=== PATIENT | male | born 1950 | race Two or more races ===

== ENCOUNTER → 2020-06-12 14:38 | Outpatient (BNVA) | payer MEDICARE, MEDICAID, SELFPAY | PROVIDERS: PCP Internal Medicine; Referring Provider Internal Medicine; Visit Provider Internal Medicine Cardiovascular Disease | DX: R42 Dizziness and giddiness (principal); I73.9 Peripheral vascular disease, unspecified; I25.10 Atherosclerotic heart disease of native coronary artery without angina pectoris; Z86.73 Personal history of transient ischemic attack (TIA), and cerebral infarction without residual deficits; I25.2 Old myocardial infarction; Z79.82 Long term (current) use of aspirin; Z79.899 Other long term (current) drug therapy | CPT/HCPCS: 99204 ==

== ENCOUNTER 2020-06-26 10:01 | Outpatient (REF) | payer MEDICARE, SELFPAY ==
--- NOTE | 2020-06-26 | US_ITS ---
EXAMINATION: COLOR-FLOW DUPLEX IMAGING OF THE BILATERAL LOWER EXTREMITY ARTERIAL SYSTEM. VELOCITY MEASUREMENTS THROUGHOUT THE FEMORAL ARTERIES WITH ANKLE-BRACHIAL PERIPHERAL ARTERIAL TESTING. Interventional Radiologist: Jesus Brooks M.D., F.S.I.R., F.A.C.R. CLINICAL INFORMATION: This is a 70-year-old male with peripheral arterial disease. The patient status post extension of a left femoral-popliteal bypass graft. RIGHT FEMORAL RUNOFF VELOCITIES: The right common femoral artery measures 162 cm/s and biphasic. The right profunda femoral artery is 208 cm/s and is biphasic. Right proximal superficial femoral artery measures 184 cm/s and biphasic. Mid superficial femoral artery is 101 cm/s and biphasic. Distal right superficial femoral artery measures 98 cm/s and is biphasic. Right popliteal velocity measures 89 cm/s and is biphasic. The posterior tibial artery velocity measures 23 cm/s and was biphasic. The right ankle-brachial index measures 1.18. LEFT FEMORAL RUNOFF VELOCITIES: The left common femoral artery measures 247 cm/s and triphasic. The left profunda femoral artery is 233 cm/s and is biphasic. Left proximal superficial femoral artery measures 424 cm/s and triphasic. Mid superficial femoral artery is occluded Distal left superficial femoral artery is occluded Left popliteal artery is occluded. The posterior tibial artery velocity measures 27 cm/s and was monophasic. The left peroneal artery appears to be occluded. The left ankle-brachial index measures 1.18. The patient is status post excision of a left femoral-popliteal bypass graft. There is a linear fluid collection which tracks beneath the scar where the graft was located. This collection was not measured. It is small in overall diameter. Atherosclerotic plaque is seen throughout the arteries bilaterally. US/US arterial duplex LE BI IMPRESSION: 1. The ankle-brachial indices appear normal bilaterally. 2. There are elevated velocities in the left common femoral artery and proximal superficial femoral artery and profunda femoral artery. This is consistent with hemodynamically significant high-grade stenoses in the proximal inflow. 3. There is likely hemodynamically significant stenosis in the right profunda femoral artery. There may be a developing hemodynamically significant stenosis in the proximal right superficial femoral artery. 4. The patient is status post excision of a left femoral-popliteal bypass graft. There is a linear fluid collection which tracks beneath the scar where the graft was located. This collection was not measured. It is small in overall diameter.
== END 2020-06-26 10:02 | disposition home or self-care (01) ==
LOC: HO.US 10:01
PROVIDERS: Visit Provider Surgery Vascular Surgery
DX: I73.9 Peripheral vascular disease, unspecified (principal)
CPT/HCPCS: 93923; 93925

== ENCOUNTER 2020-06-27 21:36 | Emergency (ER) | payer MEDICARE, SELFPAY ==
[2020-06-27 21:45] VITALS: BP 133/54; PULSE 54; RESP 15; TEMP 37.6; O2SAT 97; BMI 26.6
--- NOTE | 2020-06-27 22:45 | ED.BACK ---
HPI - Back Pain/Injury General Chief Complaint: Back Pain/Injury Stated Complaint: LOWER BACK PAIN S/P FALL Time Seen by Provider: 06/27/20 22:12 Source: patient and paraprofessional interpreter Mode of arrival: EMS Limitations: physical limitation History of Present Illness HPI Narrative: this is a 70-year-old male presents with persistent lower back pain that he states was exacerbated when he slipped off of the edge of the bed this morning landing on his bottom. He denies any hit to the head or loss of consciousness but states that thereafter he was unable to ambulate with his walker like he normally does and laid in bed all day. He states he lives with his daughter and denies any symptoms of urinary pain/ burning /frequency or incontinence, fevers, chills, dizziness, and denies any numbness / tingling into his lower extremities but states that he has significant weakness which requires him to use a walker. Related Data Home Medications Medication Instructions Recorded Confirmed aspirin 81 mg tablet,delayed 81 mg PO DAILY 06/12/20 06/27/20 release atorvastatin 20 mg tablet 20 mg PO DAILY 06/12/20 06/27/20 clopidogrel 75 mg tablet 75 mg PO DAILY 06/12/20 06/27/20 gabapentin 300 mg capsule 300 mg PO TID 06/12/20 06/27/20 insulin glargine 100 unit/mL (3 See Rx Instructions SUBCUT DAILY 06/12/20 06/27/20 mL) subcutaneous pen ml ipratropium 20 mcg-albuterol 100 1 puff INHALATION Q4H 06/12/20 06/27/20 mcg/actuation mist for inhalation meclizine 25 mg tablet 25 mg PO DAILY 06/12/20 06/27/20 metformin 500 mg tablet 500 mg PO BID 06/12/20 06/27/20 omeprazole 10 mg capsule,delayed 10 mg PO DAILY 06/12/20 06/27/20 release ondansetron HCl 8 mg tablet 8 mg PO Q8H 06/12/20 06/27/20 Allergies Allergy/AdvReac Type Severity Reaction Status Date / Time No Known Allergies Allergy Verified 06/27/20 21:59 [No Known Allergies*] Review of Systems Review of Systems: Pertinent positives and negatives as stated in HPI 10 point review of systems otherwise negative. PMFSH Past Medical History Source: nursing notes reviewed Medical History CVA (cerebral vascular accident) Diabetes Dizziness Infection of vascular bypass graft Myocardial infarct, old PVD (peripheral vascular disease) Surgical History History of cardiac catheterization History of femoropopliteal bypass Family History Family History Father Diabetes Mother Diabetes Depression Alzheimer disease Social History Social History Alcohol intake: never Smoking Status: Never smoker Tobacco Type: Cigarette Use of substances other than those prescribed or required for medical reasons: No Advance Directives: No Advance Directives Information Provided: Yes Physical Exam Vital Signs: Vital Signs: Vital Signs Temp Pulse Resp BP Pulse Ox 06/28/20 06:00 52 15 119/57 L 94 06/28/20 04:00 60 15 131/56 L 98 06/28/20 02:00 84 15 134/82 96 06/28/20 00:00 57 15 153/55 H 98 06/27/20 22:54 99.6 F 54 15 133/54 L 97 06/27/20 21:45 99.6 F 54 15 133/54 L 97 Body Mass Index 26.6 VITAL SIGNS: Reviewed. GENERAL: Well developed, well nourished, in no acute distress. HEAD: Normocephalic/atraumatic, EYES: PERRLA, EOMI intact without pain, no nystagmus/pallor/icterus noted EARS: Ext canals without abnormality, TMs non-bulging and non-erythematous NOSE: Nares patent bilateral OROPHARYNX: no oral lesions noted, posterior pharynx clear and non-erythematous without noted tonsillar enlargement/erythema/exudates NECK: Supple, no adenopathy LUNGS: Normal breath sounds. No adventitious sounds or accessory muscle use. SpO2<97%> CARDIOVASCULAR: Regular rate and rhythm without noted murmurs, no JVD or lower extremity edema. ABDOMEN: Soft, non-tender, non-distended with bowel sounds. No rigidity. No guarding. No palpable masses or hernias noted MUSCULOSKELETAL: No tenderness, deformities, or effusions noted on gross inspection. BACK: No appreciated muscle spasm, no midline vertebral tenderness EXTREMITIES: No cyanosis, clubbing or edema. SKIN: Inspection of the skin reveals no rashes, ulcerations, jaundice, pallor, or petechiae. NEUROLOGIC: Alert and oriented x 4. Strength 4/5 on left lower extremity and 5/5 on right lower extremity with sensation to light touch were grossly intact x 4. Course Course Course Narrative: This is a 70-year-old male with history and clinical presentation suggestive of possible acute on chronic back pain and on review of documentation is noted to be status post vertebroplasty with significant lumbar chronic changes when evaluated with CT scan here in this emergency department. On review of lab work there are no acute changes when compared to prior and there is no evidence of UTI. With an attempt to ambulate the patient at bedside there was concern regarding his ability to remain stable despite not having his walker. An attempt was made to reach out to his family, specifically his daughter who is listed as his SOLUTIONS ARCHITECT CONSULTANT, however we were unable to contact them. The decision was made to have this patient evaluated by Physical therapy as well as Case Management in the morning for possible increase in in-home services versus possible placement, but this will require a discussion with the family as well. MDM - Back Pain/Injury Lab Data Result diagrams: 06/27/20 23:53 06/27/20 23:53 Labs: Lab Results 06/27/20 06/27/20 06/27/20 Range/Units 23:53 23:53 23:53 WBC 4.1 L (4.8-10.8) X10*3/uL RBC 4.01 L (4.60-5.80) X10*6/uL Hgb 11.2 L (14.0-18.0) g/dl Hct 34.5 L (42-52) % MCV 86.0 (80-98) fL MCH 27.9 (27.0-33.0) pg MCHC 32.5 (31.0-36.0) g/dl RDW 14.0 (11.0-16.0) % Plt Count 170 (160-400) X10*3/uL MPV 11.7 (9.4-12.4) fL Immature Gran % (Auto) 0.2 (0.0-0.4) % Neut % (Auto) 58.2 (45-73) % Lymph % (Auto) 27.7 (20-40) % [place] % (Auto) 13.0 H (2-11) % Eos % (Auto) 0.2 (0-4) % Baso % (Auto) 0.7 (0-2) % Lymph # (Auto) 1.1 L (1.2-4.9) X10*3/uL [place] # (Auto) 0.5 (0.1-1.2) X10*3/uL Eos # (Auto) 0.0 (0.0-0.4) X10*3/uL Baso # (Auto) 0.0 (0.0-0.2) X10*3/uL Abs Immat Gran (auto) 0.01 (0.00-0.03) X10*3/uL Absolute Neuts (auto) 2.4 (2.0-8.3) X10*3/uL Absolute Nucleated RBC 0.000 (0.0-0.012) X10*3/uL Nucleated RBC % (auto) 0.0 (0.0-0.2) /100WBC Sodium 140 (135-145) mmol/L Potassium 4.1 (3.3-5.1) mmol/l Chloride 105 (96-108) mmol/L Carbon Dioxide 28 (22-29) mmol/L Anion Gap 11 L (12-20) BUN 21 H (9-16) mg/dL Creatinine 1.10 (0.5-1.4) mg/dL Estim Creat Clear Calc 55.1 Estimated GFR > 60 Random Glucose 100 (60-115) mg/dL Calcium 8.9 (8.4-10.2) mg/dL Total Bilirubin 0.4 (0.0-1.0) mg/dL AST 28 (5-37) U/L ALT 22 (0-40) U/L Alkaline Phosphatase 115 (39-117) U/L Total Protein 7.4 (6.5-8.0) g/dL Albumin 4.1 (3.5-5.0) g/dL Urine Color YELLOW Urine Appearance CLEAR Urine pH 6.0 (5.0-8.0) Ur Specific [place] 1.020 (1.005-1.025) Urine Protein NEG (NEG-TRACE) MG/DL Urine Glucose (UA) NEG (NEG) MG/DL Urine Ketones NEG (NEG) MG/DL Urine Blood NEG (NEG) Urine Nitrite NEG (NEG) Ur Leukocyte Esterase NEG (NEG) Discharge Plan Discharge Patient Disposition: Home, Self-Care Prescriptions: No Action clopidogrel [Plavix] 75 mg tablet 75 mg PO DAILY RF: 0 atorvastatin [Lipitor] 20 mg tablet 20 mg PO DAILY RF: 0 aspirin [Adult Low Dose Aspirin] 81 mg tablet,delayed release (DR/EC) 81 mg PO DAILY RF: 0 gabapentin 300 mg capsule 300 mg PO TID RF: 0 Lantus Solostar U-100 Insulin 100 unit/mL (3 mL) insulin pen See Rx Instructions subcut DAILY RF: 0 Combivent Respimat 20-100 mcg/actuation mist 1 puff inhalation Q4H RF: 0 metformin 500 mg tablet 500 mg PO BID RF: 0 omeprazole 10 mg capsule,delayed release(DR/EC) 10 mg PO DAILY RF: 0 ondansetron HCl 8 mg tablet 8 mg PO Q8H RF: 0 meclizine 25 mg tablet 25 mg PO DAILY RF: 0
[2020-06-27] MEDS: Lidocaine 4 % Patch ADH..PATCH 1 PATCH TRANSDERMA (22:53)
[2020-06-27] MEDS: Acetaminophen 325 MG TABLET 975 MG PO (22:53)
[2020-06-27 22:54] VITALS: BP 133/54; PULSE 54; RESP 15; TEMP 37.6; O2SAT 97
[2020-06-28] VITALS (8 sets, daily range): BP systolic 109–153; BP diastolic 55–82; PULSE 50–84; RESP 15–18; TEMP 36.4–36.6; O2SAT 94–100
[2020-06-28 00:10] LABS: MANUAL DIFF FLAG NO
[2020-06-28 00:11] LABS: Basophils Percent Auto 0.7 % (0-2); Eosinophils Percent Auto 0.2 % (0-4); Hematocrit 34.5 % (42-52); Hemoglobin 11.2 g/dl (14.0-18.0); Imm Gran Abs Auto 0.01 X10*3/uL (0.00-0.03); Imm Gran Pct Auto 0.2 % (0.0-0.4); Lymphocytes Absolute Auto 1.1 X10*3/uL (1.2-4.9); Lymphocytes Percent Auto 27.7 % (20-40); Mean Corpuscular HGB Conc 32.5 g/dl (31.0-36.0); Mean Corpuscular Hemoglobin 27.9 pg (27.0-33.0); Mean Platelet Volume 11.7 fL (9.4-12.4); Monocytes Absolute Auto 0.5 X10*3/uL (0.1-1.2); Neutrophils Absolute Auto 2.4 X10*3/uL (2.0-8.3); Neutrophils Percent Auto 58.2 % (45-73); Platelet Count 170 X10*3/uL (160-400); Red Blood Count 4.01 X10*6/uL (4.60-5.80); White Blood Count 4.1 X10*3/uL (4.8-10.8)
[2020-06-28 00:14] LABS: Glucose Urine UA NEG (NEG); Leukocyte Esterase Urine NEG (NEG); Nitrite Urine NEG (NEG); Urine Blood NEG (NEG); Urine Ketones NEG (NEG); Urine Protein NEG (NEG-TRACE)
[2020-06-28 00:19] LABS: Appearance Urine CLEAR; Color Urine YELLOW
[2020-06-28 00:40] LABS: Alanine Aminotransferase 22 U/L (0-40); Albumin Level 4.1 g/dL (3.5-5.0); Alkaline Phosphatase 115 U/L (39-117); Anion Gap 11 (12-20); Aspartate Amino Transferase 28 U/L (5-37); Bilirubin Total 0.4 mg/dL (0.0-1.0); Blood Urea Nitrogen 21 mg/dL (9-16); Calcium 8.9 mg/dL (8.4-10.2); Carbon Dioxide 28 mmol/L (22-29); Chloride 105 mmol/L (96-108); Creatinine Clr Calc Pharmacy 55.1; Estimated Glomerular Filt Rate > 60; Glucose Random 100 mg/dL (60-115); Potassium 4.1 mmol/l (3.3-5.1); Sodium 140 mmol/L (135-145); Total Protein 7.4 g/dL (6.5-8.0)
--- NOTE | 2020-06-28 01:37 | PC.NURSE ---
Dr Jacobson wanted patient's family contacted to see if family wanted patient placed in a snf for rehab as patient was weak. Prize Jacker called the emergency contact 2 x and left a message.
--- NOTE | 2020-06-28 01:56 | CT_ITS ---
EXAMINATION: CT LUMBAR SPINE WITHOUT CONTRAST CLINICAL INFORMATION: Gait instability and lower back pain, history of vertebroplasty COMPARISON: 02/24/2020 TECHNIQUE: No intravenous contrast was utilized. Multidetector helical imaging was performed through the lumbar spine. Coronal and sagittal reformatted images were created. This CT examination was performed using dose optimization techniques as appropriate, variously including the following: *Automated exposure control *Adjustment of mA and/or kV according to patient size (this includes techniques or standardized protocols for targeted exams where dose is matched to indication/reason for exam; i.e. extremities or head) *Use of iterative reconstruction technique DLP; 489 mGy-cm FINDINGS: Vertebroplasty cement is present in the L1 vertebral body, and there is mild loss of vertebral body height which appears similar to slightly worsened from 02/24/2020. Remaining lumbar vertebral body heights are maintained. Intervertebral disc spaces are relatively well-preserved. Endplate osteophytes are present, most prominently at L4 and L5. No acute fracture is seen. No significant central stenosis is identified, though assessment for this is suboptimal on CT compared to MRI. Sacroiliac joints are intact. There is atherosclerotic calcification along the aorta and iliac arteries. CT/CT lumbar spine wo con IMPRESSION: Status post L1 vertebroplasty with slight loss of height, similar to slightly progressed since 02/24/2020. Otherwise no acute findings identified.
--- NOTE | 2020-06-28 07:46 | PC.NURSE ---
pt ate 100% of breakfast tray.
--- NOTE | 2020-06-28 10:08 | PC.NURSE ---
Physical Therapist and staff medical billing and coding specialist at bedside.
--- NOTE | 2020-06-28 11:28 | MHC.CM.ED ---
Received referral for assessment of d/c needs: Pt resides with his dtr who is his DOCK PUMPER. He uses a walker at baseline and is [place] Speaking only. No clinical findings to support admission but PT eval supports STR stay. Pt is agreeable to referrals. Broad insurance based referrals placed: waiting for acceptance, insurance auth and a negative rapid COVID. CM to follow
--- NOTE | 2020-06-28 14:08 | MHC.CM.ED ---
Addendum entered by Zahida Barakat 06/28/20 16:01: [facility] has not obtained authorization for STR as of this entry: Rapid COVID is still pending: Call placed to pts daughter to update her potential need for pt to board in the ED until the above has been completed. Informed pt using interpreting services. Updated ED RN on above as well. Pt was tentativley booked for 5:30 to [facility] if insurance auth and COVID are completed. Original Note: Pt has been accepted to [facility] for STR pending a negative COVID and insurance authorization. Pt is in agreement with d/c plan: call placed to family per pt request
--- NOTE | 2020-06-28 16:32 | PC.NURSE ---
unable to obtain insurance authorization for [facility] placement. pt and daughter updated.
[2020-06-28 17:23] LABS: SARS COV2 PCR INHOUSE POSITIVE (Negative)
--- NOTE | 2020-06-28 17:35 | PC.NURSE ---
+ covmilagro, pt moved to approrpiate room, report given to victoriano lopez
--- NOTE | 2020-06-28 18:40 | PC.NURSE ---
[facility] IS UNABLE TO ACCOMADATE THIS PATIENT SINCE HE HAS A POSITIVE COVID
[2020-06-28] MEDS: Meclizine HCl 25 MG TABLET PO (18:53)
[2020-06-28] MEDS: metFORMIN HCl 500 MG TABLET PO (22:44)
[2020-06-28] MEDS: Gabapentin 300 MG CAPSULE PO (22:44)
--- NOTE | 2020-06-28 22:52 | PC.NURSE ---
Pt medicated with metformin and gabapentin per nov. Pt resting quietly at this time, offers no new complaints, resp reg and even. Awaiting SNF placement at this time.
[2020-06-29] VITALS (8 sets, daily range): BP systolic 108–125; BP diastolic 52–62; PULSE 52–77; RESP 14–19; TEMP 36.7–37.2; O2SAT 97–99
[2020-06-29] MEDS: Aspirin Enteric Coated 81 MG TABLET.DR PO (09:32)
[2020-06-29] MEDS: Atorvastatin Calcium 20 MG TABLET PO (09:32)
[2020-06-29] MEDS: Gabapentin 300 MG CAPSULE PO ×3 (09:32→21:50)
[2020-06-29] MEDS: Meclizine HCl 25 MG TABLET PO (09:32)
[2020-06-29] MEDS: metFORMIN HCl 500 MG TABLET PO ×2 (09:33→21:50)
[2020-06-29] MEDS: Clopidogrel Bisulfate 75 MG TABLET PO (09:33)
--- NOTE | 2020-06-29 09:38 | PC.NURSE ---
Pharmacy called to address combivent inhaler and will use formulary med instead. awaiting zofran and prilosec (not available in [facility]) Pt ate all of breakfast, accepted other am meds without incident, skin pwd. Pt alert/oriented. Salvad[place] speaking. Able to make needs known. Using bedside urinal.
--- NOTE | 2020-06-29 12:35 | PC.NURSE ---
patient alert to baseline, calm/compliant, vitals stable, emptied 400ml urine-clear/yellow in color, patient currently watching tv, will continue to monitor.
--- NOTE | 2020-06-29 13:00 | MHC.CM.PN ---
Patient is COVID positive, many STR denials. Referred to STR wh take COVID positive patients. CM will continue to follow patient for discharge needs.
--- NOTE | 2020-06-29 15:13 | PC.NURSE ---
patient alert to baseline, patient c/o pain in back, patient was adjusted in bed to his comfort, pt medicated with scheduled gabapentin, pt now watching tv, will continue to monitor.
--- NOTE | 2020-06-29 16:20 | PC.NURSE ---
pt sleeping, woke to verbal stimulus, vss, tv on, patient comfortable at this time, emptied 300ml of clear yellow urine from urinal, will continue to monitor.
--- NOTE | 2020-06-29 18:56 | PC.NURSE ---
patient alert to baseline, presently eating dinner and watching tv, vss, will continue to monitor.
--- NOTE | 2020-06-29 21:54 | PC.NURSE ---
patient alert to baseline, vss, pt watching baseball, pt medicated per order and given a snack per patient request, will work on obtaining a hospital bed for patient and continue to monitor.
--- NOTE | 2020-06-29 22:51 | PC.NURSE ---
patient changed over to hospital bed for increased comfort
--- NOTE | 2020-06-29 22:53 | PC.NURSE ---
report taken from meri lopez. pt changed over to hospital bed. pt did ambulate to bathroom with walker with steady gait, pt in nad, skin wpd. neuro intact.
[2020-06-30] VITALS (9 sets, daily range): BP systolic 111–142; BP diastolic 57–77; PULSE 55–59; RESP 14–18; TEMP 36.6–37.1; O2SAT 98–100
--- NOTE | 2020-06-30 03:01 | PC.NURSE ---
pt resting, equal and non labored rr. call light within reach. nad noted
--- NOTE | 2020-06-30 05:32 | PC.NURSE ---
PT REMAINS SLEEPING AT THIS TIME, NAD NOTED
[2020-06-30 06:39] LABS: Glucose, Whole Blood 130 mg/dL (60-115)
[2020-06-30] MEDS: Meclizine HCl 25 MG TABLET PO (08:16)
[2020-06-30] MEDS: Aspirin Enteric Coated 81 MG TABLET.DR PO (08:16)
[2020-06-30] MEDS: Clopidogrel Bisulfate 75 MG TABLET PO (08:16)
[2020-06-30] MEDS: Atorvastatin Calcium 20 MG TABLET PO (08:16)
[2020-06-30] MEDS: metFORMIN HCl 500 MG TABLET PO ×2 (08:16→21:20)
[2020-06-30] MEDS: Gabapentin 300 MG CAPSULE PO ×3 (08:16→21:20)
--- NOTE | 2020-06-30 08:18 | PC.NURSE ---
pt resting in the stretcher with eyes shut easily arousable, respirations even and unlabored. pt reports some chronic back pain ay 8 at this time. vs stable, pt medicated with morning meds. pt continuos on awating for sniff placment
[2020-06-30] MEDS: Omeprazole 20 MG CAPSULE.DR PO (09:22)
--- NOTE | 2020-06-30 09:23 | PC.NURSE ---
pt provided with his breakfast try
--- NOTE | 2020-06-30 11:28 | PC.NURSE ---
pt is currently sleeping, respirations even and unlabored, in no apparent distress at this time
--- NOTE | 2020-06-30 12:31 | PC.NURSE ---
pt resting watching tv, vs stable, in no apparent distress at this time
--- NOTE | 2020-06-30 15:37 | PC.NURSE ---
pt medicated with his afternoon medication, pt ate 100% of his lunch today, vs stable, in no apparent distress at this time
--- NOTE | 2020-06-30 18:46 | PC.NURSE ---
pt provided with dinner sandra, vs stable in no apparent distress at this time emptied the urianl for the second time today, full with 900ml of yellow urin both times
--- NOTE | 2020-06-30 20:06 | PC.NURSE ---
PT AWAKE AND ALERT, ATE 100% OF HIS DINNER.
--- NOTE | 2020-06-30 21:21 | PC.NURSE ---
patient alert to baseline, medicated with scheduled meds, will continue to monitor.
--- NOTE | 2020-07-01 00:09 | PC.NURSE ---
pt sleeping, wakes when he was checked on. asked patient if he was OK, and he replied yes.
--- NOTE | 2020-07-01 00:48 | PC.NURSE ---
PT SLEEPING WITH GOOD RESPIRATORY EFFORT AND RATE. PT DID NOT WAKE, WHEN RN WALKED INTO ROOM.
[2020-07-01 05:40] VITALS: BP 136/63; PULSE 63; RESP 16; O2SAT 96
--- NOTE | 2020-07-01 05:46 | PC.NURSE ---
pt wakes easily when entering room for vitals. pt pleasant, cooperative. pt's urinal enptied, 300 cc's urine. pt has right lower back pain radiating down right leg.
[2020-07-01] MEDS: Acetaminophen 325 MG TABLET 650 MG PO (06:05)
[2020-07-01 07:17] VITALS: BP 150/63; PULSE 63; RESP 16; TEMP 37.2; O2SAT 977
[2020-07-01 08:25] LABS: Glucose, Whole Blood 141 mg/dL (60-115)
--- NOTE | 2020-07-01 08:39 | MHC.CM.ED ---
PT ASSESSMENT PT MAY GO HOME WITH PT IN HOME. CALL FROM ESTUARDO, INTERPRETIVE NATURALIST, AT [facility] [phone], WITH CONCERNS ABOUT PT SAFELY GOING HOME SECONDARY TO HX OF MULTIPLE FALLS. PT POSITIVE COVID. FAMILY WILL BE TESTED TODAY. WILL REVIEW. [facility] WILLING TO ACCEPT PT. WILL FOLLOW FOR D/C NEEDS.
[2020-07-01 10:00] VITALS: BP 122/56; RESP 65; TEMP 36.9
[2020-07-01] MEDS: Gabapentin 300 MG CAPSULE PO (10:44)
[2020-07-01] MEDS: Omeprazole 20 MG CAPSULE.DR PO (10:44)
[2020-07-01] MEDS: Aspirin Enteric Coated 81 MG TABLET.DR PO (10:44)
[2020-07-01] MEDS: metFORMIN HCl 500 MG TABLET PO (10:45)
[2020-07-01] MEDS: Atorvastatin Calcium 20 MG TABLET PO (10:45)
[2020-07-01] MEDS: Meclizine HCl 25 MG TABLET PO (10:45)
[2020-07-01] MEDS: Clopidogrel Bisulfate 75 MG TABLET PO (10:45)
--- NOTE | 2020-07-01 11:11 | MHC.CM.ED ---
[facility] is not able to accept positive Covid at this time. Referrral resent to [facility] and [facility] facilities. Continue to monitor for d/c needs.
[2020-07-01] MEDS: Albuterol/Iprat 2.5/0.5MG 3 ML AMPUL.NEB INHALE (11:37)
--- NOTE | 2020-07-01 11:54 | MHC.CM.ED ---
[facility]'t have a [facility] to offer. [facility] can offer a bed but needs out of network auth. They are attempting to obtain this now. T/w spoke with [facility] nurse case manager, Crystal via telephone at [phone] to provide above information. Continue to monitor for d/c needs.
[2020-07-01 12:00] VITALS: BP 135/59; PULSE 57; RESP 16
[2020-07-01 14:00] VITALS: BP 132/57; PULSE 59; RESP 17; TEMP 37.1
--- NOTE | 2020-07-01 15:30 | MHC.CM.ED ---
[facility] RECEIVED AUTHORIZATION FROM INSURANCE AND WILL ACCEPT PT. WILL BE TRANSPORTED VIA AMBULANCE SECONDARY TO POSITIVE COVID AT 1630. SANDRA SPOKE WITH DAUGHTER AND UPDATED HER WITH DISCHARGE PLAN. DR. LEY AND RN AWARE.
--- NOTE | 2020-07-01 17:05 | PC.NURSE ---
BEDSIDE REPORT TO EMS FOR TRANSPORT.
== END 2020-07-01 18:14 | disposition skilled nursing facility (03) ==
PROVIDERS: Physician Assistant; Emergency Provider Student in an Organized Health Care Education/Training Program; PCP Internal Medicine
DX: S39.92XA Unspecified injury of lower back, initial encounter (principal); M54.6 Pain in thoracic spine; R26.2 Difficulty in walking, not elsewhere classified; W06.XXXA Fall from bed, initial encounter; Y93.9 Activity, unspecified; Y92.003 Bedroom of unspecified non-institutional (private) residence as the place of occurrence of the external cause; Z20.828 Contact with and (suspected) exposure to other viral communicable diseases; Z79.899 Other long term (current) drug therapy
CPT/HCPCS: 36415; 72131; 80053; 81003; 82947; 85025; 87635; 97116; 97162; 99285

== ENCOUNTER → 2020-08-14 15:01 | Outpatient (BNVA) | payer MEDICARE, MEDICAID, SELFPAY | PROVIDERS: PCP Internal Medicine; Visit Provider Anesthesiology | DX: Z76.89 Persons encountering health services in other specified circumstances (principal) | CPT/HCPCS: 99202 ==

== ENCOUNTER → 2020-08-20 15:22 | Outpatient (BNVA) | payer MEDICARE, MEDICAID, SELFPAY | PROVIDERS: PCP Internal Medicine; Visit Provider Surgery Vascular Surgery | DX: I73.9 Peripheral vascular disease, unspecified (principal) | CPT/HCPCS: 99212 ==

== ENCOUNTER 2020-10-16 12:50 | Outpatient (REF) | payer MEDICARE, MEDICAID, SELFPAY ==
--- NOTE | ~2020-10-16 | US_ITS ---
EXAMINATION: COLOR-FLOW DUPLEX IMAGING OF THE BILATERAL LOWER EXTREMITY ARTERIAL SYSTEM. VELOCITY MEASUREMENTS THROUGHOUT THE FEMORAL ARTERIES WITH ANKLE-BRACHIAL PERIPHERAL ARTERIAL TESTING. Interventional Radiologist: Jesus Brooks M.D., F.S.I.R., F.A.C.R. CLINICAL INFORMATION: This is a 70-year-old male with peripheral arterial disease. The patient status post excision of a left femoral-popliteal bypass graft. Comparison is made to a previous study dated 06/26/2020. RIGHT FEMORAL RUNOFF VELOCITIES: The right common femoral artery measures 146 cm/s and biphasic. Previously, 162 cm/s and biphasic. The right profunda femoral artery is 87 cm/s and biphasic. Previously, 208 cm/s and is biphasic. Right proximal superficial femoral artery measures 97 cm/s and biphasic. Previously, 184 cm/s and biphasic. Mid superficial femoral artery is 116 cm/s and biphasic. Previously, 101 cm/s and biphasic. Distal right superficial femoral artery measures 92 cm/s and biphasic. Previously, 98 cm/s and is biphasic. Right popliteal velocity measures 94 cm/s and biphasic. Previously, 89 cm/s and is biphasic. The posterior tibial artery velocity measures 22 cm/s and biphasic. Previously, 23 cm/s and was biphasic. The right ankle-brachial index measures 0.99. Previously, 1.18. LEFT FEMORAL RUNOFF VELOCITIES: The left common femoral artery measures 177 cm/s and triphasic. Previously, 247 cm/s and triphasic. The left profunda femoral artery is 277 cm/s and triphasic. Previously, 233 cm/s and is biphasic. Left proximal superficial femoral artery measures 69 cm/s and monophasic. Previously, 424 cm/s and triphasic. Mid superficial femoral artery is occluded. Previously, occluded Distal left superficial femoral artery is occluded. Previously, Occluded Left popliteal artery is occluded. Previously, occluded. The posterior tibial artery velocity measures 43 cm/s and monophasic. Previously, 27 cm/s and was monophasic. The left ankle-brachial index measures 1.49. Previously, 1.18. The patient is status post excision of a left femoral-popliteal bypass graft. The previously demonstrated fluid collection is less evident on the current study. This appears to be resolving. There is still skin thickening evident. Atherosclerotic plaque is seen throughout the arteries bilaterally. US/US arterial duplex LE BI IMPRESSION: 1. The ankle-brachial indices appear normal bilaterally. 2. There are elevated velocities in the left profunda femoral artery. 3. The right leg study does not appear significant a change. 4. The patient is status post excision of a left femoral-popliteal bypass graft. The left leg fluid collection is less pronounced on the current study.
== END 2020-10-16 12:51 | disposition home or self-care (01) ==
LOC: HO.US 12:50
PROVIDERS: Visit Provider Surgery Vascular Surgery
DX: I73.9 Peripheral vascular disease, unspecified (principal)
CPT/HCPCS: 93923; 93925

== ENCOUNTER → 2021-03-06 15:40 | Outpatient (BNVA) | payer MEDICARE, MEDICAID, SELFPAY | PROVIDERS: PCP Internal Medicine; Visit Provider Anesthesiology | DX: M46.1 Sacroiliitis, not elsewhere classified (principal); M54.16 Radiculopathy, lumbar region; I25.10 Atherosclerotic heart disease of native coronary artery without angina pectoris; I10 Essential (primary) hypertension; I69.954 Hemiplegia and hemiparesis following unspecified cerebrovascular disease affecting left non-dominant side; I25.2 Old myocardial infarction; C18.9 Malignant neoplasm of colon, unspecified; E11.9 Type 2 diabetes mellitus without complications; J44.9 Chronic obstructive pulmonary disease, unspecified; M10.9 Gout, unspecified; Z98.890 Other specified postprocedural states | CPT/HCPCS: 99212 ==

== ENCOUNTER 2021-03-11 10:01 | Outpatient (REF) | payer MEDICARE, MEDICAID, SELFPAY ==
--- NOTE | ~2021-03-11 | US_ITS ---
EXAMINATION: NONINVASIVE ASSESSMENT OF THE ARTERIES OF BOTH LOWER EXTREMITIES WITH ANKLE PRESSURE MEASUREMENTS, ANKLE BRACHIAL INDICES, PVR MEASUREMENTS AND BILATERAL LOWER EXTREMITY DUPLEX. CLINICAL INFORMATION: Peripheral arterial disease. TECHNIQUE: Ankle pressure measurements, ankle brachial indices and PVR tracings were obtained of the lower extremity arterial system bilaterally. In addition, duplex Doppler techniques with wave form analysis and measurement of velocities in the common femoral, profunda femoral, superficial femoral, popliteal and tibial arteries was performed. The study was performed only at rest. COMPARISON: 06/26/2020, 01/24/2020 FINDINGS: NONINVASIVE ASSESSMENT OF THE ARTERIES OF BOTH LOWER EXTREMITIES WITH ABIs: Right Leg: Right ankle-brachial index: 0.88 (previously 1.18 on 06/26/2020) PVR (ankle): Moderately dampened. Left Leg: Ankle-brachial index: Unable to be obtained. PVR (ankle): Severely dampened. BILATERAL LOWER EXTREMITY DUPLEX ULTRASOUND: Right Leg: Common femoral artery: 172 cm/s, Diastolic flow reversal: Yes Profunda femoris artery: 194 cm/s, Diastolic flow reversal: Yes Superficial femoral artery (proximal): 183 cm/s, Diastolic flow reversal: Yes Superficial femoral artery (mid): 174 cm/s, Diastolic flow reversal: Yes Superficial femoral artery (distal): 121 cm/s, Diastolic flow reversal: Yes Popliteal artery: 70.4 cm/s, Diastolic flow reversal: Yes Posterior tibial artery: 90.3 cm/s, Diastolic flow reversal: Yes Left Leg: Common femoral artery: 160 cm/s, Diastolic flow reversal: Yes Profunda femoris artery: 359 cm/s, Diastolic flow reversal: Yes Superficial femoral artery (proximal): 147 cm/s, Diastolic flow reversal: No Superficial femoral artery (mid): Occluded Superficial femoral artery (distal): Occluded Popliteal artery: Occluded Posterior tibial artery: 29.5 cm/s, Diastolic flow reversal: No Peroneal: 12.2 cm/s, Diastolic flow reversal: No ADDITIONAL: Subcutaneous architectural distortion and trace subcutaneous fluid seen in the area of previous bypass graft excision. US/US arterial duplex LE BI IMPRESSION: Right Leg: PAOLA is 0.88 consistent with mild peripheral arterial insufficiency. Duplex exam demonstrates elevated velocities within the common femoral, profunda femoris and superficial femoral artery consistent with multifocal, mild hemodynamically significant stenoses. Left Leg: PAOLA unable to be obtained. 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 There is markedly elevated velocity within the proximal profunda femoris artery consistent with a severe hemodynamically significant stenosis. Flow within the posterior tibial artery and peroneal is monophasic. PAOLA Reference: - >0.97-1.25 = normal - no significant arterial disease - 0.75-0.96 = mild peripheral arterial disease - 0.5-0.74 = moderate peripheral arterial disease - <0.50 = severe peripheral arterial disease
== END 2021-03-11 10:02 | disposition home or self-care (01) ==
LOC: HO.US 10:01
PROVIDERS: Visit Provider Surgery Vascular Surgery
DX: I70.213 Atherosclerosis of native arteries of extremities with intermittent claudication, bilateral legs (principal)
CPT/HCPCS: 93923; 93925

== ENCOUNTER → 2021-03-13 15:26 | Outpatient (BNVA) | payer MEDICARE, MEDICAID, SELFPAY | PROVIDERS: PCP Internal Medicine; Visit Provider Surgery Vascular Surgery | DX: I73.9 Peripheral vascular disease, unspecified (principal); I25.2 Old myocardial infarction; E11.9 Type 2 diabetes mellitus without complications; Z98.890 Other specified postprocedural states | CPT/HCPCS: 99212 ==

== ENCOUNTER 2021-04-29 07:54 | Outpatient (REF) | payer MEDICARE, MEDICAID, SELFPAY ==
--- NOTE | ~2021-04-29 | FL_ITS ---
EXAMINATION: XR FLUOROSCOPY WITH IMAGES CLINICAL INFORMATION: M46.1 - Sacroiliitis, not elsewhere classified COMPARISON: CT lumbar spine 06/28/2020 TECHNIQUE: Fluoroscopy performed by Dr. Richard Bill. Fluoroscopy time: 0.1 minutes DAP: 1.52 Gycm2 Images: 1 FINDINGS: There is a spinal needle overlying lower left SI joint. There is contrast seen in the soft tissues and likely early intra-articular contrast. No vascular communication. FL/FL guidance in treatment room IMPRESSION: Fluoroscopy for pain management procedure.
== END 2021-04-29 07:55 | disposition home or self-care (01) ==
LOC: HO.RADIR 07:54
PROVIDERS: Visit Provider Anesthesiology
DX: M46.1 Sacroiliitis, not elsewhere classified (principal); M54.16 Radiculopathy, lumbar region
CPT/HCPCS: 27096; J3300; Q9967

== ENCOUNTER → 2021-06-02 15:22 | Outpatient (BNVA) | payer MEDICARE, MEDICAID, SELFPAY | PROVIDERS: PCP Internal Medicine; Referring Provider Internal Medicine; Visit Provider Internal Medicine Cardiovascular Disease | DX: I73.9 Peripheral vascular disease, unspecified (principal); R42 Dizziness and giddiness | CPT/HCPCS: 99212 ==

== ENCOUNTER → 2021-06-04 15:35 | Outpatient (BNVA) | payer MEDICARE, MEDICAID, SELFPAY | PROVIDERS: PCP Internal Medicine; Visit Provider Anesthesiology | DX: M46.1 Sacroiliitis, not elsewhere classified (principal); M54.16 Radiculopathy, lumbar region; I73.9 Peripheral vascular disease, unspecified; E11.9 Type 2 diabetes mellitus without complications | CPT/HCPCS: 99212 ==

== ENCOUNTER 2021-09-09 14:03 | Outpatient (REF) | payer MEDICARE, MEDICAID, SELFPAY ==
--- NOTE | ~2021-09-09 | US_ITS ---
EXAMINATION: ANKLE-BRACHIAL INDICES SINGLE LEVEL PULSE VOLUME RECORDING ARTERIAL DUPLEX BILATERAL LEGS CLINICAL INFORMATION: Peripheral vascular disease. Status post left bypass graft excisions. COMPARISON: None TECHNIQUE: Ankle-brachial indices and PVR at the ankle were obtained. Duplex Doppler of the bilateral lower extremity arterial systems was performed. FINDINGS: RIGHT: Ankle-brachial index: 0.96 PVR: Mildly abnormal Common femoral: PSV 245 cm/s. Biphasic waveform. Deep femoral: PSV 202 cm/s. Biphasic waveform. Proximal superficial femoral: PSV 163 cm/s. Biphasic waveform. Mid superficial femoral: PSV 135 cm/s. Biphasic waveform. Distal superficial femoral: PSV 86 cm/s. Biphasic waveform. Popliteal: PSV 158 cm/s. Biphasic waveform. Posterior tibial artery: PSV 45 cm/s. Biphasic waveform. LEFT: Ankle-brachial index: Not obtainable PVR: Moderately abnormal Common femoral: PSV 205 cm/s. Biphasic waveform. Deep femoral: PSV 382 cm/s. Biphasic waveform. Proximal superficial femoral: PSV 96 cm/s. Monophasic waveform. Mid superficial femoral: Occluded. Distal superficial femoral: Occluded. Popliteal: Occluded. Posterior tibial artery: PSV 17 cm/s. Monophasic waveform. US/US arterial duplex LE BI IMPRESSION: Right lower extremity: The PAOLA 0.96. Mildly abnormal PVR. Mild diffuse peripheral vascular disease throughout the extremity. Left lower extremity: The PAOLA is not calculable (the posterior tibial pressure is greater than 200 which indicates a noncompressible vessel). Moderately abnormal PVR. 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 Monophasic posterior tibial waveform. Overall, no significant change from the previous study.
--- NOTE | ~2021-09-09 | US_ITS ---
EXAMINATION: ANKLE-BRACHIAL INDICES SINGLE LEVEL PULSE VOLUME RECORDING ARTERIAL DUPLEX BILATERAL LEGS CLINICAL INFORMATION: Peripheral vascular disease. Status post left bypass graft excisions. COMPARISON: None TECHNIQUE: Ankle-brachial indices and PVR at the ankle were obtained. Duplex Doppler of the bilateral lower extremity arterial systems was performed. FINDINGS: RIGHT: Ankle-brachial index: 0.96 PVR: Mildly abnormal Common femoral: PSV 245 cm/s. Biphasic waveform. Deep femoral: PSV 202 cm/s. Biphasic waveform. Proximal superficial femoral: PSV 163 cm/s. Biphasic waveform. Mid superficial femoral: PSV 135 cm/s. Biphasic waveform. Distal superficial femoral: PSV 86 cm/s. Biphasic waveform. Popliteal: PSV 158 cm/s. Biphasic waveform. Posterior tibial artery: PSV 45 cm/s. Biphasic waveform. LEFT: Ankle-brachial index: Not obtainable PVR: Moderately abnormal Common femoral: PSV 205 cm/s. Biphasic waveform. Deep femoral: PSV 382 cm/s. Biphasic waveform. Proximal superficial femoral: PSV 96 cm/s. Monophasic waveform. Mid superficial femoral: Occluded. Distal superficial femoral: Occluded. Popliteal: Occluded. Posterior tibial artery: PSV 17 cm/s. Monophasic waveform. US/US PAOLA complete IMPRESSION: Right lower extremity: The PAOLA 0.96. Mildly abnormal PVR. Mild diffuse peripheral vascular disease throughout the extremity. Left lower extremity: The PAOLA is not calculable (the posterior tibial pressure is greater than 200 which indicates a noncompressible vessel). Moderately abnormal PVR. 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 Monophasic posterior tibial waveform. Overall, no significant change from the previous study.
== END 2021-09-09 14:04 | disposition home or self-care (01) ==
LOC: HO.US 14:03
PROVIDERS: PCP Internal Medicine; Visit Provider Surgery Vascular Surgery
DX: I73.9 Peripheral vascular disease, unspecified (principal)
CPT/HCPCS: 93923; 93925

== ENCOUNTER → 2021-09-11 15:39 | Outpatient (BNVA) | payer MEDICARE, MEDICAID, SELFPAY | PROVIDERS: PCP Internal Medicine; Visit Provider Surgery Vascular Surgery | DX: I73.9 Peripheral vascular disease, unspecified (principal) | CPT/HCPCS: 99212 ==

== ENCOUNTER → 2021-09-15 11:11 | Outpatient (REF) | payer MEDICARE, MEDICAID, SELFPAY ==
--- NOTE | 2021-09-15 11:16 | HM_ITS ---
Conclusion: 1. Patient was monitored for 2 days and 21 hours. 2. Baseline rhythm was normal sinus rhythm with average heart rate of 56 beats per minute with peak heart rate of 78 beats per minute 3. No significant pauses noted 4. Very rare ectopy noted 5. No patient reported events MTDD
== END ==
LOC: HO.CARD 11:11
PROVIDERS: PCP Internal Medicine; Visit Provider Nurse Practitioner Family
DX: R55 Syncope and collapse (principal); R42 Dizziness and giddiness
CPT/HCPCS: 93242

== ENCOUNTER → 2021-10-14 13:42 | Outpatient (BNVA) | payer MEDICARE, MEDICAID, SELFPAY | PROVIDERS: PCP Internal Medicine; Referring Provider Internal Medicine; Visit Provider Nurse Practitioner Family | DX: R55 Syncope and collapse (principal); R42 Dizziness and giddiness; I25.10 Atherosclerotic heart disease of native coronary artery without angina pectoris; Z79.82 Long term (current) use of aspirin; Z79.899 Other long term (current) drug therapy | CPT/HCPCS: 93005; 99212 ==

== ENCOUNTER → 2021-11-05 10:56 | Outpatient (REF) | payer MEDICARE, MEDICAID, SELFPAY ==
--- NOTE | 2021-11-05 11:00 | HM_ITS ---
Conclusion: 1. Patient was monitored for total period of 3 days and 6 hours 2. Baseline rhythm is normal sinus rhythm with average heart rate of 54 beats per minute with frequent sinus bradycardia 3. 1 4 beat run of nonsustained VT 4. Total of 296 PACs accounting for 0.12% accounting for occasional PACs 5. No patient reported events MTDD
== END ==
LOC: HO.CARD 10:56
PROVIDERS: PCP Internal Medicine; Visit Provider Nurse Practitioner Family
DX: R55 Syncope and collapse (principal)
CPT/HCPCS: 93242

== ENCOUNTER 2021-11-21 09:37 | Emergency (ER) | payer MEDICARE, MEDICAID, SELFPAY ==
--- NOTE | ~2021-11-21 | CT_ITS ---
EXAMINATION: CT angio head neck CLINICAL INFORMATION: History of stroke. Neck pain and left lower extremity weakness. COMPARISON: CT scan of the head 04/27/2020. Brain MRI 01/20/2020. TECHNIQUE: Optical Mechanic Apprentice images were obtained. A CT angiogram of the head and neck was performed in the arterial phase after the intravenous administration of 50 mL Omnipaque 350. Pre and delayed postcontrast images of the head were also obtained. MIP reconstructions were generated in multiple orientations at the acquisition workstation. Multiple three-dimensional surface rendered images and maximum intensity projection images were generated on a dedicated 3-D lab workstation. Arterial stenoses are measured in accordance with NASCET criteria or similar method if applicable. This CT examination was performed using dose optimization techniques as appropriate, including one or more of the following: Automated exposure control, iterative reconstruction, and adjustment of technique factors (mA and/or kVp) according to patient size (this includes techniques or standardized protocols for targeted exams where dose is matched to indication/reason for exam). Total exam dose-length product 2524 mGy-cm FINDINGS: Head: There is gliosis and encephalomalacia involving the right parietal lobe consistent with chronic changes of an old infarct. Numerous foci of hypoattenuation are also visualized within the periventricular white matter. Roberson-white matter differentiation is otherwise preserved and there is no evidence of acute territorial infarct. Postcontrast images reveal no abnormal intracranial mass or enhancement. No intracranial mass effect or midline shift. Lateral and third ventricles are normal. No hydrocephalus. The calvarium and skull base are intact. Mastoid air cells and middle ear cavities are well aerated. No active paranasal sinus disease. Globes and orbits are symmetric. CT angiogram neck: Scattered atheromatous calcification involves the aortic arch apex. Origins of major aortic branches are widely patent. There is a small amount of eccentric lipid-laden atheromatous plaque along the anterior wall of the right common carotid artery resulting in no stenosis of the vessel. Partially calcified atheromatous plaque involves both carotid bifurcations. No stenosis of the extracranial internal carotid arteries. The cervical segments of the vertebral arteries as well as their origins are patent. CT angiogram head: Atheromatous calcification causes mild irregular narrowing of the cavernous segments of both internal carotid arteries. Intracranial internal carotid arteries are otherwise patent. Intradural vertebral artery segments and basilar artery are patent. Anterior, middle, and posterior cerebral artery complexes are normal. No intracranial large vessel occlusion. Other: Soft tissues of the neck including the thyroid gland are normal. There is no acute osseous finding. Specifically no worrisome lytic or blastic osseous lesion. 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 CT/CT angio head neck IMPRESSION: There is eccentric atheromatous plaque involving the anterior wall of the right common carotid artery and both carotid bifurcations. No stenosis of the cervical carotid or vertebral arteries. Atheromatous calcification causes mild irregular narrowing of the cavernous segments of both internal carotid arteries. Otherwise no intracranial large vessel occlusion. There are chronic changes of an old right parietal lobe infarct and scattered chronic small vessel ischemic changes within the periventricular white matter. Grossly no evidence of acute territorial infarct or hemorrhage. No abnormal intracranial mass or enhancement.
--- NOTE | ~2021-11-21 | US_ITS ---
EXAMINATION: US DUPLEX LOWER EXTREMITY ARTERY/GRAFT LIMITED, bilateral CLINICAL INFORMATION: Worsening lower extremity pain. History of clots COMPARISON: 09/09/2019 TECHNIQUE: Real-time ultrasound and Doppler techniques (integrating B-mode 2-D vascular images, Doppler spectral analysis and color flow Doppler imaging) were utilized to interrogate the lower extremities. FINDINGS: Right lower extremity: Common femoral artery: 172 cm/sec; multiphasic waveform Profunda artery: 192 cm/sec; multiphasic waveform Superficial femoral artery proximal: 176 cm/sec; multiphasic waveform Superficial femoral artery mid portion: 125 cm/sec; multiphasic waveform Superficial femoral artery distal: 210 cm/sec; multiphasic waveform Popliteal artery: 515 cm/sec; multiphasic waveform Posterior tibial artery: 62.7 cm/sec; multiphasic waveform Peroneal artery: 42.3 cm/sec; multiphasic waveform Left lower extremity: Common femoral artery: 284 cm/sec; multiphasic waveform Profunda artery: 220 cm/sec; multiphasic waveform Superficial femoral artery proximal: 120 cm/sec; monophasic waveform, eventually becoming occluded Superficial femoral artery mid portion: Occluded Superficial femoral artery distal: Occluded Popliteal artery: Occluded Posterior tibial artery: 30.8 cm/sec; monophasic waveform Peroneal artery: 9.47 cm/sec; monophasic waveform ADDITIONAL FINDINGS: Prominent but morphologically normal left inguinal lymph node. US/US arterial duplex LE IMPRESSION: Bilateral peripheral arterial disease. Moderate stenosis of the distal right superficial femoral artery, severe stenosis of the right popliteal artery. 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 Monophasic runoff vessels on the left due to proximal occlusion. Greater sensitivity and specificity can be obtained with pre-and post exercise PVRs with PAOLA calculations. Also consider dedicated CTA for further anatomical detail.
--- NOTE | ~2021-11-21 | US_ITS ---
EXAMINATION: US VENOUS ULTRASOUND WITH DOPPLER LOWER EXTREMITY, BILATERAL CLINICAL INFORMATION: Bilateral lower extremity pain. COMPARISON: None TECHNIQUE: Ultrasound of the deep veins is performed from the hip to the calf with compression sonography and color and pulse Doppler assessment. Spectral analysis with color-flow imaging is performed. FINDINGS: RIGHT: There is normal venous compression and respiratory variation and augmented flow. The visualized common femoral vein, superficial femoral vein, profunda femoral vein, popliteal vein, and the trifurcation region shows no evidence of deep venous thrombosis. There is no significant popliteal fossa cyst. LEFT: There is normal venous compression and respiratory variation and augmented flow. The visualized common femoral vein, superficial femoral vein, profunda femoral vein, popliteal vein, and the trifurcation region shows no evidence of deep venous thrombosis. There is no significant popliteal fossa cyst. There are small lymph nodes. The most prominent lymph node left inguinal region measures 3.1 x 0.8 x 2.7 seen. If the patient's symptoms persist, followup ultrasound in 5 days 7 days might be of value to exclude proximal propagation from a non-visualized calf vein. US/US venous duplex LE BI IMPRESSION: No DVT demonstrated in the bilateral lower extremity. Prominent left inguinal lymph node with a thickness of 0.8 cm.
--- NOTE | ~2021-11-21 | CT_ITS ---
EXAMINATION: CT LUMBAR SPINE WITHOUT CONTRAST CLINICAL INFORMATION: Worsening low back pain. COMPARISON: CT scan of the lumbar spine at 06/28/2020. TECHNIQUE: Commercial Credit Officer images were obtained. CT imaging of the lumbar spine was performed without contrast. Data was reformatted into multiplanar images at the acquisition workstation. This CT examination was performed using dose optimization techniques as appropriate, variously including the following: *Automated exposure control *Adjustment of mA and/or kV according to patient size (this includes techniques or standardized protocols for targeted exams where dose is matched to indication/reason for exam; i.e. extremities or head) *Use of iterative reconstruction technique DLP; 338 mGy-cm FINDINGS: There is a stable compression deformity of the L1 vertebral body with impaction of the upper endplate resulting in 35% vertebral body height loss centrally. There is no retropulsion of posterior cortex at this level. Chronic changes of and T11 and L1 vertebral augmentation. Vertebral heights are otherwise maintained at all levels. Intervertebral disc heights are preserved. There is abutment with associated sclerotic changes of the adjoining spinous processes at L4-L5 and to a lesser extent at L3-L4 indicating the possibility of underlying Baastrup disease. Canal patency is not well assessed on this examination due to inherent limitations of CT without intrathecal contrast. Grossly no evidence of canal compromise. There is partial effacement of perineural fat at L5-S1 with at least mild mass effect on both L5 foraminal nerve roots. Limited visualization of the retroperitoneal anatomy reveals scattered atheromatous caliber indications involving abdominal aorta. Psoas and paraspinal muscle groups are symmetric. CT/CT lumbar spine wo con IMPRESSION: No substantial change from prior imaging from 06/28/2020. There is a stable compression deformity of the L1 vertebral body. Chronic changes of a vertebral augmentation are visualized at T11 and L1. No evidence of acute fracture. Grossly no evidence of canal compromise. Bulging discs in conjunction with facet degenerative change at L5-S1 causes at least mild mass effect on both L5 foraminal nerve roots.
--- NOTE | ~2021-11-21 | XR_ITS ---
EXAMINATION: XR CHEST CLINICAL INFORMATION: Neck and shoulder pain. Weakness. COMPARISON: Chest 04/27/2020 TECHNIQUE: Frontal view of the chest was obtained. FINDINGS: The lungs are hypoexpanded and clear. There is increased pulmonary vascularity with borderline heart. No gross bony abnormality. XR/XR chest 1V IMPRESSION: Hypoexpanded lungs. Mild pulmonary vascular congestion. No acute pneumonic process seen.
[2021-11-21 09:45] VITALS: BP 124/74; BP 141/58; PULSE 53; PULSE 67; RESP 16; TEMP 37.1; O2SAT 100; BMI 28.4
--- NOTE | 2021-11-21 09:49 | ECG_ITS ---
Test Reason : weakness Blood Pressure : / mmHG Vent. Rate : 054 BPM Atrial Rate : 054 BPM P-R Int : 202 ms QRS Dur : 106 ms QT Int : 432 ms P-R-T Axes : 029 037 040 degrees QTc Int : 409 ms Sinus bradycardia Otherwise normal ECG When compared with ECG of 27-APR-2020 09:00, No significant changes seen Referred By: Deanna Devlin Electronically Signed By:MARAL ROLDAN
[2021-11-21 10:45] LABS: MANUAL DIFF FLAG NO
[2021-11-21 10:52] LABS: Basophils Percent Auto 0.5 % (0-2); Eosinophils Absolute Auto 0.2 X10*3/uL (0.0-0.4); Eosinophils Percent Auto 2.3 % (0-4); Hematocrit 34.7 % (42.0-52.0); Hemoglobin 11.7 g/dl (14.0-18.0); Imm Gran Abs Auto 0.02 X10*3/uL (0.00-0.03); Imm Gran Pct Auto 0.3 % (0.0-0.4); Lymphocytes Absolute Auto 1.7 X10*3/uL (1.2-4.9); Lymphocytes Percent Auto 25.6 % (20-40); Mean Corpuscular HGB Conc 33.7 g/dl (31.0-36.0); Mean Corpuscular Hemoglobin 28.8 pg (27.0-33.0); Mean Corpuscular Volume 85.5 fL (80.0-98.0); Mean Platelet Volume 11.7 fL (9.4-12.4); Monocytes Absolute Auto 0.8 X10*3/uL (0.1-1.2); Monocytes Percent Auto 12.3 % (2-11); Neutrophils Absolute Auto 3.9 x10*3/uL (2.0-8.3); Platelet Count 205 X10*3/uL (160-400); Prothrombin Time 11.9 SEC (9.9-13.0); Red Blood Count 4.06 X10*6/uL (4.60-5.80); Red Cell Distribution Width 13.2 % (11.0-16.0); White Blood Count 6.6 X10*3/uL (4.8-10.8)
[2021-11-21 11:02] LABS: Alanine Aminotransferase 15 U/L (0-40); Albumin Level 3.9 g/dL (3.5-5.0); Alkaline Phosphatase 103 U/L (39-117); Anion Gap 13 (12-20); Aspartate Amino Transferase 16 U/L (5-37); Bilirubin Total 0.6 mg/dL (0.0-1.0); Blood Urea Nitrogen 24 mg/dL (9-16); Calcium 9.2 mg/dL (8.4-10.2); Carbon Dioxide 24 mmol/L (22-29); Chloride 105 mmol/L (96-108); Creatinine Clr Calc Pharmacy 78.9; Estimated Glomerular Filt Rate > 60; Glucose Random 127 mg/dL (60-115); Potassium 4.6 mmol/L (3.3-5.1); Sodium 137 mmol/L (135-145); Total Protein 7.2 g/dL (6.5-8.0)
[2021-11-21 11:06] LABS: B Type Natriuretic Peptide 38 pg/mL (<100); Troponin-I High Sensitivity 4.5 ng/L (<3.5-35.0)
[2021-11-21] MEDS: iohexoL 350 MG/ML 100 ML INFUS..BTL IV (11:34)
[2021-11-21 12:07] VITALS: BP 160/71; PULSE 56; RESP 18; TEMP 36.8; O2SAT 100
--- NOTE | 2021-11-21 12:09 | PC.NURSE ---
pt states that BLE pain is better now after having taken gabapentin at home. U/S back in room for venous study. this rn unable to palpate diana pedal pulses but color, cap refill and sensation are all good.
[2021-11-21 12:22] LABS: COVID-19 Test Negative (Negative)
[2021-11-21 12:25] LABS: Influenza A Negative (Negative); Influenza B2 Negative (Negative)
--- NOTE | 2021-11-21 12:30 | ED.GENADULT ---
HPI - General Adult General Chief complaint: General Medical Stated complaint: general weakness Time Seen by Provider: 11/21/21 09:48 Source: patient and EMS Mode of arrival: EMS Limitations: language barrier ([place]-speaking and poor historian) History of Present Illness HPI narrative: 71-year-old male with a past medical history of CVA, diabetes, myocardial infarction s/p cardiac catheterization, PVD with a past surgical history of fem pop bypass in 2007 with prosthetic that was above the knee and it subsequently was infected and had been removed on 05/02/2020 who denies being on any blood thinners presenting to the ED with complaints of right-sided neck pain, bilateral shoulder pain and worsening bilateral knee pain/left lower extremity pain since yesterday morning when he woke up. He reports that he has baseline paresthesias to the left lower extremity that it is similar when compared to his baseline. Although he noticed that he has had a little bit more difficulty walking using the left lower extremity since yesterday morning. He normally walks with a walker. His walker is at home at this time not with him. He also reports back pain and he has a patch in place for his back pain. He denies any dizziness, headaches, neck stiffness, jaw pain, new or worsening paresthesias, chest pain or shortness of breath, dyspnea on exertion, orthopnea, palpitations, lower extremity edema or calf tenderness, rashes, recent falls or trauma, nausea/vomiting/diarrhea constipation, abdominal pain, urinary incontinence or retention, bowel incontinence or retention, IV drug use, fevers, dysuria, hematuria, abnormal penile discharge or any other symptoms complaints or concerns at this time. MD complaint: Multiple complaints. Onset (ago): day(s) (Since yesterday morning when he woke up around 08:00) Location: neck, back, left, right, upper extremity (Bilateral shoulders) and lower extremity (Bilateral knees) Radiation: non-radiation Severity: moderate Pain Consistency: constant Relieving factors: none Exacerbating factors: movement (Movement of the neck to the left, movement of bilateral shoulders, movement of his back and movement of bilateral knees) Associated symptoms: weakness Treatments prior to arrival: none Related Data Home Medications Medication Instructions Recorded Confirmed aspirin 81 mg tablet,delayed 81 mg PO DAILY 06/12/20 10/14/21 release (Adult Low Dose Aspirin) atorvastatin 20 mg tablet (Lipitor) 20 mg PO DAILY 06/12/20 10/14/21 clopidogrel 75 mg tablet (Plavix) 75 mg PO DAILY 06/12/20 10/14/21 gabapentin 300 mg capsule 300 mg PO TID 06/12/20 10/14/21 insulin glargine 100 unit/mL (3 See Rx Instructions SUBCUT DAILY 06/12/20 10/14/21 mL) subcutaneous pen (Lantus ml Solostar U-100 Insulin) ipratropium 20 mcg-albuterol 100 1 puff INHALATION Q4H 06/12/20 10/14/21 mcg/actuation mist for inhalation (Combivent Respimat) meclizine 25 mg tablet 25 mg PO DAILY 06/12/20 10/14/21 metformin 500 mg tablet 500 mg PO BID 06/12/20 10/14/21 omeprazole 10 mg capsule,delayed 10 mg PO DAILY 06/12/20 10/14/21 release ondansetron HCl 8 mg tablet 8 mg PO Q8H 06/12/20 10/14/21 Previous Rx's Medication Instructions Recorded acetaminophen 500 mg tablet 1,000 mg PO QID PRN #14 tab 11/21/21 (Tylenol Extra Strength) cyclobenzaprine 10 mg tablet 10 mg PO Q8H PRN #14 tab 11/21/21 Allergies Allergy/AdvReac Type Severity Reaction Status Date / Time No Known Allergies Allergy Verified 10/14/21 13:49 [No Known Allergies*] Review of Systems Review of Systems: Constitutional : No Weight loss, No Fever, No Chills, No Night Sweats, No Fatigue, No Malaise ENT/Mouth : No Hearing loss, No Ear Pain, No Nasal Congestion, No Sinus Pain, No Hoarseness, No sore throat, No Rhinorrhea, No Swallowing Difficulty Eyes: No Eye Pain, No Swelling, No Redness, No Foreign Body, No Discharge, No Vision Changes Cardiovascular : No Chest Pain, No SOB, No Dyspnea on Exertion, No Orthopnea, No Edema, No Palpitations Respiratory : No Cough, No Sputum, No Wheezing, No Smoke Exposure, No Dyspnea Gastrointestinal : No Nausea, No Vomiting, No Diarrhea, No Constipation, No abdominal Pain, No Hematochezia, No Melena Genitourinary : no irregular bleeding, No Dysuria, No Urinary Frequency, No Hematuria, No Urinary Incontinence, No Urgency, No Flank Pain, No Urinary Flow Changes, No Hesitancy Musculoskeletal : + Back pain, + b/l shoulder/knee/LLE joint pain, No Myalgias, No Joint Swelling Skin : No Skin Lesions, No rash Neuro : + general and LLE Weakness, + chronic LLE numbness/paresthesia per patient at baseline, No Loss of Consciousness, No Dizziness, No Headache Psych : No Anxiety/Panic, No Depression, No SI/HI/AH/VH, No Social Issues, Heme/Lymph: No Bruising, No Bleeding,No Lymphadenopathy Endocrine : No Polyuria, No Polydipsia, No Temperature Intolerance Yes all other systems are reviewed and are negative [facility] Past Medical History Attestation statement: The following information was validated with the patient. Medical History CVA (cerebral vascular accident) Diabetes Dizziness Infection of vascular bypass graft Myocardial infarct, old PVD (peripheral vascular disease) Surgical History History of cardiac catheterization History of femoropopliteal bypass Family History Family History Father Diabetes Mother Diabetes Depression Alzheimer disease Social History Social History Alcohol intake: never Patient Tobacco Use Status: Former Tobacco user Quit Date: 2011 Years Smoked: 40 +/- Use of substances other than those prescribed or required for medical reasons: No Advance Directives: No Advance Directives Information Provided: No Physical Exam ED Vital Signs: Vital Signs - 24 hr 11/21/21 09:45 11/21/21 12:07 11/21/21 13:51 Temperature 98.7 F 98.3 F 97.7 F Pulse Rate 53 56 53 Respiratory Rate 16 18 17 Blood Pressure 141/58 H 160/71 H 139/61 Pulse Oximetry 100 100 98 BMI result Body Mass Index 28.4 Vital signs reviewed patient hypertensive at 141/58. Pulse 53. Respirations 16. Temperature 98.7 degrees. Oxygen saturation 100% on room air. Appearance: Alert. Oriented X3. No acute distress. Head: Normal external exam. Normocephalic. Atraumatic. Able to rotate head bilaterally. Eyes: PERRLA. EOMI. No nystagmus noted. Conjunctiva and sclera normal. Eyelids normal. Corneal reflex normal. ENT: EAC normal. TM's Normal. Hearing normal. Pharynx normal. Uvula midline. tongue midline. Moist mucous membranes. No trismus noted. No drooling noted. No muffled voice noted. No nystagmus noted. Neck: Normal inspection. Neck supple. FROM. No adenopathy. Trachea midline. Thyroid Normal. No meningeal signs. No neck mass noted. CVS: Normal heart rate and rhythm. Heart sound normal. No murmurs noted. Pulses normal throughout. Respiratory: No respiratory distress. Painless inspiration. Breath sounds normal. No wheezes/rales/rhonchi noted. Chest nontender. No accessory muscle usage noted or decreased air movement noted. Abdomen: Soft and nontender. Bowel sounds normal in all 4 quadrants. No distention noted. No organomegaly noted. No visible injury noted. Back: No CVA tenderness. Full range of motion noted. Skin: Skin warm and dry. Normal skin color. Normal skin turgor. No rashes/lesions/lacerations noted. Extremities: No lower extremity edema. Extremities exhibit normal range of motion. Extremities nontender. Able to shrug shoulders bilaterally and keep up against resistance. Neuro: Oriented X 3. No motor deficit. No sensory deficit. Reflexes normal. Moving all extremities. No focal motor deficits. Cranial nerves II-XI intact bilaterally. Facial strength normal. Normal cognition. Speech normal Strength 5/5 throughout. No pronator drift. No tremor noted. No fasciculations noted. No rigidity noted. Muscle tone normal throughout. No asterixis noted. Efobsi-tp-lotn test normal. Heel to subramanian test normal. Rapid alternating movement upper extremity normal. Rapid alternating movement lower extremity normal. Hand drop from overhead Misses face. NIHSS score 0. Course Course Course Narrative: 9:50am 71-year-old male with a past medical history of CVA, diabetes, myocardial infarction s/p cardiac catheterization, PVD with a past surgical history of fem pop bypass in 2007 with prosthetic that was above the knee and it subsequently was infected and had been removed on 05/02/2020 who denies being on any blood thinners presenting to the ED with complaints of right-sided neck pain, bilateral shoulder pain and worsening bilateral knee pain/left lower extremity pain since yesterday morning when he woke up. He reports that he has baseline paresthesias to the left lower extremity that it is similar when compared to his baseline. Although he noticed that he has had a little bit more difficulty walking using the left lower extremity since yesterday morning. He normally walks with a walker. His walker is at home at this time not with him. He also reports back pain and he has a patch in place for his back pain. On Exam patient is alert and oriented x3. Not in any acute distress. No focal neuro deficits are noted. NIH SS score 0. Patient has non disabling symptoms therefore not a tPA candidate at this time. Lungs CTA. CV RRR. Abdomen is soft nontender. Normal neuro exam. Plan: Labs, EKG, chest x-ray, CTA of head and neck with IV contrast, CT scan of brain without contrast, CT scan of lumbar spine, ultrasound of venous and arterial duplex of lower extremity bilaterally provide a L of IV fluids and re-evaluate. Reevaluation(s) Reevaluation #1: - labs reviewed patient with a mild baseline anemia similar compared to prior. BUN 24. Random glucose 127. Troponin 4.5 repeat 5.0 therefore negative delta. Otherwise all other labs are within normal limits. Patient negative for COVID/flu. - CTA of head and neck with IV contrast revealed chronic changes no acute processes were noted. - venous duplex ultrasound of bilateral lower extremity negative for any DVTs revealed chronic changes. - arterial ultrasound of bilateral lower extremity revealed chronic changes no new processes noted. - chest x-ray revealed mild pulmonary vascular congestion and hypoexpanded lungs otherwise no other acute processes were noted. - EKG is sinus bradycardia with ventricular rate of 54 with a normal IA interval normal QRS duration normal QT/QTC interval. No acute ischemic change are noted. - therefore I discussed this case with Dr. Cynthia Soto and reviewed all the patient's labs and imaging it appears that everything is chronic. I tried to consult Dr. Fowler although he is currently on vacation. Therefore we will instruct patient to continue taking his previously prescribed medication and honestly at this time we believe this is musculoskeletal in nature as patient has multiple pains throughout his body which includes his right side of his neck, bilateral shoulders, lower back and bilateral knees and left lower extremity therefore most likely musculoskeletal in nature. Will DC home with muscle relaxants and instructions to follow-up with Dr. Fowler and his PCP and to continue taking all his previously prescribed medications as previously prescribed and to return if any new or worsening symptoms. He reports that he does not need any home care due to his daughter takes care of him at home. Patient understands agrees with this plan. Time: 14:30 Medical Decision Making Medical Records Medical records reviewed: Yes I reviewed the patient's medical records. Lab Data Lab results reviewed: Yes I reviewed the patient's lab results. Result diagrams: 11/21/21 10:27 11/21/21 10:27 Labs: Lab Results 11/21/21 11/21/21 11/21/21 Range/Units 10:27 10: 10:27 WBC 6.6 (4.8-10.8) X10*3/uL RBC 4.06 L (4.60-5.80) X10*6/uL Hgb 11.7 L (14.0-18.0) g/dl Hct 34.7 L (42.0-52.0) % MCV 85.5 (80.0-98.0) fL MCH 28.8 (27.0-33.0) pg MCHC 33.7 (31.0-36.0) g/dl RDW 13.2 (11.0-16.0) % Plt Count 205 (160-400) X10*3/uL MPV 11.7 (9.4-12.4) fL Immature Gran % (Auto) 0.3 (0.0-0.4) % Neut % (Auto) 59.0 (45-73) % Lymph % (Auto) 25.6 (20-40) % [place] % (Auto) 12.3 H (2-11) % Eos % (Auto) 2.3 (0-4) % Baso % (Auto) 0.5 (0-2) % Lymph # (Auto) 1.7 (1.2-4.9) X10*3/uL [place] # (Auto) 0.8 (0.1-1.2) X10*3/uL Eos # (Auto) 0.2 (0.0-0.4) X10*3/uL Baso # (Auto) 0.0 (0.0-0.2) X10*3/uL Abs Immat Gran (auto) 0.02 (0.00-0.03) X10*3/uL Absolute Neuts (auto) 3.9 (2.0-8.3) x10*3/uL Absolute Nucleated RBC 0.000 (0.0-0.012) X10*3/uL Nucleated RBC % (auto) 0.0 (0.0-0.2) /100WBC PT 11.9 (9.9-13.0) SEC INR 1.0 (0.9-1.1) Sodium 137 (135-145) mmol/L Potassium 4.6 (3.3-5.1) mmol/L Chloride 105 (96-108) mmol/L Carbon Dioxide 24 (22-29) mmol/L Anion Gap 13 (12-20) BUN 24 H (9-16) mg/dL Creatinine 0.78 (0.5-1.4) mg/dL Estim Creat Clear Calc 78.9 Estimated GFR > 60 Random Glucose 127 H (60-115) mg/dL Calcium 9.2 (8.4-10.2) mg/dL Magnesium 2.0 (1.6-2.6) mg/dL Total Bilirubin 0.6 (0.0-1.0) mg/dL AST 16 D (5-37) U/L ALT 15 (0-40) U/L Alkaline Phosphatase 103 (39-117) U/L Troponin I High Sens (<3.5-35.0) ng/L B-Natriuretic Peptide (<100) pg/mL Total Protein 7.2 (6.5-8.0) g/dL Albumin 3.9 (3.5-5.0) g/dL Urine Color Urine Appearance Urine pH (5.0-8.0) Ur Specific [place] (1.005-1.025) Urine Protein (NEG-TRACE) MG/DL Urine Glucose (UA) (NEG) MG/DL Urine Ketones (NEG) MG/DL Urine Blood (NEG) Urine Nitrite (NEG) Ur Leukocyte Esterase (NEG) COVID-19 (KENDRICK) (Negative) COVID-19 Clin Com Influenza Type A (LUKASZ) (Negative) Influenza Type B (LUKASZ) (Negative) Influenza A & B Note 11/21/21 11/21/21 11/21/21 Range/Units 10:27 12:00 12:00 WBC (4.8-10.8) X10*3/uL RBC (4.60-5.80) X10*6/uL Hgb (14.0-18.0) g/dl Hct (42.0-52.0) % MCV (80.0-98.0) fL MCH (27.0-33.0) pg MCHC (31.0-36.0) g/dl RDW (11.0-16.0) % Plt Count (160-400) X10*3/uL MPV (9.4-12.4) fL Immature Gran % (Auto) (0.0-0.4) % Neut % (Auto) (45-73) % Lymph % (Auto) (20-40) % [place] % (Auto) (2-11) % Eos % (Auto) (0-4) % Baso % (Auto) (0-2) % Lymph # (Auto) (1.2-4.9) X10*3/uL [place] # (Auto) (0.1-1.2) X10*3/uL Eos # (Auto) (0.0-0.4) X10*3/uL Baso # (Auto) (0.0-0.2) X10*3/uL Abs Immat Gran (auto) (0.00-0.03) X10*3/uL Absolute Neuts (auto) (2.0-8.3) x10*3/uL Absolute Nucleated RBC (0.0-0.012) X10*3/uL Nucleated RBC % (auto) (0.0-0.2) /100WBC PT (9.9-13.0) SEC INR (0.9-1.1) Sodium (135-145) mmol/L Potassium (3.3-5.1) mmol/L Chloride (96-108) mmol/L Carbon Dioxide (22-29) mmol/L Anion Gap (12-20) BUN (9-16) mg/dL Creatinine (0.5-1.4) mg/dL Estim Creat Clear Calc Estimated GFR Random Glucose (60-115) mg/dL Calcium (8.4-10.2) mg/dL Magnesium (1.6-2.6) mg/dL Total Bilirubin (0.0-1.0) mg/dL AST (5-37) U/L ALT (0-40) U/L Alkaline Phosphatase (39-117) U/L Troponin I High Sens 4.5 (<3.5-35.0) ng/L B-Natriuretic Peptide 38 (<100) pg/mL Total Protein (6.5-8.0) g/dL Albumin (3.5-5.0) g/dL Urine Color Urine Appearance Urine pH (5.0-8.0) Ur Specific [place] (1.005-1.025) Urine Protein (NEG-TRACE) MG/DL Urine Glucose (UA) (NEG) MG/DL Urine Ketones (NEG) MG/DL Urine Blood (NEG) Urine Nitrite (NEG) Ur Leukocyte Esterase (NEG) COVID-19 (KENDRICK) Negative (Negative) COVID-19 Clin Com See Note Influenza Type A (LUKASZ) Negative (Negative) Influenza Type B (LUKASZ) Negative (Negative) Influenza A & B Note See Note 11/21/21 11/21/21 Range/Units 13:57 13:57 WBC (4.8-10.8) X10*3/uL RBC (4.60-5.80) X10*6/uL Hgb (14.0-18.0) g/dl Hct (42.0-52.0) % MCV (80.0-98.0) fL MCH (27.0-33.0) pg MCHC (31.0-36.0) g/dl RDW (11.0-16.0) % Plt Count (160-400) X10*3/uL MPV (9.4-12.4) fL Immature Gran % (Auto) (0.0-0.4) % Neut % (Auto) (45-73) % Lymph % (Auto) (20-40) % [place] % (Auto) (2-11) % Eos % (Auto) (0-4) % Baso % (Auto) (0-2) % Lymph # (Auto) (1.2-4.9) X10*3/uL [place] # (Auto) (0.1-1.2) X10*3/uL Eos # (Auto) (0.0-0.4) X10*3/uL Baso # (Auto) (0.0-0.2) X10*3/uL Abs Immat Gran (auto) (0.00-0.03) X10*3/uL Absolute Neuts (auto) (2.0-8.3) x10*3/uL Absolute Nucleated RBC (0.0-0.012) X10*3/uL Nucleated RBC % (auto) (0.0-0.2) /100WBC PT (9.9-13.0) SEC INR (0.9-1.1) Sodium (135-145) mmol/L Potassium (3.3-5.1) mmol/L Chloride (96-108) mmol/L Carbon Dioxide (22-29) mmol/L Anion Gap (12-20) BUN (9-16) mg/dL Creatinine (0.5-1.4) mg/dL Estim Creat Clear Calc Estimated GFR Random Glucose (60-115) mg/dL Calcium (8.4-10.2) mg/dL Magnesium (1.6-2.6) mg/dL Total Bilirubin (0.0-1.0) mg/dL AST (5-37) U/L ALT (0-40) U/L Alkaline Phosphatase (39-117) U/L Troponin I High Sens 5.0 (<3.5-35.0) ng/L B-Natriuretic Peptide (<100) pg/mL Total Protein (6.5-8.0) g/dL Albumin (3.5-5.0) g/dL Urine Color STRAW Urine Appearance HAZY Urine pH 7.5 (5.0-8.0) Ur Specific [place] 1.010 (1.005-1.025) Urine Protein NEG (NEG-TRACE) MG/DL Urine Glucose (UA) NEG (NEG) MG/DL Urine Ketones NEG (NEG) MG/DL Urine Blood NEG (NEG) Urine Nitrite NEG (NEG) Ur Leukocyte Esterase NEG (NEG) COVID-19 (KENDRICK) (Negative) COVID-19 Clin Com Influenza Type A (LUKASZ) (Negative) Influenza Type B (LUKASZ) (Negative) Influenza A & B Note Imaging Data Chest x-ray: Attestation: I personally reviewed and interpreted this imaging study as follows: Radiologist's impression: FINDINGS: The lungs are hypoexpanded and clear. There is increased pulmonary vascularity with borderline heart. No gross bony abnormality. XR/XR chest 1V IMPRESSION: Hypoexpanded lungs. ? Mild pulmonary vascular congestion. ? No acute pneumonic process seen. Lumbar CT scan without contrast: Attestation: I personally reviewed and interpreted this imaging study as follows: Radiologist's impression: FINDINGS: There is a stable compression deformity of the L1 vertebral body with impaction of the upper endplate resulting in 35% vertebral body height loss centrally. There is no retropulsion of posterior cortex at this level. Chronic changes of and T11 and L1 vertebral augmentation. Vertebral heights are otherwise maintained at all levels. Intervertebral disc heights are preserved. There is abutment with associated sclerotic changes of the adjoining spinous processes at L4-L5 and to a lesser extent at L3-L4 indicating the possibility of underlying Baastrup disease. Canal patency is not well assessed on this examination due to inherent limitations of CT without intrathecal contrast. Grossly no evidence of canal compromise. There is partial effacement of perineural fat at L5-S1 with at least mild mass effect on both L5 foraminal nerve roots. Limited visualization of the retroperitoneal anatomy reveals scattered atheromatous caliber indications involving abdominal aorta. Psoas and paraspinal muscle groups are symmetric. CT/CT lumbar spine wo con IMPRESSION: No substantial change from prior imaging from 06/28/2020. There is a stable compression deformity of the L1 vertebral body. Chronic changes of a vertebral augmentation are visualized at T11 and L1. No evidence of acute fracture. Grossly no evidence of canal compromise. Bulging discs in conjunction with facet degenerative change at L5-S1 causes at least mild mass effect on both L5 foraminal nerve roots.? CTA of head and neck with contrast: Attestation: I personally reviewed and interpreted this imaging study as follows: Radiologist's impression: FINDINGS: Head: There is gliosis and encephalomalacia involving the right parietal lobe consistent with chronic changes of an old infarct. Numerous foci of hypoattenuation are also visualized within the periventricular white matter. Roberson-white matter differentiation is otherwise preserved and there is no evidence of acute territorial infarct. Postcontrast images reveal no abnormal intracranial mass or enhancement. No intracranial mass effect or midline shift. Lateral and third ventricles are normal. No hydrocephalus. The calvarium and skull base are intact. Mastoid air cells and middle ear cavities are well aerated. No active paranasal sinus disease. Globes and orbits are symmetric. CT angiogram neck: Scattered atheromatous calcification involves the aortic arch apex. Origins of major aortic branches are widely patent. There is a small amount of eccentric lipid-laden atheromatous plaque along the anterior wall of the right common carotid artery resulting in no stenosis of the vessel. Partially calcified atheromatous plaque involves both carotid bifurcations. No stenosis of the extracranial internal carotid arteries. The cervical segments of the vertebral arteries as well as their origins are patent. CT angiogram head: Atheromatous calcification causes mild irregular narrowing of the cavernous segments of both internal carotid arteries. Intracranial internal carotid arteries are otherwise patent. Intradural vertebral artery segments and basilar artery are patent. Anterior, middle, and posterior cerebral artery complexes are normal. No intracranial large vessel occlusion. Other: Soft tissues of the neck including the thyroid gland are normal. There is no acute osseous finding. Specifically no worrisome lytic or blastic osseous lesion. 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 CT/CT angio head neck IMPRESSION: There is eccentric atheromatous plaque involving the anterior wall of the right common carotid artery and both carotid bifurcations. No stenosis of the cervical carotid or vertebral arteries. Atheromatous calcification causes mild irregular narrowing of the cavernous segments of both internal carotid arteries. Otherwise no intracranial large vessel occlusion. There are chronic changes of an old right parietal lobe infarct and scattered chronic small vessel ischemic changes within the periventricular white matter. Grossly no evidence of acute territorial infarct or hemorrhage. No abnormal intracranial mass or enhancement.? Venous duplex ultrasound of bilateral lower extremity: Attestation: I personally reviewed and interpreted this imaging study as follows: Radiologist's impression: RIGHT: There is normal venous compression and respiratory variation and augmented flow. The visualized common femoral vein, superficial femoral vein, profunda femoral vein, popliteal vein, and the trifurcation region shows no evidence of deep venous thrombosis. ? There is no significant popliteal fossa cyst. LEFT: There is normal venous compression and respiratory variation and augmented flow. The visualized common femoral vein, superficial femoral vein, profunda femoral vein, popliteal vein, and the trifurcation region shows no evidence of deep venous thrombosis. ? There is no significant popliteal fossa cyst. There are small lymph nodes. The most prominent lymph node left inguinal region measures 3.1 x 0.8 x 2.7 seen. If the patient's symptoms persist, followup ultrasound in 5 days 7 days might be of value to exclude proximal propagation from a non-visualized calf vein. US/US venous duplex LE BI IMPRESSION: No DVT demonstrated in the bilateral lower extremity. ? Prominent left inguinal lymph node with a thickness of 0.8 cm. Arterial ultrasound of bilateral lower extremity: Attestation: I personally reviewed and interpreted this imaging study as follows: Radiologist's impression: FINDINGS: Right lower extremity: Common femoral artery: 172 cm/sec; multiphasic waveform Profunda artery: 192 cm/sec; multiphasic waveform Superficial femoral artery proximal: 176 cm/sec; multiphasic waveform Superficial femoral artery mid portion: 125 cm/sec; multiphasic waveform Superficial femoral artery distal: 210 cm/sec; multiphasic waveform Popliteal artery: 515 cm/sec; multiphasic waveform Posterior tibial artery: 62.7 cm/sec; multiphasic waveform Peroneal artery: 42.3 cm/sec; multiphasic waveform Left lower extremity: Common femoral artery: 284 cm/sec; multiphasic waveform Profunda artery: 220 cm/sec; multiphasic waveform Superficial femoral artery proximal: 120 cm/sec; monophasic waveform, eventually becoming occluded Superficial femoral artery mid portion: Occluded Superficial femoral artery distal: Occluded Popliteal artery: Occluded Posterior tibial artery: 30.8 cm/sec; monophasic waveform Peroneal artery: 9.47 cm/sec; monophasic waveform ADDITIONAL FINDINGS: Prominent but morphologically normal left inguinal lymph node. US/US arterial duplex LE BI IMPRESSION: ? Bilateral peripheral arterial disease. Moderate stenosis of the distal right superficial femoral artery, severe stenosis of the right popliteal artery. 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 Monophasic runoff vessels on the left due to proximal occlusion.? Greater sensitivity and specificity can be obtained with pre-and post exercise PVRs with PAOLA calculations. Also consider dedicated CTA for further anatomical detail. ECG Data Attestation: I personally reviewed and interpreted this ECG as follows: Interpretation: Sinus bradycardia with ventricular rate of 54 with a normal IA interval normal QRS duration normal QT/QTC interval. No acute ischemic change are noted. Similar compared to prior EKG 04/27/2020 Critical Care Time Critical Care Time Critical Care Time: Yes Total Critical Care Time: 60 Attestation: I personally attest to this time spent taking care of the patient Discharge Plan Discharge Clinical Impression: Pain on movement of skeletal muscle Patient Disposition: Home, Self-Care Instructions: Musculoskeletal Pain (ED) Additional Instructions: Continue taking your previously prescribed medications as previously prescribed. Follow-up with your vascular surgeon Dr. Fowler within the next week. Return if any new or worsening symptoms. Follow up with your primary care provider as well. Prescriptions: New cyclobenzaprine 10 mg tablet 10 mg PO Q8H PRN (Reason: Muscle spasm) Qty: 14 0RF acetaminophen [Tylenol Extra Strength] 500 mg tablet 1,000 mg PO QID PRN (Reason: fever or pain) Qty: 14 0RF No Action clopidogrel [Plavix] 75 mg tablet 75 mg PO DAILY 0RF atorvastatin [Lipitor] 20 mg tablet 20 mg PO DAILY 0RF aspirin [Adult Low Dose Aspirin] 81 mg tablet,delayed release (DR/EC) 81 mg PO DAILY 0RF gabapentin 300 mg capsule 300 mg PO TID 0RF Lantus Solostar U-100 Insulin 100 unit/mL (3 mL) insulin pen See Rx Instructions subcut DAILY 0RF Rx Instructions: 5 units subcut daily; Combivent Respimat 20-100 mcg/actuation mist 1 puff inhalation Q4H 0RF metformin 500 mg tablet 500 mg PO BID 0RF omeprazole 10 mg capsule,delayed release(DR/EC) 10 mg PO DAILY 0RF ondansetron HCl 8 mg tablet 8 mg PO Q8H 0RF meclizine 25 mg tablet 25 mg PO DAILY 0RF Referrals: Adelfo Fletcher III, MD [Primary Care Provider] - 2 days Stefano Fowler MD [Physician] - 2 days Print Language: [place]
[2021-11-21 13:51] VITALS: BP 139/61; PULSE 53; RESP 17; TEMP 36.5; O2SAT 98
[2021-11-21 14:15] LABS: Appearance Urine HAZY; Color Urine STRAW; Glucose Urine UA NEG (NEG); Leukocyte Esterase Urine NEG (NEG); Nitrite Urine NEG (NEG); PH 7.5 (5.0-8.0); Urine Blood NEG (NEG); Urine Ketones NEG (NEG); Urine Protein NEG (NEG-TRACE)
== END 2021-11-21 15:25 | disposition home or self-care (01) ==
PROVIDERS: Physician Assistant Medical; Emergency Provider Emergency Medicine; PCP Internal Medicine
DX: R29.91 Unspecified symptoms and signs involving the musculoskeletal system (principal); M54.2 Cervicalgia; M25.512 Pain in left shoulder; M25.511 Pain in right shoulder; M25.562 Pain in left knee; M25.561 Pain in right knee; M79.662 Pain in left lower leg; M79.661 Pain in right lower leg; R53.1 Weakness; R20.2 Paresthesia of skin; E11.9 Type 2 diabetes mellitus without complications; I73.9 Peripheral vascular disease, unspecified; I25.2 Old myocardial infarction; Z79.82 Long term (current) use of aspirin; Z79.02 Long term (current) use of antithrombotics/antiplatelets; Z79.4 Long term (current) use of insulin; Z86.73 Personal history of transient ischemic attack (TIA), and cerebral infarction without residual deficits; Z20.822 Contact with and (suspected) exposure to COVID-19
CPT/HCPCS: 36415; 70496; 70498; 71045; 72131; 80053; 81003; 83735; 83880; 84484; 85025; 85610; 87502; 87635; 93005; 93925; 93970; 99284; 99291; Q9967

== ENCOUNTER → 2021-12-01 09:05 | Outpatient (REF) | payer MEDICARE, MEDICAID, SELFPAY ==
--- NOTE | 2021-12-01 09:30 | CA_ITS ---
Transthoracic Echocardiogram Patient (Last, First, Middle): Stanley Drew, Gender: Male Date of : 1950 Age: 71 Procedure Date: 12/01/2021 Procedure Type: Transthoracic Echocardiogram Location: OP Height: 160.02 cm Weight: 72.58 kg BSA: 1.76 m2 Heart Rate: bpm BP: 120 / 80 mmHg Bridge Carpenter: VH/TO Referring MD: Kerri Cope RAFTER CUTTING MACHINE OPERATORTammie Symptoms: R 55 SYNCOPE AND COLLAPSE Study Quality: Fair ECG Rhythm: Sinus Conclusions: - The left ventricular systolic function is normal. The calculated ejection fraction is 55% by biplane method. - There is mild calcification of the aortic valve. Findings Left Ventricle Normal left ventricular cavity size. The left ventricular systolic function is normal. The calculated ejection fraction is 55% by biplane method. There is no evidence of regional wall motion abnormalities. Diastolic function is normal for age. There is mild septal and mild basal asymmetric hypertrophy. Right Ventricle Normal right ventricular cavity size and systolic function. Atria Both atria are normal in size. Aortic Valve There is mild calcification of the aortic valve. There is no aortic valve stenosis. There is trace (trivial) aortic valve regurgitation. Mitral Valve The mitral valve appears normal. There is trace mitral valve regurgitation. There is no mitral valve stenosis. Pulmonic Valve The pulmonic valve was not well visualized. Tricuspid Valve Normal tricuspid valve structure. There is trace tricuspid valve regurgitation. The pulmonary artery systolic pressure is normal. Great Vessels The asc aorta is normal in size. Venous The inferior vena cava is normal in size and collapses greater than 50% with inspiration. Pericardium/Pleural There is no evidence of pericardial effusion. Prior Study Comparison No significant change compared to prior study dated: 04/29/2020. Measurements 2D Linear Measurements IVSd: 1.21 0.6-0.9/0.6-1.0 cm LVIDd: 4.58 3.9-5.3/4.2-5.9 cm LVIDd Index: 2.60 2.4-3.2/2.2-3.1 cm/m2 LVIDs: 2.83 2.0-3.6 cm LVPWd: 1.22 0.7-1.1 cm LA Diam: 3.70 2.7-3.8/3.0-4.0 cm LAIDs Index: 2.10 1.5-2.3 cm/m2 LV Mass: 258.34 67-162/88-224 g LV Mass Index: 146.78 43-95/49-115 g/m2 LVOT Diam: 2.10 3.0+(-)1.3 cm 2D Systolic Function EF 4C: 56.20 >55% EF 2C: 52.10 >55% EF BiP: 55.30 >55% Mitral Valve MV Pk E: 0.71 MV PK A: 0.51 MV Decel Time: 274.00 E/A: 1.40 E'Lateral: 8.38 E'Medial: 5.11 E/E' Med: 13.80 E/E' Lat: 8.40 PHT: 80.00 MVA PHT: 2.75 Decel Humphreys: 2.58 Aortic Valve AoV Pk Rigoberto: 1.22 AoV Mn Rigoberto: 0.89 AoV VTI: 0.30 AoV Pk Grad: 6.00 Aov Mn Grad: 4.00 RENEE Cont.VTI: 2.80 LVOT LVOT Pk Rigoberto: 1.01 LVOT Mn Rigoberto: 0.69 LVOT VTI: 0.24 LVOT Pk Grad: 4.00 LVOT Mn Grad: 2.00 LVOT Diam: 2.10 LVOT Area: 3.46 Diastolic Function MV Pk E: 0.71 MV Pk A: 0.51 E/A: 1.40 E'Medial: 5.11 E/E' Med: 13.80 E' Laterial: 8.38 E/E' Lat: 8.40 Right Ventricle TAPSE (mm): 23.00 TVS' Rigoberto: 11.10 Tricuspid Valve TR Pk Rigoberto: 2.16 TR Pk Grad: 19.00 Great Vessels Aorta Sinus of Valsalva: 3.12 2.0-3.[address] Ridge: 2.57 1.7-3.4 cm Ao Asc: 3.30 2.1-3.4 cm Ao Arch: 2.80 Pulmonary Valve PV Pk Rigoberto: 0.95 Peak PV Grad: 4.00 Updated in Other Vendor System with Status of Final Barron Bass MD electronically signed on 12/02/2021 11:37:58 AM with status of Final
== END ==
LOC: HO.CARD 09:05
PROVIDERS: Visit Provider Nurse Practitioner Family
DX: R55 Syncope and collapse (principal)
CPT/HCPCS: 93306

== ENCOUNTER → 2021-12-17 14:37 | Outpatient (BNVA) | payer MEDICARE, MEDICAID, SELFPAY | PROVIDERS: PCP Internal Medicine; Referring Provider Internal Medicine; Visit Provider Internal Medicine Cardiovascular Disease | DX: I25.10 Atherosclerotic heart disease of native coronary artery without angina pectoris (principal); I73.9 Peripheral vascular disease, unspecified; I95.9 Hypotension, unspecified; E11.9 Type 2 diabetes mellitus without complications; Z86.73 Personal history of transient ischemic attack (TIA), and cerebral infarction without residual deficits; Z95.5 Presence of coronary angioplasty implant and graft; Z95.820 Peripheral vascular angioplasty status with implants and grafts; Z98.890 Other specified postprocedural states | CPT/HCPCS: 99212 ==

== ENCOUNTER → 2021-12-18 15:55 | Outpatient (BNVA) | payer MEDICARE, MEDICAID, SELFPAY | PROVIDERS: PCP Internal Medicine; Visit Provider Surgery Vascular Surgery | DX: I73.9 Peripheral vascular disease, unspecified (principal) | CPT/HCPCS: 99212 ==

== ENCOUNTER 2021-12-25 15:22 | Outpatient (REF) | payer MEDICARE, MEDICAID, SELFPAY ==
--- NOTE | ~2021-12-25 | CT_ITS ---
EXAMINATION: CTA ABDOMEN, PELVIS AND LOWER EXTREMITY RUNOFF WITH CONTRAST CLINICAL INFORMATION: Peripheral vascular disease. History of left lower extremity bypass graft infection in 2019. COMPARISON: CTA runoff on 06/13/2019. TECHNIQUE: Routine abdominal aorta and lower extremity runoff CTA protocol with contrast was performed. 100 mL of Omnipaque 350 was administered. Images were reviewed and processed on an independent dedicated 3-D workstation and 3-D images were reconstructed with concurrent radiologist supervision and subsequently interpreted. The images were reviewed and postprocessed on a dedicated 3-D workstation. FINDINGS: VASCULAR: Heart: The visualized heart is normal in size. No pericardial effusion. Abdominal Aorta: Heavy calcified and noncalcified plaque. There is a focal non-flow limiting dissection versus penetrating ulcer along the right posterolateral wall of the distal abdominal aorta for example on series 8, image 392. Mesenteric Arteries:The celiac artery is widely patent. There is mild SMA ostial stenosis though the SMA is patent distally and branches normally. There is either high-grade stenosis of the proximal TOMAS versus occlusion. The distal TOMAS branches are patent. Renal Arteries: The right renal artery is widely patent without evidence of hemodynamically significant stenosis. The left renal artery is widely patent without evidence of hemodynamically significant stenosis. Inferior Vena Cava: Normal caliber. Right Lower Extremity: Common iliac artery: Heavy atherosclerosis. Normal caliber without flow-limiting stenosis. External iliac artery: Heavy atherosclerosis proximally though no high-grade or flow-limiting stenosis. Internal iliac artery: High-grade stenosis proximally though patent. Common femoral artery: Moderate stenosis just proximal to the femoral bifurcation. Superficial femoral artery: Moderate to advanced multifocal stenosis related to plaque. Profunda femoris artery: Normal caliber, widely patent. Popliteal artery: Moderate multifocal stenosis related to plaque. Anterior tibial artery: Multifocal stenosis though appears patent to the foot. Posterior tibial artery: Occluded proximally. Peroneal artery: Patent to the ankle. Evaluation beyond the ankle is limited due to beam hardening from orthopedic hardware along the lateral malleolus. Left Lower Extremity: Common iliac artery: Moderate atherosclerosis. No flow-limiting stenosis. External iliac artery: Normal caliber, widely patent. Internal iliac artery: Moderate ostial stenosis related to plaque. Otherwise patent. Common femoral artery: Mild stenosis, patent. Superficial femoral artery: Occluded. Profunda femoris artery: Normal caliber, widely patent. Popliteal artery: Mostly occluded though the very distal popliteal artery is reconstituted via deep muscular collaterals. Anterior tibial artery: Diminutive caliber, flow to the level of the distal calf. Posterior tibial artery: Primary runoff to the left lower extremity. Multifocal stenosis. Peroneal artery: Thready flow, occluded at the level of the mid calf. Additional: There has been interval explantation of two left femoral popliteal bypass grafts since the comparison examination. NONVASCULAR: Lung Bases: Bibasilar atelectasis. Liver: Normal size. A rim calcified hypodensity in the right lobe is stable from 2019. No ductal dilatation. Gallbladder: Surgically absent. Pancreas: Atrophic. Spleen: Unremarkable. Adrenal Glands: Unremarkable. Kidneys and Ureters: Unremarkable Bladder: Unremarkable. Gastrointestinal Tract: Normal caliber loops of small bowel. There is evidence of prior colonic resection. No evidence of bowel wall thickening or pathologic bowel dilatation. No free fluid. Abdominal Wall: No significant hernia is appreciated. Lymph Nodes: Normal. Pelvis: Unremarkable. Osseous Structures: There is evidence of prior vertebral augmentation at T11 and L1. There are [id number] multilevel degenerative changes throughout the visualized spine. CT/CT angio abd aorta runoff IMPRESSION: Right Lower Extremity: There is two-vessel runoff to the distal right lower extremity via the anterior tibial artery and peroneal artery. The posterior tibial artery appears proximally occluded. Left Lower Extremity: Runoff to the distal left lower extremity is via the posterior tibial artery. The peroneal artery demonstrates thready flow to the mid calf. The anterior tibial artery is diminutive and is seen to the level of the mid calf. The left SFA and popliteal artery are occluded and flow to the left lower extremity is primarily via deep muscular collaterals from the profunda.
[2021-12-25 15:52] LABS: Blood Urea Nitrogen 23 mg/dL (9-16); Estimated Glomerular Filt Rate > 60
[2021-12-25] MEDS: iohexoL 350 MG/ML 100 ML INFUS..BTL IV (17:01)
== END 2021-12-25 15:23 | disposition home or self-care (01) ==
LOC: HO.CT 15:22
PROVIDERS: Visit Provider Surgery Vascular Surgery
DX: I73.9 Peripheral vascular disease, unspecified (principal)
CPT/HCPCS: 36415; 75635; 82565; 84520; Q9967

== ENCOUNTER → 2021-12-30 15:54 | Outpatient (BNVA) | payer MEDICARE, MEDICAID, SELFPAY | PROVIDERS: PCP Internal Medicine; Visit Provider Surgery Vascular Surgery | DX: I73.9 Peripheral vascular disease, unspecified (principal) | CPT/HCPCS: 99212 ==

== ENCOUNTER 2022-01-29 16:11 | Emergency (ER) | payer MEDICARE, MEDICAID, SELFPAY ==
--- NOTE | ~2022-01-29 | CT_ITS ---
EXAMINATION: CT BRAIN, CT CERVICAL SPINE AND CHEST X-RAY. CLINICAL INFORMATION: Loss of balance with fall. COMPARISON: CTA brain 11/21/2021. TECHNIQUE: 5 mm thin axial and 2 mm thin sagittal and coronal images of brain were obtained without contrast. Subsequently axial 3 mm thin and reformatted 2 mm thin sagittal and coronal images of cervical spine were obtained. DLP 1348. Chest 2 views. FINDINGS: Brain: There is no acute intra-axial, extra-axial bleed, masses or midline shift. There is a right frontal parietal hypodensity consistent with encephalomalacia from previous infarct or insult. No acute infarct in evolution, edema or shift visualized. The cortical sulci are symmetrical. There is diffuse periventrical hypodensities in both cerebral hemispheres suggestive of chronic small vessel ischemic changes. There are small lacunar infarction left ny and left external capsule. The lateral ventricles are symmetrical but enlarged. There does reveal no calvarial abnormality. Bilateral paranasal sinuses and mastoid air cells are well-aerated. Cervical spine: On sagittal reconstructed images there is maintained cervical lordosis. The vertebral heights and alignment is normal. There is loss of C6-C7 disc height with mild ventral spondylosis C4-C5, C5-C6 and C6-C7 disc levels. The craniovertebral junction and the C1-C2 alignment is normal. There is mild superior spurring C1-C2 disc level. No acute fracture, dislocation or subluxation seen. The prevertebral and paravertebral soft tissues are normal. There is widely patent. Visualized thyroid, submandibular and parotid glands are unremarkable. The lung apices are clear. There is a 3 mm nodule left lung apex. CHEST: The lungs are well-expanded and clear. The heart size and pulmonary vascularity is normal. No gross bony abnormality seen. There is cement augmentation lower dorsal spine from previous intervention for fracture. CT/CT cervical spine wo con IMPRESSION: No acute intracranial process seen. Right frontoparietal encephalomalacia from old infarct. Few lacunar infarcts as described above. No acute fracture, dislocation or subluxation seen in cervical spine. There is mild degenerative disc changes C6-C7 disc levels with mild ventral spondylosis lower dorsal spine. Unremarkable chest x-ray
[2022-01-29 16:29] VITALS: BP 166/67; PULSE 57; RESP 18; TEMP 36.1; O2SAT 98; BMI 29.4
--- NOTE | 2022-01-29 16:38 | ED.FALL ---
HPI - Fall General Chief Complaint: Fall Stated Complaint: fall weakness Time Seen by Provider: 01/29/22 16:33 Source: EMS and communication studies professor Mode of arrival: EMS Limitations: language barrier History of Present Illness HPI Narrative: ?71-year-old male with a past medical history of CVA, diabetes, myocardial infarction s/p cardiac catheterization, PVD?on 81mg ASA only here with complaints of fall. Patient tells me he stood up from his recliner and started walking with his walker when both of his legs felt weak and he lost his balance falling backwards hitting his head. No loss of consciousness. Patient reports mild headache. No neck pain, back pain, chest pain, abdominal pain. No vision changes or vomiting. Patient is on aspirin only. Patient tells me he has left-sided weakness in the arm and leg from a previous stroke which is unchanged from baseline. He also has neuropathy in his left lower leg which he tells me is typical for him and unchanged from baseline. Related Data Home Medications Medication Instructions Recorded Confirmed aspirin 81 mg tablet,delayed 81 mg PO DAILY 06/12/20 12/17/21 release (Adult Low Dose Aspirin) atorvastatin 20 mg tablet (Lipitor) 20 mg PO DAILY 06/12/20 12/17/21 clopidogrel 75 mg tablet (Plavix) 75 mg PO DAILY 06/12/20 12/17/21 gabapentin 300 mg capsule 300 mg PO BID 06/12/20 12/17/21 insulin glargine 100 unit/mL (3 See Rx Instructions SUBCUT DAILY 06/12/20 12/17/21 mL) subcutaneous pen (Lantus ml Solostar U-100 Insulin) ipratropium 20 mcg-albuterol 100 1 puff INHALATION QID 06/12/20 12/17/21 mcg/actuation mist for inhalation (Combivent Respimat) metformin 500 mg tablet 500 mg PO BID 06/12/20 12/17/21 omeprazole 10 mg capsule,delayed 10 mg PO DAILY 06/12/20 12/17/21 release blood sugar diagnostic (OneTouch #10 ea 12/30/21 Ultra Test) diclofenac sodium 1 % topical gel 4 g TOPICAL TID 12/30/21 pen needle, diabetic 31 gauge x #1200 ea 12/30/2101/19 (BD Ultra-Fine Short Pen Needle) Previous Rx's Medication Instructions Recorded acetaminophen 500 mg tablet 1,000 mg PO QID PRN #14 tab 11/21/21 (Tylenol Extra Strength) Allergies Allergy/AdvReac Type Severity Reaction Status Date / Time No Known Allergies Allergy Verified 01/29/22 16:29 [No Known Allergies*] Review of Systems Review of Systems: Yes all other systems are reviewed and are negative Constitutional: Constitutional: Reports no additional constitutional complaints, Denies body ache(s), Denies chills, Denies fever(s), Reports headache(s) and Denies weakness Eyes: Eyes: Reports no additional eye complaints and Denies change in vision ENT: Reports system reviewed and no additional complaints, except as documented, Denies dizziness, Reports headache(s), Denies nasal congestion, Denies nasal discharge and Denies neck pain Cardiovascular: Cardiovascular: Reports no additional cardiovascular complaints, Denies chest pain, Denies leg edema and Denies dyspnea Respiratory: Respiratory: Reports no additional respiratory complaints, Denies cough and Denies dyspnea Gastrointestinal: Gastrointestinal: Reports no additional gastrointestinal complaints, Denies abdominal pain, Denies diarrhea, Denies nausea and Denies vomiting Genitourinary: Genitourinary: Denies urinary incontinence Musculoskeletal: Musculoskeletal: Reports no additional musculoskeletal complaints, Denies back pain, Denies arthralgias, Denies joint swelling, Denies neck pain, Denies numbness and Denies tingling Integumentary/Breasts: Skin/Breast: Reports system reviewed and no additional complaints, except as docu and Denies rash Neurologic: Reports system reviewed and no additional complaints, except as documented, Denies Abnormal speech present, Denies dizziness, Reports headache(s), Denies numbness, Denies tingling and Denies weakness [facility] Past Medical History Attestation statement: The following information was validated with the patient. Source: old records reviewed and nursing notes reviewed Medical History CVA (cerebral vascular accident) Diabetes Dizziness Infection of vascular bypass graft Myocardial infarct, old PVD (peripheral vascular disease) Surgical History History of cardiac catheterization History of femoropopliteal bypass Family History Family History Father Diabetes Mother Diabetes Depression Alzheimer disease Social History Social History Alcohol intake: never Patient Tobacco Use Status: Former Tobacco user Quit Date: 2011 Years Smoked: 40 +/- Advance Directives: Yes Advance Directives on File: Yes Advance Directives Date on File: 07/02/20 Physical Exam Vital Signs: Vital Signs: Last Vital Signs Temp 97.8 F 01/29/22 18:00 Pulse 56 01/29/22 18:31 Resp 16 01/29/22 18:00 BP 147/59 H 01/29/22 18:31 Pulse Ox 98 01/29/22 18:00 BMI result Body Mass Index 29.4 Const: Other: Cervical collar in place General: cooperative, healthy appearing, comfortable and no acute distress Orientation/consciousness: patient oriented x3 Limitations: no limitations HEENT: Head: Yes normal to inspection, No Calix's sign and No raccoon eyes Ears: hearing grossly normal bilaterally and TM's normal bilaterally General nose exam: Normal external nose present Face and sinus: Yes normal facial exam Mouth: Normal oral and palatal mucosa present Throat: Yes posterior oropharynx normal Eyes: General: appearance normal, both eyes and all related structures Pupils: Equal, round and reactive pupils present Neck: Other: No cervical tenderness-unable to assess range of motion due to collar in place Neck: Yes normal visual inspection Chest: Chest palpation & inspection: normal inspection of the chest Resp: Effort & Inspection: normal respiratory effort Auscultation: clear to auscultation bilaterally Cardio: Rate: regular rate Rhythm: regular rhythm Peripheral pulses: Peripheral pulses 2+ throughout GI: Inspection: Yes normal to inspection Palpation (GI): Soft to palpation and nontender Auscultation: normal bowel sounds Back/Spine/Pelvis: Thoracic/Lumbar Spine: thoracic and lumbar spine normal to inspection Skin: General skin exam: no rashes or lesions noted Neuro: Other: Left-sided weakness at baseline 4/5 Right-side is 5/5 Left leg has diminished sensation in the lower leg. Right leg is normal sensation General: patient oriented x3, moves all extremities, normal sensation to monofilament and Unable to assess gait Cranial nerves: Yes CN's II-XII intact bilaterally, Yes Equal, round and reactive pupils present, Yes Bilaterally intact EOM present, Yes Nystagmus not present, Yes Normal facial strength present and Yes Midline tongue present Cognition (Neuro): normal cognition Speech: No Abnormal speech present Gait exam (Neuro): Unable to assess gait Extrem: General: Yes normal to inspection NIH Stroke Scale Internal: Initial- Upon Arrival Level of Consciousness: Alert Level of Consciousness Questions: Answers both questions correctly Level of Consciousness Commands: Performs both tasks correctly Best Gaze: Normal Visual: No visual loss Facial Palsy: Normal Motor Arm (Right): No drift Motor Arm (Left): No drift Motor Leg (Right): No drift Motor Leg (Left): Drift Limb Ataxia: Absent Sensory: Normal Best Language: No aphasia Dysarthia: Normal Extinction and Inattention: No abnormality Score: 1 Course Course Course Narrative: 72-year-old male here status post fall after patient lost his balance and reported bilateral lower extremity weakness with head strike. Left sided weakness/sensation deficit at baseline per patient. Vital signs stable Will obtain labs, EKG, chest x-ray, UA, COVID screen Reevaluation(s) Reevaluation #1: CT of the head shows no ACUTE infarct or intracranial hemorrhage. Labs, EKG, chest x-ray, COVID screen all unremarkable. UA pending. Will perform PO trial, ambulate Time: 18:30 Reevaluation #2: Patient ambulated with walker. He does favor his left leg but walks steadily. Eating and drinking. UA shows no signs of infection. Patient feels like he is too weak to go home. I spoke to his daughter who lives with him at home and she also agrees. Will hold in emergency department tonight and obtain a physical therapy and case management consult in the morning. Placed in physician observation pending disposition. Time: 21:00 Reevaluation #3: Sign out to night team pending above MDM - Fall Medical Records Attestation: I reviewed the patient's medical records. Lab Data Attestation: I reviewed the patient's lab results. Result diagrams: 01/29/22 17:10 01/29/22 17:10 Labs: Lab Results 01/29/22 01/29/22 01/29/22 Range/Units 17:10 17:10 17:10 WBC 5.3 (4.8-10.8) X10*3/uL RBC 4.11 L (4.60-5.80) X10*6/uL Hgb 11.7 L (14.0-18.0) g/dl Hct 35.6 L (42.0-52.0) % MCV 86.6 (80.0-98.0) fL MCH 28.5 (27.0-33.0) pg MCHC 32.9 (31.0-36.0) g/dl RDW 14.3 (11.0-16.0) % Plt Count 193 (160-400) X10*3/uL MPV 11.1 (9.4-12.4) fL Immature Gran % (Auto) 0.0 (0.0-0.4) % Neut % (Auto) 45.4 (45-73) % Lymph % (Auto) 39.4 (20-40) % Ness % (Auto) 13.1 H (2-11) % Eos % (Auto) 1.5 (0-4) % Baso % (Auto) 0.6 (0-2) % Lymph # (Auto) 2.1 (1.2-4.9) X10*3/uL Ness # (Auto) 0.7 (0.1-1.2) X10*3/uL Eos # (Auto) 0.1 (0.0-0.4) X10*3/uL Baso # (Auto) 0.0 (0.0-0.2) X10*3/uL Abs Immat Gran (auto) 0.00 (0.00-0.03) X10*3/uL Absolute Neuts (auto) 2.4 (2.0-8.3) x10*3/uL Absolute Nucleated RBC 0.000 (0.0-0.012) X10*3/uL Nucleated RBC % (auto) 0.0 (0.0-0.2) /100WBC PT 10.8 (9.9-13.0) SEC INR 1.0 (0.9-1.1) Sodium 140 (135-145) mmol/L Potassium 4.6 (3.3-5.1) mmol/L Chloride 106 (96-108) mmol/L Carbon Dioxide 26 (22-29) mmol/L Anion Gap 13 (12-20) BUN 23 H (9-16) mg/dL Creatinine 0.89 (0.5-1.4) mg/dL Estim Creat Clear Calc 69.1 Estimated GFR > 60 Random Glucose 112 (60-115) mg/dL Calcium 9.5 (8.4-10.2) mg/dL Magnesium 2.0 (1.6-2.6) mg/dL Total Bilirubin 0.5 (0.0-1.0) mg/dL Direct Bilirubin 0.3 (0.0-0.5) mg/dL AST 18 (5-37) U/L ALT 18 (0-40) U/L Alkaline Phosphatase 98 (39-117) U/L Troponin I High Sens (<3.5-35.0) ng/L Total Protein 7.2 (6.5-8.0) g/dL Albumin 4.0 (3.5-5.0) g/dL Urine Color Urine Appearance Urine pH (5.0-8.0) Ur Specific [place] (1.005-1.025) Urine Protein (NEG-TRACE) MG/DL Urine Glucose (UA) (NEG) MG/DL Urine Ketones (NEG) MG/DL Urine Blood (NEG) Urine Nitrite (NEG) Ur Leukocyte Esterase (NEG) COVID-19 (KENDRICK) (Negative) COVID-19 Clin Com 01/29/22 01/29/22 01/29/22 Range/Units 17:10 17:10 19:51 WBC (4.8-10.8) X10*3/uL RBC (4.60-5.80) X10*6/uL Hgb (14.0-18.0) g/dl Hct (42.0-52.0) % MCV (80.0-98.0) fL MCH (27.0-33.0) pg MCHC (31.0-36.0) g/dl RDW (11.0-16.0) % Plt Count (160-400) X10*3/uL MPV (9.4-12.4) fL Immature Gran % (Auto) (0.0-0.4) % Neut % (Auto) (45-73) % Lymph % (Auto) (20-40) % Ness % (Auto) (2-11) % Eos % (Auto) (0-4) % Baso % (Auto) (0-2) % Lymph # (Auto) (1.2-4.9) X10*3/uL Ness # (Auto) (0.1-1.2) X10*3/uL Eos # (Auto) (0.0-0.4) X10*3/uL Baso # (Auto) (0.0-0.2) X10*3/uL Abs Immat Gran (auto) (0.00-0.03) X10*3/uL Absolute Neuts (auto) (2.0-8.3) x10*3/uL Absolute Nucleated RBC (0.0-0.012) X10*3/uL Nucleated RBC % (auto) (0.0-0.2) /100WBC PT (9.9-13.0) SEC INR (0.9-1.1) Sodium (135-145) mmol/L Potassium (3.3-5.1) mmol/L Chloride (96-108) mmol/L Carbon Dioxide (22-29) mmol/L Anion Gap (12-20) BUN (9-16) mg/dL Creatinine (0.5-1.4) mg/dL Estim Creat Clear Calc Estimated GFR Random Glucose (60-115) mg/dL Calcium (8.4-10.2) mg/dL Magnesium (1.6-2.6) mg/dL Total Bilirubin (0.0-1.0) mg/dL Direct Bilirubin (0.0-0.5) mg/dL AST (5-37) U/L ALT (0-40) U/L Alkaline Phosphatase (39-117) U/L Troponin I High Sens 5.1 (<3.5-35.0) ng/L Total Protein (6.5-8.0) g/dL Albumin (3.5-5.0) g/dL Urine Color YELLOW Urine Appearance CLEAR Urine pH 7.5 (5.0-8.0) Ur Specific [place] 1.010 (1.005-1.025) Urine Protein NEG (NEG-TRACE) MG/DL Urine Glucose (UA) NEG (NEG) MG/DL Urine Ketones NEG (NEG) MG/DL Urine Blood NEG (NEG) Urine Nitrite NEG (NEG) Ur Leukocyte Esterase NEG (NEG) COVID-19 (KENDRICK) Negative (Negative) COVID-19 Clin Com See Note Imaging Data CT scan head/neck: Attestation: I personally reviewed and interpreted this imaging study as follows: Radiologist's impression: FINDINGS: Brain: There is no acute intra-axial, extra-axial bleed, masses or midline shift. There is a right frontal parietal hypodensity consistent with encephalomalacia from previous infarct or insult. No acute infarct in evolution, edema or shift visualized. The cortical sulci are symmetrical. There is diffuse periventrical hypodensities in both cerebral hemispheres suggestive of chronic small vessel ischemic changes. There are small lacunar infarction left ny and left external capsule. The lateral ventricles are symmetrical but enlarged. There does reveal no calvarial abnormality. Bilateral paranasal sinuses and mastoid air cells are well-aerated. Cervical spine: On sagittal reconstructed images there is maintained cervical lordosis. The vertebral heights and alignment is normal. There is loss of C6-C7 disc height with mild ventral spondylosis C4-C5, C5-C6 and C6-C7 disc levels. The craniovertebral junction and the C1-C2 alignment is normal. There is mild superior spurring C1-C2 disc level. No acute fracture, dislocation or subluxation seen. The prevertebral and paravertebral soft tissues are normal. There is widely patent. Visualized thyroid, submandibular and parotid glands are unremarkable. The lung apices are clear. There is a 3 mm nodule left lung apex. CHEST: The lungs are well-expanded and clear. The heart size and pulmonary vascularity is normal. No gross bony abnormality seen. There is cement augmentation lower dorsal spine from previous intervention for fracture. CT/CT cervical spine wo con IMPRESSION: No acute intracranial process seen. ? Right frontoparietal encephalomalacia from old infarct. Few lacunar infarcts as described above. ? No acute fracture, dislocation or subluxation seen in cervical spine. There is mild degenerative disc changes C6-C7 disc levels with mild ventral spondylosis lower dorsal spine. ? Unremarkable chest x-ray Chest x-ray: Attestation: I personally reviewed and interpreted this imaging study as follows: Radiologist's impression: CHEST: The lungs are well-expanded and clear. The heart size and pulmonary vascularity is normal. No gross bony abnormality seen. There is cement augmentation lower dorsal spine from previous intervention for fracture. ECG Data Attestation: I personally reviewed and interpreted this ECG as follows: ECG interpretation date: 01/29/22 ECG interpretation time: 17:07 Interpretation: Sinus bradycardia with rate of 50, normal ND, normal QRS, normal QT Discharge Plan Discharge Clinical Impression: Weakness, Fall Patient Disposition: Still a Patient Instructions: Weakness (ED), Fall Prevention (ED) Additional Instructions: Change positions slowly Follow-up with your PCP Prescriptions: No Action cyclobenzaprine 10 mg tablet 10 mg PO Q8H PRN (Reason: Muscle spasm) Qty: 14 0RF acetaminophen [Tylenol Extra Strength] 500 mg tablet 1,000 mg PO QID PRN (Reason: fever or pain) Qty: 14 0RF clopidogrel [Plavix] 75 mg tablet 75 mg PO DAILY 0RF atorvastatin [Lipitor] 20 mg tablet 20 mg PO DAILY 0RF aspirin [Adult Low Dose Aspirin] 81 mg tablet,delayed release (DR/EC) 81 mg PO DAILY 0RF gabapentin 300 mg capsule 300 mg PO TID 0RF Lantus Solostar U-100 Insulin 100 unit/mL (3 mL) insulin pen See Rx Instructions subcut DAILY 0RF Rx Instructions: 5 units subcut daily; Combivent Respimat 20-100 mcg/actuation mist 1 puff inhalation Q4H 0RF metformin 500 mg tablet 500 mg PO BID 0RF omeprazole 10 mg capsule,delayed release(DR/EC) 10 mg PO DAILY 0RF ondansetron HCl 8 mg tablet 8 mg PO Q8H 0RF meclizine 25 mg tablet 25 mg PO DAILY 0RF (DME) OneTouch Ultra Test Strip See Rx Instructions ea Not Applicable TID Qty: 10 0RF Rx Instructions: As directed diclofenac sodium 1 % gel 4 g topical TID 0RF (DME) pen needle, diabetic [BD Ultra-Fine Short Pen Needle] 31 gauge x 5/16 needle See Rx Instructions ea subcut DAILY Qty: 1200 0RF Rx Instructions: As directed Referrals: Adelfo Fletcher III, MD [Primary Care Provider] - 1 week
--- NOTE | 2022-01-29 16:49 | ECG_ITS ---
Test Reason : dizziness Blood Pressure : / mmHG Vent. Rate : 050 BPM Atrial Rate : 050 BPM P-R Int : 198 ms QRS Dur : 118 ms QT Int : 438 ms P-R-T Axes : -04 022 037 degrees QTc Int : 399 ms Sinus bradycardia Non-specific intra-ventricular conduction delay Borderline ECG When compared with ECG of 21-NOV-2021 12:41, No significant change was found Referred By: Delphine Ramey Electronically Signed By:Donald Faulkner
[2022-01-29 17:16] LABS: MANUAL DIFF FLAG NO
[2022-01-29 17:17] LABS: Basophils Percent Auto 0.6 % (0-2); Eosinophils Absolute Auto 0.1 X10*3/uL (0.0-0.4); Eosinophils Percent Auto 1.5 % (0-4); Hematocrit 35.6 % (42.0-52.0); Hemoglobin 11.7 g/dl (14.0-18.0); Lymphocytes Absolute Auto 2.1 X10*3/uL (1.2-4.9); Lymphocytes Percent Auto 39.4 % (20-40); Mean Corpuscular HGB Conc 32.9 g/dl (31.0-36.0); Mean Corpuscular Hemoglobin 28.5 pg (27.0-33.0); Mean Corpuscular Volume 86.6 fL (80.0-98.0); Mean Platelet Volume 11.1 fL (9.4-12.4); Monocytes Absolute Auto 0.7 X10*3/uL (0.1-1.2); Monocytes Percent Auto 13.1 % (2-11); Neutrophils Absolute Auto 2.4 x10*3/uL (2.0-8.3); Neutrophils Percent Auto 45.4 % (45-73); Platelet Count 193 X10*3/uL (160-400); Red Blood Count 4.11 X10*6/uL (4.60-5.80); Red Cell Distribution Width 14.3 % (11.0-16.0); White Blood Count 5.3 X10*3/uL (4.8-10.8)
[2022-01-29 17:24] LABS: Prothrombin Time 10.8 SEC (9.9-13.0)
[2022-01-29 17:33] LABS: COVID-19 Test Negative (Negative)
[2022-01-29 17:36] LABS: Anion Gap 13 (12-20); Blood Urea Nitrogen 23 mg/dL (9-16); Carbon Dioxide 26 mmol/L (22-29); Chloride 106 mmol/L (96-108); Potassium 4.6 mmol/L (3.3-5.1); Sodium 140 mmol/L (135-145)
[2022-01-29 17:37] LABS: Alanine Aminotransferase 18 U/L (0-40); Alkaline Phosphatase 98 U/L (39-117); Aspartate Amino Transferase 18 U/L (5-37); Bilirubin Direct 0.3 mg/dL (0.0-0.5); Bilirubin Total 0.5 mg/dL (0.0-1.0); Calcium 9.5 mg/dL (8.4-10.2); Creatinine Clr Calc Pharmacy 69.1; Estimated Glomerular Filt Rate > 60; Glucose Random 112 mg/dL (60-115); Total Protein 7.2 g/dL (6.5-8.0)
[2022-01-29 17:43] LABS: Troponin-I High Sensitivity 5.1 ng/L (<3.5-35.0)
[2022-01-29 18:00] VITALS: BP 167/70; PULSE 82; RESP 16; TEMP 36.6; O2SAT 98
[2022-01-29 18:30] VITALS: BP 154/70; BP 164/77; PULSE 54; PULSE 57
[2022-01-29 18:31] VITALS: BP 147/59; PULSE 56
--- NOTE | 2022-01-29 18:35 | PC.NURSE ---
Pt ambulated with rolling walker with stand-by assist and noted to ambulate well. Pt able to lift both legs and walk heel to toe, pt not swaying with ambulating. RN witnessed patient ambulate. Pt educated on results and stated an understanding.
[2022-01-29 20:00] LABS: Appearance Urine CLEAR; Color Urine YELLOW; Glucose Urine UA NEG (NEG); Leukocyte Esterase Urine NEG (NEG); Nitrite Urine NEG (NEG); PH 7.5 (5.0-8.0); Urine Blood NEG (NEG); Urine Ketones NEG (NEG); Urine Protein NEG (NEG-TRACE)
--- NOTE | 2022-01-29 20:50 | PHA.MEDREC ---
Pharmacy Consult ? Medication Reconciliation Pharmacy has completed the medication reconciliation.
[2022-01-29 21:04] VITALS: BP 152/64; PULSE 70; RESP 16; TEMP 36.1; O2SAT 97
--- NOTE | 2022-01-29 22:04 | PC.NURSE ---
PATIENT HAD CHICKEN DINNER ,ATE 100 % OF MEALS ,PATIENT WALK TO BATHROOM HAD LARGE BOWEL MOVEMENT AND VOID LARGE AMOUNT OF URINE .
--- NOTE | 2022-01-29 22:12 | MHC.CM.ED ---
CM met with patient with medical insurance claims processor, as pt is Sami speaking. A&Ox4. Very pleasant man. Requesting STR. Is agreeable to PT evaluation in the morning. Vax x2/Moderna & Boostedx1. HCP on file. HCP/daughter Selina Hansen ([phone]). Lives with daughter. Uses walker, CPAP & DM testing supplies. Has no services. D/C plan: STR pending PT evaluation. Requesting local referrals. Local referrals placed that contract with pt's insurance-[facility] Medicare. Pt also has Medicaid. CM will follow for d/c needs.
--- NOTE | 2022-01-30 05:28 | PC.NURSE ---
I assumed care of Stanley at 2300. Since that time he has been sleeping, wakes to verbal stimuli. When awake he is alert and calm and cooperative. Respirations are non-labored. Speech clead and appropriate. He takes PO fluids without difficutly. We will continue to monitor Stanley.
[2022-01-30 07:29] VITALS: BP 152/64; PULSE 70; O2SAT 97
[2022-01-30 08:06] LABS: Glucose, Whole Blood 107 mg/dL (60-115)
[2022-01-30] MEDS: Gabapentin 300 MG CAPSULE PO (09:38)
[2022-01-30] MEDS: metFORMIN HCl 500 MG TABLET PO (09:38)
[2022-01-30] MEDS: Aspirin Enteric Coated 81 MG TABLET.DR PO (09:38)
--- NOTE | 2022-01-30 10:02 | PHA.MEDREC ---
Pharmacy Consult ? Medication Reconciliation RN reports that patient stated gabapentin was given incorrect. Per Medication list from [facility] and Claim history, patient is actually on Gabapentin 300 mg take 3 tablet BID instead of 1 tablet BID. In addition PRN medications were also added to medication list that were missed in original reconcilation. Provider updated. Ann Jay, PharmD
--- NOTE | 2022-01-30 12:35 | PC.NURSE ---
pt assisted to the bathroom with two assists, pt unsteady on his feet
[2022-01-30 13:15] VITALS: BP 165/60; PULSE 55; RESP 18; O2SAT 99
--- NOTE | 2022-01-30 13:59 | MHC.CM.ED ---
Addendum entered by Zahida Barakat 01/30/22 16:10: [facility] has obtained Auth and pt will transport via [facility] today at 4:30pm. Pt has cell as bedside and will contact his dtr Selina to inform her of d/c time. ED , RN aware of plan Original Note: Pt has been accepted to [facility] pending insurance authorization. Pt aware of acceptance and limitations with STR availability and payor restrictions. Message left with pt's dtr, Selina requesting a call back to inform her of STR site. Will await callback.
[2022-01-30 15:30] VITALS: BP 164/68; PULSE 74; RESP 16; TEMP 36.6; O2SAT 98
== END 2022-01-30 17:00 | disposition other institution (70) ==
PROVIDERS: Nurse Practitioner Family; Emergency Provider Emergency Medicine; PCP Internal Medicine
DX: R53.1 Weakness (principal); Z91.81 History of falling; Z20.822 Contact with and (suspected) exposure to COVID-19; E11.9 Type 2 diabetes mellitus without complications; Z86.73 Personal history of transient ischemic attack (TIA), and cerebral infarction without residual deficits; Z79.82 Long term (current) use of aspirin; Z79.02 Long term (current) use of antithrombotics/antiplatelets; Z79.4 Long term (current) use of insulin; Z79.899 Other long term (current) drug therapy
CPT/HCPCS: 36415; 70450; 71046; 72125; 80048; 80076; 81003; 82947; 83735; 84484; 85025; 85610; 87635; 93005; 97162; 99284; 99285

== ENCOUNTER 2022-06-30 10:08 | Outpatient (REF) | payer OTHER, SELFPAY ==
--- NOTE | ~2022-06-30 | US_ITS ---
EXAMINATION: COLOR-FLOW DUPLEX IMAGING OF THE BILATERAL LOWER EXTREMITY ARTERIAL SYSTEM. VELOCITY MEASUREMENTS THROUGHOUT THE FEMORAL ARTERIES WITH ANKLE-BRACHIAL PERIPHERAL ARTERIAL TESTING. CLINICAL INFORMATION: This is a 72-year-old male with peripheral vascular disease. Multiple vascular surgeries. Technique: Bilateral ankle-brachial indices were performed. Bilateral velocity measurements with color Doppler flow with spectral waveform analysis was performed. RIGHT FEMORAL RUNOFF VELOCITIES: The right common femoral artery measures 154 cm/s and biphasic. The right profunda femoral artery is 133 cm/s and is biphasic. Right proximal superficial femoral artery measures 145 cm/s and biphasic. Mid superficial femoral artery is 118 cm/s and biphasic. Distal right superficial femoral artery measures 195 cm/s and is biphasic. Right popliteal velocity measures 200 cm/s and is biphasic. The posterior tibial artery velocity measures 125 cm/s and was biphasic. The right ankle-brachial index is 0.78. LEFT FEMORAL RUNOFF VELOCITIES: The left common femoral artery measures to 44 cm/s and triphasic. The left profunda femoral artery is 294 cm/s and is monophasic. Left proximal superficial femoral artery measures 100 cm/s and monophasic. Mid superficial femoral artery is occluded. Distal left superficial femoral artery is occluded. Left popliteal artery is occluded. The posterior tibial artery velocity measures 29 cm/s and was monophasic. The left ankle-brachial index is 1.22. US/US arterial duplex LE BI IMPRESSION: 1. Abnormal peripheral arterial testing bilateral. 2. There is occlusion of the mid left superficial femoral artery. There are elevated inflow velocities on the left suggesting possible inflow stenosis. 3. There are elevated right popliteal artery velocities suggesting an early hemodynamically significant stenosis.
--- NOTE | ~2022-06-30 | US_ITS ---
EXAMINATION: COLOR-FLOW DUPLEX IMAGING OF THE BILATERAL LOWER EXTREMITY ARTERIAL SYSTEM. VELOCITY MEASUREMENTS THROUGHOUT THE FEMORAL ARTERIES WITH ANKLE-BRACHIAL PERIPHERAL ARTERIAL TESTING. CLINICAL INFORMATION: This is a 72-year-old male with peripheral vascular disease. Multiple vascular surgeries. Technique: Bilateral ankle-brachial indices were performed. Bilateral velocity measurements with color Doppler flow with spectral waveform analysis was performed. RIGHT FEMORAL RUNOFF VELOCITIES: The right common femoral artery measures 154 cm/s and biphasic. The right profunda femoral artery is 133 cm/s and is biphasic. Right proximal superficial femoral artery measures 145 cm/s and biphasic. Mid superficial femoral artery is 118 cm/s and biphasic. Distal right superficial femoral artery measures 195 cm/s and is biphasic. Right popliteal velocity measures 200 cm/s and is biphasic. The posterior tibial artery velocity measures 125 cm/s and was biphasic. The right ankle-brachial index is 0.78. LEFT FEMORAL RUNOFF VELOCITIES: The left common femoral artery measures to 44 cm/s and triphasic. The left profunda femoral artery is 294 cm/s and is monophasic. Left proximal superficial femoral artery measures 100 cm/s and monophasic. Mid superficial femoral artery is occluded. Distal left superficial femoral artery is occluded. Left popliteal artery is occluded. The posterior tibial artery velocity measures 29 cm/s and was monophasic. The left ankle-brachial index is 1.22. US/US PAOLA complete IMPRESSION: 1. Abnormal peripheral arterial testing bilateral. 2. There is occlusion of the mid left superficial femoral artery. There are elevated inflow velocities on the left suggesting possible inflow stenosis. 3. There are elevated right popliteal artery velocities suggesting an early hemodynamically significant stenosis.
== END 2022-06-30 10:09 | disposition home or self-care (01) ==
LOC: HO.US 10:08
PROVIDERS: PCP Internal Medicine; Visit Provider Surgery Vascular Surgery
DX: I73.9 Peripheral vascular disease, unspecified (principal)
CPT/HCPCS: 93923; 93925

== ENCOUNTER → 2022-07-06 14:16 | Outpatient (BNVA) | payer OTHER, SELFPAY | PROVIDERS: PCP Internal Medicine; Referring Provider Internal Medicine; Visit Provider Internal Medicine Cardiovascular Disease | DX: I25.10 Atherosclerotic heart disease of native coronary artery without angina pectoris (principal); I10 Essential (primary) hypertension; I73.9 Peripheral vascular disease, unspecified | CPT/HCPCS: 99212 ==

== ENCOUNTER → 2022-07-14 15:36 | Outpatient (BNVA) | payer OTHER, SELFPAY | PROVIDERS: PCP Internal Medicine; Visit Provider Surgery Vascular Surgery | DX: I73.9 Peripheral vascular disease, unspecified (principal) | CPT/HCPCS: 99212 ==

== ENCOUNTER 2022-08-28 09:49 | Emergency (ER) | payer OTHER, SELFPAY ==
[2022-08-28 10:02] VITALS: BP 100/40; BP 148/64; PULSE 50; RESP 16; TEMP 36.7; O2SAT 97; O2SAT 98; BMI 28.0
[2022-08-28 11:11] LABS: IDNOW Serial# 9DB6401D; Influenza A Negative (Negative); Influenza B2 Negative (Negative)
[2022-08-28 11:12] LABS: COVID-19 Test Negative (Negative); IDNOW Serial# BCCEAD1C
[2022-08-28 12:18] LABS: Appearance Urine Clear; Color Urine Yellow; Glucose Urine UA Negative (Negative); Leukocyte Esterase Urine Negative (Negative); Nitrite Urine Negative (Negative); PH 6.5 (5.0-9.0); Specific Gravity - Urine 1.025 (1.005-1.025); Urine Blood Negative (Negative); Urine Ketones Negative (Negative); Urine Protein Trace mg/dL (Neg-Trace)
--- NOTE | 2022-08-28 12:41 | ED.GENADULT ---
HPI - General Adult General Chief complaint: Upper Respiratory Symptoms Stated complaint: BODY ACHES,WEAKNESS Time Seen by Provider: 08/28/22 10:14 History of Present Illness HPI narrative: Patient complains of body aches cough question of a fever last night all of which started yesterday, no shortness of breath no chest pain no sputum Other complaint is he woke up this morning and was not able to urinate although he did urinate last night, he denies any pain with urination or frequency of urination or burning with urination, he has no back pain no flank pain no abdominal pain no vomiting Related Data Home Medications Medication Instructions Recorded Confirmed aspirin 81 mg tablet,delayed 81 mg PO DAILY 06/12/20 07/06/22 release (Adult Low Dose Aspirin) atorvastatin 20 mg tablet (Lipitor) 20 mg PO BEDTIME 06/12/20 07/06/22 gabapentin 300 mg capsule 900 mg PO BID 06/12/20 07/06/22 insulin glargine 100 unit/mL (3 5 unit subcut BEDTIME 06/12/20 07/06/22 mL) subcutaneous pen (Lantus Solostar U-100 Insulin) ipratropium 20 mcg-albuterol 100 1 puff inhalation BID PRN Wheezing 06/12/20 07/06/22 mcg/actuation mist for inhalation (Combivent Respimat) metformin 500 mg tablet 500 mg PO BID 06/12/20 07/06/22 blood sugar diagnostic (OneTouch #10 ea 12/30/21 07/06/22 Ultra Test strips) diclofenac sodium 1 % topical gel 4 g topical TID PRN Pain 12/30/21 07/06/22 pen needle, diabetic 31 gauge x #1,200 ea 12/30/21 07/06/22 5/16 (BD Ultra-Fine Short Pen Needle) acetaminophen 500 mg tablet 1,000 mg PO Q6H PRN Pain 01/30/22 07/06/22 ammonium lactate 12 % topical cream 1 appl topical DAILY 01/30/22 07/06/22 polyethylene glycol 3350 17 gram 17 g PO Q48H 01/30/22 07/06/22 oral powder packet (Miralax) polyvinyl alcohol 1.4 % eye drops 1 drp ophthalmic (eye) BID PRN Dry 01/30/22 07/06/22 (Artificial Tears (polyvinyl Eye(S) alcohol)) amlodipine 2.5 mg tablet 2.5 mg PO DAILY 07/06/22 07/06/22 Allergies Allergy/AdvReac Type Severity Reaction Status Date / Time No Known Allergies Allergy Verified 07/14/22 15:41 [No Known Allergies*] Review of Systems Review of Systems: Positive for fever body aches cough as well as inability to urinate this morning Negatives are no headache no stiff neck no sore throat no difficulty breathing or swallowing no chest pain no shortness of breath no abdominal pain no nausea vomiting or diarrhea no dysuria no skin rash Yes all other systems are reviewed and are negative [facility] Past Medical History Source: nursing notes reviewed Medical History CVA (cerebral vascular accident) Diabetes Dizziness Infection of vascular bypass graft Myocardial infarct, old PVD (peripheral vascular disease) Surgical History History of cardiac catheterization History of femoropopliteal bypass Family History Family History Father Diabetes Mother Diabetes Depression Alzheimer disease Social History Social History Alcohol intake: never Patient Tobacco Use Status: Former Tobacco user Quit Date: 2011 Years Smoked: 40 +/- Advance Directives: Yes Advance Directives on File: Yes Advance Directives Date on File: 07/02/20 Physical Exam ED Vital Signs: Vital Signs - 24 hr 08/28/22 10:02 Temperature 98.1 F Pulse Rate 50 Respiratory Rate 16 Blood Pressure 148/64 H Pulse Oximetry 97 Oxygen Delivery Method Room Air BMI result Body Mass Index 28.0 General appearance is no acute distress comfortable cooperative The eyes are anicteric no pallor The pharynx is moist mucous membranes no redness swelling or exudate the voice was normal The neck was supple The chest was clear to auscultation bilateral Heart no murmur auscultated The abdomen is soft and nontender Extremities is full range of motion x4 , examined in bed Neuro motor is 5/5 x4, cranial nerves 2-12 intact as tested Course Course Course Narrative: Case was discussed with Dr. Zhang to discuss whether patient with 280 mL of urine on postvoid residual who did not urinate this morning should go home with a Pepper or just be straight cathed to obtain a urine to test for urinary tract infection The patient has had an issue of not being able to urinate when he is asked to do urine sample in past and he is comfortable appearing and Dr. Zhang agreed straight cath now to obtain sample, then go home with no Pepper and if unable to urinate then return and we would place a Pepper but for now we would not place a Pepper with its risk of infection and he would go home and see if he is able to void Testing for COVID and flu were negative, chest x-ray was normal, and patient was discharged no antibiotic treatment at this time, diagnosis of a viral syndrome He remained alert and cooperative throughout visit and was able to get up from the bed and go to the wheelchair for discharge, he does use a walker at home History and physical were done with the help of the lumber marker Medical Decision Making Lab Data MDM Lab Attestation statement: I reviewed the patient's lab results. Labs: Lab Results 08/28/22 08/28/22 08/28/22 Range/Units 10:22 10:22 12:08 Urine Color Yellow Urine Appearance Clear Urine pH 6.5 (5.0-9.0) Ur Specific [place] 1.025 (1.005-1.025) Urine Protein Trace (Neg-Trace) mg/dL Urine Glucose (UA) Negative (Negative) mg/dL Urine Ketones Negative (Negative) mg/dL Urine Blood Negative (Negative) Urine Nitrite Negative (Negative) Ur Leukocyte Esterase Negative (Negative) COVID-19 (KENDRICK) Negative (Negative) COVID-19 Clin Com See Note Influenza Type A (LUKASZ) Negative (Negative) Influenza Type B (LUKASZ) Negative (Negative) Influenza A & B Note See Note Discharge Plan Discharge Clinical Impression: Acute viral syndrome Patient Disposition: Home, Self-Care Additional Instructions: Chest x-ray flu test and COVID test were normal The lungs were clear, vital signs were okay You had difficulty urinating this morning, so we put a catheter to check for infection and there was no sign of any infection in the urine We are sending you home without any catheter hoping that you will be able to urinate later, Pepper catheter can cause infections and other problems so we do not want a put a catheter to go home with now If later today or this evening you are still unable to urinate and you are uncomfortable return to the ER and we would probably place a catheter at that point after re-evaluating Follow with urologist for further evaluation Return any time any worse condition or any concerns Prescriptions: No Action polyethylene glycol 3350 [Miralax] 17 gram Powder In Packet 17 g PO Q48H polyvinyl alcohol [Artificial Tears (polyvin alc)] 1.4 % Drops 1 drp OPHTHALMIC (EYE) BID PRN (Reason: Dry Eye(S)) acetaminophen 500 mg Tablet 1,000 mg PO Q6H PRN (Reason: Pain) ammonium lactate 12 % Cream 1 appl TOPICAL DAILY atorvastatin [Lipitor] 20 mg tablet 20 mg PO BEDTIME aspirin [Adult Low Dose Aspirin] 81 mg tablet,delayed release (DR/EC) 81 mg PO DAILY gabapentin 300 mg capsule 900 mg PO BID Lantus Solostar U-100 Insulin 100 unit/mL (3 mL) insulin pen 5 unit subcut BEDTIME Combivent Respimat 20-100 mcg/actuation mist 1 puff inhalation BID PRN (Reason: Wheezing) metformin 500 mg tablet 500 mg PO BID amlodipine 2.5 mg tablet 2.5 mg PO DAILY (DME) OneTouch Ultra Test Strip See Rx Instructions Not Applicable TID Qty: 10 Rx Instructions: As directed diclofenac sodium 1 % gel 4 g topical TID PRN (Reason: Pain) Rx Instructions: to knees (DME) pen needle, diabetic [BD Ultra-Fine Short Pen Needle] 31 gauge x 5/16 needle See Rx Instructions subcut DAILY Qty: 1200 Rx Instructions: As directed Referrals: Tad Zambrano MD [Physician] - (Difficulty urinating) Interventions: ED Discharge Assessment Last Done: 08/28/22 13:35 Discharge Date/Time: 08/28/22 13:36
== END 2022-08-28 13:36 | disposition home or self-care (01) ==
PROVIDERS: Physician Assistant Medical; Emergency Provider Student in an Organized Health Care Education/Training Program; PCP Internal Medicine
DX: B34.9 Viral infection, unspecified (principal); M79.10 Myalgia, unspecified site; R05.9 Cough, unspecified; Z20.822 Contact with and (suspected) exposure to COVID-19; Z79.899 Other long term (current) drug therapy
CPT/HCPCS: 51702; 51798; 71046; 81003; 87502; 87635; 99284

== ENCOUNTER 2023-01-04 | Outpatient (REF) | payer OTHER, MEDICAID, SELFPAY ==
--- NOTE | ~2023-01-04 | US_ITS ---
EXAMINATION: Noninvasive assessment of the bilateral lower extremities with ARTERIAL DUPLEX and ANKLE BRACHIAL INDICES (ABIs). CLINICAL INFORMATION: Peripheral vascular disease TECHNIQUE: Duplex Doppler techniques with waveform analysis and measurement of velocities in the bilateral common femoral, profunda femoris, superficial femoral, popliteal and tibial arteries were performed. Additionally, ankle pulse volume recordings, ankle pressure measurements and ankle brachial indices were obtained of the lower extremity arterial system bilaterally. The study was performed only at rest. COMPARISON: 06/30/2022 FINDINGS: DIRECT DUPLEX DOPPLER FINDINGS: RIGHT LEG: Common femoral artery: 138 cm/s, phasicity: Triphasic Profunda femoris artery: 83.3 cm/s, phasicity: Biphasic Superficial femoral artery (proximal): 77.4 cm/s, phasicity: Biphasic Superficial femoral artery (mid): 93.2 cm/s, phasicity: Biphasic Superficial femoral artery (distal): 62.9 cm/s, phasicity: Biphasic Popliteal artery: 82.1 cm/s, phasicity: Biphasic Posterior tibial artery: 89.1 cm/s, phasicity: Biphasic Peroneal artery: 49.5 cm/s, phasicity: Biphasic LEFT LEG: Common femoral artery: 84.4 cm/s, phasicity: Monophasic Profunda femoris artery: 79.2 cm/s, phasicity: Monophasic Superficial femoral artery (proximal): 31.2 cm/s, phasicity: Monophasic Superficial femoral artery (mid): 42.2 cm/s, phasicity: Monophasic Superficial femoral artery (distal): Occluded Popliteal artery: Occluded in the proximal segment with reconstituted flow in the distal segment, velocities measuring 24.7 cm/s, phasicity: Monophasic Posterior tibial artery: 22.8 cm/s, phasicity: Monophasic Peroneal artery: Not visualized ANKLE-BRACHIAL INDEX: Right: 1.14?, previously 0.78 Left: 1.5, previously 1.22 ANKLE PRESSURES: Right: PT 158, DP 110 Left: PT?201, DP?208 ANKLE PVR WAVEFORMS: Right: Abnormal Left: Abnormal US/US arterial duplex LE BI IMPRESSION: Right leg: Normal ankle brachial index with patent arterial flow throughout the right lower extremity. No significant visualized arterial stenosis or occlusion Left leg: Supranormal ankle-brachial indices which are nondiagnostic due to the noncompressibility. Stable chronic occlusion of the distal superficial femoral artery and proximal popliteal artery with reconstituted flow seen distally as described above
== END 2023-01-04 00:01 ==
LOC: HO.US
PROVIDERS: PCP Internal Medicine; Visit Provider Surgery Vascular Surgery
DX: I70.213 Atherosclerosis of native arteries of extremities with intermittent claudication, bilateral legs (principal)
CPT/HCPCS: 93923; 93925

== ENCOUNTER → 2023-02-09 14:21 | Outpatient (BNVA) | payer OTHER, SELFPAY | PROVIDERS: PCP Internal Medicine; Visit Provider Surgery Vascular Surgery | DX: I73.9 Peripheral vascular disease, unspecified (principal) | CPT/HCPCS: 99212 ==

== ENCOUNTER 2023-05-18 13:19 | Outpatient (AMB) | payer OTHER, SELFPAY ==
[2023-05-18 13:25] VITALS: BP 100/62; PULSE 52; O2SAT 100; BMI 28.0
--- NOTE | 2023-05-18 13:25 | MHC.OFFVIS ---
Intake Vital Signs 05/18/23 13:25 Height 5 ft 3 in Weight 158 lb BMI 28.0 BP 100/62 Blood Pressure Location Lt brachial Position Sitting Pulse 52 Pulse Source Pulse Oximeter Pulse Oximetry (%) 100 Oxygen Delivery Method Room Air Intake Visit Reasons: Leg Pain Intake Note: Pt presents to the office today for left leg pain. Pt states it started 2 weeks ago. He states he was sitting under a tree for 4 hours and got up and couldnt walk more than 25 feet. Pt states his daughter and son in law had to pick him up because he couldnt walk. He states the pain in mostly in his knee. Pt states he gets numbness and tingling in his left foot and toes at night time. Pt states he has had previous surgery on his ankle 12years ago which caused him to have 5 screws and 1 plate in his ankle. Allergies No Known Allergies [No Known Allergies*] Allergy (Verified 05/18/23 13:29) HPI Leg Pain HPI Details Very pleasant 73-year-old gentleman presents for follow-up regarding peripheral vascular disease. He had an original fem-pop bypass nearly 5 years ago. Was removed about 3 years ago due to infection. He has been fairly stable. He reports that he is progressively declining. He does require mostly a wheelchair to move around. He does have significant amount of left lower extremity discomfort when ambulating but now is experiencing some right lower extremity discomfort as well. He now presents for follow-up with noninvasive testing. [facility] Medical History Infection of vascular bypass graft Dizziness CVA (cerebral vascular accident) PVD (peripheral vascular disease) Myocardial infarct, old Diabetes Surgical History History of femoropopliteal bypass History of cardiac catheterization Family History Father Diabetes Mother Diabetes Depression Alzheimer disease Social History Alcohol intake: never Patient Tobacco Use Status: Former Tobacco user Quit Date: 2011 Years Smoked: 40 +/- Advance Directives Date on File: 07/02/20 Review of Systems Const All systems reviewed & are unremarkable except as noted in HPI and below Reports no additional complaints ENT Reports Normal hearing present Card Denies chest pain, Denies chest pain at rest, Denies chest pain with activity and Denies pedal edema Resp Denies cough GI Denies abdominal pain Musc Denies abnormal gait, Denies muscle cramps and Denies radiating pain into limb Skin/Breast Denies skin ulcer and Denies wounds Neuro Reports Normal hearing present and Denies abnormal gait Psych Reports no additional complaints Physical Exam Vital Signs: Last Vital Signs Pulse 52 05/18/23 13:25 BP 100/62 05/18/23 13:25 Pulse Ox 100 05/18/23 13:25 Oxygen Delivery Method Room Air 05/18/23 13:25 BMI result Body Mass Index 28.0 Const General: cooperative, healthy appearing and comfortable Orientation/consciousness: oriented to person, oriented to place and oriented to time HEENT Head: Yes normal to inspection Neck Neck: Yes normal visual inspection Carotids: no bruits Chest Chest palpation & inspection: normal inspection of the chest Resp Effort & Inspection: normal respiratory effort and able to speak in complete sentences Auscultation: clear to auscultation bilaterally, no crackles, no rales, no rhonchi and no wheezes Cardio Other: Bilateral DP signals Rate: regular rate Rhythm: regular rhythm Heart sounds: S1 normal heart sound present and S2 normal heart sound present Bruits: no carotid bruits Peripheral pulses: Peripheral pulses 2+ throughout GI Inspection: Yes normal to inspection Skin Wounds: no wounds Hair: normal Neuro General: oriented to person, oriented to place and oriented to time Cranial nerves: Yes CN's II-XII intact bilaterally and Yes Normal hearing present Cognition (Neuro): normal cognition Motor exam (neuro): 5/5 motor strength present throughout Extrem Other: venous exam: No significant superficial varicosities or spider telangiectasias, minimal edema General: No clubbing, No cyanosis and No edema Psych Appearance: grossly normal Mental Status: mental status grossly normal Speech and movement: Normal speech and movement present Results Reviewed Results Reviewed: Noninvasive arterial testing dated 09/25/2022 demonstrates PAOLA on the right of 1.1 and on the left of 1.5. This appears to be artifactually elevated. Written report and images were reviewed. Assessment & Plan Assessment & Plan (1) PVD (peripheral vascular disease): Comment: Left fem-pop in 2018 with removal on 05/02/2020 Code(s): I73.9 - Peripheral vascular disease, unspecified Plan: In short patient has progressive peripheral vascular disease. Although his arterial testing is stable it appears to be progressively declining. I have taken the liberty of ordering a CT angiogram with runoff to better elucidate the degree of his disease and location of disease. He will follow up with us after testing. Thank you for allowing us to assist in his care. If there are any questions or concerns please do not hesitate to contact us. Orders: Orders CT angio abd aorta runoff 1 Week I73.9 - Peripheral vascular disease, unspecified Blood Urea Nitrogen Today I73.9 - Peripheral vascular disease, unspecified Creatinine Today I73.9 - Peripheral vascular disease, unspecified Coding Level of Care Code Est Pt Level 4 (32129) Diagnoses PVD (peripheral vascular disease) I73.9
== END 2023-05-18 13:59 | disposition home or self-care (01) ==
PROVIDERS: PCP Internal Medicine; Visit Provider Surgery Vascular Surgery
DX: I73.9 Peripheral vascular disease, unspecified (principal)
CPT/HCPCS: 99214

== ENCOUNTER → 2023-05-18 13:19 | Outpatient (BNVA) | payer OTHER, SELFPAY | PROVIDERS: PCP Internal Medicine; Visit Provider Surgery Vascular Surgery | DX: M79.605 Pain in left leg (principal); I73.9 Peripheral vascular disease, unspecified | CPT/HCPCS: 99212 ==

== ENCOUNTER 2023-05-27 11:49 | Emergency (ER) | payer OTHER, SELFPAY ==
--- NOTE | ~2023-05-27 | XR_ITS ---
EXAMINATION: XR CHEST CLINICAL INFORMATION: Dizziness. Shortness of breath. COMPARISON: Chest x-ray August 28, 2022 TECHNIQUE: 2 views of the chest were obtained. FINDINGS: Lung volume is low. This causes prominence of the bronchovascular markings. This is similar to the chest x-ray August 28, 2022. No overt pulmonary edema. No focal consolidation. No pleural effusion. Surgical clips right upper abdomen. Status post thoracoplasty of the thoracic and lumbar vertebrae. XR/XR chest 2V IMPRESSION: Low lung volume. No acute abnormality of chest.
[2023-05-27 12:36] VITALS: BP 96/44; PULSE 52; O2SAT 99
--- NOTE | 2023-05-27 12:40 | ED.GENADULT ---
HPI - General Adult General Chief complaint: Dizziness Stated complaint: WEAKNESS HYPERGLYCEMIC Time Seen by Provider: 05/27/23 17:02 Source: patient Limitations: no limitations History of Present Illness HPI narrative: 73-year-old male presents with dizziness. Patient was going to the bathroom when he felt sensation of lightheadedness and movement. He has had this sensation lasts approximately 3 years ago. The symptoms are moderate to severe. He got himself to the bed using a walker which is normal for him in late himself down. The symptoms lasted a total of 1 hour he has not had the symptoms since. He denies any fevers or chills. Denies any cough. He has had increased elevation. He denies any focal weakness, headache, nausea vomiting. He has had no significant mucus production. He denies any chest pain or chest pain with exertion. Denies any lower extremity edema. Has a history of a previous stroke for which he is on aspirin and cholesterol-lowering medications. He denies any new focal weakness. His symptoms during a stroke or a new onset left-sided weakness which have for the most part resolved. Patient also has chronic left lower extremity edema pain which is due to peripheral vascular disease or peripheral arterial disease. He had a surgery in 2020. He said that he is not due for another surgery even though he is reportedly having a blockage. Related Data Home Medications Medication Instructions Recorded Confirmed aspirin 81 mg tablet,delayed 81 mg PO DAILY 06/12/20 07/06/22 release (Adult Low Dose Aspirin) atorvastatin 20 mg tablet (Lipitor) 20 mg PO BEDTIME 06/12/20 07/06/22 gabapentin 300 mg capsule 900 mg PO BID 06/12/20 07/06/22 insulin glargine 100 unit/mL (3 5 unit subcut BEDTIME 06/12/20 07/06/22 mL) subcutaneous pen (Lantus Solostar U-100 Insulin) ipratropium 20 mcg-albuterol 100 1 puff inhalation BID PRN Wheezing 06/12/20 07/06/22 mcg/actuation mist for inhalation (Combivent Respimat) metformin 500 mg tablet 500 mg PO BID 06/12/20 07/06/22 blood sugar diagnostic ([employer] #10 ea 12/30/21 07/06/22 Ultra Test strips) diclofenac sodium 1 % topical gel 4 g topical TID PRN Pain 12/30/21 07/06/22 pen needle, diabetic 31 gauge x #1,200 ea 12/30/21 07/06/22 5/16 (BD Ultra-Fine Short Pen Needle) acetaminophen 500 mg tablet 1,000 mg PO Q6H PRN Pain 01/30/22 07/06/22 ammonium lactate 12 % topical cream 1 appl topical DAILY 01/30/22 07/06/22 polyethylene glycol 3350 17 gram 17 g PO Q48H 01/30/22 07/06/22 oral powder packet (Miralax) polyvinyl alcohol 1.4 % eye drops 1 drp ophthalmic (eye) BID PRN Dry 01/30/22 07/06/22 (Artificial Tears (polyvinyl Eye(S) alcohol)) amlodipine 2.5 mg tablet 2.5 mg PO DAILY 07/06/22 07/06/22 Previous Rx's Medication Instructions Recorded fluticasone propionate 50 2 spray intranasal DAILY #16 grams 05/27/23 mcg/actuation nasal spray,suspension (Flonase Allergy Relief) Allergies Allergy/AdvReac Type Severity Reaction Status Date / Time No Known Allergies Allergy Verified 05/27/23 12:41 [No Known Allergies*] Review of Systems Review of Systems: CONSTITUTIONAL: Denies weight loss, fever and chills. HEENT: Denies changes in vision and hearing. RESPIRATORY: Denies SOB and cough. CV: Denies palpitations no CP. GI: Denies abdominal pain, nausea, vomiting and diarrhea. : Denies dysuria and urinary frequency. MSK: Denies myalgia and joint pain. SKIN: Denies rash and pruritus. NEUROLOGICAL: Denies headache and syncope. PSYCHIATRIC: Denies recent changes in mood. Denies anxiety and depression. All other ROS are negative unless in HPI PMFSH Past Medical History Medical History Infection of vascular bypass graft Dizziness CVA (cerebral vascular accident) PVD (peripheral vascular disease) Myocardial infarct, old Diabetes Surgical History History of femoropopliteal bypass History of cardiac catheterization Family History Family History Father Diabetes Mother Diabetes Depression Alzheimer disease Social History Social History Alcohol intake: never Patient Tobacco Use Status: Former Tobacco user Quit Date: 2011 Years Smoked: 40 +/- Advance Directives Date on File: 07/02/20 Physical Exam ED Vital Signs: Vital Signs - 24 hr 05/27/23 12:41 05/27/23 16:29 Temperature 98 F 97.5 F Pulse Rate 51 51 Respiratory Rate 16 16 Blood Pressure 129/46 L 144/61 H Pulse Oximetry 99 100 Oxygen Delivery Method Room Air BMI result Body Mass Index 27.5 GEN: Well developed, no acute distress, alert, oriented HEENT: Normocephalic, atraumatic, normal external ears, nose appears normal, no oropharyngeal edema or exudates Eyes: Normal to appearance Neck: Supple, no lymphadenopathy Respiratory: Talks in complete sentences, no respiratory distress, clear to auscultation bilaterally Cardiovascular: Regular rate and rhythm, no murmurs rubs or gallops Abdomen: Soft, nontender, nondistended, no guarding, no rebound Back: No CVA tenderness Extremities: No clubbing cyanosis or edema Neurologic: No focal neurologic deficits, cranial nerves 2-12 intact, strength is 5/5 bilaterally, [id number] intact, normal rapid alternating movements, no pronator drift Skin: No rash Course Course Course Narrative: This is a rapid medical exam: Additional HPI, ROS, PE not included below will be deferred to primary provider. Patient is a 73-year-old Georgian-speaking male with history of DM, HTN, CAD presenting to the ED via EMS complaining of dizziness and diaphoresis after having bowel movement this morning. Went back to bed, called 911. States he has shortness of breath with ambulation. Feels somewhat improved but symptoms have not completely resolved. Plan: labs, EKG, CXR Reevaluation(s) Reevaluation #1: The workup is complete. He is asymptomatic. No focal neurologic deficits. There is no definite indication for imaging studies at this time. Laboratory analysis was unremarkable for acute significant anemia, electrolyte abnormality, hypoglycemia. EKG demonstrated sinus bradycardia which she reports as being normal. There were no acute ischemic changes. Re-evaluation identified no cardiac dysrhythmia. At this point, patient can be discharged safely. He will return for any worsening or concerning or recurring symptoms. Otherwise he will follow up with his primary care provider early next week. Time: 18:16 Medical Decision Making Medical Decision Making [facility] Narrative: Patient presents with dizziness and lightheadedness. Differential diagnosis could be electrolyte abnormality, anemia, cardiac dysrhythmia, blood pressure lability, vertigo. Will order an EKG to rule out dysrhythmia. Will order routine laboratory analysis to rule out cardiac etiology with troponin as well as hyponatremia, hypokalemia and glucose related metabolism issues. Will treat patient symptomatically as needed. Patient has no new focal neurologic deficits. Doubt CVA. He has normal rapid alternating movements and no pronator drift to suggest cerebellar type symptoms as well. Differential Diagnosis Differential Diagnoses: The differential diagnosis associated with the presentation includes (See above) Admission/Observation Consideration of admission/observation: Escalation of care including admission/observation considered Lab Data [facility] Lab Attestation statement: I reviewed the patient's lab results. Mild anemia, negative cardiac enzymes x2, negative influenza or COVID-19 05/27/23 13:06 05/27/23 13:06 Labs: Lab Results 05/27/23 05/27/23 05/27/23 Range/Units 13:03 13:06 16:37 WBC 10.0 (4.8-10.8) X10*3/uL RBC 4.11 L (4.60-5.80) X10*6/uL Hgb 11.3 L (14.0-18.0) g/dl Hct 34.9 L (42.0-52.0) % MCV 84.9 (80.0-98.0) fL MCH 27.5 (27.0-33.0) pg MCHC 32.4 (31.0-36.0) g/dl RDW 15.9 (11.0-16.0) % Plt Count 202 (160-400) X10*3/uL MPV 11.1 (9.4-12.4) fL Immature Gran % (Auto) 0.4 (0.0-0.4) % Neut % (Auto) 76.2 H (45-73) % Lymph % (Auto) 14.8 L (20-40) % [place] % (Auto) 8.0 (2-11) % Eos % (Auto) 0.3 (0-4) % Baso % (Auto) 0.3 (0-2) % Lymph # (Auto) 1.5 (1.2-4.9) X10*3/uL [place] # (Auto) 0.8 (0.1-1.2) X10*3/uL Eos # (Auto) 0.0 (0.0-0.4) X10*3/uL Baso # (Auto) 0.0 (0.0-0.2) X10*3/uL Abs Immat Gran (auto) 0.04 H (0.00-0.03) X10*3/uL Absolute Neuts (auto) 7.7 (2.0-8.3) x10*3/uL Absolute Nucleated RBC 0.000 (0.0-0.012) X10*3/uL Nucleated RBC % (auto) 0.0 (0.0-0.2) /100WBC Sodium 142 (135-145) mmol/L Potassium 4.5 (3.3-5.1) mmol/L Chloride 108 (96-108) mmol/L Carbon Dioxide 26 (22-29) mmol/L Anion Gap 13 (12-20) BUN 25 H (9-16) mg/dL Creatinine 0.91 (0.5-1.4) mg/dL Estim Creat Clear Calc 64.6 Estimated GFR > 60 Random Glucose 93 (60-115) mg/dL Calcium 9.7 (8.4-10.2) mg/dL Total Bilirubin 0.4 (0.0-1.0) mg/dL AST 19 (5-37) U/L ALT 17 (0-40) U/L Alkaline Phosphatase 74 (39-117) U/L Troponin I High Sens 5.7 7.0 (<3.5-35.0) ng/L Total Protein 7.8 (6.5-8.0) g/dL Albumin 4.3 (3.5-5.0) g/dL COVID-19 (KENDRICK) Negative (Negative) COVID-19 Clin Com See Note Influenza Type A (LUKASZ) Negative (Negative) Influenza Type B (LUKASZ) Negative (Negative) Influenza A & B Note See Note Independent Interpretation I performed an independent interpretation of an: EKG (Sinus bradycardia heart rate 51, normal intervals, no acute ST elevations depressions, prominent Q-wave noted in lead 3) and Plain X-Ray (Chest: No acute cardiopulmonary disease) Radiology Impression Discussion of test interpretation with radiology: I have reviewed the radiologist's reading. Radiologist Impression: XR/XR chest 2V IMPRESSION: Low lung volume. No acute abnormality of chest. Dictated By: Josiah Patel MD Signed By: <Electronically signed by Josiah Patel MD in OV> 05/27/23 1501 External Record Review External record reviewed: Office record (Cardiology 10/14/2021) Prescription Management I considered prescription management with: Antiviral and Antibiotic Chronic Conditions Patient?s care impacted by: Diabetes Discharge Plan Discharge Clinical Impression: Dizziness Patient Disposition: Home, Self-Care Instructions: Dizziness (ED) Prescriptions: New fluticasone propionate [Flonase Allergy Relief] 50 mcg/actuation spray,suspension 2 spray intranasal DAILY Qty: 16 0RF Rx Instructions: administer into each nostril No Action polyethylene glycol 3350 [Miralax] 17 gram Powder In Packet 17 g PO Q48H polyvinyl alcohol [Artificial Tears (polyvin alc)] 1.4 % Drops 1 drp OPHTHALMIC (EYE) BID PRN (Reason: Dry Eye(S)) acetaminophen 500 mg Tablet 1,000 mg PO Q6H PRN (Reason: Pain) ammonium lactate 12 % Cream 1 appl TOPICAL DAILY atorvastatin [Lipitor] 20 mg tablet 20 mg PO BEDTIME aspirin [Adult Low Dose Aspirin] 81 mg tablet,delayed release (DR/EC) 81 mg PO DAILY gabapentin 300 mg capsule 900 mg PO BID Lantus Solostar U-100 Insulin 100 unit/mL (3 mL) insulin pen 5 unit subcut BEDTIME Combivent Respimat 20-100 mcg/actuation mist 1 puff inhalation BID PRN (Reason: Wheezing) metformin 500 mg tablet 500 mg PO BID amlodipine 2.5 mg tablet 2.5 mg PO DAILY (DME) OneTouch Ultra Test Strip See Rx Instructions Not Applicable TID Qty: 10 Rx Instructions: As directed diclofenac sodium 1 % gel 4 g topical TID PRN (Reason: Pain) Rx Instructions: to knees (DME) pen needle, diabetic [BD Ultra-Fine Short Pen Needle] 31 gauge x 5/16 needle See Rx Instructions subcut DAILY Qty: 1200 Rx Instructions: As directed Referrals: Adelfo Fletcher III, MD [Primary Care Provider] - 5 days Print Language: Georgian
[2023-05-27 12:41] VITALS: BP 129/46; PULSE 51; RESP 16; TEMP 36.6; O2SAT 99; BMI 27.5
--- NOTE | 2023-05-27 12:44 | ECG_ITS ---
Test Reason : weakness Blood Pressure : / mmHG Vent. Rate : 051 BPM Atrial Rate : 051 BPM P-R Int : 182 ms QRS Dur : 120 ms QT Int : 426 ms P-R-T Axes : 004 027 036 degrees QTc Int : 392 ms Sinus bradycardia Non-specific intra-ventricular conduction delay Borderline ECG When compared with ECG of 29-JAN-2022 17:07, No significant change was found Referred By: Meghan Cam Electronically Signed By:LOREN EDWARD
[2023-05-27 13:15] LABS: MANUAL DIFF FLAG NO
[2023-05-27 13:17] LABS: Basophils Percent Auto 0.3 % (0-2); Eosinophils Percent Auto 0.3 % (0-4); Hematocrit 34.9 % (42.0-52.0); Hemoglobin 11.3 g/dl (14.0-18.0); Imm Gran Abs Auto 0.04 X10*3/uL (0.00-0.03); Imm Gran Pct Auto 0.4 % (0.0-0.4); Lymphocytes Absolute Auto 1.5 X10*3/uL (1.2-4.9); Lymphocytes Percent Auto 14.8 % (20-40); Mean Corpuscular HGB Conc 32.4 g/dl (31.0-36.0); Mean Corpuscular Hemoglobin 27.5 pg (27.0-33.0); Mean Corpuscular Volume 84.9 fL (80.0-98.0); Mean Platelet Volume 11.1 fL (9.4-12.4); Monocytes Absolute Auto 0.8 X10*3/uL (0.1-1.2); Neutrophils Absolute Auto 7.7 x10*3/uL (2.0-8.3); Neutrophils Percent Auto 76.2 % (45-73); Platelet Count 202 X10*3/uL (160-400); Red Blood Count 4.11 X10*6/uL (4.60-5.80); Red Cell Distribution Width 15.9 % (11.0-16.0)
[2023-05-27 13:29] LABS: Alanine Aminotransferase 17 U/L (0-40); Albumin Level 4.3 g/dL (3.5-5.0); Alkaline Phosphatase 74 U/L (39-117); Anion Gap 13 (12-20); Aspartate Amino Transferase 19 U/L (5-37); Bilirubin Total 0.4 mg/dL (0.0-1.0); Blood Urea Nitrogen 25 mg/dL (9-16); Calcium 9.7 mg/dL (8.4-10.2); Carbon Dioxide 26 mmol/L (22-29); Chloride 108 mmol/L (96-108); Creatinine Clr Calc Pharmacy 64.6; Estimated Glomerular Filt Rate > 60; Glucose Random 93 mg/dL (60-115); Potassium 4.5 mmol/L (3.3-5.1); Sodium 142 mmol/L (135-145); Total Protein 7.8 g/dL (6.5-8.0)
[2023-05-27 13:36] LABS: COVID-19 Test Negative (Negative); IDNOW Serial# 9DB6401D; IDNOW Serial# BCCEAD1C; Influenza A Negative (Negative); Influenza B2 Negative (Negative)
[2023-05-27 13:37] LABS: Troponin-I High Sensitivity 5.7 ng/L (<3.5-35.0)
[2023-05-27 16:29] VITALS: BP 144/61; PULSE 51; RESP 16; TEMP 36.4; O2SAT 100
== END 2023-05-27 19:19 | disposition home or self-care (01) ==
PROVIDERS: Registered Nurse Emergency; Emergency Provider Emergency Medicine; PCP Internal Medicine
DX: R42 Dizziness and giddiness (principal); E11.9 Type 2 diabetes mellitus without complications; I10 Essential (primary) hypertension; I25.2 Old myocardial infarction; Z86.73 Personal history of transient ischemic attack (TIA), and cerebral infarction without residual deficits; Z87.891 Personal history of nicotine dependence; Z79.82 Long term (current) use of aspirin; Z79.4 Long term (current) use of insulin; Z79.899 Other long term (current) drug therapy; Z20.822 Contact with and (suspected) exposure to COVID-19
CPT/HCPCS: 36415; 71046; 80053; 84484; 85025; 87502; 87635; 93005; 99283

== ENCOUNTER 2023-06-09 13:59 | Outpatient (REF) | payer OTHER, SELFPAY ==
[2023-06-09 15:36] LABS: Blood Urea Nitrogen 23 mg/dL (9-16); Estimated Glomerular Filt Rate > 60
== END 2023-06-09 14:00 | disposition home or self-care (01) ==
LOC: HO.LAB 13:59
PROVIDERS: PCP Internal Medicine; Visit Provider Surgery Vascular Surgery
DX: I73.9 Peripheral vascular disease, unspecified (principal)
CPT/HCPCS: 36415; 82565; 84520

== ENCOUNTER 2023-06-24 09:20 | Outpatient (REF) | payer OTHER, SELFPAY ==
--- NOTE | ~2023-06-24 | CT_ITS ---
EXAMINATION: CT ANGIOGRAPHY ABDOMEN, PELVIS AND LOWER EXTREMITY RUNOFF WITH CONTRAST CLINICAL INFORMATION: Peripheral vascular disease COMPARISON: CTA runoff December 25, 2021 TECHNIQUE: Initial noncontrast localizing management instructor images were obtained. Timing boluses at the level of the celiac and popliteal arteries were calculated. Subsequently, arterial phase multidetector volumetric imaging was performed through the abdomen, pelvis and bilateral lower extremities following the administration of 100 mL Omnipaque 350 intravenous contrast. No contrast reaction reported Sagittal and coronal reformatted images were obtained on the technologist workstation. After extensive post-processing on a dedicated 3-D workstation, 3-D reformatted images were uploaded to PACS and reviewed as well. This CT examination was performed using dose optimization techniques as appropriate, variously including the following: *Automated exposure control *Adjustment of mA and/or kV according to patient size (this includes techniques or standardized protocols for targeted exams where dose is matched to indication/reason for exam; i.e. extremities or head) *Use of iterative reconstruction technique DLP: 653 mGy-cm FINDINGS: VASCULAR: Heart: Normal in size. Mild coronary artery calcifications. Abdominal Aorta: Mild mixed atherosclerotic disease. Distal aorta measures 13.7 x 17.3 mm. No dissection or aneurysmal dilation. Normal aortic taper. Mesenteric Arteries: Mild to moderate noncalcified atherosclerotic disease at the origin without high-grade stenosis; distal perfusion preserved. Approximately 50% stenosis of the superior mesenteric artery origin; distal perfusion preserved. Atherosclerotic calcifications and stenosis of the proximal inferior mesenteric artery; distal perfusion preserved. Renal Artery: Single renal arteries bilaterally. Renal arteries are patent and without stenosis or other vascular anomaly. Right Lower Extremity: Right Common Iliac Artery: Patent. Mild mixed atherosclerotic disease resulting in no high grade stenosis. Right External Iliac Artery: Patent. Mild mixed atherosclerotic disease resulting in no high grade stenosis. Right Internal Iliac Artery: Patent. Common Femoral Artery: Patent. Moderate mixed atherosclerotic disease resulting in 50% stenosis. Superficial Femoral Artery: Patent. Moderate to severe mixed atherosclerotic disease resulting in multiple areas of high-grade stenoses (8; 1082, 2227) Profunda Femoris: Patent. Popliteal Artery: Patent. Focal high-grade stenosis of the above-knee popliteal artery secondary to mixed atherosclerotic plaque (8; 1244) below knee popliteal artery diminutive in caliber. Tibioperoneal Trunk: Patent. Anterior Tibial Artery: Patent. Peroneal Artery: Patent. Posterior Tibial Artery: Occluded at the level of the distal tibia fibula (8; 1760). Dorsalis Pedis: Patent. Plantar Arch: Patent via retrograde flow. Left lower extremity: Left Common Iliac Artery: Patent. Mild mixed atherosclerotic disease resulting in no high grade stenosis. Left External Iliac Artery: Patent. Mild mixed atherosclerotic disease resulting in no high grade stenosis. Left Internal Iliac Artery: Patent. Common Femoral Artery: Patent. Moderate mixed atherosclerotic disease resulting in no high grade stenosis. Superficial Femoral Artery: Patent proximally, then occluded for a long segment. Profunda Femoris: Patent. Popliteal Artery: Occluded Tibioperoneal Trunk: Patent. Anterior Tibial Artery: Patent up to the mid-distal tibia fibula (8; 1720). Peroneal Artery: Patent. Posterior Tibial Artery: Patent. Dorsalis Pedis: Patent. Plantar Arch: Patent. NONVASCULAR FINDINGS: ABDOMEN/PELVIS: Lung Bases: Prominence of the interlobular septa and groundglass opacities suggestive of mild pulmonary edema. Liver: Rim calcified hypodensity in the right hepatic lobe measuring 1.6 cm, stable since 2019. Remainder of the liver is homogeneous in attenuation. Gallbladder: Absent Biliary System: No intrahepatic or extrahepatic biliary dilation. Pancreas: Pancreatic head atrophic. Spleen: Normal in size. Genitourinary: Bilateral kidneys demonstrate symmetric enhancement. No perinephric fluid collection. No renal calculi. No hydroureteronephrosis. Adrenal Glands: Unremarkable. Reproductive: Prostate enlarged. Gastrointestinal: The visualized alimentary tract is normal in course. Postsurgical changes of colocolonic anastomosis of the distal sigmoid. No evidence of obstruction. Appendix: The appendix is not visualized, however, no pericecal inflammatory changes are seen in the right lower quadrant. Peritoneum: Multiple surgical clips are seen in the perigastric region and right upper quadrant. No intra-abdominal fluid collection. No pneumoperitoneum. Lymph Nodes: No pathologically enlarged abdominal or pelvic lymph nodes. Soft Tissues/Musculoskeletal: T11 and L1 changes of vertebral augmentation. Degenerative changes of the thoracic spine. Right distal fibular plate and screws. Fluid attenuating subcutaneous well-circumscribed right gluteal mass measuring 3.1 cm, likely a sebaceous cyst. CT/CT angio abd aorta runoff IMPRESSION: VASCULAR: Abdomen/Pelvis: 1. Mild mixed infrarenal abdominal aortic atherosclerotic disease without aneurysm or dissection. 2. Atherosclerotic calcifications of the mesenteric vessels. Right Lower Extremity: 1. At least 2 separate short segment high-grade stenoses of the distal SFA and above-knee popliteal artery. 2. Two-vessel runoff to the foot via the anterior tibial and peroneal arteries. Posterior tibial artery occluded at the level of the distal tibia fibula. 3. Dorsalis pedis patent. Plantar arch patent via retrograde flow. Left Lower Extremity: 1. Long segment occlusion of the superficial femoral artery. 2. Popliteal artery occluded. 3. Two-vessel runoff to the foot via the peroneal and posterior tibial arteries. Anterior tibial artery patent up to the mid-distal tibia fibula. 4. Dorsalis pedis and plantar arch patent. NONVASCULAR: Mild pulmonary edema. Fleischner guidelines were followed.
[2023-06-24] MEDS: iohexoL 350 MG/ML 100 ML INFUS..BTL IV (10:18)
== END 2023-06-24 09:21 | disposition home or self-care (01) ==
LOC: HO.CT 09:20
PROVIDERS: PCP Internal Medicine; Visit Provider Surgery Vascular Surgery
DX: I73.9 Peripheral vascular disease, unspecified (principal)
CPT/HCPCS: 75635; Q9967

== ENCOUNTER 2023-06-29 09:09 | Outpatient (AMB) | payer OTHER, SELFPAY ==
--- NOTE | 2023-06-29 09:11 | A.OFFVIS_ITS ---
Intake Vital Signs 06/29/23 09:12 Height 5 ft 3 in Weight 158 lb BMI 28.0 Intake Visit Reasons: CTA with runoff fu Intake Note: follow up PVD w/ Hx of Left fem-pop bypass in 2018 w/ removal 05/02/2020 s/p CTA Abd/pelvis & LE runoff 06/24/2023. Pt has had Left Leg pain since the end on April 2023, has had 2 additional falls since last visit on 05/18/23. Cant walk more than 5 steps to go to the bathroom. Pt states he is definitely doing worse Accompanied by: Daughter Allergies No Known Allergies [No Known Allergies*] Allergy (Verified 06/29/23 09:19) HPI CTA with runoff fu HPI Details Very pleasant 73-year-old gentleman presents for follow-up regarding peripheral vascular disease. He has undergone CT angiogram. Reports that he is having extreme difficulty in particular the left leg. He can barely walk 25 ft in is just functioning within the house. Of note he has been worked up by the primary care team and was referred to Orthopedics. They are currently in the process of working him up and he is awaiting MRI. [facility] Medical History Infection of vascular bypass graft Dizziness CVA (cerebral vascular accident) PVD (peripheral vascular disease) Myocardial infarct, old Diabetes Surgical History History of femoropopliteal bypass History of cardiac catheterization Family History Father Diabetes Mother Diabetes Depression Alzheimer disease Social History Alcohol intake: never Patient Tobacco Use Status: Former Tobacco user Quit Date: 2011 Years Smoked: 40 +/- Advance Directives Date on File: 07/02/20 Review of Systems Const All systems reviewed & are unremarkable except as noted in HPI and below Reports no additional complaints ENT Reports Normal hearing present Card Denies chest pain, Denies chest pain at rest, Denies chest pain with activity and Denies pedal edema Resp Denies cough GI Denies abdominal pain Musc Denies abnormal gait, Denies muscle cramps and Denies radiating pain into limb Skin/Breast Denies skin ulcer and Denies wounds Neuro Reports Normal hearing present and Denies abnormal gait Psych Reports no additional complaints Physical Exam Vital Signs: BMI result Body Mass Index 28.0 Const General: cooperative, healthy appearing and comfortable Orientation/consciousness: oriented to person, oriented to place and oriented to time HEENT Head: Yes normal to inspection Neck Neck: Yes normal visual inspection Carotids: no bruits Chest Chest palpation & inspection: normal inspection of the chest Resp Effort & Inspection: normal respiratory effort and able to speak in complete sentences Auscultation: clear to auscultation bilaterally, no crackles, no rales, no rhonchi and no wheezes Cardio Rate: regular rate Rhythm: regular rhythm Heart sounds: S1 normal heart sound present and S2 normal heart sound present Bruits: no carotid bruits Peripheral pulses: Peripheral pulses 2+ throughout GI Inspection: Yes normal to inspection Skin Wounds: no wounds Hair: normal Neuro General: oriented to person, oriented to place and oriented to time Cranial nerves: Yes CN's II-XII intact bilaterally and Yes Normal hearing present Cognition (Neuro): normal cognition Motor exam (neuro): 5/5 motor strength present throughout Extrem Other: venous exam: No significant superficial varicosities or spider telangiectasias, minimal edema General: No clubbing, No cyanosis and No edema Psych Appearance: grossly normal Mental Status: mental status grossly normal Speech and movement: Normal speech and movement present Results Reviewed Results Reviewed: CT angiogram dated 06/24/2023 demonstrates known left lower extremity SFA and popliteal occlusion. Patent but highly calcified below-knee vessels. Written report and images were reviewed Assessment & Plan Assessment & Plan (1) PVD (peripheral vascular disease): Comment: Left fem-pop in 2018 with removal on 05/02/2020 Code(s): I73.9 - Peripheral vascular disease, unspecified Plan: In short patient has an element of peripheral vascular disease CT angiogram does demonstrate some below-knee vessels which appear to be reconstituting via collaterals. At the current time the more important concern is his back issues. His symptomatology does not match up with what he has at the current time in terms of arterial disease. Would be curious as to MRI results and whether this would address his current issues. He will follow up with us in 3 months. Should there be no improvements would consider further vascular intervention at that point. Thank you for allowing us to assist in his care. If there are any questions or concerns please do not hesitate to contact us. (2) Lumbar back pain with radiculopathy affecting left lower extremity: Code(s): M54.16 - Radiculopathy, lumbar region Coding Level of Care Code Est Pt Level 4 (54271) Diagnoses PVD (peripheral vascular disease) I73.9 Lumbar back pain with radiculopathy affecting left lower extremity M54.16
[2023-06-29 09:12] VITALS: BMI 28.0
== END 2023-06-29 09:59 | disposition home or self-care (01) ==
PROVIDERS: PCP Internal Medicine; Visit Provider Surgery Vascular Surgery
DX: I73.9 Peripheral vascular disease, unspecified (principal); M54.16 Radiculopathy, lumbar region
CPT/HCPCS: 99213

== ENCOUNTER → 2023-06-29 09:09 | Outpatient (BNVA) | payer OTHER, SELFPAY | PROVIDERS: PCP Internal Medicine; Visit Provider Surgery Vascular Surgery | DX: I73.9 Peripheral vascular disease, unspecified (principal); M54.16 Radiculopathy, lumbar region | CPT/HCPCS: 99212 ==

== ENCOUNTER 2023-07-04 18:24 | Emergency (ER) | payer OTHER, SELFPAY ==
[2023-07-04 18:31] VITALS: BP 128/60; PULSE 59; O2SAT 96
[2023-07-04 18:35] VITALS: BP 140/57; PULSE 54; RESP 16; O2SAT 98; BMI 28.0
--- OUTSIDE RECORDS SUMMARY | 2023-07-04 18:50 | XMS_ITS | Continuity of Care Document ---
Author Name Unknown Organization [facility] Address [address] [place] [address]- Care Team Providers Care Cylinder Dyer Name Role Phone Adelfo Fletcher III, MD Primary Care Physician [id number] Date(s): 05/28/22 - 06/27/22 [facility] [address] [place] [id number]- Attending Physician: Lisset Sapp Admitting Physician: Lisset Sapp Referring Physician: Lisset Sapp Patient Care team information Personnel Name: Adelfo Fletcher III, MD Address: Address: [address] [place] [id number]
--- OUTSIDE RECORDS SUMMARY | 2023-07-04 18:50 | XMS_ITS | Continuity of Care Document ---
Author Name Unknown Organization [facility] Address Unknown Care Team Providers Care Clinical Auditor Name Role Phone Chance CEE MD, Adelfo Ramos Primary Care Physician Encounter [facility] Date(s): 06/11/21 - 10/09/21 [facility] Attending Physician: Feliz Ellington NP Admitting Physician: Feliz Ellington NP Referring Physician: Arminda Ott
--- OUTSIDE RECORDS SUMMARY | 2023-07-04 18:50 | XMS_ITS | Continuity of Care Document ---
Author Name Unknown Organization [facility] Address Unknown Care Team Providers Care Horseshoer Name Role Phone Chance CEE MD, Adelfo Ramos Primary Care Physician [phone] Encounter [facility] Date(s): 09/09/21 - 10/09/21 [facility] Attending Physician: Lisset Sapp Admitting Physician: Lisset Sapp Referring Physician: Lisset Sapp
--- OUTSIDE RECORDS SUMMARY | 2023-07-04 18:51 | XMS_ITS | Patient Health Record ---
Author Name Unknown Organization [facility] Address [address] [facility] [address] [place] [address] Care Team Providers Care Route Aide Name Role Phone Adelfo Fletcher Primary Care Provider JESSICA Abernathy Unavailable [phone] ALLERGIES No Known Allergies REASON FOR REFERRAL No Information MEDICATIONS Medication SIG (Take, Route, Frequency, Duration) Notes Start Date End Date Status Diclofenac Sodium 1 % as directed Manager Cosmetic ally 4 times daily Active Omeprazole 10 MG 1 capsule 30 minutes before morning meal Orally Once a day Not-Taking Lipitor 20 MG 1 tablet Orally Once a day Active Clopidogrel Bisulfate 75 MG 1 tablet Orally Once a day Not-Taking Acetaminophen 325 MG 2 tablet as needed Orally every 6 hrs Active Ciclopirox 8 % 1 application Externally apply 2 drops to each toenail daily Not-Taking Gabapentin 300 MG 3 capsule Orally bid Active Midodrine HCl 2.5 MG 1 tablet Orally Thr ee times a day Not-Taking Naproxen Sodium 220 MG 2 capsule with fo od or milk as needed Orally take 440 mg prn Not-Taking Ammonium Lactate 12 % 1 application Externally apply to bottom of feet daily and cover with socks Not-Taking Simethicone 125 MG 1 tablet after meals and at bedtime as needed Orally 3 times daily Not-Taking Lantus 100 UNIT/ML as directed Subcutaneous 5 units daily Active metFORMIN HCl 500 MG 1 tablet with a se l Orally Once a day Active Combivent Respimat 20-100 MCG/ACT 1 puff as needed Inhalation 4 times daily prn Active Aspirin 81 MG 1 tablet Orally Once a day Active Ondansetron HCl 8 MG 1 tablet as needed Orally every 8 hr prn Active amLODIPine Besylate 2.5 MG 1 tablet Orally Once a day Active Lidocaine 5 % 1 application as nee ded Externally apply to knee bid Active Meclizine HCl 25 MG 1 tablet as needed Orally daily prn Active SOCIAL HISTORY Sex Assigned At : Social History Observation Description Sex Assigned At Unknown PROBLEMS Problem Type ICD Code Onset Dates Problem Status W/U Status Risk SNOMED Code Notes Problem Other hammer toe(s) (acquired), right foot (M20.41) Active confirmed 524105050 Problem Other hammer toe(s) (acquired), left foot (M20.42) Active confirmed 13309163 Problem PAD (peripheral artery disease) (I73.9) Active confirmed 487707147 Problem Type 2 diabetes mellitus with diabetic polyneuropathy, unspecified whether adjunct faculty for medical terminology insulin use (E11.42) Active confirmed 494532767 VITAL SIGNS Heart Rate 63 /min 04/06/2023 unable to weigh patient in wheel chair Temperature 97.6 degrees Fahrenheit 04/06/2023 unab le to weigh patient in wheel chair Respiratory Rate 16 /min 04/06/2023 unable to w eigh patient in wheel chair Height 5ft 3in in 04/06/2023 unable to weigh patient in wheel chair Encounters Encounter Location Date Provider Diagnosis [facility] [address] [address] 07/09/2022 JESSICA BEST [facility] [address] [address] 04/06/2023 JESSICA BEST PAD (peripheral artery disease) I73.9 ; Left foot drop M21.372 ; Pain in left leg M79.605 ; Type 2 diabetes mellitus with diabetic polyneuropathy, unspecified whether care home insulin use E11.42 and Dystrophic nail L60.3 ASSESSMENTS Encounter Date Diagnosis Assessment Notes Treatment Notes Treatment Clinical Notes 04/06/2023 PAD (peripheral artery disease) (ICD-10 - I73.9) He has non-palpable left foot pulses that I am also unable to doppler. He had the ABIs done which did not show any significant changes to the left leg. He follows with vascular surgery every 6 months. 04/06/2023 Left foot drop (ICD-10 - M21.372) The EMG/NCV results show a left sided axonal neuropathy consistent with a previous stroke. He will be following up with his neurologist regarding these findings. The report was faxed to this office. He was not able to go for a new AFO fitting since his last visit. 04/06/2023 Pain in left leg (ICD-10 - M79.605) 04/06/2023 Type 2 diabetes mellitus with diabetic polyneuropathy, unspecified whether adjunct faculty for medical terminology insulin use (ICD-10 - E11.42) Discussed with patient regarding proper glucose control, exercise, and diet. Explained to patient proper shoe gear, and importance of daily foot checks. I reviewed neuropathy and why it occurs in diabetics. I educated the patient on proper blood sugar control and the importance of an HgBA1c of less than 7.0%. I reviewed the signs and symptoms of neuropathy with the patient. 04/06/2023 Dystrophic nail (ICD-10 - L60.3) Aseptic trimming of toenails x 10 with a rope cutter, pt tolerated well. Discussed with the patient that routine nail care services are only covered by insurance every 60 days. Pt understands that if they would like to return prior to this time frame, they may have to pay out of pocket. PLAN OF TREATMENT Next Appt Details Provider Name:JESSICA BEST, 08/20/2023 11:00:00 AM, [address] [facility] [address], [place], [address], Insurance Providers Payer Name Payer Address Payer Phone Subscriber Number Group Number Insured Name Patient Relationship to Insured Coverage Start Date Coverage End Date [employer] care medicare community plan [address] [address] [place] [address] [id number] [facility] Self - patient is the insured MEDICAL (GENERAL) HISTORY Medical History History ICD Code Personal history of other infectious and parasitic diseases Z86.19 Personal history of other malignant neop lasm of large intestine Z85.038 Hemiplegia and hemiparesis f ollowing cerebral infarction affecting left non-dominant side I69.354 Centrilobular emphysema J43.2 Obstructive sleep apnea (adult) (pediatr ic) G47.33 Benign paroxysmal vertigo, unspecified e ar H81.10 Chronic obstructive pulmonary disease, u nspecified J44.9 Personal history of nicotine dependence Z87.891 Other specified personal risk factors, n ot elsewhere classified Z91.89 Encounter for screening for malignant ne oplasm of respiratory organs Z12.2 Nonspecific reaction to cell mediated immunity measurement of gamma interferon antigen response without active tuberculosis R76.12 Latent tuberculosis Z22.7 Snoring R06.83 Dyspnea, unspecified R06.00 Duodenal ulcer, unspecified as acute or chronic, without hemorrhage or perforation K26.9 Malignant neoplasm of colon, unspecified C18.9 Calculus of gallbladder without cholecys titis without obstruction K80.20 PAD (peripheral artery disease) I73.9 Nonspecific reaction to tuberculin skin test without active tuberculosis R76.11 Type 2 diabetes mellitus wit h diabetic peripheral angiopathy without gangrene E11.51 Type 2 diabetes mellitus with other diab etic kidney complication E11.29 Proteinuria, unspecified R80.9 Essential hypertension I10 Hyperlipidemia, unspecified E78.5 Atherosclerotic heart diseas e of [place] coronary artery without angina pectoris I25.10 + COVID 2020 COVID vaccinated X 2 (Moderna) and 1 jackman ster (Moderna) Surgical History Surgery Date(Month/Year) Abdominal surgery gastrectomy for obstru ction Abdominal surgery sigmoid resection for colon cancer Ankle surgery Cardiac cath Cataract removal Malignant-appearing sigmoid colon tumor: adenocarcinoma with 3 pos nodes eye surgery lens intraocular upper gi endoscopy performed elfego; randee r Hospitalization History Reason Date(Month/Year) + COVID 2020
[2023-07-04 20:26] VITALS: BP 141/60; PULSE 54; RESP 14; O2SAT 99
--- NOTE | 2023-07-04 20:31 | PC.NURSE ---
Pt aox4 resting at the bedside. No apparent distress noted. Pt reports increased difficulty ambulating at home with a walker as pt is endorsing left leg, left hip and low back pain. Reports having an MRI at [facility] last Wed for this issue. Pt provided urine sample, sent to the lab.
[2023-07-04 20:51] LABS: Appearance Urine Clear; Color Urine Yellow; Glucose Urine UA Negative (Negative); Leukocyte Esterase Urine Negative (Negative); Nitrite Urine Negative (Negative); PH 5.5 (5.0-9.0); Specific Gravity - Urine 1.015 (1.005-1.025); Urine Blood Negative (Negative); Urine Ketones Negative (Negative); Urine Protein Negative (Neg-Trace)
[2023-07-04 21:56] VITALS: BP 136/60; PULSE 54; RESP 18; TEMP 36.5; O2SAT 99
--- NOTE | 2023-07-04 22:05 | ED.GENADULT ---
HPI - General Adult General Chief complaint: General Medical Stated complaint: FALL FROM STANDING. L LEG PAIN 06/15 Time Seen by Provider: 07/04/23 22:01 Source: patient Mode of arrival: ambulatory Limitations: no limitations History of Present Illness HPI narrative: Patient with peripheral artery disease with occluded popliteal artery on the left side with 3 attempts opening in the past with does have collateral circulation also does have chronic back pain had MRI 3 days ago as outpatient comes for the lower back pain and pain rated in the left leg as in the past patient had claudications at home more than usual with no discoloration of lower extremities and feet Related Data Home Medications Medication Instructions Recorded Confirmed aspirin 81 mg tablet,delayed 81 mg PO DAILY 06/12/20 07/06/22 release (Adult Low Dose Aspirin) atorvastatin 20 mg tablet (Lipitor) 20 mg PO BEDTIME 06/12/20 07/06/22 gabapentin 300 mg capsule 900 mg PO BID 06/12/20 07/06/22 insulin glargine 100 unit/mL (3 5 unit subcut BEDTIME 06/12/20 07/06/22 mL) subcutaneous pen (Lantus Solostar U-100 Insulin) ipratropium 20 mcg-albuterol 100 1 puff inhalation BID PRN Wheezing 06/12/20 07/06/22 mcg/actuation mist for inhalation (Combivent Respimat) metformin 500 mg tablet 500 mg PO BID 06/12/20 07/06/22 blood sugar diagnostic (OneTouch #10 ea 12/30/21 07/06/22 Ultra Test strips) diclofenac sodium 1 % topical gel 4 g topical TID PRN Pain 12/30/21 07/06/22 pen needle, diabetic 31 gauge x #1,200 ea 12/30/21 07/06/22 5/16 (BD Ultra-Fine Short Pen Needle) acetaminophen 500 mg tablet 1,000 mg PO Q6H PRN Pain 01/30/22 07/06/22 ammonium lactate 12 % topical cream 1 appl topical DAILY 01/30/22 07/06/22 polyethylene glycol 3350 17 gram 17 g PO Q48H 01/30/22 07/06/22 oral powder packet (Miralax) polyvinyl alcohol 1.4 % eye drops 1 drp ophthalmic (eye) BID PRN Dry 01/30/22 07/06/22 (Artificial Tears (polyvinyl Eye(S) alcohol)) amlodipine 2.5 mg tablet 2.5 mg PO DAILY 07/06/22 07/06/22 Previous Rx's Medication Instructions Recorded fluticasone propionate 50 2 spray intranasal DAILY #16 grams 05/27/23 mcg/actuation nasal spray,suspension (Flonase Allergy Relief) oxycodone 5 mg tablet 5 mg PO Q8-10H PRN pain #20 tabs 07/04/23 Allergies Allergy/AdvReac Type Severity Reaction Status Date / Time No Known Allergies Allergy Verified 06/29/23 09:19 [No Known Allergies*] Review of Systems Review of Systems: Yes all other systems are reviewed and are negative PMFSH Past Medical History Medical History Infection of vascular bypass graft Dizziness CVA (cerebral vascular accident) PVD (peripheral vascular disease) Myocardial infarct, old Diabetes Surgical History History of femoropopliteal bypass History of cardiac catheterization Family History Family History Father Diabetes Mother Diabetes Depression Alzheimer disease Social History Social History Alcohol intake: never Patient Tobacco Use Status: Former Tobacco user Quit Date: 2011 Years Smoked: 40 +/- Smoked in Last 30 Days: No Use of substances other than those prescribed or required for medical reasons: No Advance Directives: Yes Advance Directives on File: Yes Advance Directives Date on File: 07/02/20 Physical Exam ED Vital Signs: Vital Signs - 24 hr 07/04/23 18:35 07/04/23 20:26 07/04/23 21:56 Temperature 97.7 F Pulse Rate 54 54 54 Respiratory Rate 16 14 18 Blood Pressure 140/57 H 141/60 H 136/60 Pulse Oximetry 98 99 99 Oxygen Delivery Method Room Air Room Air Room Air BMI result Body Mass Index 28.0 Appearance: Alert. Oriented X3. No acute distress. Eyes: PERRLA, No Nystagmus ENT: Pharynx normal. Oral Mucosa moist Neck: Normal inspection. Neck supple. CVS: Normal heart rate and rhythm. Pulses normal. Respiratory: No respiratory distress. Equal air entry bilateral, no wheezing/rales/rhonchi Abdomen: Soft and nontender. Bowel sounds are present, no mass palpable, no CVA tenderness Skin: Skin warm and dry. Normal skin color. Normal skin turgor. Extremities: No lower extremity edema. No calf tenderness back: Diffuse tenderness and lower lumbar area SLR negative bilaterally normal color and temperature of toes dorsal pedis not palpable bilateral Neuro: Oriented X 3. No motor deficit. No sensory deficit.No cerebellar signs , cranial nerves II-XII intact Medications Administered Discontinued Medications Generic Name Dose Route Start Last Admin Trade Name Freq PRN Reason Stop Dose Admin Oxycodone HCl 5 mg 07/04/23 22:48 07/04/23 23:06 Oxycodone Hcl Immed Release 5 Mg Tablet PO 07/04/23 22:49 5 mg ONCE ONE Administration Medical Decision Making Medical Decision Making [facility] Narrative: Patient has chronic low back pain already been followed by vascular surgeon for peripheral artery disease procedure as it was filled in the past patient does have collateral circulation no signs of acute ischemia in the ER already had MRI as outpatient which again cannot access to the report patient has a scheduled follow-up with your vascular surgeon and PCP meanwhile I discharged the patient on oxycodone, patient ambulatory in the ED Differential Diagnosis Differential Diagnoses: The differential diagnosis associated with the presentation includes Low back pain/peripheral hiatal disease/claudications Lab Data [facility] Lab Attestation statement: I reviewed the patient's lab results. Labs: Lab Results 07/04/23 Range/Units 20:31 Urine Color Yellow Urine Appearance Clear Urine pH 5.5 (5.0-9.0) Ur Specific [place] 1.015 (1.005-1.025) Urine Protein Negative (Neg-Trace) mg/dL Urine Glucose (UA) Negative (Negative) mg/dL Urine Ketones Negative (Negative) mg/dL Urine Blood Negative (Negative) Urine Nitrite Negative (Negative) Ur Leukocyte Esterase Negative (Negative) Discharge Plan Discharge Clinical Impression: PVD (peripheral vascular disease), Lumbar back pain with radiculopathy affecting left lower extremity Patient Disposition: Home, Self-Care Instructions: Peripheral Artery Disease (ED), Back Pain (ED) Additional Instructions: Follow-up with PCP/vascular surgeon for further management Pain medication as prescribed for severe pain Prescriptions: New oxycodone 5 mg tablet 5 mg PO Q8-10H PRN (Reason: pain) Qty: 20 0RF Rx Instructions: Partial Fill upon patient request. No Action polyethylene glycol 3350 [Miralax] 17 gram Powder In Packet 17 g PO Q48H polyvinyl alcohol [Artificial Tears (polyvin alc)] 1.4 % Drops 1 drp OPHTHALMIC (EYE) BID PRN (Reason: Dry Eye(S)) acetaminophen 500 mg Tablet 1,000 mg PO Q6H PRN (Reason: Pain) ammonium lactate 12 % Cream 1 appl TOPICAL DAILY fluticasone propionate [Flonase Allergy Relief] 50 mcg/actuation spray,suspension 2 spray intranasal DAILY Qty: 16 0RF Rx Instructions: administer into each nostril atorvastatin [Lipitor] 20 mg tablet 20 mg PO BEDTIME aspirin [Adult Low Dose Aspirin] 81 mg tablet,delayed release (DR/EC) 81 mg PO DAILY gabapentin 300 mg capsule 900 mg PO BID Lantus Solostar U-100 Insulin 100 unit/mL (3 mL) insulin pen 5 unit subcut BEDTIME Combivent Respimat 20-100 mcg/actuation mist 1 puff inhalation BID PRN (Reason: Wheezing) metformin 500 mg tablet 500 mg PO BID amlodipine 2.5 mg tablet 2.5 mg PO DAILY (DME) OneTouch Ultra Test Strip See Rx Instructions Not Applicable TID Qty: 10 Rx Instructions: As directed diclofenac sodium 1 % gel 4 g topical TID PRN (Reason: Pain) Rx Instructions: to knees (DME) pen needle, diabetic [BD Ultra-Fine Short Pen Needle] 31 gauge x 5/16 needle See Rx Instructions subcut DAILY Qty: 1200 Rx Instructions: As directed
[2023-07-04] MEDS: oxyCODONE HCl Immed Release 5 MG TABLET PO (23:06)
--- NOTE | 2023-07-04 23:38 | PC.NURSE ---
Pt is discharged. 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
[2023-07-05 01:06] VITALS: BP 140/60; PULSE 52; RESP 16; O2SAT 98
[2023-07-05 04:15] VITALS: BP 138/62; PULSE 52; RESP 16; TEMP 36.1; O2SAT 98
--- NOTE | 2023-07-05 04:28 | PC.NURSE ---
Pt asleep at the bedside. No apparent distress noted. Breaths are even regular and unlabored with equal chest rises. Pending transportation from family to go home.
--- NOTE | 2023-07-05 05:56 | PC.NURSE ---
Voice mail left to pts daughter, Selina, as pt is ready to be discharged and does not have transportation to return home. Pt is also calling daughter from personal cell phone with no success.
[2023-07-05 06:12] VITALS: BP 121/57; PULSE 57; RESP 16; O2SAT 97
--- NOTE | 2023-07-05 08:20 | MHC.EDTECH ---
POC 94
[2023-07-05 08:23] LABS: Glucose, Whole Blood 94 mg/dL (60-115)
--- NOTE | 2023-07-05 09:24 | PC.NURSE ---
dye maker called/utilized. pt provided w/ d/c paperwork.
== END 2023-07-05 09:24 | disposition home or self-care (01) ==
PROVIDERS: Emergency Provider Internal Medicine; PCP Internal Medicine
DX: I73.9 Peripheral vascular disease, unspecified (principal); M54.16 Radiculopathy, lumbar region; Z79.899 Other long term (current) drug therapy
CPT/HCPCS: 81003; 82947; 99284

== ENCOUNTER 2023-07-14 09:02 | Outpatient (AMB) | payer OTHER, SELFPAY ==
[2023-07-14 09:03] VITALS: BP 116/66; PULSE 57; BMI 28.0
--- NOTE | 2023-07-14 09:03 | MHC.OFFVIS ---
Intake Vital Signs 07/14/23 09:03 Height 5 ft 3 in Weight 158 lb BMI 28.0 BP 116/66 Blood Pressure Location Lt brachial Position Sitting Pulse 57 Intake Visit Reasons: 1 year followup w/ekg dx: cad Intake Note: 1 year follow-up dx CAD patient daughter state he seem sob when moving Identification Clerk Required: Yes Identification Clerk Name: daughter Briquette Machine Operator Helper: Briquette Machine Operator Helper Present Accompanied by: Daughter Allergies No Known Allergies [No Known Allergies*] Allergy (Verified 06/29/23 09:19) Medication List - Last Reconciled 07/14/23 by Donald Faulkner MD acetaminophen 1,000 mg PO Q6H PRN amlodipine 2.5 mg PO DAILY ammonium lactate 12% 1 appl topical DAILY aspirin (Adult Low Dose Aspirin) 81 mg PO DAILY atorvastatin (Lipitor) 20 mg PO BEDTIME blood sugar diagnostic (Cardiolauch Ultra Test strips) As directed diclofenac sodium 1% 4 grams topical TID PRN fluticasone propionate 50 mcg/actuation (Flonase Allergy Relief) 2 sprays intranasal DAILY gabapentin 900 mg PO BID insulin glargine (Lantus Solostar U-100 Insulin) 5 units subcut BEDTIME ipratropium-albuterol 20-100 mcg/actuation (Combivent Respimat) 1 puff inhalation BID PRN metformin 500 mg PO BID oxycodone 5 mg PO Q8-10H PRN pen needle, diabetic (BD Ultra-Fine Short Pen Needle) As directed polyvinyl alcohol 1.4% (Artificial Tears (polyvinyl alcohol)) 1 drp ophthalmic (eye) BID PRN HPI HPI Comments History of Present Illness Details Pleasant 73-year-old gentleman here for history of coronary artery disease and previous stroke. In 2011 while he was in [place] he had a right-sided upper back pain and he was told that he had a mild heart attack. He said he had angiography done there and stents placed in the heart. He also has significant history of peripheral vascular disease with previous left fem-pop bypass. It appears he had infection of the fem-pop bypass and had surgery done by Dr. Fowler. Also in January he was admitted at [facility] with left-sided weakness and was diagnosed with stroke. He has chronic low blood pressure. At 1 stage he was on midodrine for hypotension. He has chronic dizziness which is a vertigo like feeling and not lightheadedness. He has no history of syncope recently. He has no chest discomfort shortness of breath. He has been seeing Dr Fowler for vascular care and it appears he has no interventions possible for the left leg. He has pain in the leg with ambulation which is a combination of claudication and neuropathy. He was a heavy drinker but quit 10 years ago. 07/14/23: He returns for f/u. His main complaint is left leg pain. This is a persistent discomfort the left thigh and is complaining of back pain. The daughter accompanied him and added that they have seen Dr. Fowler recently and he had and to sound and there were told that vascular disease is stable. He also had consult with Neurology and some scan of his back which they have not heard about. Denying any chest pain. He does not do much activities and only takes few steps inside the house. He is mostly in the recliner or in bed. He is currently in a wheelchair. Previous fluctuation of blood pressure has improved. [facility] Medical History Infection of vascular bypass graft Dizziness CVA (cerebral vascular accident) PVD (peripheral vascular disease) Myocardial infarct, old Diabetes Surgical History History of femoropopliteal bypass History of cardiac catheterization Family History Father Diabetes Mother Diabetes Depression Alzheimer disease Social History Alcohol intake: never Patient Tobacco Use Status: Former Tobacco user Quit Date: 2011 Years Smoked: 40 +/- Advance Directives Date on File: 07/02/20 Review of Systems Const Denies chills, Denies fatigue, Denies fever(s), Denies frequent falls, Denies weakness, Denies weight gain and Denies weight loss ENT Denies dizziness Card Denies chest pain, Denies leg edema, Denies lightheadedness, Denies palpitations, Denies dyspnea, Denies dyspnea on exertion, Denies orthopnea and Denies other (loss of consciousness) Resp Denies cough, Denies dyspnea and Denies dyspnea on exertion GI Denies hematochezia and Denies change in stool character Musc Denies abnormal gait, Denies muscle weakness, Denies numbness, Denies radiating pain into limb and Denies tingling Neuro Denies abnormal gait, Denies dizziness, Denies frequent falls, Denies numbness, Denies tingling and Denies weakness Endo Denies fatigue and Denies palpitations Physical Exam Vital Signs: Last Vital Signs Pulse 57 07/14/23 09:03 BP 116/66 07/14/23 09:03 BMI result Body Mass Index 28.0 GENERAL APPEARANCE: in no acute distress, sitting in wheelchair. NECK/THYROID: no carotid bruit, no jugular venous distention. SKIN: no suspicious lesions, warm and dry. HEART: no murmurs, regular rate and rhythm, S1, S2 normal. LUNGS: clear to auscultation bilaterally. ABDOMEN: normal, bowel sounds present, soft, nontender, nondistended. EXTREMITIES: no clubbing, cyanosis, or edema. Assessment & Plan Assessment & Plan (1) Essential hypertension: Comment: Manual BP check 100/50 Code(s): I10 - Essential (primary) hypertension (2) PVD (peripheral vascular disease): Comment: Left fem-pop in 2018 with removal on 05/02/2020 Code(s): I73.9 - Peripheral vascular disease, unspecified Plan Pleasant 73 year gentleman who is here for follow-up. He has peripheral vascular disease with previous fem-pop bypass. He is taking aspirin and atorvastatin. He also has neuropathy and is currently on gabapentin. Not very ambulatory and mostly spends the day in bed or recliner. Blood pressure control is good. Previously had fluctuating blood pressures and at 1 stage was also midodrine which has been stopped. Overall he is stable. He can see us once a year. He is seeing Neurology for leg pain. Thank you for allowing me to participate in the care of your patient. Please feel free to contact me if you have any questions. Coding Level of Care Code Est Pt Level 3 (09799) Diagnoses Essential hypertension I10 PVD (peripheral vascular disease) I73.9
== END 2023-07-14 09:44 | disposition home or self-care (01) ==
PROVIDERS: PCP Internal Medicine; Visit Provider Internal Medicine Cardiovascular Disease
DX: I10 Essential (primary) hypertension (principal); I73.9 Peripheral vascular disease, unspecified
CPT/HCPCS: 99213

== ENCOUNTER → 2023-07-14 09:02 | Outpatient (BNVA) | payer OTHER, SELFPAY | PROVIDERS: PCP Internal Medicine; Visit Provider Internal Medicine Cardiovascular Disease | DX: I73.9 Peripheral vascular disease, unspecified (principal); I10 Essential (primary) hypertension | CPT/HCPCS: 99212 ==

== ENCOUNTER 2023-08-11 08:24 | Outpatient (REF) | payer OTHER, SELFPAY ==
--- NOTE | ~2023-08-11 | US_ITS ---
EXAMINATION: ANKLE-BRACHIAL INDICES SINGLE LEVEL PULSE VOLUME RECORDING ARTERIAL DUPLEX BILATERAL LEGS CLINICAL INFORMATION: Peripheral vascular disease. History of left femoral popliteal bypass in 2018 with removal in 2019. COMPARISON: CT angiogram of 06/24/2023, noninvasive study 01/04/2023. TECHNIQUE: Ankle-brachial indices and PVR at the ankle were obtained. Duplex Doppler of the bilateral lower extremity arterial systems was performed. FINDINGS: RIGHT: Ankle-brachial index: 0.99 PVR: Abnormal Common femoral: PSV 97 cm/s. Biphasic waveform. Deep femoral: PSV 75 cm/s. Biphasic waveform. Proximal superficial femoral: PSV 71 cm/s. Biphasic waveform. Mid superficial femoral: PSV 88 cm/s. Biphasic waveform. Distal superficial femoral: PSV 114 cm/s. Biphasic waveform. Popliteal: PSV 144 cm/s. Biphasic waveform. Posterior tibial: PSV 21 cm/s. Biphasic waveform. Peroneal: PSV 33 cm/s. Biphasic waveform. Anterior tibial artery: PSV 37 cm/s. Monophasic waveform. Dorsalis pedis: PSV 39 cm/s. Monophasic waveform. LEFT: Ankle-brachial index: Noncompressible posterior tibial artery. PVR: Abnormal Common femoral: PSV 120 cm/s. Triphase waveform. Deep femoral: PSV 307 cm/s. Biphasic waveform. Proximal superficial femoral: PSV 44 cm/s. Monophasic waveform. Mid superficial femoral: Chronically occluded. Distal superficial femoral: Chronically occluded. Popliteal: Chronically occluded. Posterior tibial: PSV 15 cm/s. Monophasic waveform. Peroneal: No Doppler flow detected. Anterior tibial artery: No Doppler flow detected Dorsalis pedis: No Doppler flow detected US/US PAOLA complete IMPRESSION: Right: Stable exam with normal ankle-brachial index. No high-grade stenosis or occlusion visualized by Doppler. Left: Stable exam with noncompressible PAOLA. Femoral popliteal occlusion with collateralization. Single vessel runoff via posterior tibial artery.
--- NOTE | ~2023-08-11 | US_ITS ---
EXAMINATION: ANKLE-BRACHIAL INDICES SINGLE LEVEL PULSE VOLUME RECORDING ARTERIAL DUPLEX BILATERAL LEGS CLINICAL INFORMATION: Peripheral vascular disease. History of left femoral popliteal bypass in 2018 with removal in 2019. COMPARISON: CT angiogram of 06/24/2023, noninvasive study 01/04/2023. TECHNIQUE: Ankle-brachial indices and PVR at the ankle were obtained. Duplex Doppler of the bilateral lower extremity arterial systems was performed. FINDINGS: RIGHT: Ankle-brachial index: 0.99 PVR: Abnormal Common femoral: PSV 97 cm/s. Biphasic waveform. Deep femoral: PSV 75 cm/s. Biphasic waveform. Proximal superficial femoral: PSV 71 cm/s. Biphasic waveform. Mid superficial femoral: PSV 88 cm/s. Biphasic waveform. Distal superficial femoral: PSV 114 cm/s. Biphasic waveform. Popliteal: PSV 144 cm/s. Biphasic waveform. Posterior tibial: PSV 21 cm/s. Biphasic waveform. Peroneal: PSV 33 cm/s. Biphasic waveform. Anterior tibial artery: PSV 37 cm/s. Monophasic waveform. Dorsalis pedis: PSV 39 cm/s. Monophasic waveform. LEFT: Ankle-brachial index: Noncompressible posterior tibial artery. PVR: Abnormal Common femoral: PSV 120 cm/s. Triphase waveform. Deep femoral: PSV 307 cm/s. Biphasic waveform. Proximal superficial femoral: PSV 44 cm/s. Monophasic waveform. Mid superficial femoral: Chronically occluded. Distal superficial femoral: Chronically occluded. Popliteal: Chronically occluded. Posterior tibial: PSV 15 cm/s. Monophasic waveform. Peroneal: No Doppler flow detected. Anterior tibial artery: No Doppler flow detected Dorsalis pedis: No Doppler flow detected US/US arterial duplex LE BI IMPRESSION: Right: Stable exam with normal ankle-brachial index. No high-grade stenosis or occlusion visualized by Doppler. Left: Stable exam with noncompressible PAOLA. Femoral popliteal occlusion with collateralization. Single vessel runoff via posterior tibial artery.
== END 2023-08-11 08:25 | disposition home or self-care (01) ==
LOC: HO.US 08:24
PROVIDERS: PCP Internal Medicine; Visit Provider Surgery Vascular Surgery
DX: I73.9 Peripheral vascular disease, unspecified (principal)
CPT/HCPCS: 93923; 93925

== ENCOUNTER 2023-09-28 08:45 | Outpatient (AMB) | payer OTHER, SELFPAY ==
[2023-09-28 08:55] VITALS: BMI 28.0
--- NOTE | 2023-09-28 08:55 | MHC.OFFVIS ---
Intake Vital Signs 09/28/23 08:55 Height 5 ft 3 in Weight 158 lb BMI 28.0 Intake Visit Reasons: 3 month follow up leg check Intake Note: 3 mo follow up ARterial US 08/11/23 w/ hx of Left Fem-pop bypass in 2018 w/ removal 05/02/2020. Pt is now almost completely bedridden, Left leg has extreme pain. Pt daughter states patient is much worse and has pain 24/, all through his body. Pt was seen by neurosurgery and ortho and some other doctors and would like referral to pain gigi. Accompanied by: Daughter Allergies No Known Allergies [No Known Allergies*] Allergy (Verified 09/28/23 09:01) HPI 3 month follow up leg check HPI Details Very pleasant 73-year-old gentleman presents for follow-up regarding peripheral vascular disease. He had originally a fem-pop bypass which had gone on to become infected and was subsequently removed. He had been doing relatively well for awhile but now has gotten to the point where he barely ambulates. He has significant arm and shoulder pain. In addition he reports lower back pain. Most concerning is his knee and ankle. He now presents for follow-up with noninvasive testing. [facility] Medical History Infection of vascular bypass graft Dizziness CVA (cerebral vascular accident) PVD (peripheral vascular disease) Myocardial infarct, old Diabetes Surgical History History of femoropopliteal bypass History of cardiac catheterization Family History Father Diabetes Mother Diabetes Depression Alzheimer disease Social History Alcohol intake: never Patient Tobacco Use Status: Former Tobacco user Quit Date: 2011 Years Smoked: 40 +/- Advance Directives Date on File: 07/02/20 Physical Exam Vital Signs: BMI result Body Mass Index 28.0 Const General: cooperative, healthy appearing and no acute distress Orientation/consciousness: oriented to person, oriented to place and oriented to time HEENT Head: Yes normal to inspection Neck Carotids: no bruits Chest Chest palpation & inspection: normal inspection of the chest Resp Effort & Inspection: normal respiratory effort and able to speak in complete sentences Auscultation: clear to auscultation bilaterally Cardio Other: Bilateral DP signals Rate: regular rate Heart sounds: S1 normal heart sound present and S2 normal heart sound present GI Inspection: Yes normal to inspection Skin General skin exam: no rashes or lesions noted Wounds: no wounds Neuro General: oriented to person, oriented to place, oriented to time and CN's II-XI intact bilaterally Extrem General: Yes normal to inspection, Yes full ROM and Yes no clubbing, cyanosis or edema Psych Appearance: grossly normal and well kempt Speech and movement: Normal speech and movement present Affect: normal affect Results Reviewed Results Reviewed: Noninvasive testing dated 08/11/2023 demonstrates PAOLA on the right of 0.99 and on the left noncompressible with known fem-pop occlusion. Appears to be well collateralized. Assessment & Plan Assessment & Plan (1) PVD (peripheral vascular disease): Comment: Left fem-pop in 2018 with removal on 05/02/2020 Code(s): I73.9 - Peripheral vascular disease, unspecified Plan: In short appears to be stable from a peripheral vascular standpoint. Unfortunately he is not ambulating enough to test his claudication. He does have significant musculoskeletal problems and I do believe that his back has been affecting him a fair amount. He may benefit from evaluation by pain management. I have taken the liberty of referring him to pain management. We will schedule him for annual arterial surveillance follow-up. Thank you for allowing us to assist in his care. If there are any questions or concerns please do not hesitate to contact us Orders: Orders US arterial duplex LE BI 364 Days I73.9 - Peripheral vascular disease, unspecified Coding Level of Care Code Est Pt Level 4 (34205) Diagnoses PVD (peripheral vascular disease) I73.9
== END 2023-09-28 09:32 | disposition home or self-care (01) ==
PROVIDERS: PCP Internal Medicine; Visit Provider Surgery Vascular Surgery
DX: I73.9 Peripheral vascular disease, unspecified (principal)
CPT/HCPCS: 99213

== ENCOUNTER → 2023-09-28 08:45 | Outpatient (BNVA) | payer OTHER, SELFPAY | PROVIDERS: PCP Internal Medicine; Visit Provider Surgery Vascular Surgery | DX: I73.9 Peripheral vascular disease, unspecified (principal) | CPT/HCPCS: 99212 ==

== ENCOUNTER 2023-10-09 17:34 | Emergency (ER) | payer OTHER, SELFPAY ==
--- NOTE | ~2023-10-09 | XR_ITS ---
EXAMINATION: XR KNEE, LEFT CLINICAL INFORMATION: Pain COMPARISON: None available. TECHNIQUE: Four views of the left knee. FINDINGS: No significant joint effusion. Bones are normal anatomic alignment with no acute fracture or dislocation seen. Mild degenerative changes noted. Vascular calcification present. XR/XR knee LT 3V IMPRESSION: Mild degenerative changes but no acute fracture or dislocation.
[2023-10-09 17:38] VITALS: BP 104/66; BP 108/60; PULSE 53; PULSE 58; RESP 16; TEMP 36.8; O2SAT 98; BMI 28.0
--- NOTE | 2023-10-09 17:49 | ED_ITS ---
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 States was ambulating to bathroom, at baseline ambulates with walker, felt sudden onset left knee pain, lowered himself to the ground and was unable to get up secondary to pain. Denies head strike or LOC. takes baby ASA. Was on the ground for 30 minutes. Denies direct injury/trauma or fall, neck/back pain, CP/SOB, numbness/tingling Related Data Home Medications Medication Instructions Recorded Confirmed aspirin 81 mg tablet,delayed 81 mg PO DAILY 06/12/20 07/14/23 release (Adult Low Dose Aspirin) atorvastatin 20 mg tablet (Lipitor) 20 mg PO BEDTIME 06/12/20 07/14/23 gabapentin 300 mg capsule 900 mg PO BID 06/12/20 07/14/23 insulin glargine 100 unit/mL (3 5 unit subcut BEDTIME 06/12/20 07/14/23 mL) subcutaneous pen (Lantus Solostar U-100 Insulin) ipratropium 20 mcg-albuterol 100 1 puff inhalation BID PRN Wheezing 06/12/20 07/14/23 mcg/actuation mist for inhalation (Combivent Respimat) metformin 500 mg tablet 500 mg PO BID 06/12/20 07/14/23 blood sugar diagnostic (OneTouch #10 ea 12/30/21 07/06/22 Ultra Test strips) diclofenac sodium 1 % topical gel 4 g topical TID PRN Pain 12/30/21 07/14/23 pen needle, diabetic 31 gauge x #1,200 ea 12/30/21 07/06/22 5/16 (BD Ultra-Fine Short Pen Needle) acetaminophen 500 mg tablet 1,000 mg PO Q6H PRN Pain 01/30/22 07/14/23 ammonium lactate 12 % topical cream 1 appl topical DAILY 01/30/22 07/14/23 polyvinyl alcohol 1.4 % eye drops 1 drp ophthalmic (eye) BID PRN Dry 01/30/22 07/14/23 (Artificial Tears (polyvinyl Eye(S) alcohol)) amlodipine 2.5 mg tablet 2.5 mg PO DAILY 07/06/22 07/14/23 Previous Rx's Medication Instructions Recorded fluticasone propionate 50 2 spray intranasal DAILY #16 grams 05/27/23 mcg/actuation nasal spray,suspension (Flonase Allergy Relief) oxycodone 5 mg tablet 5 mg PO Q8-10H PRN pain #20 tabs 07/04/23 Allergies Allergy/AdvReac Type Severity Reaction Status Date / Time No Known Allergies Allergy Verified 09/28/23 09:01 [No Known Allergies*] Review of Systems Review of Systems: Constitutional: No Fever, No Chills ENT/Mouth: No Ear Pain, No Nasal Congestion Cardiovascular: No Chest Pain, No SOB Respiratory: No Cough, No Sputum, No Wheezing Gastrointestinal: No Nausea, No Vomiting, No Diarrhea, No Constipation, No Abdominal pain Genitourinary: No Dysuria, No Urinary Frequency, No Hematuria, No Urinary Incontinence/retention, No Flank Pain Musculoskeletal: + joint pain, No Myalgias, No Joint Swelling Skin: No Skin Lesions, No rash Neuro: No Weakness, No Numbness, No Paresthesias Yes all other systems are reviewed and are negative Constitutional: Constitutional: Reports as per [facility] Past Medical History Attestation statement: The following information was validated with the patient. Source: old records reviewed Medical History Infection of vascular bypass graft Dizziness CVA (cerebral vascular accident) PVD (peripheral vascular disease) Myocardial infarct, old Diabetes Surgical History History of femoropopliteal bypass History of cardiac catheterization Family History Family History Father Diabetes Mother Diabetes Depression Alzheimer disease Social History Social History Alcohol intake: never Patient Tobacco Use Status: Former Tobacco user Quit Date: 2011 Years Smoked: 40 +/- Advance Directives: Yes Advance Directives on File: Yes Advance Directives Date on File: 07/02/20 Physical Exam ED Vital Signs: Vital Signs - 24 hr 10/09/23 17:38 Temperature 98.2 F Pulse Rate 53 Respiratory Rate 16 Blood Pressure 104/66 Pulse Oximetry 98 Oxygen Delivery Method Room Air BMI result Body Mass Index 28.0 Const General: cooperative, healthy appearing and no acute distress Orientation/consciousness: patient oriented x3 Limitations: no limitations HENMT Head: Yes normal to inspection and Yes atraumatic Ears: hearing grossly normal bilaterally General nose exam: Normal external nose present Face and sinus: Yes normal facial exam Eyes General: appearance normal, both eyes and all related structures EOM: EOMs intact bilaterally Neck Neck: Yes normal visual inspection and Yes no meningeal signs Resp Effort & Inspection: normal respiratory effort and no respiratory distress Cardio Rate: regular rate Heart sounds: S1 normal heart sound present and S2 normal heart sound present Peripheral pulses: Peripheral pulses 2+ throughout GI Inspection: Yes normal to inspection Palpation (GI): Soft to palpation, nontender, no guarding and not rigid Skin Rashes: no rashes Wounds: no wounds Neuro General: patient oriented x3, tone normal and no meningeal signs Cranial nerves: Yes CN's II-XII intact bilaterally Gait exam (Neuro): Normal gait present Extrem Other: Left knee without noted deformity. No erythema/warmth. Mildly tender to palpation, flexion intact with pain. Neurovascular intact distally. No pitting edema. No mottling. General: Yes normal to inspection Course Course Course Narrative: 1817--XR knee LT 3V IMPRESSION: Mild degenerative changes but no acute fracture or dislocation. > will perform ambulation trial >> with walker patient requires assistance with ambulation. Is agreeable to obtain PT/case management evaluation. Physician observation initiated at 18:26 -1900--ED care transferred to SATINDER Lange pending PT/case management for possible STR --1953 -- Patient remains PT/CM. Phys obs continues. 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 States was ambulating to bathroom, at baseline ambulates with walker, felt sudden onset left knee pain, lowered himself to the ground and was unable to get up secondary to pain. On exam vital signs stable, NAD, nontoxic appearing, physical exam as noted above. Concern for osteoarthritis. Low suspicion for fracture, dislocation. No evidence of septic joint/arthritis. Lower suspicion for rhabdo Plan: X-rays, pain control, ambulation trial, +/-PT/CM consult Please refer to course for remaining clinical decision making, interpretation of labs/imaging results, and discussions with consultants and/or family members. Differential Diagnosis Differential Diagnoses: The differential diagnosis associated with the presenta tion includes As above Lab Data MDM Lab Attestation statement: I reviewed the patient's lab results. Independent Interpretation I performed an independent interpretation of an: Plain X-Ray Radiology Impression Discussion of test interpretation with radiology: I have reviewed the radiologist's reading. Independent Historian Clinical information obtained from an independent historian. History obtained from or confirmed by: EMS External Record Review External record reviewed: Inpatient record, Office record, Outpatient record, P rior outpatient labs, Prior outpatient radiology, Primary care record and Outside ED record Tests considered The following testing was considered but not selected: As above Prescription Management I considered prescription management with: Pain Medication Chronic Conditions Patient?s care impacted by: Hypertension Discharge Plan Discharge Clinical Impression: Knee osteoarthritis Patient Disposition: Still a Patient Prescriptions: No Action polyvinyl alcohol [Artificial Tears (polyvin alc)] 1.4 % Drops 1 drp OPHTHALMIC (EYE) BID PRN (Reason: Dry Eye(S)) acetaminophen 500 mg Tablet 1,000 mg PO Q6H PRN (Reason: Pain) ammonium lactate 12 % Cream 1 appl TOPICAL DAILY fluticasone propionate [Flonase Allergy Relief] 50 mcg/actuation spray,suspension 2 spray intranasal DAILY Qty: 16 0RF Rx Instructions: administer into each nostril oxycodone 5 mg tablet 5 mg PO Q8-10H PRN (Reason: pain) Qty: 20 0RF Rx Instructions: Partial Fill upon patient request. atorvastatin [Lipitor] 20 mg tablet 20 mg PO BEDTIME aspirin [Adult Low Dose Aspirin] 81 mg tablet,delayed release (DR/EC) 81 mg PO DAILY gabapentin 300 mg capsule 900 mg PO BID Lantus Solostar U-100 Insulin 100 unit/mL (3 mL) insulin pen 5 unit subcut BEDTIME Combivent Respimat 20-100 mcg/actuation mist 1 puff inhalation BID PRN (Reason: Wheezing) metformin 500 mg tablet 500 mg PO BID amlodipine 2.5 mg tablet 2.5 mg PO DAILY (DME) OneTouch Ultra Test Strip See Rx Instructions Not Applicable TID Qty: 10 Rx Instructions: As directed diclofenac sodium 1 % gel 4 g topical TID PRN (Reason: Pain) Rx Instructions: to knees (DME) pen needle, diabetic [BD Ultra-Fine Short Pen Needle] 31 gauge x 5/16 needle See Rx Instructions subcut DAILY Qty: 1200 Rx Instructions: As directed
[2023-10-09] MEDS: Acetaminophen 325 MG TABLET 650 MG PO (18:00)
[2023-10-10] VITALS (7 sets, daily range): BP systolic 118–152; BP diastolic 47–65; PULSE 52–56; RESP 12–16; TEMP 36.5–36.9; O2SAT 96–99
--- NOTE | 2023-10-10 00:52 | PC.NURSE ---
Aox4 resting at the bedside. No apparent distress noted. VSS. Pt reports left sided weakness following a stroke in 2020. 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 Pt was unable to get himself back up and called EMS. Pt reports living with a daughter at home and in need of physical therapy in order to safely return home. Pt is currently calm and cooperative, resting at the bedside. Able to make needs known. Call bassett and personal items placed within reach. Monitoring is ongoing.
[2023-10-10] MEDS: Acetaminophen 325 MG TABLET 650 MG PO ×2 (01:37→23:55)
[2023-10-10] MEDS: Omeprazole 20 MG CAPSULE.DR PO (07:54)
--- NOTE | 2023-10-10 07:54 | MHC.EDTECH ---
T/w assisted Pt to commode at bedside. Pt did not have a bowel movement, assisted back into bed, repositioned with RN. Call bassett within reach.
--- NOTE | 2023-10-10 08:51 | PHA.MEDREC ---
Pharmacy Consult ? Medication Reconciliation Pharmacy has completed the medication reconciliation. PT IS ONLY TAKING 5 UNITS OF LANTUS AT BEDTIME, NOT 20 UNITS LIKE RX STATES. PT ENDORSES PRN COMBIVENT USE WELL ELY
[2023-10-10] MEDS: metFORMIN HCl 500 MG TABLET PO ×2 (09:00→23:50)
[2023-10-10] MEDS: Fluticasone Propionate Nasal 16 GM SPRAY 2 SPRAY NOSTRIL-B (09:00)
[2023-10-10] MEDS: Gabapentin 300 MG CAPSULE 900 MG PO ×2 (09:00→23:49)
[2023-10-10] MEDS: Aspirin Enteric Coated 81 MG TABLET.DR PO (09:00)
[2023-10-10] MEDS: amLODIPine Besylate 2.5 MG TABLET PO (09:01)
--- NOTE | 2023-10-10 10:16 | PC.NURSE ---
patient is a 1 assist up to the commode, pivot transfer, patient had bowel movement, placed back in bed
--- NOTE | 2023-10-10 12:11 | PC.NURSE ---
patient sitting up in bed, talking on the phone. patient uses call bassett appropriately, answers questions appropriately. respirations equal and unlabored, skin dry and intact.
--- NOTE | 2023-10-10 13:21 | MHC.CM.PN ---
CM MET WITH PT AT BEDSIDE IN ED WITH TRAFFIC REPORTER. PT LIVES WITH DAUGHTER WHO IS ALSO HIS ASTRONOMY TEACHER. 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 PT USES [facility]. +HCP ON FILE. PCP DR. LOUISE KAMARA AT [facility]. PENDING P.T. EVAL IN AM. PT IS WILLING TO GO TO REHAB SHOULD THAT BE RECOMMENDED. HIS FIRST CHOICE IS [facility]. EARLY REFERRAL SENT. IF GOES HOME, DAUGHTER WILL TRANSPORT. CM WILL CONTINUE TO FOLLOW FOR ANY CHANGES IN DC NEEDS/PLAN.
[2023-10-10] MEDS: Insulin Glargine,Hum.rec.anlog 100 UNIT/ML 10 ML VIAL SUBCUT (23:50)
[2023-10-10] MEDS: Atorvastatin Calcium 20 MG TABLET PO (23:50)
[2023-10-11 00:05] LABS: Glucose, Whole Blood 120 mg/dL (60-115)
[2023-10-11] MEDS: Omeprazole 20 MG CAPSULE.DR PO (06:41)
[2023-10-11 08:05] LABS: COVID-19 Test Negative (Negative); IDNOW Serial# 152EDE1D
[2023-10-11 10:00] VITALS: BP 108/54; PULSE 54; RESP 16; TEMP 36.6; O2SAT 98
[2023-10-11] MEDS: Gabapentin 300 MG CAPSULE 900 MG PO (10:19)
[2023-10-11] MEDS: amLODIPine Besylate 2.5 MG TABLET PO (10:19)
[2023-10-11] MEDS: Aspirin Enteric Coated 81 MG TABLET.DR PO (10:19)
[2023-10-11] MEDS: metFORMIN HCl 500 MG TABLET PO (10:19)
[2023-10-11] MEDS: Fluticasone Propionate Nasal 16 GM SPRAY 2 SPRAY NOSTRIL-B (10:20)
[2023-10-11 10:41] LABS: Creatinine Clr Calc Pharmacy 71.4; Estimated Glomerular Filt Rate > 60
--- NOTE | 2023-10-11 11:07 | MHC.CM.ED ---
Addendum entered by Sharona Monsivais 10/11/23 13:24: Patient can leave at 4pm for [facility]. Seema THACKER booked. Med nec with chart. Patient, daughter SelinaMartha RN and Meghan SAM aware. Original Note: Patient remains in ER overflow. PT rec STR. Clinical updates sent to [facility]. [facility] is in the process of obtaining insurance auth. Continue to monitor for d/c needs.
[2023-10-11] MEDS: Acetaminophen 325 MG TABLET 650 MG PO (12:11)
[2023-10-11 12:21] LABS: Glucose, Whole Blood 97 mg/dL (60-115)
--- NOTE | 2023-10-11 13:30 | PC.NURSE ---
ate lunch well. poc wnl. no distress. calm, coop. breathing well. assisted to commode x1 for bm and void.
--- NOTE | 2023-10-11 15:30 | PC.NURSE ---
voided in urinal well. declined snack
--- NOTE | 2023-10-11 15:48 | PC.NURSE ---
report given to [place] unit 2 RN.
--- NOTE | 2023-10-11 15:50 | PC.NURSE ---
spoke w [facility] medical billing supervisor as no answer from unit 2. n oanswer from medical billing supervisor when transferred to their phone- no option for voicemail was available to choose.
[2023-10-11 16:00] VITALS: BP 142/60; PULSE 54; RESP 16; TEMP 36.6; O2SAT 98
--- NOTE | 2023-10-11 17:24 | PC.NURSE ---
continuing to await EMS yariel- clarified w alumnae secretary- calling yariel for update on ETA as was supposed to be 1600. no distress. resting. calm, coop.
--- NOTE | 2023-10-11 17:30 | PC.NURSE ---
pt ate snack well. no distress. resting. calm.breathing well
--- NOTE | 2023-10-11 17:40 | MHC.EDTECH ---
CALLED [facility] TO CHECK ON 4PM ANNEALING TORCH OPERATOR, [facility] AT [facility] STATES THAT SHE HAS NO SCHEDULED RIDE FOR THIS PT. I BOOKED AMBULANCE @4520
== END 2023-10-11 18:00 ==
PROVIDERS: Physician Assistant; Registered Nurse Emergency; Emergency Provider Emergency Medicine Emergency Medical Services; PCP Internal Medicine
DX: M17.12 Unilateral primary osteoarthritis, left knee (principal); M25.562 Pain in left knee; E11.9 Type 2 diabetes mellitus without complications; I10 Essential (primary) hypertension; E78.5 Hyperlipidemia, unspecified; Z79.02 Long term (current) use of antithrombotics/antiplatelets; Z79.899 Other long term (current) drug therapy; Z79.4 Long term (current) use of insulin; Z79.84 Long term (current) use of oral hypoglycemic drugs
CPT/HCPCS: 36415; 73562; 82565; 82947; 87635; 97162; 99285

== ENCOUNTER 2024-03-20 01:02 | Emergency (ER) | payer OTHER, SELFPAY ==
[2024-03-20] VITALS (7 sets, daily range): BP systolic 101–135; BP diastolic 38–70; PULSE 51–73; RESP 16–18; TEMP 36.6; O2SAT 96–98; BMI 25.7
--- NOTE | 2024-03-20 | ECG_ITS ---
Test Reason : hypotension Blood Pressure : / mmHG Vent. Rate : 052 BPM Atrial Rate : 052 BPM P-R Int : 196 ms QRS Dur : 122 ms QT Int : 446 ms P-R-T Axes : 006 029 033 degrees QTc Int : 414 ms Sinus bradycardia Non-specific intra-ventricular conduction delay Borderline ECG When compared with ECG of 27-MAY-2023 12:59, No significant change was found Referred By: Generic ED Physician Electronically Signed By:HAROON BONNER MD
--- NOTE | 2024-03-20 01:53 | ED.GENADULT ---
HPI - General Adult General Chief complaint: Dizziness Stated complaint: diarrhea Time Seen by Provider: 03/20/24 01:47 Source: patient and EMS Mode of arrival: EMS Limitations: no limitations History of Present Illness ED Provider: Dr. Cynthia Soto HPI narrative: Patient comes to the emergency room complaining of multiple episodes of diarrhea today, no vomiting, no abdominal pain. Patient denies blood in the stool. Denies any fever or chills, no hematuria or dysuria. Patient said earlier today to the EMS and triage nurse that he was feeling dizzy. Patient describes dizziness as not feeling well. Denies room spinning, denies near-syncope. Patient is chest pain or shortness of breath. Patient states he did not take any [id number] medications. Related Data Home Medications ?Medication ?Instructions ?Recorded ?Confirmed aspirin 81 mg tablet,delayed 81 mg PO DAILY 06/12/20 10/10/23 release (Adult Low Dose Aspirin) atorvastatin 20 mg tablet (Lipitor) 20 mg PO BEDTIME 06/12/20 10/10/23 gabapentin 300 mg capsule 900 mg PO BID 06/12/20 10/10/23 insulin glargine 100 unit/mL (3 5 unit subcut BEDTIME 06/12/20 10/10/23 mL) subcutaneous pen (Lantus Solostar U-100 Insulin) ipratropium 20 mcg-albuterol 100 1 puff inhalation BID PRN Wheezing 06/12/20 10/10/23 mcg/actuation mist for inhalation (Combivent Respimat) metformin 500 mg tablet 500 mg PO BID 06/12/20 10/10/23 blood sugar diagnostic (OneTouch #10 ea 12/30/21 07/06/22 Ultra Test strips) diclofenac sodium 1 % topical gel 4 g topical TID PRN Pain 12/30/21 10/10/23 pen needle, diabetic 31 gauge x #1,200 ea 12/30/21 07/06/22 5/16 (BD Ultra-Fine Short Pen Needle) amlodipine 2.5 mg tablet 2.5 mg PO DAILY 07/06/22 10/10/23 ibuprofen 800 mg tablet 800 mg PO Q8H PRN pain 10/10/23 10/10/23 pantoprazole 20 mg tablet,delayed 20 mg PO QAM 10/10/23 10/10/23 release Previous Rx's ?Medication ?Instructions ?Recorded fluticasone propionate 50 2 spray intranasal DAILY #16 grams 05/27/23 mcg/actuation nasal spray,suspension (Flonase Allergy Relief) oxycodone 5 mg tablet 5 mg PO Q8-10H PRN pain #20 tabs 07/04/23 oxycodone 5 mg tablet 5 mg PO Q6H PRN severe pain (scale 10/11/23 score 7-10) #8 tabs loperamide 2 mg capsule 2 mg PO Q4H PRN loose stool #20 03/20/24 caps Allergies Allergy/AdvReac Type Severity Reaction Status Date / Time No Known Allergies Allergy Verified 03/20/24 01:16 [No Known Allergies*] Review of Systems Review of Systems: Constitutional : No Weight loss, No Fever, No Chills, No Night Sweats, No Fatigue, No Malaise ENT/Mouth : No Hearing loss, No Ear Pain, No Nasal Congestion, No Sinus Pain, No Hoarseness, No sore throat, No Rhinorrhea, No Swallowing Difficulty Eyes: No Eye Pain, No Swelling, No Redness, No Foreign Body, No Discharge, No Vision Changes Cardiovascular : No Chest Pain, No SOB, No Dyspnea on Exertion, No Orthopnea, No Edema, No Palpitations Respiratory : No Cough, No Sputum, No Wheezing, No Smoke Exposure, No Dyspnea Gastrointestinal : No Nausea, No Vomiting, complaining of multiple episodes of Diarrhea, No Constipation, No abdominal Pain, No Hematochezia, No Melena Genitourinary : no irregular bleeding, No Dysuria, No Urinary Frequency, No Hematuria, No Urinary Incontinence, No Urgency, No Flank Pain, No Urinary Flow Changes, No Hesitancy Musculoskeletal : No joint pain, No Myalgias, No Joint Swelling Skin : No Skin Lesions, No rash Neuro : No Weakness, No Numbness, No Paresthesias, No Loss of Consciousness, No Dizziness, No Headache Psych : No Anxiety/Panic, No Depression, No SI/HI/AH/VH, No Social Issues, Heme/Lymph: No Bruising, No Bleeding,No Lymphadenopathy Endocrine : No Polyuria, No Polydipsia, No Temperature Intolerance PMFSH Past Medical History Medical History Infection of vascular bypass graft Dizziness CVA (cerebral vascular accident) PVD (peripheral vascular disease) Myocardial infarct, old Diabetes Surgical History History of femoropopliteal bypass History of cardiac catheterization Family History Family History Father Diabetes Mother Diabetes Depression Alzheimer disease Social History Social History Alcohol intake: never Patient Tobacco Use Status: Former Tobacco user Years Smoked: 40 +/- Advance Directives: Yes Advance Directives on File: Yes Advance Directives Date on File: 07/02/20 Physical Exam ED Vital Signs: Vital Signs - 24 hr 03/20/24 01:11 03/20/24 01:12 03/20/24 02:48 Temperature 97.8 F 97.8 F Pulse Rate 52 51 52 Respiratory Rate 16 18 Blood Pressure 101/38 L 101/38 L 135/54 L Pulse Oximetry 98 98 Oxygen Delivery Method Room Air Room Air 03/20/24 02:48 Temperature Pulse Rate 53 Respiratory Rate Blood Pressure 126/54 L Pulse Oximetry Oxygen Delivery Method BMI result Body Mass Index 25.7 Const Other: Appearance: Alert. Oriented X3. No acute distress. Eyes: Pupils equal, round and reactive to light. ENT: Pharynx normal. Neck: Normal inspection. Neck supple. No lymph nodes noted. No crepitus CVS: Normal heart rate and rhythm. Pulses normal. Normal S1 and S2 Respiratory: No respiratory distress. Breath sounds normal. No Wheezing. No rales Abdomen: Soft and nontender. No rigidity. No distention. No rebound, no guarding Skin: Skin warm and dry. Normal skin color. Normal skin turgor. Extremities: No lower extremity edema. No Lacerations. No Rash Neuro: Oriented X 3. No motor deficit. No sensory deficit. Moving all extremities. No slurred speech. CN 2 through 12 grossly intact Psych: calm, cooperative, normal affect Course Course Course Narrative: -patient's abdominal exam is very benign. -patient receiving IV fluids, loperamide -all labs pending Medications Administered Discontinued Medications Generic Name Dose Route Start Last Admin Trade Name Freq PRN Reason Stop Dose Admin Lactated Ringer's 500 mls @ 999 mls/hr 03/20/24 02:00 07/15/24 02:16 Lr IV 03/20/24 02:30 999 mls/hr .Q31M BRIONNA Administration Loperamide HCl 4 mg 03/20/24 01:52 03/20/24 02:16 Loperamide Hcl 2 Mg Capsule PO 03/20/24 01:53 4 mg ONCE ONE Administration Medical Decision Making Medical Decision Making [facility] Narrative: -my interpretation of EKG, normal sinus rhythm, heart rate 52, no ST segment depression or elevation, no T-wave inversion, QTC 414 -orthostatic vitals negative -My interpretation of labs, white blood cell count 12.2, history within normal limits, urinalysis negative for UTI -initially, patient was complaining that he could not urinate and requested to have a Pepper catheter inserted which we did. Patient had only 200 cc of urine, patient states he could not urinate. However, after we inserted the Pepper, 300 cc were collected. Patient then said that he wants his Pepper catheter removed, states that he can not pee between midnight and 03:00, states that he usually is able to urinate after 03:00. Patient was able to urinate without Pepper. -patient was able to ambulate unassisted with his walker -blood pressure improved after IV fluids. -at this time, patient states that he feels great and would like to be sent home Differential Diagnosis Differential Diagnoses: The differential diagnosis associated with the presentation includes (Gastritis, enteritis, gastroenteritis, viral illness, UTI) Admission/Observation Consideration of admission/observation: Escalation of care including admission/observation considered (Given patient's initial presentation, observation was considered) Lab Data [facility] Lab Attestation statement: I reviewed the patient's lab results. 03/20/24 01:56 03/20/24 01:56 Labs: Lab Results 03/20/24 03/20/24 Range/Units 01:56 04:38 WBC 12.2 H (4.8-10.8) X10*3/uL RBC 3.81 L (4.60-5.80) X10*6/uL Hgb 11.3 L (14.0-18.0) g/dl Hct 33.1 L (42.0-52.0) % MCV 86.9 (80.0-98.0) fL MCH 29.7 (27.0-33.0) pg MCHC 34.1 (31.0-36.0) g/dl RDW 14.6 (11.0-16.0) % Plt Count 193 (160-400) X10*3/uL MPV 10.4 (9.4-12.4) fL Immature Gran % (Auto) 0.5 H (0.0-0.4) % Neut % (Auto) 72.8 (45-73) % Lymph % (Auto) 15.8 L (20-40) % Giles % (Auto) 9.8 (2-11) % Eos % (Auto) 0.9 (0-4) % Baso % (Auto) 0.2 (0-2) % Lymph # (Auto) 1.9 (1.2-4.9) X10*3/uL Giles # (Auto) 1.2 (0.1-1.2) X10*3/uL Eos # (Auto) 0.1 (0.0-0.4) X10*3/uL Baso # (Auto) 0.0 (0.0-0.2) X10*3/uL Abs Immat Gran (auto) 0.06 H (0.00-0.03) X10*3/uL Absolute Neuts (auto) 8.9 H (2.0-8.3) x10*3/uL Absolute Nucleated RBC 0.000 (0.0-0.012) X10*3/uL Nucleated RBC % (auto) 0.0 (0.0-0.2) /100WBC Sodium 140 (135-145) mmol/L Potassium 4.7 (3.3-5.1) mmol/L Chloride 108 (96-108) mmol/L Carbon Dioxide 24 (22-29) mmol/L Anion Gap 13 (12-20) BUN 27 H (9-16) mg/dL Creatinine 1.03 (0.5-1.4) mg/dL Estim Creat Clear Calc 57.6 Estimated GFR > 60 Random Glucose 92 (60-115) mg/dL Calcium 9.7 (8.4-10.2) mg/dL Total Bilirubin 0.4 (0.0-1.0) mg/dL AST 24 (5-37) U/L ALT 25 (0-40) U/L Alkaline Phosphatase 78 (39-117) U/L Total Protein 7.4 (6.5-8.0) g/dL Albumin 4.2 (3.5-5.0) g/dL Urine Color Yellow Urine Appearance Clear Urine pH 6.0 (5.0-9.0) Ur Specific [place] 1.015 (1.005-1.025) Urine Protein Negative (Neg-Trace) mg/dL Urine Glucose (UA) Negative (Negative) mg/dL Urine Ketones Negative (Negative) mg/dL Urine Blood Negative (Negative) Urine Nitrite Negative (Negative) Ur Leukocyte Esterase Negative (Negative) Critical Care Time Critical Care Time Critical Care Time: Yes Total Critical Care Time: 45 Attestation: I have personally provided critical care time. Time includes review of lab data, radiology results, discussion with consultants, and monitoring for potential decompensation. Intervention performed as documented. Discharge Plan Discharge Clinical Impression: Diarrhea, Acute dehydration Patient Disposition: Home, Self-Care Instructions: Dehydration (ED), Acute Diarrhea (ED) Additional Instructions: Please follow-up with your primary care physician tomorrow. If you have any worsening or new symptoms, please return to the emergency room or call 911 Prescriptions: New loperamide 2 mg capsule 2 mg PO Q4H PRN (Reason: loose stool) Qty: 20 0RF Rx Instructions: administer after each loose stool until symptoms controlled; do not exceed 8 mg per 24 hrs No Action fluticasone propionate [Flonase Allergy Relief] 50 mcg/actuation spray,suspension 2 spray intranasal DAILY Qty: 16 0RF Rx Instructions: administer into each nostril oxycodone 5 mg tablet 5 mg PO Q8-10H PRN (Reason: pain) Qty: 20 0RF Rx Instructions: Partial Fill upon patient request. ibuprofen 800 mg tablet 800 mg PO Q8H PRN (Reason: pain) pantoprazole 20 mg tablet,delayed release (DR/EC) 20 mg PO QAM oxycodone 5 mg tablet 5 mg PO Q6H PRN (Reason: severe pain (scale score 7-10)) Qty: 8 0RF Rx Instructions: Partial Fill upon patient request. atorvastatin [Lipitor] 20 mg tablet 20 mg PO BEDTIME aspirin [Adult Low Dose Aspirin] 81 mg tablet,delayed release (DR/EC) 81 mg PO DAILY gabapentin 300 mg capsule 900 mg PO BID Lantus Solostar U-100 Insulin 100 unit/mL (3 mL) insulin pen 5 unit subcut BEDTIME Combivent Respimat 20-100 mcg/actuation mist 1 puff inhalation BID PRN (Reason: Wheezing) metformin 500 mg tablet 500 mg PO BID amlodipine 2.5 mg tablet 2.5 mg PO DAILY (DME) OneTouch Ultra Test Strip See Rx Instructions Not Applicable TID Qty: 10 Rx Instructions: As directed diclofenac sodium 1 % gel 4 g topical TID PRN (Reason: Pain) Rx Instructions: to knees (DME) pen needle, diabetic [BD Ultra-Fine Short Pen Needle] 31 gauge x 5/16 needle See Rx Instructions subcut DAILY Qty: 1200 Rx Instructions: As directed Print Language: [place]
[2024-03-20 02:00] LABS: MANUAL DIFF FLAG NO
[2024-03-20 02:02] LABS: Basophils Percent Auto 0.2 % (0-2); Eosinophils Absolute Auto 0.1 X10*3/uL (0.0-0.4); Eosinophils Percent Auto 0.9 % (0-4); Hematocrit 33.1 % (42.0-52.0); Hemoglobin 11.3 g/dl (14.0-18.0); Imm Gran Abs Auto 0.06 X10*3/uL (0.00-0.03); Imm Gran Pct Auto 0.5 % (0.0-0.4); Lymphocytes Absolute Auto 1.9 X10*3/uL (1.2-4.9); Lymphocytes Percent Auto 15.8 % (20-40); Mean Corpuscular HGB Conc 34.1 g/dl (31.0-36.0); Mean Corpuscular Hemoglobin 29.7 pg (27.0-33.0); Mean Corpuscular Volume 86.9 fL (80.0-98.0); Mean Platelet Volume 10.4 fL (9.4-12.4); Monocytes Absolute Auto 1.2 X10*3/uL (0.1-1.2); Monocytes Percent Auto 9.8 % (2-11); Neutrophils Absolute Auto 8.9 x10*3/uL (2.0-8.3); Neutrophils Percent Auto 72.8 % (45-73); Platelet Count 193 X10*3/uL (160-400); Red Blood Count 3.81 X10*6/uL (4.60-5.80); Red Cell Distribution Width 14.6 % (11.0-16.0); White Blood Count 12.2 X10*3/uL (4.8-10.8)
[2024-03-20] MEDS: Lactated Ringers 500 ML 999 ML IV (02:16)
[2024-03-20] MEDS: Loperamide HCl 2 MG CAPSULE 4 MG PO (02:16)
[2024-03-20 02:25] LABS: Alanine Aminotransferase 25 U/L (0-40); Albumin Level 4.2 g/dL (3.5-5.0); Alkaline Phosphatase 78 U/L (39-117); Anion Gap 13 (12-20); Aspartate Amino Transferase 24 U/L (5-37); Bilirubin Total 0.4 mg/dL (0.0-1.0); Blood Urea Nitrogen 27 mg/dL (9-16); Calcium 9.7 mg/dL (8.4-10.2); Carbon Dioxide 24 mmol/L (22-29); Chloride 108 mmol/L (96-108); Creatinine Clr Calc Pharmacy 57.6; Estimated Glomerular Filt Rate > 60; Glucose Random 92 mg/dL (60-115); Potassium 4.7 mmol/L (3.3-5.1); Sodium 140 mmol/L (135-145); Total Protein 7.4 g/dL (6.5-8.0)
[2024-03-20 04:51] LABS: Appearance Urine Clear; Color Urine Yellow; Glucose Urine UA Negative (Negative); Leukocyte Esterase Urine Negative (Negative); Nitrite Urine Negative (Negative); Specific Gravity - Urine 1.015 (1.005-1.025); Urine Blood Negative (Negative); Urine Ketones Negative (Negative); Urine Protein Negative (Neg-Trace)
--- NOTE | 2024-03-20 07:40 | PC.NURSE ---
outside maintenance worker utilized - spoke with pt. to see if he was able to get in touch with his daughter for a ride home. Pt. still unable to contact daughter, and pt. is unsafe to wait in the waiting room. No medical necessity for an ambulance home. police matronNORA ruiz.
== END 2024-03-20 11:06 | disposition home or self-care (01) ==
PROVIDERS: Emergency Provider Emergency Medicine
DX: E86.0 Dehydration (principal); R11.2 Nausea with vomiting, unspecified; R42 Dizziness and giddiness; I95.9 Hypotension, unspecified; R19.7 Diarrhea, unspecified; R00.1 Bradycardia, unspecified; Z87.891 Personal history of nicotine dependence; Z79.899 Other long term (current) drug therapy
CPT/HCPCS: 36415; 80053; 81003; 85025; 93005; 96360; 99284; 99285; J7120

== ENCOUNTER → 2024-03-20 01:45 | Outpatient (BNV) | payer OTHER, SELFPAY | PROVIDERS: Emergency Provider Emergency Medicine; Visit Provider Internal Medicine Cardiovascular Disease | DX: I95.9 Hypotension, unspecified (principal); R00.1 Bradycardia, unspecified; R94.31 Abnormal electrocardiogram [ECG] [EKG] | CPT/HCPCS: 93010 ==

== ENCOUNTER 2024-06-08 12:34 | Outpatient (AMB) | payer OTHER, SELFPAY ==
--- NOTE | 2024-06-08 13:14 | AM.OFFWIN_ITS ---
Intake Vital Signs 06/08/24 13:18 Height 5 ft 2 in Weight 140 lb BMI 25.6 BP 130/84 Blood Pressure Location Lt brachial Position Sitting Pulse 55 Pulse Source Pulse Oximeter Pulse Oximetry (%) 98 Oxygen Delivery Method Room Air Intake Visit Reasons: EP injury to RT pinky toe due to fall Intake Note: Patient here for injury of right pinky toe, daughter states she found him on the floor. Patient Tobacco Use Status: Former Tobacco user Allergies No Known Allergies [No Known Allergies*] Allergy (Verified 06/08/24 13:16) HPI HPI Comments History of Present Illness Details Patient is a 74-year-old Maltese-speaking male who is here because he has pain in his right pinky toe. He states prior to his arrival he was sitting at home and when he went to stand up, his pinky toe got caught on his slipper and he tripped and it dislocated in his now facing a direction it does not normally face. He states it is not really painful but because of the obvious deformity, he wanted to come in to have it evaluated. [facility] Medical History Infection of vascular bypass graft Dizziness CVA (cerebral vascular accident) PVD (peripheral vascular disease) Myocardial infarct, old Diabetes Surgical History History of femoropopliteal bypass History of cardiac catheterization Family History Father Diabetes Mother Diabetes Depression Alzheimer disease Social History Alcohol intake: never Patient Tobacco Use Status: Former Tobacco user Years Smoked: 40 +/- Advance Directives Date on File: 07/02/20 Review of Systems Const All systems reviewed & are unremarkable except as noted in HPI and below Physical Exam Vital Signs: Last Vital Signs Pulse 55 06/08/24 13:18 BP 130/84 06/08/24 13:18 Pulse Ox 98 06/08/24 13:18 Oxygen Delivery Method Room Air 06/08/24 13:18 BMI result Body Mass Index 25.6 Const General: cooperative, healthy appearing, comfortable, no acute distress and well developed Nutritional Appearance: average body habitus Orientation/consciousness: patient oriented x3 Limitations: wheelchair HEENT Head: Yes normal to inspection Ears: hearing grossly normal bilaterally General nose exam: Normal external nose present Face and sinus: Yes normal facial exam Eyes General: appearance normal, both eyes and all related structures Neck Neck: Yes normal visual inspection and Yes full ROM Resp Effort & Inspection: normal respiratory effort and able to speak in complete sentences Skin General skin exam: no rashes or lesions noted Neuro General: patient oriented x3 Extrem General: Yes normal to inspection Right lower extremity: foot Details: normal capillary refill and abnormal to inspection Details: a deformity Location: of the 5th digit (at 75 degree angle, NVI, unable to perform ROM); no unusual warmth, no edema, no abrasion, no laceration and no ecchymosis Assessment & Plan Assessment & Plan (1) Toe pain, right: Code(s): M79.674 - Pain in right toe(s) Plan: Obvious dislocation of 5th digit on the right foot, we will get pre-reduction x- ray and sent to the emergency department so they can reduce it safely and get post-reduction xray. Called ahead to the [facility] emergency department with expect. As per Dr. Mosher, we can not do joint reductions in the walk-in clinic. Plan See above Orders: Orders XR foot RT min 3V Today M79.674 - Pain in right toe(s) Coding Level of Care Code New Pt Level 5 (48620) Diagnoses Toe pain, right M79.674
[2024-06-08 13:18] VITALS: BP 130/84; PULSE 55; O2SAT 98; BMI 25.6
== END 2024-06-08 13:44 | disposition home or self-care (01) ==
PROVIDERS: PCP Internal Medicine; Visit Provider Physician Assistant
DX: M79.674 Pain in right toe(s) (principal)

== ENCOUNTER → 2024-06-08 12:34 | Outpatient (BNVA) | payer OTHER, SELFPAY | PROVIDERS: PCP Internal Medicine ==

== ENCOUNTER 2024-06-08 13:39 | Outpatient (REF) | payer OTHER, SELFPAY ==
--- NOTE | ~2024-06-08 | XR_ITS ---
EXAMINATION: XR FOOT, RIGHT CLINICAL INFORMATION: Right toe pain COMPARISON: None available. TECHNIQUE: AP, lateral, and oblique views of the right foot. FINDINGS: There is a fracture at the base of the proximal phalanx of the toe with lateral angulation of the distal fracture fragment. No other fractures are seen. There is plate and screw device overlying the distal fibula. Degenerative changes are present in the ankle. A large enthesophyte is noted at the Achilles tendon insertion. Small amount of plantar calcaneal spurring is present. Degenerative changes are seen at the TMT joints. Degenerative change is seen at the first MTP joint with multiple small surrounding osseous densities. Degenerative changes are present at the interphalangeal joints. There is some flexion deformity in the toes. XR/XR foot RT min 3V IMPRESSION: 1. Fracture base of proximal phalanx of the great toe with lateral angulation of the distal fracture fragment. 2. Degenerative changes as described above. Electronically signed by: Murphy Valerio MD 06/08/2024 03:01 PM EDT
== END 2024-06-08 13:40 | disposition home or self-care (01) ==
LOC: HO.HMGCX 13:39
PROVIDERS: PCP Internal Medicine; Visit Provider Physician Assistant
DX: M79.674 Pain in right toe(s) (principal)
CPT/HCPCS: 73630; 99202

== ENCOUNTER 2024-06-08 15:14 | Emergency (ER) | payer OTHER, SELFPAY ==
--- NOTE | ~2024-06-08 | XR_ITS ---
EXAMINATION: XR TOES, RIGHT CLINICAL INFORMATION: Status post Pinky toe reduction COMPARISON: Right toe 148 PM TECHNIQUE: 3 views of the right toes were obtained. FINDINGS: There is a nondisplaced fracture proximal end proximal phalanx fifth digit with satisfactory alignment. No additional fractures seen. Minimal soft tissue swelling fifth digit. XR/XR toe RT min 2V IMPRESSION: Status post reduction there is normal alignment of proximal phalanx fifth digit fracture. Electronically signed by: Ellis Martinez MD 06/08/2024 05:33 PM EDT RP
[2024-06-08 15:51] VITALS: BP 124/54; PULSE 54; RESP 16; TEMP 36.6; O2SAT 100; BMI 25.6
--- NOTE | 2024-06-08 15:56 | ED.LOWEXIN ---
HPI - Extremity Injury (Lower) General Chief Complaint: Extremity Injury, Lower Stated Complaint: right foot pain Time Seen by Provider: 06/08/24 15:55 Source: patient, family, old records reviewed and staff interpreter Mode of arrival: ambulatory Limitations: no limitations History of Present Illness ED Provider: Bennett Monsivais PA-C HPI Narrative: 4-year-old Italian-speaking male with history of CAD, HTN, lumbar back pain, PVD, DM who presents to the ER from the urgent care for evaluation of a dislocated right 5th pinky toe. This occurred today when the patient was trying to take off his slipper and somehow got his toe stuck inside the slipper. He went to the urgent care where he was noted to have a dislocated 5th pinky toe and they were unable to reduce it due to scope limitations according to the provider there. He was sent here for reduction as well as postreduction x-rays. He denies any numbness or tingling in the toe, only pain. MD complaint: foot injury Onset (ago): hour(s) Injury: Right: toes Type of Injury: blunt Place: home Severity: moderate Exacerbating factors: weight bearing, movement and palpation Associated symptoms: snap/pop sensation and able to partially bear weight Other symptoms: none Related Data Home Medications ?Medication ?Instructions ?Recorded ?Confirmed aspirin 81 mg tablet,delayed 81 mg PO DAILY 06/12/20 10/10/23 release (Adult Low Dose Aspirin) atorvastatin 20 mg tablet (Lipitor) 20 mg PO BEDTIME 06/12/20 10/10/23 gabapentin 300 mg capsule 900 mg PO BID 06/12/20 10/10/23 insulin glargine 100 unit/mL (3 5 unit subcut BEDTIME 06/12/20 10/10/23 mL) subcutaneous pen (Lantus Solostar U-100 Insulin) ipratropium 20 mcg-albuterol 100 1 puff inhalation BID PRN Wheezing 06/12/20 10/10/23 mcg/actuation mist for inhalation (Combivent Respimat) metformin 500 mg tablet 500 mg PO BID 06/12/20 10/10/23 blood sugar diagnostic (OneTouch #10 ea 12/30/21 07/06/22 Ultra Test strips) diclofenac sodium 1 % topical gel 4 g topical TID PRN Pain 12/30/21 10/10/23 pen needle, diabetic 31 gauge x #1,200 ea 12/30/21 07/06/22 5/16 (BD Ultra-Fine Short Pen Needle) amlodipine 2.5 mg tablet 2.5 mg PO DAILY 07/06/22 10/10/23 ibuprofen 800 mg tablet 800 mg PO Q8H PRN pain 10/10/23 10/10/23 pantoprazole 20 mg tablet,delayed 20 mg PO QAM 10/10/23 10/10/23 release cholecalciferol (vitamin D3) 25 25 mcg PO DAILY 06/08/24 mcg (1,000 unit) capsule multivitamin 1 tab PO DAILY 06/08/24 Previous Rx's ?Medication ?Instructions ?Recorded fluticasone propionate 50 2 spray intranasal DAILY #16 grams 05/27/23 mcg/actuation nasal spray,suspension (Flonase Allergy Relief) Allergies Allergy/AdvReac Type Severity Reaction Status Date / Time No Known Allergies Allergy Verified 06/08/24 15:56 [No Known Allergies*] Review of Systems Review of Systems: Yes all other systems are reviewed and are negative [facility] Past Medical History Medical History Infection of vascular bypass graft Dizziness CVA (cerebral vascular accident) PVD (peripheral vascular disease) Myocardial infarct, old Diabetes Surgical History History of femoropopliteal bypass History of cardiac catheterization Family History Family History Father Diabetes Mother Diabetes Depression Alzheimer disease Social History Social History Alcohol intake: never Patient Tobacco Use Status: Former Tobacco user Years Smoked: 40 +/- Advance Directives: Yes Advance Directives on File: Yes Advance Directives Date on File: 07/02/20 Do you have a plan to hurt others: No Plan Physical Exam Vital Signs: Vital Signs: Last Vital Signs Temp 97.9 F 06/08/24 17:34 Pulse 54 06/08/24 17:34 Resp 16 06/08/24 17:34 BP 124/54 L 06/08/24 17:34 Pulse Ox 100 06/08/24 17:34 O2 Del Method Room Air 06/08/24 17:34 BMI result Body Mass Index 25.6 Appearance: Alert elderly male sitting in the wheelchair,. Oriented X3. No acute distress. HEENT: normal inspection CVS: Normal heart rate and rhythm. Pulses normal. Respiratory: No respiratory distress. Skin: Skin warm and dry. Normal skin color. Normal skin turgor. No rashes. Extremities: right pinky toe with deformity, lateral positioning c/w dislocation. no significant swelling. nontender metatarasals. foot is warm and well perfused Neuro: Oriented X 3. grossly normal. nonfocal Medical Decision Making Medical Decision Making MDM Narrative: 74-year-old male presents the ER for evaluation of a broken and dislocated toe. Sent in from the Urgent Care. toe was obviously dislocated on arrival. 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 Radiologist Impression: XR/XR toe RT min 2V IMPRESSION: Status post reduction there is normal alignment of proximal phalanx fifth digit fracture. Independent Historian Clinical information obtained from an independent historian. History obtained from or confirmed by: Friend External Record Review External record reviewed: Outpatient record and Prior outpatient labs Prescription Management I considered prescription management with: Pain Medication Chronic Conditions Patient?s care impacted by: Hypertension and Other (PVD) Procedures Orthopedic Fracture Reduction Fracture #1: Time Out Performed: Yes Side: right Fracture Reduction Location: toe Analgesia: none Technique: direct manipulation Post Reduction X-rays Demonstrate: anatomical reduction Post-reduction neuro exam: intact and no change Post-reduction vascular exam: intact and no change Splint Applied: Yes (sarai tape) Patient Tolerated Procedure: well and no complications Critical Care Time Critical Care Time Critical Care Time: No Discharge Plan Discharge Clinical Impression: Dislocated toe Qualifiers: Encounter type: initial encounter Laterality: right Qualified Code(s): S93.104A - Unspecified dislocation of right toe(s), initial encounter Fracture of toe Qualifiers: Encounter type: initial encounter Toe: lesser toe Fracture type: closed Phalanx: unspecified phalanx Fracture alignment: displaced Laterality: right Qualified Code(s): S92.501A - Displaced unspecified fracture of right lesser toe(s), initial encounter for closed fracture Patient Disposition: Home, Self-Care Instructions: Toe Fracture (ED) Additional Instructions: your xray showed a broken and dislocated toe the toe was relocated for you keep the toes taped together to allow appropriate healing wear the provided post-op shoe when walking ice the area as needed for swelling and pain take motrin and tylenol as needed for pain follow up with your doctor and orthopedics as needed - call for an appointment XR/XR foot RT min 3V IMPRESSION: 1. Fracture base of proximal phalanx of the great toe with lateral angulation of the distal fracture fragment. 2. Degenerative changes as described above. Prescriptions: No Action fluticasone propionate [Flonase Allergy Relief] 50 mcg/actuation spray,suspension 2 spray intranasal DAILY Qty: 16 0RF Rx Instructions: administer into each nostril ibuprofen 800 mg tablet 800 mg PO Q8H PRN (Reason: pain) pantoprazole 20 mg tablet,delayed release (DR/EC) 20 mg PO QAM atorvastatin [Lipitor] 20 mg tablet 20 mg PO BEDTIME aspirin [Adult Low Dose Aspirin] 81 mg tablet,delayed release (DR/EC) 81 mg PO DAILY gabapentin 300 mg capsule 900 mg PO BID Lantus Solostar U-100 Insulin 100 unit/mL (3 mL) insulin pen 5 unit subcut BEDTIME Combivent Respimat 20-100 mcg/actuation mist 1 puff inhalation BID PRN (Reason: Wheezing) metformin 500 mg tablet 500 mg PO BID amlodipine 2.5 mg tablet 2.5 mg PO DAILY (DME) OneTouch Ultra Test Strip See Rx Instructions Not Applicable TID Qty: 10 Rx Instructions: As directed diclofenac sodium 1 % gel 4 g topical TID PRN (Reason: Pain) Rx Instructions: to knees (DME) pen needle, diabetic [BD Ultra-Fine Short Pen Needle] 31 gauge x 5/16 needle See Rx Instructions subcut DAILY Qty: 1200 Rx Instructions: As directed cholecalciferol (vitamin D3) 25 mcg (1,000 unit) capsule 25 mcg PO DAILY multivitamin Tablet 1 tab PO DAILY Referrals: [facility] [facility] [Provider Group] (XR/XR foot RT min 3V IMPRESSION: 1. Fracture base of proximal phalanx of the great toe with lateral angulation of the distal fracture fragment. 2. Degenerative changes as described above.) Adelfo Fletcher III, MD [Primary Care Provider] - Interventions: ED Discharge Assessment Last Done: 06/08/24 17:34 Print Language: Italian
[2024-06-08 17:34] VITALS: BP 124/54; PULSE 54; RESP 16; TEMP 36.6; O2SAT 100
== END 2024-06-08 17:46 | disposition home or self-care (01) ==
LOC: HO.ED 17:37
PROVIDERS: Emergency Provider Emergency Medicine; PCP Internal Medicine
DX: S93.104A Unspecified dislocation of right toe(s), initial encounter (principal); M79.671 Pain in right foot; I25.10 Atherosclerotic heart disease of native coronary artery without angina pectoris; I10 Essential (primary) hypertension; E11.9 Type 2 diabetes mellitus without complications; Y93.01 Activity, walking, marching and hiking; Y29.XXXA Contact with blunt object, undetermined intent, initial encounter; Y92.098 Other place in other non-institutional residence as the place of occurrence of the external cause; Z79.899 Other long term (current) drug therapy; Z79.4 Long term (current) use of insulin; Z87.891 Personal history of nicotine dependence
CPT/HCPCS: 28515; 73660; 99282; 99284

== ENCOUNTER 2024-07-11 09:05 | Outpatient (REF) | payer OTHER, SELFPAY ==
--- NOTE | ~2024-07-11 | US_ITS ---
EXAMINATION: Noninvasive assessment of the bilateral lower extremities with ARTERIAL DUPLEX and ANKLE BRACHIAL INDICES (ABIs). CLINICAL INFORMATION: Peripheral vascular disease. History of prior left femoropopliteal bypass graft and subsequent removal TECHNIQUE: Duplex Doppler techniques with waveform analysis and measurement of velocities in the bilateral common femoral, profunda femoris, superficial femoral, popliteal and tibial arteries were performed. Additionally, ankle pulse volume recordings, ankle pressure measurements and ankle brachial indices were obtained of the lower extremity arterial system bilaterally. The study was performed only at rest. COMPARISON: Ultrasound from 08/11/2023 and CTA from 06/24/2023 FINDINGS: DIRECT DUPLEX DOPPLER FINDINGS: RIGHT LEG: Common femoral artery: 111 cm/s, phasicity: Biphasic Profunda femoris artery: 198, phasicity: Biphasic Superficial femoral artery (proximal): 132 cm/s, phasicity: Biphasic Superficial femoral artery (mid): 71.3 cm/s, phasicity: Biphasic Superficial femoral artery (distal): 65.3 cm/s, phasicity: Monophasic Popliteal artery: 79.6 cm/s, phasicity: Monophasic. Scattered calcified plaque Posterior tibial artery: 53.6 cm/s, phasicity: Monophasic Peroneal artery: 40.6 cm/s, phasicity: Monophasic Anterior tibial artery: 48.1 cm/s, phasicity: Monophasic Dorsalis pedis artery: Not visualized LEFT LEG: Scarring and shadowing in the left groin from the prior bypass graft and multiple surgeries Common femoral artery: 112 cm/s, phasicity: Biphasic Profunda femoris artery: 95.0 cm/s, phasicity: Aphasic Superficial femoral artery (proximal): Occluded Superficial femoral artery (mid): Occluded Superficial femoral artery (distal): Occluded Popliteal artery: Occluded Posterior tibial artery: 26.5 cm/s, phasicity: Monophasic Peroneal artery: Occluded Anterior tibial artery: 18.2 cm/s, phasicity: Monophasic Dorsalis pedis artery: Not visualized ANKLE-BRACHIAL INDEX: Right: 0.9 Left: 1.59 ANKLE PRESSURES: Right: PT not detected, DP 115 Left: PT 202, DP not detected ANKLE PVR WAVEFORMS: Right: Abnormal Left: Abnormal US/US arterial duplex BI w/ PAOLA IMPRESSION: RIGHT LEG: Monophasic waveforms in the distal superficial femoral artery and tibial vessels most consistent with severe below-knee runoff disease. Dorsalis pedis artery is not visualized. LEFT LEG: Occluded left superficial femoral artery and popliteal artery. Reconstitution of flow in the posterior tibial and anterior tibial arteries with monophasic waveforms. Dorsalis pedis artery is not visualized. Electronically signed by: Alphonso Diego MD 08/02/2024 12:50 PM EST
== END 2024-07-11 09:06 | disposition home or self-care (01) ==
LOC: HO.US 09:05
PROVIDERS: PCP Internal Medicine; Visit Provider Surgery Vascular Surgery
DX: I73.9 Peripheral vascular disease, unspecified (principal)
CPT/HCPCS: 93922; 93925

== ENCOUNTER 2024-09-28 14:27 | Outpatient (AMB) | payer OTHER, SELFPAY ==
--- NOTE | 2024-09-28 14:33 | MHC.OFFVIS ---
Intake Visit Reasons: follow up s/p Arterial US with PAOLA 07/11/24 Intake Note: Patient presents for follow up arterial US. Patient states he has a ball on his left calf that hurts. Noticed it after his ultrasound. Accompanied by: Self / Same As Patient Allergies No Known Allergies [No Known Allergies*] Allergy (Verified 09/28/24 14:35) HPI HPI follow up s/p Arterial US with PAOLA 07/11/24: Details: Very pleasant 74-year-old gentleman presents for annual arterial surveillance follow-up. He had initially undergone a fem-pop bypass and became infected and was subsequently removed. Over the years he has become more sedentary. It has gotten to the point where he requires a wheelchair for going long distances but other than that has no significant complaints. He now presents for follow-up with noninvasive arterial testing. [facility] Medical History Infection of vascular bypass graft Dizziness CVA (cerebral vascular accident) PVD (peripheral vascular disease) Myocardial infarct, old Diabetes Surgical History History of femoropopliteal bypass History of cardiac catheterization Family History Father Diabetes Mother Diabetes Depression Alzheimer disease Social History Alcohol intake: never Patient Tobacco Use Status: Former Tobacco user Years Smoked: 40 +/- Advance Directives Date on File: 07/02/20 Review of Systems Const All systems reviewed & are unremarkable except as noted in HPI and below Reports no additional complaints ENT Reports Normal hearing present Card Denies chest pain, Denies chest pain at rest, Denies chest pain with activity and Denies pedal edema Resp Denies cough GI Denies abdominal pain Musc Denies abnormal gait, Denies muscle cramps and Denies radiating pain into limb Skin/Breast Denies skin ulcer and Denies wounds Neuro Reports Normal hearing present and Denies abnormal gait Psych Reports no additional complaints Physical Exam Const General: cooperative, healthy appearing and comfortable Orientation/consciousness: oriented to person, oriented to place and oriented to time HEENT Head: Yes normal to inspection Neck Neck: Yes normal visual inspection Carotids: no bruits Chest Chest palpation & inspection: normal inspection of the chest Resp Effort & Inspection: normal respiratory effort and able to speak in complete sentences Auscultation: clear to auscultation bilaterally, no crackles, no rales, no rhonchi and no wheezes Cardio Other: Bilateral DP signals Rate: regular rate Rhythm: regular rhythm Heart sounds: S1 normal heart sound present and S2 normal heart sound present Bruits: no carotid bruits GI Inspection: Yes normal to inspection Skin Wounds: no wounds Hair: normal Neuro General: oriented to person, oriented to place and oriented to time Cranial nerves: Yes CN's II-XII intact bilaterally and Yes Normal hearing present Cognition (Neuro): normal cognition Motor exam (neuro): 5/5 motor strength present throughout Extrem Other: venous exam: No significant superficial varicosities or spider telangiectasias, minimal edema General: No clubbing, No cyanosis and No edema Psych Appearance: grossly normal Mental Status: mental status grossly normal Speech and movement: Normal speech and movement present Results Reviewed Results Reviewed: Noninvasive arterial testing dated 07/11/2024 demonstrates PAOLA on the right of 0.9 and on the left of 1.59. Written report and images were reviewed. These do appear artifactually elevated. Assessment & Plan Assessment & Plan (1) PVD (peripheral vascular disease): Comment: Left fem-pop in 2018 with removal on 05/02/2020 Code(s): I73.9 - Peripheral vascular disease, unspecified Category: Medical Plan: In short patient has stable claudication. He appears to be doing relatively stable at the current time and would try to avoid any sort of intervention on him. I did review the pathophysiology of peripheral vascular disease with the patient. In addition we did discuss routine conservative measures including a healthy diet and the importance of exercise and ambulation. We did discuss risk factor modification. The patient will continue to to follow-up with surveillance follow-up in approximately 1 year. Thank you for allowing us to participate in this patient's care. If there are any questions or concerns please do not hesitate to contact us. Orders: Orders US arterial duplex LE BI 1 Year I73.9 - Peripheral vascular disease, unspecified Coding Level of Care Code Est Pt Level 4 (28662) Complex EM visit Add On G2211 Diagnoses PVD (peripheral vascular disease) I73.9
== END 2024-09-28 15:02 | disposition home or self-care (01) ==
PROVIDERS: PCP Internal Medicine; Visit Provider Surgery Vascular Surgery
DX: I73.9 Peripheral vascular disease, unspecified (principal)
CPT/HCPCS: 99214; G2211

== ENCOUNTER → 2024-09-28 14:27 | Outpatient (BNVA) | payer OTHER, SELFPAY | PROVIDERS: PCP Internal Medicine; Visit Provider Surgery Vascular Surgery | DX: I73.9 Peripheral vascular disease, unspecified (principal) | CPT/HCPCS: 99212 ==

== ENCOUNTER 2025-05-24 11:09 | Emergency (ER) | payer OTHER, SELFPAY ==
--- NOTE | ~2025-05-24 | CT_ITS ---
EXAMINATION: CT ABDOMINAL AORTA ANGIO BILATERAL RUNOFF WITH IV CONTRAST CLINICAL INFORMATION: Left leg pain, hx of left arterial occlusion COMPARISON: CT angiogram of the abdominal aorta and bilateral leg runoff on June 24, 2023. Ultrasound of the bilateral lower extremity arteries on August 11, 2023. TECHNIQUE: CT angiogram of the abdominal aorta and bilateral lower extremities was obtained following intravenous administration of 80 cc of Omnipaque 350. Images were reconstructed in axial, sagittal and coronal planes. MIP reconstructions were also obtained. This CT examination was performed using dose optimization techniques as appropriate, variously including the following: *Automated exposure control *Adjustment of mA and/or kV according to patient size (this includes techniques or standardized protocols for targeted exams where dose is matched to indication/reason for exam; i.e. extremities or head) *Use of iterative reconstruction technique FINDINGS: VASCULAR: Moderate degree of atherosclerotic disease with calcifications. Abdominal aorta: No abdominal aortic occlusion or aneurysm. Mesenteric arteries: Moderate narrowing at the origin of the celiac artery. Similar approximate 50% stenosis at the origin of the superior mesenteric artery. Inferior mesenteric artery is patent. Renal arteries: Single renal artery bilaterally. No high-grade stenosis. Right: Common, external and internal iliac arteries are patent without high-grade stenosis. Mild narrowing of the distal common femoral artery (6:546). Multiple areas of high-grade stenosis along the femoral artery, similar to previous examination (for example on 6:837). Profunda femoral artery is patent. Focal high-grade stenosis of the popliteal artery [id number] (6:1079). Narrowing of the proximal segment of the anterior tibial artery. Peroneal artery is patent. Multiple areas of high-grade stenosis of the posterior tibial artery; distal segment appears occluded. Left: Focal areas of stenosis in the distal aspect of the common femoral artery (6:551, 6:569). Profunda femoral artery is patent. Severe stenosis at the origin of the femoral artery (6:589). Only short segment of the proximal most femoral artery is patent, then, occluded for a long segment, similar to prior study. Non-opacification of the majority of the popliteal artery; flow in the most distal segment reconstitutes by collateral vessels. High-grade stenosis at the origin of the posterior tibial artery; but patent to the foot. Peroneal artery is patent. Anterior tibial artery patent to mid/distal calf (11:63), similar to prior study. NONVASCULAR FINDINGS: Liver: Multiple surgical clips in the lower surface of the liver. Partially included rim calcification of the right hepatic lobe. Bowel: No bowel distention. Kidneys/ureters: Mild bilateral hydroureteronephrosis. Adrenal glands: No nodules. Peritoneum/retroperitoneum: No free fluid. No free air. No lymphadenopathy. Pelvis: Urinary bladder is moderately distended, without focal wall thickening. Bones: Status post vertebroplasty of T11 and L1 vertebral bodies. Internally fixated right distal fibular fracture. No acute or destructive osseous abnormality. CT/CT angio abd aorta runoff IMPRESSION: - Moderate atherosclerotic disease with calcifications involving the aorta, iliac arteries and branches. Narrowing at the origin of the celiac trunk and superior mesenteric artery. -Right lower extremity: Multiple areas of high-grade stenosis involving the femoral artery, popliteal artery and proximal posterior tibial artery. Two-vessel runoff to the foot via anterior tibial and peroneal arteries. 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 Two-vessel runoff to the foot mainly via posterior tibial artery, but also peroneal artery. Electronically signed by: Gregg Corona MD 05/24/2025 04:23 PM EDT
--- NOTE | ~2025-05-24 | US_ITS ---
EXAMINATION: US LOWER EXTREMITY VEINS LIMITED FOLLOW UP LEFT HISTORY: pain COMPARISON: There are no prior studies available for comparison. TECHNIQUE: Duplex and color Doppler sonographic examination of the deep venous system of the left lower extremity was performed. FINDINGS: The common femoral, superficial femoral, and popliteal veins are patent demonstrating normal compressibility, spontaneous flow, and augmentation. There is a normal color and spectral Doppler waveform appearance of the visualized deep venous system above the knee. The posterior tibial and peroneal veins are patent. US/US venous duplex LE LT IMPRESSION: No evidence of acute DVT in the left lower extremity. Electronically signed by: Pedro Luis Crawford MD 05/24/2025 02:10 PM EDT
[2025-05-24 11:20] VITALS: BP 110/50; BP 115/47; PULSE 53; RESP 16; TEMP 36.6; O2SAT 99; BMI 20.6
[2025-05-24 11:23] VITALS: BP 115/47; PULSE 53; RESP 16; TEMP 36.6; O2SAT 99
--- NOTE | 2025-05-24 11:31 | ED_ITS ---
HPI - General Adult General Chief complaint: Extremity Problem Stated complaint: pain on legs, dizziness Time Seen by Provider: 05/24/25 11:31 Source: patient and RN notes reviewed Mode of arrival: ambulatory Limitations: no limitations History of Present Illness ED Provider: Zohreh Braxton PA-C HPI narrative: This is a 75-year-old male, with a past medical history of CAD, hypertension, peripheral vascular disease, diabetes, who presents emergency department accompanied by his daughter with concerns of increased left leg pain over the last 2 days. Patient denies any recent trauma or injury. He states that he feels as though his circulation in his leg worsens. Pain worsens with weight-bearing. He states that he is able to take several steps however states that the pain worsens when he does so. Denies any numbness or tingling. No saddle anesthesia. No urinary or bowel retention or incontinence. Recently had a colonoscopy which he was told was normal. He denies any fevers or chills. No chest pain. Denies any headache, dizziness, blurred vision, chest pain, shortness of breath, abdominal pain, nausea, vomiting or diarrhea. Denies taking any medications at home to treat his current symptoms. MD complaint: left leg pain Onset (ago): day(s) Radiation: non-radiation Quality: aching Pain Consistency: constant Relieving factors: none Exacerbating factors: none Associated symptoms: denies other symptoms Treatments prior to arrival: none Related Data Home Medications ?Medication ?Instructions ?Recorded ?Confirmed aspirin 81 mg tablet,delayed 81 mg PO DAILY 06/12/20 0 05/25/25 release (Adult Low Dose Aspirin) gabapentin 300 mg capsule 300 mg PO TID 06/12/2005/25 insulin glargine 100 unit/mL (3 5 unit subcut BEDTIME 06/12/20 05/25/25 mL) subcutaneous pen (Lantus Solostar U-100 Insulin) ipratropium 20 mcg-albuterol 100 1 puff inhalation BID PRN Wheezing 06/12/20 05/25/25 mcg/actuation mist for inhalation (Combivent Respimat) metformin 500 mg tablet 500 mg PO BID 06/12/2005/25 blood sugar diagnostic (OneTouch #10 ea 12/30/2107/06 Ultra Test strips) pen needle, diabetic 31 gauge x #1,200 ea 12/30/21/16 (BD Ultra-Fine Short Pen Needle) amlodipine 2.5 mg tablet 2.5 mg PO DAILY 07/06/22 cholecalciferol (vitamin D3) 25 25 mcg PO DAILY 05/25/25 mcg (1,000 unit) capsule multivitamin 1 tab PO DAILY 06/08/2405/07 atorvastatin 20 mg tablet (Lipitor) 80 mg PO BEDTIME 0 09/28/24 05/25/25 Previous Rx's ?Medication ?Instructions ?Recorded fluticasone propionate 50 2 spray intranasal DAILY #16 grams 05/27/23 mcg/actuation nasal spray,suspension (Flonase Allergy Relief) Allergies Allergy/AdvReac Type Severity Reaction Status Date / Time No Known Allergies (No Known Allergy Verified 05/24/25 11:22 Allergies*) Review of Systems 2 Review of Systems: Yes all other systems are reviewed and are negative Constitutional: Constitutional: Reports as per [facility] Past Medical History Medical History Infection of vascular bypass graft Dizziness CVA (cerebral vascular accident) PVD (peripheral vascular disease) Myocardial infarct, old Diabetes Surgical History History of femoropopliteal bypass History of cardiac catheterization Family History Family History Father Diabetes Mother Diabetes Depression Alzheimer disease Social History Social History Alcohol intake: never Patient Tobacco Use Status: Former Tobacco user Years Smoked: 40 +/- Smoked in Last 30 Days: No Use of substances other than those prescribed or required for medical reasons: No Advance Directives: Yes Advance Directives on File: Yes Advance Directives Date on File: 07/02/20 Do you have a plan to hurt others: No Plan Physical Exam ED Vital Signs: Vital Signs - 24 hr 05/28/25 12:56 05/28/25 15:40 05/28/25 20:43 Temperature 97.7 F 97.1 F Pulse Rate 67 59 Respiratory Rate 16 18 18 Blood Pressure 114/75 100/46 L Pulse Oximetry 98 98 Oxygen Delivery Method Room Air Room Air 05/29/25 05:26 05/29/25 07:39 Temperature 98.1 F 97.2 F Pulse Rate 60 60 Respiratory Rate 16 18 Blood Pressure 113/49 L 126/55 L Pulse Oximetry 97 93 Oxygen Delivery Method Room Air Room Air BMI result Body Mass Index 20.6 Const General: cooperative, comfortable and no acute distress Orientation/consciousness: patient oriented x3 Limitations: no limitations HENMT Head: Yes normal to inspection, Yes normocephalic and Yes atraumatic Ears: hearing grossly normal bilaterally General nose exam: Normal external nose present Face and sinus: Yes normal facial exam Mouth: Normal oral and palatal mucosa present, oropharynx normal and moist mucous membranes Throat: Yes posterior oropharynx normal Eyes General: appearance normal, both eyes and all related structures Eyelids: Yes eyelids normal Conjunctivae: conjunctivae normal Sclerae: sclerae normal Pupils: Equal, round and reactive pupils present EOM: EOMs intact bilaterally Neck Neck: Yes normal visual inspection, Yes full ROM and Yes no lymphadenopathy Lymphatic: no lymphadenopathy noted Chest Chest palpation & inspection: normal inspection of the chest Resp Effort & Inspection: normal respiratory effort and able to speak in complete sentences Auscultation: clear to auscultation bilaterally, no crackles, no rales, no rhonchi and no wheezes Cardio Rate: regular rate Rhythm: regular rhythm Heart sounds: S1 normal heart sound present and S2 normal heart sound present GI Inspection: Yes normal to inspection Skin General skin exam: no rashes or lesions noted Trauma: no lacerations or abrasions Wounds: no wounds Neuro General: patient oriented x3 and moves all extremities Cranial nerves: Yes Equal, round and reactive pupils present Extrem Other: Left lower extremity is well perfused, as warm, DP pulses very faint in the left. Diffusely tender throughout. No calf tenderness. No overlying erythema or warmth. Full ROM without difficulty. No pedal edema noted. General: Yes normal to inspection Right upper extremity: normal to inspection Left upper extremity: normal to inspection Right lower extremity: normal to inspection Left lower extremity: normal to inspection Course Course Course Narrative: 05/25/25 0806 CECY Cam: Physician observation continued, no overnight events reported by nursing. Patient c/o constipation, will orders meds, med rec completed as well. Vital signs stable. Awaiting PT eval. Reevaluation(s) Reevaluation #1: Time: 09:25 Date: 05/26/25 Provider: Delphine Dodge NP Patient in physician observation for case management needs. No acute events reported overnight.? No current issues or complaints. VS stable. Patient is pending placement at facility. Will continue to monitor. Reevaluation #2: SATINDER Palomo- Physician observation continued. Uneventful night. Vital signs stable. No complaints from nursing overnight. Med reconciliation reviewed and done. Pending disposition. Will continue to monitor. Time: 10:53 Reevaluation #3: 05/28/2025 0810 Anisa Canales PA-C ---> Observation continues. Case management continues to follow. Time: 08:12 Date: 05/29/25 Provider: SATINDER John Patient in physician observation for case management needs. No acute events reported overnight.? No current issues or complaints. VS stable. Patient is pending placement at facility. Will continue to monitor. Time: 12: Date: 05/29/25 Provider: SATINDER John Physician observation ended at 1224. Patient will be discharged to [facility] at 2:00 p.m. for short-term rehab. Medications Administered Generic Name Dose Route Start Last Admin Trade Name Freq PRN Reason Stop Dose Admin Amlodipine Besylate 2.5 mg 05/25/25 09:00 05/29/25 09:05 Amlodipine Besylate 2.5 Mg Tablet PO 2.5 mg DAILY BRIONNA Administration Protocol Aspirin 81 mg 05/25/25 09:00 05/29/25 09:05 Aspirin Enteric Coated 81 Mg Tablet. PO 81 mg DAILY BRIONNA Administration Atorvastatin Calcium 80 mg 05/25/25 21:00 05/28/25 20:02 Atorvastatin Calcium 80 Mg Tablet PO 80 mg BEDTIME BRIONNA Administration Fluticasone Propionate 2 spray 05/25/25 09:00 05/29/25 09:26 Fluticasone Propionate Nasal 16 Gm Supply NOSTRIL-B 2 spray DAILY BRIONNA Administration Gabapentin 300 mg 05/25/25 09:00 05/29/25 09:05 Gabapentin 300 Mg Capsule PO 300 mg TID BRIONNA Administration Insulin Glargine 5 unit 05/25/25 21:00 05/28/25 20:03 Insulin Glargine,Hum.Rec.Anlog 100 Unit/Ml 10 Ml Vial SUBCUT 5 unit BEDTIME BRIONNA Administration Metformin HCl 500 mg 05/25/25 09:00 05/29/25 09:05 Metformin Hcl 500 Mg Tablet PO 500 mg BID BRIONNA Administration Multivitamins/Vitamin C 1 tab 05/25/25 09:00 05/29/25 09:05 Multivitamin Tablet PO 1 tab DAILY BRIONNA Administration Senna 8.6 mg 05/25/25 08:09 05/25/25 11:18 Sennosides 8.6 Mg Tablet PO 8.6 mg DAILY PRN Administration Constipation Vitamin D 25 mcg 05/25/25 09:00 05/29/25 09:05 Cholecalciferol (Vitamin D3) 25 Mcg Tablet PO 25 mcg DAILY BRIONNA Administration Discontinued Medications Generic Name Dose Route Start Last Admin Trade Name Daniel PRN Reason Stop Dose Admin Acetaminophen 650 mg 05/25/25 17:06 05/25/25 17:24 Acetaminophen 325 Mg Tablet PO 05/25/25 17:07 650 mg ONCE STA Administration Acetaminophen 975 mg 05/26/25 20:58 05/26/25 21:00 Acetaminophen 325 Mg Tablet PO 05/26/25 20:59 975 mg ONCE ONE Administration Albuterol/Ipratropium 3 ml 05/25/25 09:15 05/25/25 14:18 Albuterol/Iprat 2.5/0.5mg 3 Ml Ampul.Neb INHALE Not Given [facility] Acetaminophen 1,000 mg in 100 mls @ 400 mls/hr 05/24/25 18:48 05/24/25 20:59 Ofirmev IV 05/24/25 19:02 Infused ONCE ONE Infusion Iohexol 80 ml 05/24/25 14:54 05/24/25 14:54 Iohexol 350 Mg/Ml 100 Ml Infus..Btl IV 05/24/25 14:55 80 ml ONCE ONE Administration Medical Decision Making Medical Decision Making MDM Narrative: This is a 75-year-old Green[place]ic speaking male, with a past medical history of CAD, hypertension, peripheral vascular disease, diabetes, who presents emergency department accompanied by his daughter with concerns of increased left leg pain over the last 2 days. Patient has had no trauma or injury. History of peripheral vascular disease, with a fem-pop bypass, patient of Dr. Fowler. Differential diagnoses include arterial occlusion, DVT, acute on chronic pain, PVD. Leg appears to be well perfused, pulses palpated however very diminished on the left. Mild tenderness palpation along the left calf. Will obtain labs, CT, ultrasound. 5:27 PM 05/24/2025 (Zohreh Braxton PA-C): CT scan revealing the following: - Moderate atherosclerotic disease with calcifications involving the aorta, iliac arteries and branches. Narrowing at the origin of the celiac trunk and superior mesenteric artery. -Right lower extremity: Multiple areas of high-grade stenosis involving the femoral artery, popliteal artery and proximal posterior tibial artery. Two-vessel runoff to the foot via anterior tibial and peroneal arteries. 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 Two-vessel runoff to the foot mainly via posterior tibial artery, but also peroneal artery. >> Discussed case with Dr. Fowler, he states that there is no urgent intervention needed at this time, will follow-up outpatient. I discussed with patient that his overall workup today was reassuring however patient reports that he does not feel safe going home given worsening pain and difficulty with ambulation because of his pain. He is agreeable for staying the night to be seen by Physical therapy and follow by case management. 6:47 PM 05/24/2025 (Zohreh Braxton PA-C): Spoke to daughter, Selina, who is in overall agreement. She states that he has had ongoing problems with his ambulation, states that this has been a steady decline, however does report that he has had increased pain in his left leg over the last several days. This is consistent with his overall workup today. Patient will be placed in physician observation and will be seen by Physical therapy in evaluated by case management in the morning. Differential Diagnosis Differential Diagnoses: The differential diagnosis associated with the presentation includes See above Lab Data MDM Lab Attestation statement: I reviewed the patient's lab results. Patient with no leukocytosis, mild normocytic anemia with an H&H of 9.7/28.3 - patient reports no bloody or black stool, recent colonoscopy performed several weeks ago and was normal. ESR slightly elevated at 18, chemistry revealing no significant electrolyte derangement. 05/24/25 13:01 05/24/25 13:01 Labs: Lab Results 05/24/25 05/25/25 05/25/25 Range/Units 13:01 11:22 17:31 WBC 5.4 (4.8-10.8) X10*3/uL RBC 3.07 L (4.60-5.80) X10*6/uL Hgb 9.7 L (14.0-18.0) g/dl Hct 28.3 L (42.0-52.0) % MCV 92.2 (80.0-98.0) fL MCH 31.6 (27.0-33.0) pg MCHC 34.3 (31.0-36.0) g/dl RDW 14.3 (11.0-16.0) % Plt Count 188 (160-400) X10*3/uL MPV 11.1 (9.4-12.4) fL Immature Gran % (Auto) 0.2 (0.0-0.4) % Neut % (Auto) 50.5 (45-73) % Lymph % (Auto) 33.8 (20-40) % Bleckley % (Auto) 14.4 H (2-11) % Eos % (Auto) 0.7 (0-4) % Baso % (Auto) 0.4 (0-2) % Lymph # (Auto) 1.8 (1.2-4.9) X10*3/uL Bleckley # (Auto) 0.8 (0.1-1.2) X10*3/uL Eos # (Auto) 0.0 (0.0-0.4) X10*3/uL Baso # (Auto) 0.0 (0.0-0.2) X10*3/uL Abs Immat Gran (auto) 0.01 (0.00-0.03) X10*3/uL Absolute Neuts (auto) 2.7 (2.0-8.3) x10*3/uL Absolute Nucleated RBC 0.000 (0.0-0.012) X10*3/uL Nucleated RBC % (auto) 0.0 (0.0-0.2) /100WBC ESR 18 H (0-15) MM/HR Sodium 140 (135-145) mmol/L Potassium 4.6 (3.3-5.1) mmol/L Chloride 106 (96-108) mmol/L Carbon Dioxide 29 (22-29) mmol/L Anion Gap 10 L (12-20) BUN 24 H (9-16) mg/dL Creatinine 0.77 (0.5-1.4) mg/dL Estim Creat Clear Calc 68.9 Estimated GFR > 60 POC Glucose 255 H (60-115) mg/dL Random Glucose 87 (60-115) mg/dL Calcium 9.5 (8.4-10.2) mg/dL Magnesium 1.7 (1.6-2.6) mg/dL Total Bilirubin 0.3 (0.0-1.0) mg/dL Direct Bilirubin 0.1 (0.0-0.5) mg/dL AST 32 (5-37) U/L ALT 27 (0-40) U/L Alkaline Phosphatase 64 (39-117) U/L C-Reactive Protein 0.72 H (< or = 0.50) mg/dL Total Protein 6.7 (6.5-8.0) g/dL Albumin 4.0 (3.5-5.0) g/dL Influenza Type A (PCR) NEGATIVE (Negative) Influenza Type B (PCR) NEGATIVE (Negative) RSV RNA Qual (PCR) NEGATIVE (Negative) SARS-CoV-2 RNA (RT-PCR) NEGATIVE (Negative) 05/25/25 05/26/25 05/26/25 Range/Units 20:04 07:07 11:56 WBC (4.8-10.8) X10*3/uL RBC (4.60-5.80) X10*6/uL Hgb (14.0-18.0) g/dl Hct (42.0-52.0) % MCV (80.0-98.0) fL MCH (27.0-33.0) pg MCHC (31.0-36.0) g/dl RDW (11.0-16.0) % Plt Count (160-400) X10*3/uL MPV (9.4-12.4) fL Immature Gran % (Auto) (0.0-0.4) % Neut % (Auto) (45-73) % Lymph % (Auto) (20-40) % Bleckley % (Auto) (2-11) % Eos % (Auto) (0-4) % Baso % (Auto) (0-2) % Lymph # (Auto) (1.2-4.9) X10*3/uL Bleckley # (Auto) (0.1-1.2) X10*3/uL Eos # (Auto) (0.0-0.4) X10*3/uL Baso # (Auto) (0.0-0.2) X10*3/uL Abs Immat Gran (auto) (0.00-0.03) X10*3/uL Absolute Neuts (auto) (2.0-8.3) x10*3/uL Absolute Nucleated RBC (0.0-0.012) X10*3/uL Nucleated RBC % (auto) (0.0-0.2) /100WBC ESR (0-15) MM/HR Sodium (135-145) mmol/L Potassium (3.3-5.1) mmol/L Chloride (96-108) mmol/L Carbon Dioxide (22-29) mmol/L Anion Gap (12-20) BUN (9-16) mg/dL Creatinine (0.5-1.4) mg/dL Estim Creat Clear Calc Estimated GFR POC Glucose 109 101 156 H (60-115) mg/dL Random Glucose (60-115) mg/dL Calcium (8.4-10.2) mg/dL Magnesium (1.6-2.6) mg/dL Total Bilirubin (0.0-1.0) mg/dL Direct Bilirubin (0.0-0.5) mg/dL AST (5-37) U/L ALT (0-40) U/L Alkaline Phosphatase (39-117) U/L C-Reactive Protein (< or = 0.50) mg/dL Total Protein (6.5-8.0) g/dL Albumin (3.5-5.0) g/dL Influenza Type A (PCR) (Negative) Influenza Type B (PCR) (Negative) RSV RNA Qual (PCR) (Negative) SARS-CoV-2 RNA (RT-PCR) (Negative) 09/21/25 09/21/25 09/21/25 Range/Units 00:09 06:56 08:25 WBC (4.8-10.8) X10*3/uL RBC (4.60-5.80) X10*6/uL Hgb (14.0-18.0) g/dl Hct (42.0-52.0) % MCV (80.0-98.0) fL MCH (27.0-33.0) pg MCHC (31.0-36.0) g/dl RDW (11.0-16.0) % Plt Count (160-400) X10*3/uL MPV (9.4-12.4) fL Immature Gran % (Auto) (0.0-0.4) % Neut % (Auto) (45-73) % Lymph % (Auto) (20-40) % Bleckley % (Auto) (2-11) % Eos % (Auto) (0-4) % Baso % (Auto) (0-2) % Lymph # (Auto) (1.2-4.9) X10*3/uL Bleckley # (Auto) (0.1-1.2) X10*3/uL Eos # (Auto) (0.0-0.4) X10*3/uL Baso # (Auto) (0.0-0.2) X10*3/uL Abs Immat Gran (auto) (0.00-0.03) X10*3/uL Absolute Neuts (auto) (2.0-8.3) x10*3/uL Absolute Nucleated RBC (0.0-0.012) X10*3/uL Nucleated RBC % (auto) (0.0-0.2) /100WBC ESR (0-15) MM/HR Sodium (135-145) mmol/L Potassium (3.3-5.1) mmol/L Chloride (96-108) mmol/L Carbon Dioxide (22-29) mmol/L Anion Gap (12-20) BUN (9-16) mg/dL Creatinine (0.5-1.4) mg/dL Estim Creat Clear Calc Estimated GFR POC Glucose 132 H 101 151 H (60-115) mg/dL Random Glucose (60-115) mg/dL Calcium (8.4-10.2) mg/dL Magnesium (1.6-2.6) mg/dL Total Bilirubin (0.0-1.0) mg/dL Direct Bilirubin (0.0-0.5) mg/dL AST (5-37) U/L ALT (0-40) U/L Alkaline Phosphatase (39-117) U/L C-Reactive Protein (< or = 0.50) mg/dL Total Protein (6.5-8.0) g/dL Albumin (3.5-5.0) g/dL Influenza Type A (PCR) (Negative) Influenza Type B (PCR) (Negative) RSV RNA Qual (PCR) (Negative) SARS-CoV-2 RNA (RT-PCR) (Negative) 05/27/25 05/27/25 05/27/25 Range/Units 11:33 16:20 20:43 WBC (4.8-10.8) X10*3/uL RBC (4.60-5.80) X10*6/uL Hgb (14.0-18.0) g/dl Hct (42.0-52.0) % MCV (80.0-98.0) fL MCH (27.0-33.0) pg MCHC (31.0-36.0) g/dl RDW (11.0-16.0) % Plt Count (160-400) X10*3/uL MPV (9.4-12.4) fL Immature Gran % (Auto) (0.0-0.4) % Neut % (Auto) (45-73) % Lymph % (Auto) (20-40) % Bleckley % (Auto) (2-11) % Eos % (Auto) (0-4) % Baso % (Auto) (0-2) % Lymph # (Auto) (1.2-4.9) X10*3/uL Bleckley # (Auto) (0.1-1.2) X10*3/uL Eos # (Auto) (0.0-0.4) X10*3/uL Baso # (Auto) (0.0-0.2) X10*3/uL Abs Immat Gran (auto) (0.00-0.03) X10*3/uL Absolute Neuts (auto) (2.0-8.3) x10*3/uL Absolute Nucleated RBC (0.0-0.012) X10*3/uL Nucleated RBC % (auto) (0.0-0.2) /100WBC ESR (0-15) MM/HR Sodium (135-145) mmol/L Potassium (3.3-5.1) mmol/L Chloride (96-108) mmol/L Carbon Dioxide (22-29) mmol/L Anion Gap (12-20) BUN (9-16) mg/dL Creatinine (0.5-1.4) mg/dL Estim Creat Clear Calc Estimated GFR POC Glucose 118 H 121 H 121 H (60-115) mg/dL Random Glucose (60-115) mg/dL Calcium (8.4-10.2) mg/dL Magnesium (1.6-2.6) mg/dL Total Bilirubin (0.0-1.0) mg/dL Direct Bilirubin (0.0-0.5) mg/dL AST (5-37) U/L ALT (0-40) U/L Alkaline Phosphatase (39-117) U/L C-Reactive Protein (< or = 0.50) mg/dL Total Protein (6.5-8.0) g/dL Albumin (3.5-5.0) g/dL Influenza Type A (PCR) (Negative) Influenza Type B (PCR) (Negative) RSV RNA Qual (PCR) (Negative) SARS-CoV-2 RNA (RT-PCR) (Negative) 05/28/25 05/28/25 05/28/25 Range/Units 07:17 11:48 16:45 WBC (4.8-10.8) X10*3/uL RBC (4.60-5.80) X10*6/uL Hgb (14.0-18.0) g/dl Hct (42.0-52.0) % MCV (80.0-98.0) fL MCH (27.0-33.0) pg MCHC (31.0-36.0) g/dl RDW (11.0-16.0) % Plt Count (160-400) X10*3/uL MPV (9.4-12.4) fL Immature Gran % (Auto) (0.0-0.4) % Neut % (Auto) (45-73) % Lymph % (Auto) (20-40) % Bleckley % (Auto) (2-11) % Eos % (Auto) (0-4) % Baso % (Auto) (0-2) % Lymph # (Auto) (1.2-4.9) X10*3/uL Bleck[place] # (Auto) (0.1-1.2) X10*3/uL Eos # (Auto) (0.0-0.4) X10*3/uL Baso # (Auto) (0.0-0.2) X10*3/uL Abs Immat Gran (auto) (0.00-0.03) X10*3/uL Absolute Neuts (auto) (2.0-8.3) x10*3/uL Absolute Nucleated RBC (0.0-0.012) X10*3/uL Nucleated RBC % (auto) (0.0-0.2) /100WBC ESR (0-15) MM/HR Sodium (135-145) mmol/L Potassium (3.3-5.1) mmol/L Chloride (96-108) mmol/L Carbon Dioxide (22-29) mmol/L Anion Gap (12-20) BUN (9-16) mg/dL Creatinine (0.5-1.4) mg/dL Estim Creat Clear Calc Estimated GFR POC Glucose 111 117 H 110 (60-115) mg/dL Random Glucose (60-115) mg/dL Calcium (8.4-10.2) mg/dL Magnesium (1.6-2.6) mg/dL Total Bilirubin (0.0-1.0) mg/dL Direct Bilirubin (0.0-0.5) mg/dL AST (5-37) U/L ALT (0-40) U/L Alkaline Phosphatase (39-117) U/L C-Reactive Protein (< or = 0.50) mg/dL Total Protein (6.5-8.0) g/dL Albumin (3.5-5.0) g/dL Influenza Type A (PCR) (Negative) Influenza Type B (PCR) (Negative) RSV RNA Qual (PCR) (Negative) SARS-CoV-2 RNA (RT-PCR) (Negative) 05/28/25 05/29/25 05/29/25 Range/Units 21:50 05:22 07:17 WBC (4.8-10.8) X10*3/uL RBC (4.60-5.80) X10*6/uL Hgb (14.0-18.0) g/dl Hct (42.0-52.0) % MCV (80.0-98.0) fL MCH (27.0-33.0) pg MCHC (31.0-36.0) g/dl RDW (11.0-16.0) % Plt Count (160-400) X10*3/uL MPV (9.4-12.4) fL Immature Gran % (Auto) (0.0-0.4) % Neut % (Auto) (45-73) % Lymph % (Auto) (20-40) % Bleckley % (Auto) (2-11) % Eos % (Auto) (0-4) % Baso % (Auto) (0-2) % Lymph # (Auto) (1.2-4.9) X10*3/uL [place]ck[place] # (Auto) (0.1-1.2) X10*3/uL Eos # (Auto) (0.0-0.4) X10*3/uL Baso # (Auto) (0.0-0.2) X10*3/uL Abs Immat Gran (auto) (0.00-0.03) X10*3/uL Absolute Neuts (auto) (2.0-8.3) x10*3/uL Absolute Nucleated RBC (0.0-0.012) X10*3/uL Nucleated RBC % (auto) (0.0-0.2) /100WBC ESR (0-15) MM/HR Sodium (135-145) mmol/L Potassium (3.3-5.1) mmol/L Chloride (96-108) mmol/L Carbon Dioxide (22-29) mmol/L Anion Gap (12-20) BUN (9-16) mg/dL Creatinine (0.5-1.4) mg/dL Estim Creat Clear Calc Estimated GFR POC Glucose 141 H 96 97 (60-115) mg/dL Random Glucose (60-115) mg/dL Calcium (8.4-10.2) mg/dL Magnesium (1.6-2.6) mg/dL Total Bilirubin (0.0-1.0) mg/dL Direct Bilirubin (0.0-0.5) mg/dL AST (5-37) U/L ALT (0-40) U/L Alkaline Phosphatase (39-117) U/L C-Reactive Protein (< or = 0.50) mg/dL Total Protein (6.5-8.0) g/dL Albumin (3.5-5.0) g/dL Influenza Type A (PCR) (Negative) Influenza Type B (PCR) (Negative) RSV RNA Qual (PCR) (Negative) SARS-CoV-2 RNA (RT-PCR) (Negative) 05/29/25 Range/Units 11:26 WBC (4.8-10.8) X10*3/uL RBC (4.60-5.80) X10*6/uL Hgb (14.0-18.0) g/dl Hct (42.0-52.0) % MCV (80.0-98.0) fL MCH (27.0-33.0) pg MCHC (31.0-36.0) g/dl RDW (11.0-16.0) % Plt Count (160-400) X10*3/uL MPV (9.4-12.4) fL Immature Gran % (Auto) (0.0-0.4) % Neut % (Auto) (45-73) % Lymph % (Auto) (20-40) % Bleck[place] % (Auto) (2-11) % Eos % (Auto) (0-4) % Baso % (Auto) (0-2) % Lymph # (Auto) (1.2-4.9) X10*3/uL [place]ckley # (Auto) (0.1-1.2) X10*3/uL Eos # (Auto) (0.0-0.4) X10*3/uL Baso # (Auto) (0.0-0.2) X10*3/uL Abs Immat Gran (auto) (0.00-0.03) X10*3/uL Absolute Neuts (auto) (2.0-8.3) x10*3/uL Absolute Nucleated RBC (0.0-0.012) X10*3/uL Nucleated RBC % (auto) (0.0-0.2) /100WBC ESR (0-15) MM/HR Sodium (135-145) mmol/L Potassium (3.3-5.1) mmol/L Chloride (96-108) mmol/L Carbon Dioxide (22-29) mmol/L Anion Gap (12-20) BUN (9-16) mg/dL Creatinine (0.5-1.4) mg/dL Estim Creat Clear Calc Estimated GFR POC Glucose 126 H (60-115) mg/dL Random Glucose (60-115) mg/dL Calcium (8.4-10.2) mg/dL Magnesium (1.6-2.6) mg/dL Total Bilirubin (0.0-1.0) mg/dL Direct Bilirubin (0.0-0.5) mg/dL AST (5-37) U/L ALT (0-40) U/L Alkaline Phosphatase (39-117) U/L C-Reactive Protein (< or = 0.50) mg/dL Total Protein (6.5-8.0) g/dL Albumin (3.5-5.0) g/dL Influenza Type A (PCR) (Negative) Influenza Type B (PCR) (Negative) RSV RNA Qual (PCR) (Negative) SARS-CoV-2 RNA (RT-PCR) (Negative) Radiology Impression Discussion of test interpretation with radiology: I have reviewed the radiologist's reading. Radiologist Impression: TECHNIQUE: CT angiogram of the abdominal aorta and bilateral lower extremities was obtained following intravenous administration of 80 cc of Omnipaque 350. Images were reconstructed in axial, sagittal and coronal planes. MIP reconstructions were also obtained. This CT examination was performed using dose optimization techniques as appropriate, variously including the following: *Automated exposure control *Adjustment of mA and/or kV according to patient size (this includes techniques or standardized protocols for targeted exams where dose is matched to indication/reason for exam; i.e. extremities or head) *Use of iterative reconstruction technique FINDINGS: VASCULAR: Moderate degree of atherosclerotic disease with calcifications. Abdominal aorta: No abdominal aortic occlusion or aneurysm. Mesenteric arteries: Moderate narrowing at the origin of the celiac artery. Similar approximate 50% stenosis at the origin of the superior mesenteric artery. Inferior mesenteric artery is patent. Renal arteries: Single renal artery bilaterally. No high-grade stenosis. Right: Common, external and internal iliac arteries are patent without high-grade stenosis. Mild narrowing of the distal common femoral artery (6:546). Multiple areas of high-grade stenosis along the femoral artery, similar to previous examination (for example on 6:837). Profunda femoral artery is patent. Focal high-grade stenosis of the popliteal artery [id number] (6:1079). Narrowing of the proximal segment of the anterior tibial artery. Peroneal artery is patent. Multiple areas of high-grade stenosis of the posterior tibial artery; distal segment appears occluded. Left: Focal areas of stenosis in the distal aspect of the common femoral artery (6:551, 6:569). Profunda femoral artery is patent. Severe stenosis at the origin of the femoral artery (6:589). Only short segment of the proximal most femoral artery is patent, then, occluded for a long segment, similar to prior study. Non-opacification of the majority of the popliteal artery; flow in the most distal segment reconstitutes by collateral vessels. High-grade stenosis at the origin of the posterior tibial artery; but patent to the foot. Peroneal artery is patent. Anterior tibial artery patent to mid/distal calf (11:63), similar to prior study. NONVASCULAR FINDINGS: Liver: Multiple surgical clips in the lower surface of the liver. Partially included rim calcification of the right hepatic lobe. Bowel: No bowel distention. Kidneys/ureters: Mild bilateral hydroureteronephrosis. Adrenal glands: No nodules. Peritoneum/retroperitoneum: No free fluid. No free air. No lymphadenopathy. Pelvis: Urinary bladder is moderately distended, without focal wall thickening. Bones: Status post vertebroplasty of T11 and L1 vertebral bodies. Internally fixated right distal fibular fracture. No acute or destructive osseous abnormality. CT/CT angio abd aorta runoff IMPRESSION: - Moderate atherosclerotic disease with calcifications involving the aorta, iliac arteries and branches. Narrowing at the origin of the celiac trunk and superior mesenteric artery. -Right lower extremity: Multiple areas of high-grade stenosis involving the femoral artery, popliteal artery and proximal posterior tibial artery. Two-vessel runoff to the foot via anterior tibial and peroneal arteries. 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 Two-vessel runoff to the foot mainly via posterior tibial artery, but also peroneal artery. Electronically signed by: Gregg Corona MD 05/24/2025 04:23 PM EDT RP Dictated By: Gregg Corona MD [address] [address] Ultrasound Report Signed Patient: Stanley Drew MR#: [id number] : 1950 Acct:[id number] Age/Sex: 75 / M ADM Date: 05/24/25 Loc: HO.ED Attending Dr: Ordering Physician: Zoherh Braxton Date of Service: 05/24/25 Procedure(s): US venous duplex LE LT Accession Number(s): [id number] cc: Adelfo Fletcher III, MD; Zohreh Braxton~ Reason for Exam: pain EXAMINATION: US LOWER EXTREMITY VEINS LIMITED FOLLOW UP LEFT HISTORY: pain COMPARISON: There are no prior studies available for comparison. TECHNIQUE: Duplex and color Doppler sonographic examination of the deep venous system of the left lower extremity was performed. FINDINGS: The common femoral, superficial femoral, and popliteal veins are patent demonstrating normal compressibility, spontaneous flow, and augmentation. There is a normal color and spectral Doppler waveform appearance of the visualized deep venous system above the knee. The posterior tibial and peroneal veins are patent. US/US venous duplex LE LT IMPRESSION: No evidence of acute DVT in the left lower extremity. Electronically signed by: Pedro Luis Crawford MD 05/24/2025 02:10 PM EDT RP Dictated By: Pedro Luis Crawford MD Discharge Plan Discharge Clinical Impression: Leg pain, left Patient Disposition: Xfer Inpatient Rehab Fac Transfer Details: TO: [facility] Instructions: Leg Pain (ED), Leg Cramps (ED) Additional Instructions: You were seen in the emergency department due to leg pain. There was no medical necessity for hospital admission during this visit. You need to follow-up with Dr. Fowler, vascular surgeon in regards to ear peripheral vascular disease. Call to make an appointment. If any new or worsening symptoms occur including but not limited to severe chest pain, shortness of breath, worsening leg pain, please seek emergent care. Prescriptions: No Action fluticasone propionate [Flonase Allergy Relief] 50 mcg/actuation spray,suspension 2 spray intranasal DAILY Qty: 16 0RF Rx Instructions: administer into each nostril aspirin [Adult Low Dose Aspirin] 81 mg tablet,delayed release (DR/EC) 81 mg PO DAILY gabapentin 300 mg capsule 300 mg PO TID Lantus Solostar U-100 Insulin 100 unit/mL (3 mL) insulin pen 5 unit subcut BEDTIME Combivent Respimat 20-100 mcg/actuation mist 1 puff inhalation BID PRN (Reason: Wheezing) metformin 500 mg tablet 500 mg PO BID atorvastatin [Lipitor] 20 mg tablet 80 mg PO BEDTIME amlodipine 2.5 mg tablet 2.5 mg PO DAILY (DME) OneTouch Ultra Test Strip See Rx Instructions Not Applicable TID Qty: 10 Rx Instructions: As directed (DME) pen needle, diabetic [BD Ultra-Fine Short Pen Needle] 31 gauge x 5/16 needle See Rx Instructions subcut DAILY Qty: 1200 Rx Instructions: As directed cholecalciferol (vitamin D3) 25 mcg (1,000 unit) capsule 25 mcg PO DAILY multivitamin Tablet 1 tab PO DAILY Referrals: [facility] [Outside] Adelfo Fletcher III, MD [Primary Care Provider, Medical] Print Language: Greenlandic
[2025-05-24 13:07] LABS: MANUAL DIFF FLAG NO
[2025-05-24 13:11] LABS: Hematocrit 28.3 % (42.0-52.0); Hemoglobin 9.7 g/dl (14.0-18.0); Imm Gran Abs Auto 0.01 X10*3/uL (0.00-0.03); Imm Gran Pct Auto 0.2 % (0.0-0.4); Lymphocytes Absolute Auto 1.8 X10*3/uL (1.2-4.9); Mean Corpuscular HGB Conc 34.3 g/dl (31.0-36.0); Mean Corpuscular Hemoglobin 31.6 pg (27.0-33.0); Mean Corpuscular Volume 92.2 fL (80.0-98.0); NRBC Abs Auto 0.000 X10*3/uL (0.0-0.012); NRBC Pct Auto 0.0 /100WBC (0.0-0.2); Platelet Count 188 X10*3/uL (160-400); Red Blood Count 3.07 X10*6/uL (4.60-5.80); White Blood Count 5.4 X10*3/uL (4.8-10.8)
[2025-05-24 13:27] LABS: Alanine Aminotransferase 27 U/L (0-40); Albumin Level 4.0 g/dL (3.5-5.0); Alkaline Phosphatase 64 U/L (39-117); Anion Gap 10 (12-20); Aspartate Amino Transferase 32 U/L (5-37); Blood Urea Nitrogen 24 mg/dL (9-16); Calcium 9.5 mg/dL (8.4-10.2); Carbon Dioxide 29 mmol/L (22-29); Chloride 106 mmol/L (96-108); Creatinine Clr Calc Pharmacy 68.9; Estimated Glomerular Filt Rate > 60; Magnesium 1.7 mg/dL (1.6-2.6); Potassium 4.6 mmol/L (3.3-5.1); Sodium 140 mmol/L (135-145); Total Protein 6.7 g/dL (6.5-8.0)
--- OUTSIDE RECORDS SUMMARY | 2025-05-24 13:43 | XMS_ITS | Encounter Summary ---
Author Organization [employer] [facility] Address [address] [place] [address] Care Team Providers Care Microfilm Duplicating Unit Supervisor Name Role Phone Adelfo Fletcher MD Primary Care Provider [phone] Susan Bartlett MD Unavailable [phone] Kae Luu PA-C Unavailable Natalie Del Cid MD Unavailable [phone] Eboni Burroughs PA-C Unavailable [phone] Sergio Dallas PA-C Unavailable [phone] Oliva Day DNP Unavailable [phone] Encounter Details Date Type Department Care Team Description 10/10/2015 Clam Shucking Machine Tender Report Medical Records [address] [place] [address] Stefano Fowler MD Social History Tobacco Use Types Packs/Day Years Used Date Smoking Tobacco: Former Alcohol Use Standard Drinks/Week Comments Yes 0 (1 standard drink = 0.6 oz pur e alcohol) Sex Assigned at Date Recorded Not on file Job Start Date Occupation Industry Not on file Not on file Not on file documented as of this encounter Plan of Treatment Not on file documented as of this encounter Visit Diagnoses Not on filedocumented in this encounter Care Teams Microfilm Duplicating Unit Supervisor Relationship Specialty Start Date End Date Adelfo Fletcher MD [address] [place] [address] [phone] PCP - General Internal Medicine 06/24/15 Susan Bartlett MD [address] [place] [address] Box Estimator Cardiology 02/23/17 Kae Luu PA-C [address] [place] [address] Specialist Cardiology 01/06/19 06/13/24 Natalie Del Cid MD [address] [address] Surgeon Neurosurgery 07/21/23 Eboni Burroughs PA-C [address] [address] Specialist Neurosurgery 07/21/23 Sergio Dallas PA-C [address] [address] Specialist Neurosurgery 07/21/23 Oliva Day DNP [address] [address] Specialist Nurse Practitioner Family 06/14/24 documented as of this encounter
--- OUTSIDE RECORDS SUMMARY | 2025-05-24 13:43 | XMS_ITS | Encounter Summary ---
Author Organization [employer] [facility] Address [address] [place] [address] Care Team Providers Care Production Administrative Assistant Name Role Phone Adelfo Fletcher MD Primary Care Provider [phone] Susan Bartlett MD Unavailable [phone] Kae Luu PA-C Unavailable Natalie Del Cid MD Unavailable [phone] Eboni Burroughs PA-C Unavailable Sergio Dallas PA-C Unavailable Oliva Day DNP Unavailable [phone] Reason for Visit * Reason Onset Date Comments VNA Call 10/23/2015 Encounter Details Date Type Department Care Team Description 10/23/2015 Telephone Adult Medicine [address] [phone] Adelfo Fletcher MD [address] [place] [address] [phone] VNA Call Social History Tobacco Use Types Packs/Day Years Used Date Smoking Tobacco: Former Alcohol Use Standard Drinks/Week Comments Yes 0 (1 standard drink = 0.6 oz pur e alcohol) Sex Assigned at Date Recorded Not on file Job Start Date Occupation Industry Not on file Not on file Not on file documented as of this encounter Miscellaneous Notes * Telephone Encounter - Madhav PeñalozaP.NSharmaine - 10/23/2015 4:06 PM EST See message from VNA * Telephone Encounter - Keila Hinton - 10/23/2015 1:52 PM EST VNA CALL Which VNA office is calling? [facility] Full name of caller: Ale The caller is A nurse Is the caller at the patients home?: NO Reason for call: Nurse calling to inform PCP that they have admitted patient into VNA services after LEFT FEMORAL POPLITEAL BYPASS on 10/17/15. Please contact nurse to discuss patients high fall risk status. Does caller need an urgent call back? NO Was CONTACT Telephone # obtained above?: YES Fax #: documented in this encounter Plan of Treatment Not on file documented as of this encounter Visit Diagnoses Not on filedocumented in this encounter Care Teams Production Administrative Assistant Relationship Specialty Start Date End Date Adelfo Fletcher MD [address] [place] [address] PCP - General Internal Medicine 06/24/15 Susan Bartlett MD [address] [place] [address] Binder Fixer Cardiology 02/23/17 Kae Luu PA-C [address] [place] [address] Specialist Cardiology 01/06/19 06/13/24 Natalie Del Cid MD [address] [address] Surgeon Neurosurgery 07/21/23 Eboni Burroughs PA-C [address] [address] Specialist Neurosurgery 07/21/23 Sergio Dallas PA-C [address] [address] Specialist Neurosurgery 07/21/23 Oliva Day, NARESH [address] [facility] [address] [place] [address] Specialist Nurse Practitioner Family 06/14/24 documented as of this encounter
--- OUTSIDE RECORDS SUMMARY | 2025-05-24 13:43 | XMS_ITS | Encounter Summary ---
Author Organization [employer] [facility] Address [address] [facility] [place] [address] Care Team Providers Care Senior Clinical Data Analyst Name Role Phone Adelfo Fletcher MD Primary Care Provider [phone] Susan Bartlett MD Unavailable [phone] Kae Luu PA-C Unavailable Natalie Del Cid MD Unavailable [phone] Eboni Burroughs PA-C Unavailable Sergio Dallas PA-C Unavailable Oliva Day DNP Unavailable [phone] Encounter Details Date Type Department Care Team Description 10/22/2015 Hospital Medical Records [address] [place] [address] Stefano Fowler MD Social History Tobacco Use Types Packs/Day Years Used Date Smoking Tobacco: Former Cigarettes 0 1967 - 2007 Smokeless Tobacco: Never Alcohol Use Standard Drinks/Week Comments Not Currently 0 (1 standard drink = 0.6 oz pur e alcohol) none at all Sex Assigned at Date Recorded Not on file Job Start Date Occupation Industry Not on file Not on file Not on file documented as of this encounter Plan of Treatment Not on file documented as of this encounter Visit Diagnoses Not on filedocumented in this encounter Care Teams Senior Clinical Data Analyst Relationship Specialty Start Date End Date Adelfo Fletcher MD [address] [place] [address] PCP - General Internal Medicine 06/24/15 Susan Bartlett MD [address] [place] [address] Casket Assembler Cardiology 02/23/17 Kae Luu PA-C [address] [place] [address] Specialist Cardiology 01/06/19 06/13/24 Natalie Del Cid MD [address] [address] Surgeon Neurosurgery 07/21/23 Eboni Burroughs PA-C [address] [address] Specialist Neurosurgery 07/21/23 Sergio Dallas PA-C [address] [address] Specialist Neurosurgery 07/21/23 Oliva Day DNP [address] [address] Specialist Nurse Practitioner Family 06/14/24 documented as of this encounter
--- OUTSIDE RECORDS SUMMARY | 2025-05-24 13:44 | XMS_ITS | Encounter Summary ---
Author Organization [employer] [facility] Address [address] [facility] [place] [address] Care Team Providers Care Crusher Machine Operator Name Role Phone Adelfo Fletcher MD Primary Care Provider [phone] Susan Bartlett MD Unavailable [phone] Kae Luu PA-C Unavailable Natalie Del Cid MD Unavailable [phone] Eboni Burroughs PA-C Unavailable Sergio Dallas PA-C Unavailable Oliva Day DNP Unavailable [phone] Encounter Details Date Type Department Care Team Description 06/03/2018 Hospital Medical Records [address] [place] [address] [facility] Social History Tobacco Use Types Packs/Day Years [...] on filedocumented in this encounter Care Teams Crusher Machine Operator Relationship Specialty Start Date End Date Adelfo Fletcher MD [address] [place] [address] PCP - General Internal Medicine 06/24/15 Susan Bartlett MD [address] [place] [address] Sound Effects Manager Cardiology 02/23/17 Kae Luu PA-C [address] [place] [address] Specialist Cardiology 01/06/19 06/13/24 Natalie Del Cid MD [address] [address] Surgeon Neurosurgery 07/21/23 Eboni Burroughs PA-C [address] [address] Specialist Neurosurgery 07/21/23 Sergio Dallas PA-C [address] [address] Specialist Neurosurgery 07/21/23 Oliva Day DNP [address] [address] Specialist Nurse Practitioner Family 06/14/24 documented as of this encounter
--- OUTSIDE RECORDS SUMMARY | 2025-05-24 13:44 | XMS_ITS | Encounter Summary ---
Author Organization [facility] Address [address] [place] [address] Care Team Providers Care Classics Professor Name Role Phone Adelfo Fletcher MD Primary Care Provider [phone] Susan Bartlett MD Unavailable [phone] Kae Luu PA-C Unavailable Natalie Del Cid MD Unavailable [phone] Eboni Burroughs PA-C Unavailable Sergio Dallas PA-C Unavailable Oliva Day DNP Unavailable [phone] Encounter Details Date Type Department Care Team Description 05/16/2018 Telephone General Surgery - [address] [place] [phone] Jeramy Fiore MD [address] [place] [address] [phone] Social History Tobacco Use Types Packs/Day Years Used Date Smoking Tobacco: Former Cigarettes 0 1967 - 2007 Smokeless Tobacco: Never Alcohol Use Standard Drinks/Week Comments Yes 0 (1 standard drink = 0.6 oz pur e alcohol) none at all Sex Assigned at Date Recorded Not on file Job Start Date Occupation Industry Not on file Not on file Not on file documented as of this encounter Miscellaneous Notes * Telephone Encounter - Angel Cates - 05/16/2018 4:24 PM EDT Jessica from [facility] calling in to let us know that pt is in the emergency room with Syncope documented in this encounter Plan of Treatment Not on file documented as of this encounter Visit Diagnoses Not on filedocumented in this encounter Care Teams Classics Professor Relationship Specialty Start Date End Date Adelfo Fletcher MD [address] [place], [place] [phone] PCP - General Internal Medicine 06/24/15 Susan Bartlett MD [address] [place], [place] [phone] Sand Technologist Cardiology 02/23/17 Kae Luu PA-C [address] [place], [place] [phone] Specialist Cardiology 01/06/19 06/13/24 Natalie Del Cid MD [address] [address] Surgeon Neurosurgery 07/21/23 Eboni Burroughs PA-C [address] [address] Specialist Neurosurgery 07/21/23 Sergio Dallas PA-C [address] [address] Specialist Neurosurgery 07/21/23 Oliva Day DNP [address] [address] Specialist Nurse Practitioner Family 06/14/24 documented as of this encounter
--- OUTSIDE RECORDS SUMMARY | 2025-05-24 13:44 | XMS_ITS | Encounter Summary ---
Author Organization [employer] [facility] Address [address] [facility] [place] [address] Care Team Providers Care Novelty Balloon Assembler And Packer Name Role Phone Adelfo Fletcher MD Primary Care Provider Susan Bartlett MD Unavailable [phone] Kae Luu PA-C Unavailable Natalie Del Cid MD Unavailable [phone] Eboni Burroughs PA-C Unavailable [phone] Sergio Dallas PA-C Unavailable Oliva Day DNP Unavailable [phone] Reason for Visit * Reason Onset Date Comments REFERRAL 08/12/2015 ENT Encounter Details Date Type Department Care Team Description 08/12/2015 Telephone ENT [address] [place], [place] [phone] Adelfo Fletcher MD [address] [place], [place] [phone] REFERRAL (ENT) Social History Tobacco Use Types Packs/Day Years Used Date Smoking Tobacco: Former Alcohol Use Standard Drinks/Week Comments Yes 0 (1 standard drink = 0.6 oz pur e alcohol) Sex Assigned at Date Recorded Not on file Job Start Date Occupation Industry Not on file Not on file Not on file documented as of this encounter Miscellaneous Notes * Telephone Encounter - Shaunna Truong - 08/12/2015 8:05 AM EST Patient was referred to the ENT department. Two documented phone calls and a letter was sent. Patient has not contacted the office to schedule an appointment. We will remove patient from the active referrals report until patient calls the office to book an appointment. documented in this encounter Plan of Treatment Not on file documented as of this encounter Visit Diagnoses Not on filedocumented in this encounter Care Teams Novelty Balloon Assembler And Packer Relationship Specialty Start Date End Date Adelfo Fletcher MD [address] [place] [address] PCP - General Internal Medicine 06/24/15 Susan Bartlett MD [address] [place] [address] [phone] Electric Motor And Generator Assembler Cardiology 02/23/17 Kae Luu PA-C [address] [place] [address] Specialist Cardiology 01/06/19 06/13/24 Natalie Del Cid MD [address] [address] Surgeon Neurosurgery 07/21/23 Eboni Burroughs PA-C [address] [address] Specialist Neurosurgery 07/21/23 Sergio Dallas PA-C [address] [address] Specialist Neurosurgery 07/21/23 Oliva Day DNP [address] [address] Specialist Nurse Practitioner Family 06/14/24 documented as of this encounter
--- OUTSIDE RECORDS SUMMARY | 2025-05-24 13:44 | XMS_ITS | Encounter Summary ---
Author Organization [facility] Address [address] [place] [address] Care Team Providers Care Supervisor Tellers Name Role Phone Adelfo Fletcher MD Primary Care Provider [phone] Susan Bartlett MD Unavailable [phone] Kae Luu PA-C Unavailable Natalie Del Cid MD Unavailable [phone] Eboni Burroughs PA-C Unavailable Sergio Dallas PA-C Unavailable Oliva Day DNP Unavailable [phone] Encounter Details Date Type Department Care Team Description 04/26/2018 Orders Only Radiology - [address] [address] Jeramy Fiore MD [address] [place] [address] [phone] Diabetes mellitus without complication (HCC) (Primary Dx) Social History Tobacco Use Types Packs/Day Years [...] on file documented as of this encounter Results * CREATININE, BLOOD ASSAY (04/28/2018 8:02 AM EDT) CREAT 0.8 0.7 - 1.5 mg/dL 04/28/2018 9:55 AM EDT [facility] GFR > 60 >60 04/28/2018 9:55 AM EDT [facility] Comment: If patient is -Turkish, multiply result by 1.21 Chronic Kidney Disease: < 60 ml/min/1.73 square meters Kidney Failure: < 15 ml/min/1.73 square meters 04/28/2018 8:02 AM EDT 04/28/2018 8:02 AM EDT Jeramy Fiore MD LAB [address] documented in this encounter Visit Diagnoses Diagnosis Diabetes mellitus without complication (HCC)- Primary Type II or unspecified type diabetes mellitus without mention of complication, not stated as uncontrolled documented in this encounter Care Teams Supervisor Tellers Relationship Specialty Start Date End Date Adelfo Fletcher MD [address] [place] [address] PCP - General Internal Medicine 06/24/15 Susan Bartlett MD [address] [place] [address] [phone] Auxiliary Equipment Tender Cardiology 02/23/17 Kae Luu PA-C [address] [place] [address] [phone] Specialist Cardiology 01/06/19 06/13/24 Natalie Del Cid MD [address] [address] Surgeon Neurosurgery 07/21/23 Eboni Burroughs PA-C [address] [address] Specialist Neurosurgery 07/21/23 Sergio Dallas PA-C [address] [address] Specialist Neurosurgery 07/21/23 Oliva Day, DNP 175 [facility] [address] [place] [address] Specialist Nurse Practitioner Family 06/14/24 documented as of this encounter
--- OUTSIDE RECORDS SUMMARY | 2025-05-24 13:44 | XMS_ITS | Encounter Summary ---
Author Organization [facility] Address [address] [place] [address] Care Team Providers Care Planer Mill Grader Name Role Phone Adelfo Fletcher MD Primary Care Provider [phone] Susan Bartlett MD Unavailable [phone] Kae Luu PA-C Unavailable Natalie Del Cid MD Unavailable [phone] Eboni Burroughs PA-C Unavailable Sergio Dallas PA-C Unavailable Oliva Day DNP Unavailable [phone] Reason for Visit * Reason Onset Date Comments VNA Call 03/12/2020 Encounter Details Date Type Department Care Team Description 03/12/2020 Telephone Adult Medicine [address] [phone] Adelfo Fletcher MD [address] [place] [address] [phone] VNA Call Social History Tobacco Use Types [...] encounter Miscellaneous Notes * Telephone Encounter - Pinky Strange R.N. - 03/12/2020 12:56 PM EDT I left a message for the VNA nurse to return my call. * Telephone Encounter - Adelfo Fletcher MD - 03/12/2020 12:13 PM EDT Please give the VO * Telephone Encounter - Danielle Marin - 03/12/2020 11:30 AM EDT VNA CALL Which A office is calling? [facility] Full name of caller: Freddy [phone] The caller is A nurse Is the caller at the patients home?: NO Reason for call: Looking for verbal orders for continuation of nursing services. Recently discharged from [facility] 03/05/2020? Does caller need an urgent call back? NO Was CONTACT Telephone # obtained above?: YES Fax #: documented in this encounter Plan of Treatment Not on file documented as of this encounter Visit Diagnoses Not on filedocumented in this encounter Care Teams Planer Mill Grader Relationship Specialty Start Date End Date Adelfo Fletcher MD [address] [place] [address] PCP - General Internal Medicine 06/24/15 Susan Bartlett MD [address] [place] [address] Canvas Baster Cardiology 02/23/17 Kae Luu PA-C [address] [place] [address] Specialist Cardiology 01/06/19 06/13/24 Natalie Del Cid MD [address] [address] Surgeon Neurosurgery 07/21/23 Eboni Burroughs PA-C [address] [address] Specialist Neurosurgery 07/21/23 Sergio Dallas PA-C [address] [address] Specialist Neurosurgery 07/21/23 Oliva Day DNP [address] [address] Specialist Nurse Practitioner Family 06/14/24 documented as of this encounter
--- OUTSIDE RECORDS SUMMARY | 2025-05-24 13:44 | XMS_ITS | Encounter Summary ---
Author Organization [facility] [facility] Address [address] [facility] [place] [address] Care Team Providers Care Digital Content Marketing Manager Name Role Phone Adelfo Fletcher MD Primary Care Provider [phone] Susan Bartlett MD Unavailable [phone] Kae Luu PA-C Unavailable Natalie Del Cid MD Unavailable [phone] Eboni Burroughs PA-C Unavailable [phone] Sergio Dallas PA-C Unavailable [phone] Oliva Day DNP Unavailable [phone] Encounter Details Date Type Department Care Team Description 01/20/2020 Hospital Medical Records [address] [place] [address] Eboni Wolfe Social History Tobacco Use Types Packs/Day Years [...] on filedocumented in this encounter Care Teams Digital Content Marketing Manager Relationship Specialty Start Date End Date Adelfo Fletcher MD [address] [place] [address] PCP - General Internal Medicine 06/24/15 Susan Bartlett MD [address] [place] [address] Rail Loader Cardiology 02/23/17 Kae Luu PA-C [address] [place] [address] Specialist Cardiology 01/06/19 06/13/24 Natalie Del Cid MD [address] [address] Surgeon Neurosurgery 07/21/23 Eboni Burroughs PA-C [address] [address] Specialist Neurosurgery 07/21/23 Sergio Dallas PA-C [address] [address] Specialist Neurosurgery 07/21/23 Oliva Day DNP [address] [address] Specialist Nurse Practitioner Family 06/14/24 documented as of this encounter
--- OUTSIDE RECORDS SUMMARY | 2025-05-24 13:44 | XMS_ITS | Encounter Summary ---
Author Organization [facility] [facility] Address [address] [place] [address] Care Team Providers Care Sales Consultant Residential Manager Name Role Phone Adelfo Fletcher MD Primary Care Provider [phone] Susan Bartlett MD Unavailable [phone] Kae Luu PA-C Unavailable Natalie Del Cid MD Unavailable [phone] Eboni Burroughs PA-C Unavailable [phone] Sergio Dallas PA-C Unavailable Oliva Day DNP Unavailable [phone] Encounter Details Date Type Department Care Team Description 08/18/2017 Business Doc Medical Records [address] [place] [address] Abstract, Provider Social History Tobacco Use Types Packs/Day Years Used Date Smoking Tobacco: Former Smokeless Tobacco: Never Alcohol Use Standard Drinks/Week [...] on filedocumented in this encounter Care Teams Sales Consultant Residential Manager Relationship Specialty Start Date End Date Adelfo Fletcher MD [address] [place] [address] PCP - General Internal Medicine 06/24/15 Susan Bartlett MD [address] [place] [address] Windows Application Packager Cardiology 02/23/17 Kae Luu PA-C [address] [place] [address] Specialist Cardiology 01/06/19 06/13/24 Natalie Del Cid MD [address] [address] Surgeon Neurosurgery 07/21/23 Eboni Burroughs PA-C [address] [address] Specialist Neurosurgery 07/21/23 Sergio Dallas PA-C [address] [address] Specialist Neurosurgery 07/21/23 Oliva Day DNP [address] [address] Specialist Nurse Practitioner Family 06/14/24 documented as of this encounter
--- OUTSIDE RECORDS SUMMARY | 2025-05-24 13:44 | XMS_ITS | Encounter Summary ---
Author Organization [facility] Address [address] [place] [address] Care Team Providers Care Information Receptionist Name Role Phone Adelfo Fletcher MD Primary Care Provider Susan Bartlett MD Unavailable [phone] Kae Luu PA-C Unavailable Natalie Del Cid MD Unavailable [phone] Eboni Burroughs PA-C Unavailable Sergio Dallas PA-C Unavailable [phone] Oliva Day DNP Unavailable [phone] Reason for Visit * Reason Onset Date Comments VNA Call 10/06/2022 Encounter Details Date Type Department Care Team Description 10/06/2022 Telephone Adult Medicine [address] [phone] Adelfo Fletcher MD [address] [place] [address] [phone] VNA Call Social History Tobacco Use Types [...] encounter Miscellaneous Notes * Telephone Encounter - Tabitha Santana - 10/06/2022 3:36 PM EST Appt booked for 10/29 at 1:30pm with * Telephone Encounter - Madhav Grimes L.P.N. - 10/06/2022 1:42 PM EST VO given * Telephone Encounter - Adelfo Fletcher MD - 10/06/2022 12:52 PM EST Please give the vo * Telephone Encounter - Madhav Grimes L.P.N. - 10/06/2022 9:36 AM EST VNA requesting VO for nursing PT and OT Please review and advise patient scheduler Please book a [facility] follow up appt Thank you * Telephone Encounter - Ya Brito - 10/06/2022 9:05 AM EST VNA CALL Which [facility] office is calling? [place] Full name of caller: Laynie The caller is Intake Is the caller at the patients home?: NO Reason for call: VO needed for nursing, PT and OT evaluation Does caller need an urgent call back? NO Was CONTACT Telephone # obtained above?: YES Fax #: documented in this encounter Plan of Treatment Not on file documented as of this encounter Visit Diagnoses Not on filedocumented in this encounter Care Teams Information Receptionist Relationship Specialty Start Date End Date Adelfo Fletcher MD [address] [place] [address] PCP - General Internal Medicine 06/24/15 Susan Bartlett MD [address] [place] [address] Stock Ranch Supervisor Cardiology 02/23/17 Kae Luu PA-C [address] [place] [address] Specialist Cardiology 01/06/19 06/13/24 Natalie Del Cid MD [address] [address] Surgeon Neurosurgery 07/21/23 Eboni Burroughs PA-C [address] [address] Specialist Neurosurgery 07/21/23 Sergio Dallas PA-C [address] [address] Specialist Neurosurgery 07/21/23 Oliva Day DNP [address] [address] Specialist Nurse Practitioner Family 06/14/24 documented as of this encounter
--- OUTSIDE RECORDS SUMMARY | 2025-05-24 13:44 | XMS_ITS | Encounter Summary ---
Author Organization [employer] [facility] [facility] Address [address] [facility] [place] [address] Care Team Providers Care Manager Oracle Retail Name Role Phone Adelfo Fletcher MD Primary Care Provider [phone] Susan Bartlett MD Unavailable [phone] Kae Luu PA-C Unavailable Natalie Del Cid MD Unavailable [phone] Eboni Burroughs PA-C Unavailable Sergio Dallas PA-C Unavailable Oliva Day DNP Unavailable [phone] Encounter Details Date Type Department Care Team Description 01/23/2020 Hospital Medical Records [address] [place] [address] [facility] Social History Tobacco Use Types Packs/Day Years [...] on filedocumented in this encounter Care Teams Manager Oracle Retail Relationship Specialty Start Date End Date Adelfo Fletcher MD [address] [place], [place] [phone] PCP - General Internal Medicine 06/24/15 Susan Bartlett MD [address] [place] [address] Arc Welding Machine Operator Cardiology 02/23/17 Kae Luu PA-C [address] [place] [address] Specialist Cardiology 01/06/19 06/13/24 Natalie Del Cid MD [address] [address] Surgeon Neurosurgery 07/21/23 Eboni Burroughs PA-C [address] [address] Specialist Neurosurgery 07/21/23 Sergio Dallas PA-C [address] [address] Specialist Neurosurgery 07/21/23 Oliva Day DNP [address] [address] Specialist Nurse Practitioner Family 06/14/24 documented as of this encounter
--- OUTSIDE RECORDS SUMMARY | 2025-05-24 13:44 | XMS_ITS | Encounter Summary ---
Author Organization [employer] [facility] Address [address] [facility] [place] [address] Care Team Providers Care Building Stonecutter Name Role Phone Adelfo Fletcher MD Primary Care Provider [phone] Susan Bartlett MD Unavailable [phone] Kae Luu PA-C Unavailable Natalie Del Cid MD Unavailable [phone] Eboni Burroughs PA-C Unavailable [phone] Sergio DallasC Unavailable Oliva Day DNP Unavailable [phone] Reason for Visit * Reason Comments E-prescribe Rx Request Encounter Details Date Type Department Care Team Description 02/17/2020 Refill Pulmonology - [place] [address] [facility] [address] [place] [address] Nirmal Prieto MD 175 [facility] [address] [place] [address] E-prescribe Rx Request Social History Tobacco Use Types Packs/Day Years [...] encounter Miscellaneous Notes * Telephone Encounter - Sulma Kilpatrick - 02/19/2020 8:47 AM EDT Aniyah- 09/18/19 Next- 03/20/20 documented in this encounter Plan of Treatment Not on file documented as of this encounter Visit Diagnoses Diagnosis COPD suggested by initial evaluation (HCC) Former heavy cigarette smoker (20-39 per day) Personal history of tobacco use, presenting hazards to health At risk for cancer Other specified conditions influencing health status Encounter for screening for malignant neoplasm of lung Positive QuantiFERON-TB Gold test Nonspecific reaction to cell mediated immunity measurement of gamma interferon antigen response without active tuberculosis Positive PPD Nonspecific reaction to tuberculin skin test without active tuberculosis TB lung, latent Unspecified pulmonary tuberculosis, confirmation unspecified Snoring Other dyspnea and respiratory abnormality PND (paroxysmal nocturnal dyspnea) Other dyspnea and respiratory abnormality documented in this encounter Care Teams Building Stonecutter Relationship Specialty Start Date End Date Adelfo Fletcher MD [address] [place] [address] PCP - General Internal Medicine 06/24/15 Susan Bartlett MD [address] [place] [address] Apprentice Carpenter Cardiology 02/23/17 Kae Luu PA-C [address] [place] [address] Specialist Cardiology 01/06/19 06/13/24 Natalie Del Cid MD [address] [address] Surgeon Neurosurgery 07/21/23 Eboni Burroughs PA-C [address] [address] Specialist Neurosurgery 07/21/23 Sergio Dallas PA-C [address] [address] Specialist Neurosurgery 07/21/23 Oliva Day DNP [address] [address] Specialist Nurse Practitioner Family 06/14/24 documented as of this encounter
--- OUTSIDE RECORDS SUMMARY | 2025-05-24 13:44 | XMS_ITS | Encounter Summary ---
Author Organization [facility] [facility] Address [address] [facility] [place] [address] Care Team Providers Care Chemical Waste Management Technician Name Role Phone Adelfo Fletcher MD Primary Care Provider [phone] Susan Bartlett MD Unavailable [phone] Kae Luu PA-C Unavailable Natalie Del Cid MD Unavailable [phone] Eboni Burroughs PA-C Unavailable [phone] Sergio Dallas PA-C Unavailable [phone] Oliva Day DNP Unavailable [phone] Encounter Details Date Type Department Care Team Description 05/16/2018 Hospital Medical Records [address] [place] [address] Darcy De León NP Social History Tobacco Use Types Packs/Day Years [...] on filedocumented in this encounter Care Teams Chemical Waste Management Technician Relationship Specialty Start Date End Date Adelfo Fletcher MD [address] [place] [address] PCP - General Internal Medicine 06/24/15 Susan Bartlett MD [address] [place] [address] Golf Course Ranger Cardiology 02/23/17 Kea Luu PA-C [address] [place] [address] Specialist Cardiology 01/06/19 06/13/24 Natalie Del Cid MD [address] [address] Surgeon Neurosurgery 07/21/23 Eboni Burroughs PA-C [address] [address] Specialist Neurosurgery 07/21/23 Sergio Dallas PA-C [address] [address] Specialist Neurosurgery 07/21/23 Oliva Day DNP [address] [address] Specialist Nurse Practitioner Family 06/14/24 documented as of this encounter
--- OUTSIDE RECORDS SUMMARY | 2025-05-24 13:44 | XMS_ITS | Encounter Summary ---
Author Organization [employer] [facility] Address [address] [place] [address] Care Team Providers Care Decorator Mannequin Name Role Phone Adelfo Fletcher MD Primary Care Provider Susan Bartlett MD Unavailable [phone] Kae Luu PA-C Unavailable Natalie Del Cid MD Unavailable [phone] Eboni Burroughs PA-C Unavailable Sergio Dallas PA-C Unavailable Oliva Day DNP Unavailable [phone] Reason for Visit * Reason Onset Date Comments Orders Call 06/10/2018 Encounter Details Date Type Department Care Team Description 06/10/2018 Telephone Adult Medicine [address] [phone] Adelfo Fletcher MD [address] [place] [address] [phone] Orders Call Social History Tobacco Use Types Packs/Day [...] encounter Miscellaneous Notes * Telephone Encounter - Livier Shen - 06/10/2018 1:12 PM EDT Health Status report for Dr Adelfo Fletcher's signature documented in this encounter Plan of Treatment Not on file documented as of this encounter Visit Diagnoses Not on filedocumented in this encounter Care Teams Decorator Mannequin Relationship Specialty Start Date End Date Adelfo Fletcher MD [address] [place] [address] PCP - General Internal Medicine 06/24/15 Susan Bartlett MD [address] [place] [address] [phone] Fiscal Officer Cardiology 02/23/17 Kae Luu PA-C [address] [place] [address] [phone] Specialist Cardiology 01/06/19 06/13/24 Natalie Del Cid MD [address] [address] Surgeon Neurosurgery 07/21/23 Eboni Burroughs PA-C [address] [address] Specialist Neurosurgery 07/21/23 Sergio Dallas PA-C [address] [address] Specialist Neurosurgery 07/21/23 Oliva Day DNP [address] [address] Specialist Nurse Practitioner Family 06/14/24 documented as of this encounter
--- OUTSIDE RECORDS SUMMARY | 2025-05-24 13:44 | XMS_ITS | Encounter Summary ---
Author Organization [employer] [facility] Address [address] [place] [address] Care Team Providers Care Septic Tank Servicer Name Role Phone Adelfo Fletcher MD Primary Care Provider [phone] Susan Bartlett MD Unavailable [phone] Kae Luu PA-C Unavailable Natalie Del Cid MD Unavailable [phone] Eboni Burroughs PA-C Unavailable [phone] Sergio Dallas PA-C Unavailable [phone] Oliva Day DNP Unavailable [phone] Encounter Details Date Type Department Care Team Description 03/24/2018 Hospital Medical Records [address] [place] [address] Marlee Us MD [address] [place] [address] [phone] Social History Tobacco Use Types Packs/Day Years [...] on filedocumented in this encounter Care Teams Septic Tank Servicer Relationship Specialty Start Date End Date Adelfo Fletcher MD [address] [place], [place] [phone] PCP - General Internal Medicine 06/24/15 Susan Bartlett MD [address] [place] [address] [phone] Platform Material Handler Manager Cardiology 02/23/17 Kae Luu PA-C [address] [place] [address] [phone] Specialist Cardiology 01/06/19 06/13/24 Natalie Del Cid MD [address] [address] Surgeon Neurosurgery 07/21/23 Eboni Burroughs PA-C [address] [address] Specialist Neurosurgery 07/21/23 Sergio Dallas PA-C [address] [address] Specialist Neurosurgery 07/21/23 Oliva Day DNP [address] [address] Specialist Nurse Practitioner Family 06/14/24 documented as of this encounter
--- OUTSIDE RECORDS SUMMARY | 2025-05-24 13:44 | XMS_ITS | Encounter Summary ---
Author Organization [employer] [facility] Address [address] [facility] [place] [address] Care Team Providers Care Cemetery Laborer Name Role Phone Adelfo Fletcher MD Primary Care Provider [phone] Susan Bartlett MD Unavailable [phone] Kae Luu PA-C Unavailable Natalie Del Cid MD Unavailable [phone] Eboni Burroughs PA-C Unavailable Sergio Dallas PA-C Unavailable Oliva Day DNP Unavailable [phone] Encounter Details Date Type Department Care Team Description 08/07/2015 Hospital Medical Records [address] [place] [address] Stefano Fowler MD Social History Tobacco Use [...] on filedocumented in this encounter Care Teams Cemetery Laborer Relationship Specialty Start Date End Date Adelfo Fletcher MD [address] [place] [address] PCP - General Internal Medicine 06/24/15 Susan Bartlett MD [address] [place] [address] Lock Tender Chief Operator Cardiology 02/23/17 Kae Luu PA-C [address] [place] [address] Specialist Cardiology 01/06/19 06/13/24 Natalie Del Cid MD [address] [address] Surgeon Neurosurgery 07/21/23 Eboni Burroughs PA-C [address] [address] Specialist Neurosurgery 07/21/23 Sergio Dallas PA-C [address] [address] Specialist Neurosurgery 07/21/23 Oliva Day DNP [address] [address] Specialist Nurse Practitioner Family 06/14/24 documented as of this encounter
--- OUTSIDE RECORDS SUMMARY | 2025-05-24 13:44 | XMS_ITS | Encounter Summary ---
Author Organization [employer] [facility] Address [address] [place] [address] Care Team Providers Care Multicraft Operator Name Role Phone Adelfo Fletcher MD Primary Care Provider [phone] Susan Bartlett MD Unavailable [phone] Kae Luu PA-C Unavailable Natalie Del Cid MD Unavailable [phone] Eboni Burroughs PA-C Unavailable Sergio Dallas PA-C Unavailable [phone] Oliva Day DNP Unavailable [phone] Encounter Details Date Type Department Care Team Description 12/28/2017 Weigh Machine Operator Report Medical Records [address] [place] [address] Carine Cormier MD Social History Tobacco Use Types Packs/Day [...] on filedocumented in this encounter Care Teams Multicraft Operator Relationship Specialty Start Date End Date Adelfo Fletcher MD [address] [place] [address] [phone] PCP - General Internal Medicine 06/24/15 Susan Bartlett MD [address] [place] [address] Operational Communication Chief Cardiology 02/23/17 Kae Luu PA-C [address] [place] [address] Specialist Cardiology 01/06/19 06/13/24 Natalie Del Cid MD [address] [address] Surgeon Neurosurgery 07/21/23 Eboni Burroughs PA-C [address] [address] Specialist Neurosurgery 07/21/23 Sergio Dallas PA-C [address] [address] Specialist Neurosurgery 07/21/23 Oliva Day DNP [address] [address] Specialist Nurse Practitioner Family 06/14/24 documented as of this encounter
--- OUTSIDE RECORDS SUMMARY | 2025-05-24 13:44 | XMS_ITS | Encounter Summary ---
Author Organization [employer] [facility] Address [address] [place] [address] Care Team Providers Care Ribbon Hand Name Role Phone Adelfo Fletcher MD Primary Care Provider Susan Bartlett MD Unavailable [phone] Kae Luu PA-C Unavailable Natalie Del Cid MD Unavailable [phone] Eboin Burroughs PA-C Unavailable Sergio Dallas PA-C Unavailable Oliva Day DNP Unavailable [phone] Reason for Visit * Reason Onset Date Comments Faxed Order 10/06/2017 Encounter Details Date Type Department Care Team Description 10/06/2017 Telephone Adult Medicine [address] [phone] Adelfo Fletcher MD [address] [place] [address] [phone] Faxed Order Social History Tobacco Use Types Packs/Day Years [...] encounter Miscellaneous Notes * Telephone Encounter - Carsonluma Saul - 10/06/2017 1:58 PM EST Please sing orders for quality life, placed in Dr. Fletcher incoming documented in this encounter Plan of Treatment Not on file documented as of this encounter Visit Diagnoses Not on filedocumented in this encounter Care Teams Ribbon Hand Relationship Specialty Start Date End Date Adelfo Fletcher MD [address] [place], [place] [phone] PCP - General Internal Medicine 06/24/15 Susan Bartlett MD [address] [place], [place] [phone] Cone Marker Cardiology 02/23/17 Kae Luu PA-C [address] [place], [place] [phone] Specialist Cardiology 01/06/19 06/13/24 Natalie Del Cid MD [address] [address] Surgeon Neurosurgery 07/21/23 Eboni Burroughs PA-C [address] [address] Specialist Neurosurgery 07/21/23 Sergio Dallas PA-C [address] [address] Specialist Neurosurgery 07/21/23 Oliva Day DNP [address] [address] Specialist Nurse Practitioner Family 06/14/24 documented as of this encounter
--- OUTSIDE RECORDS SUMMARY | 2025-05-24 13:44 | XMS_ITS | Encounter Summary ---
Author Organization [employer] [facility] Address [address] [facility] [place] [address] Care Team Providers Care Biological Science Technician Name Role Phone Adelfo Fletcher MD Primary Care Provider [phone] Susan Bartlett MD Unavailable [phone] Kae Luu PA-C Unavailable Natalie Del Cid MD Unavailable [phone] Eboni Burroughs PA-C Unavailable Sergio Dallas PA-C Unavailable Oliva Day DNP Unavailable [phone] Encounter Details Date Type Department Care Team Description 03/04/2020 Hospital Medical Records [address] [place] [address] Maria Guadalupe Swift MD Social History Tobacco Use Types Packs/Day [...] on filedocumented in this encounter Care Teams Biological Science Technician Relationship Specialty Start Date End Date Adelfo Fletcher MD [address] [place] [address] PCP - General Internal Medicine 06/24/15 Susan Bartlett MD [address] [place] [address] Clothespin Machine Operator Cardiology 02/23/17 Kae Luu PA-C [address] [place] [address] Specialist Cardiology 01/06/19 06/13/24 Natalie Del Cid MD [address] [address] Surgeon Neurosurgery 07/21/23 Eboni Burroughs PA-C [address] [address] Specialist Neurosurgery 07/21/23 Sergio Dallas PA-C [address] [address] Specialist Neurosurgery 07/21/23 Oliva Day DNP [address] [address] Specialist Nurse Practitioner Family 06/14/24 documented as of this encounter
--- OUTSIDE RECORDS SUMMARY | 2025-05-24 13:44 | XMS_ITS | Encounter Summary ---
Author Organization [employer] [facility] Address [address] [facility] [place] [address] Care Team Providers Care Recycling Attendant Name Role Phone Adelfo Fletcher MD Primary Care Provider [phone] Susan Bartlett MD Unavailable [phone] Kae Luu PA-C Unavailable Natalie Del Cid MD Unavailable [phone] Eboni Burroughs PA-C Unavailable [phone] Sergio Dallas PA-C Unavailable [phone] Oliva Day DNP Unavailable [phone] Encounter Details Date Type Department Care Team Description 03/05/2020 Hospital Medical Records [address] [place] [address] Devin Concepcion MD Social History Tobacco Use Types Packs/Day [...] on filedocumented in this encounter Care Teams Recycling Attendant Relationship Specialty Start Date End Date Adelfo Fletcher MD [address] [place] [address] PCP - General Internal Medicine 06/24/15 Susan Bartlett MD [address] [place] [address] Keg Filler Cardiology 02/23/17 Kae Luu PA-C [address] [place] [address] Specialist Cardiology 01/06/19 06/13/24 Natalie Del Cid MD [address] [address] Surgeon Neurosurgery 07/21/23 Eboni Burroughs PA-C [address] [address] Specialist Neurosurgery 07/21/23 Sergio Dallas PA-C [address] [address] Specialist Neurosurgery 07/21/23 Oliva Day DNP [address] [address] Specialist Nurse Practitioner Family 06/14/24 documented as of this encounter
--- OUTSIDE RECORDS SUMMARY | 2025-05-24 13:44 | XMS_ITS | Encounter Summary ---
Author Organization [facility] Address [address] [facility] [place] [address] Care Team Providers Care Clinical Laboratory Scientist Name Role Phone Adelfo Fletcher MD Primary Care Provider [phone] Susan Bartlett MD Unavailable [phone] Kae Luu PA-C Unavailable Natalie Del Cid MD Unavailable [phone] Eboni Burroughs PA-C Unavailable [phone] Sergio Dallas PA-C Unavailable [phone] Oliva Day DNP Unavailable [phone] Encounter Details Date Type Department Care Team Description 08/05/2015 Business Doc Medical Records [address] [place] [address] Abstract, Provider Social History Tobacco Use Types [...] on filedocumented in this encounter Care Teams Clinical Laboratory Scientist Relationship Specialty Start Date End Date Adelfo Fletcher MD [address] [place] [address] PCP - General Internal Medicine 06/24/15 Susan Bartlett MD [address] [place] [address] Assistant Professor Of Life Sciences Cardiology 02/23/17 Kae Luu PA-C [address] [place] [address] Specialist Cardiology 01/06/19 06/13/24 Natalie Del Cid MD [address] [address] Surgeon Neurosurgery 07/21/23 Eboni Burroughs PA-C [address] [address] Specialist Neurosurgery 07/21/23 Sergio Dallas PA-C [address] [address] Specialist Neurosurgery 07/21/23 Oliva Day DNP [address] [address] Specialist Nurse Practitioner Family 06/14/24 documented as of this encounter
--- OUTSIDE RECORDS SUMMARY | 2025-05-24 13:44 | XMS_ITS | Encounter Summary ---
Author Organization [facility] Address [address] [facility] [place] [address] Care Team Providers Care Outside Sales Account Representative Name Role Phone Adelfo Fletcher MD Primary Care Provider Susan Bartlett MD Unavailable [phone] Kae Luu PA-C Unavailable Natalie Del Cid MD Unavailable [phone] Eboni Burroughs PA-C Unavailable Sergio Dallas PA-C Unavailable Oliva Day DNP Unavailable [phone] Reason for Visit * Reason Onset Date Comments Call-returning From Provider 07/03/2015 Encounter Details Date Type Department Care Team Description 07/03/2015 Telephone Adult Medicine [facility] [address] [place] [address] [phone] Adelfo Fletcher MD [address] [place] [address] [phone] Call-returning From Provider Social History Tobacco Use Types Packs/Day Years Used Date Smoking Tobacco: Former Alcohol Use Standard Drinks/Week Comments Yes 0 (1 standard drink = 0.6 oz pur e alcohol) Sex Assigned at Date Recorded Not on file Job Start Date Occupation Industry Not on file Not on file Not on file documented as of this encounter Miscellaneous Notes * Telephone Encounter - Kelle Rucker - 07/03/2015 1:31 PM EDT Caller requesting call back from provider: Is the caller the patient? NO If caller is not the patient, what is the callers name? Selina Callers relationship to patient? daughter If person calling is not the patient themselves, is there a verbal release in FYI or permanent comments for this person: YES Reason for call back: Patient's daughter returning Dr. Fletcher's call, says shes at work till 3:30 if he could call her back after that Caller offered to speak with the nurse for assistance: YES Response: Patient offered to speak with nurse for assistance and patient agreed. Message forwarded to nurse. documented in this encounter Plan of Treatment Not on file documented as of this encounter Visit Diagnoses Not on filedocumented in this encounter Care Teams Outside Sales Account Representative Relationship Specialty Start Date End Date Adelfo Fletcher MD [address] [place] [address] PCP - General Internal Medicine 06/24/15 Susan Bartlett MD [address] [place] [address] Stove Installer Cardiology 02/23/17 Kae Luu PA-C [address] [place] [address] [phone] Specialist Cardiology 01/06/19 06/13/24 Natalie Del Cid MD [address] [address] Surgeon Neurosurgery 07/21/23 Eboni Burroughs PA-C [address] [address] Specialist Neurosurgery 07/21/23 Sergio Dallas PA-C [address] [address] Specialist Neurosurgery 07/21/23 Oliva Day DNP [address] [address] Specialist Nurse Practitioner Family 06/14/24 documented as of this encounter
--- OUTSIDE RECORDS SUMMARY | 2025-05-24 13:44 | XMS_ITS | Encounter Summary ---
Author Organization [facility] Address [address] [place] [address] Care Team Providers Care Willow Machine Operator Name Role Phone Adelfo Fletcher MD Primary Care Provider [phone] Susan Bartlett MD Unavailable [phone] Kae Luu PA-C Unavailable Natalie Del Cid MD Unavailable [phone] Eboni Burroughs PA-C Unavailable [phone] Sergio Dallas PA-C Unavailable Oliva Day DNP Unavailable [phone] Reason for Referral * Non CARRILLO (Routine) - Authorized/Booked Specialty Diagnoses / Procedures Referred By Contac t Referred To Contact General Surgery Diagnoses Malignant tumor of sigmoid colon (HCC) Procedures REFERRAL TO GENERAL SURGERY Diego Vu MD Gen Surg/[place] [address] [address] Referral ID Status Reason Start Date Expiration Date V isits Requested Visits Authorized [id number] Authorized/B ooked 03/24/2018 03/24/2019 1 1 Reason for Visit * Reason Onset Date Comments Abnormal Test Results 03/24/2018 Encounter Details Date Type Department Care Team Description 03/24/2018 Telephone Gastroenterology - [address] [place] [address] Diego Vu MD Abnormal Test Results Social History Tobacco Use Types Packs/Day Years [...] encounter Miscellaneous Notes * Telephone Encounter - Diego Vu MD - 03/28/2018 1:26 PM EDT I reviewed the patient's pathology report in the [facility] system just now. Thesigmoid colon biopsy revealed invasive moderately differentiated adenocarcinoma. The gastric biopsyrevealed gastric oxyntic mucosa with minimal chronic gastritis. The patient does have an appointment with Dr. Fiore. He speaks only [place], I will send him a letter about this, we will need to arrange for translation services. * Telephone Encounter - Diego Vu MD - 03/24/2018 12:33 PM EDT I received a Cortext message this morning from Dr. Us about this patient. Colonoscopy revealed amalignant-appearing sigmoid colon tumor and the upper endoscopy revealed a large duodenal ulcer. Heindicated that we should refer him to the surgeons. I will go ahead and place the referral while I await copies of the reports. documented in this encounter Plan of Treatment Not on file documented as of this encounter Visit Diagnoses Diagnosis Malignant tumor of sigmoid colon (HCC)- Primary Malignant neoplasm of sigmoid colon Malignant neoplasm of sigmoid colon (HCC) Malignant neoplasm of sigmoid colon documented in this encounter Care Teams Willow Machine Operator Relationship Specialty Start Date End Date Adelfo Fletcher MD [address] [place] [address] PCP - General Internal Medicine 06/24/15 Susan Bartlett MD [address] [place] [address] Machine Repairman Cardiology 02/23/17 Kae Luu PA-C [address] [place] [address] Specialist Cardiology 01/06/19 06/13/24 Natalie Del Cid MD [address] [address] Surgeon Neurosurgery 07/21/23 Eboni Burroughs PA-C [address] [address] Specialist Neurosurgery 07/21/23 Sergio Dallas PA-C [address] [address] Specialist Neurosurgery 07/21/23 Oliva Day DNP [address] [address] Specialist Nurse Practitioner Family 06/14/24 documented as of this encounter
--- OUTSIDE RECORDS SUMMARY | 2025-05-24 13:44 | XMS_ITS | Encounter Summary ---
Author Organization [facility] Address [address] [facility] [place] [address] Care Team Providers Care Electronic Gaming Device Supervisor Name Role Phone Adelfo Fletcher MD Primary Care Provider [phone] Susan Bartlett MD Unavailable [phone] Kae Luu PA-C Unavailable Natalie Del Cid MD Unavailable [phone] Eboni Burroughs PA-C Unavailable [phone] Sergio Dallas PA-C Unavailable [phone] Oliva Day DNP Unavailable [phone] Encounter Details Date Type Department Care Team Description 01/25/2020 Glass Fitter Report Medical Records [address] [place] [address] Stefano Fowler MD Social History Tobacco Use [...] on filedocumented in this encounter Care Teams Electronic Gaming Device Supervisor Relationship Specialty Start Date End Date Adelfo Fletcher MD [address] [place] [address] PCP - General Internal Medicine 06/24/15 Susan Bartlett MD [address] [place] [address] Ground Equipment Mechanic Cardiology 02/23/17 Kae Luu PA-C [address] [place] [address] Specialist Cardiology 01/06/19 06/13/24 Natalie Del Cid MD [address] [address] Surgeon Neurosurgery 07/21/23 Eboni Burroughs PA-C [address] [address] Specialist Neurosurgery 07/21/23 Sergio Dallas PA-C [address] [address] Specialist Neurosurgery 07/21/23 Oliva Day DNP [address] [address] Specialist Nurse Practitioner Family 06/14/24 documented as of this encounter
--- OUTSIDE RECORDS SUMMARY | 2025-05-24 13:44 | XMS_ITS | Encounter Summary ---
Author Organization [facility] Address [address] [place] [address] Care Team Providers Care Material Distributor Name Role Phone Adelfo Fletcher MD Primary Care Provider [phone] Susan Bartlett MD Unavailable [phone] Kae Luu PA-C Unavailable Natalie Del Cid MD Unavailable [phone] Eboni Burroughs PA-C Unavailable Sergio Dallas PA-C Unavailable [phone] Oliva Day DNP Unavailable [phone] Reason for Visit * Reason Onset Date Comments Provider Call Back 12/12/2019 Encounter Details Date Type Department Care Team Description 12/12/2019 Telephone Adult Medicine [address] [phone] Adelfo Fletcher MD [address] [place] [address] [phone] Provider Call Back Social History Tobacco Use Types Packs/Day Years [...] encounter Miscellaneous Notes * Telephone Encounter - Elle Rojas M.A. - 12/12/2019 4:54 PM EDT msg was left for daughter to return call / When call is returned please explain audio appt * Telephone Encounter - Adelfo Fletcher MD - 12/12/2019 2:47 PM EDT absolutely Please change him to and audio visit his dtr is correct he should not be coming into the office * Telephone Encounter - Elle Rojas M.A. - 12/12/2019 2:42 PM EDT Ok to change ?? * Telephone Encounter - Elida Ocampo - 12/12/2019 12:34 PM EDT Patient's daughter would like to have the appointment for her dad scheduled on 12/14/2019 @4p.m. To be an audio visit. She is afraid to have her father come with everything going on. documented in this encounter Plan of Treatment Not on file documented as of this encounter Visit Diagnoses Not on filedocumented in this encounter Care Teams Material Distributor Relationship Specialty Start Date End Date Adelfo Fletcher MD [address] [place] [address] PCP - General Internal Medicine 06/24/15 Susan Bartlett MD [address] [place] [address] Automotive Sales Representative Cardiology 02/23/17 Kae Luu PA-C [address] [place] [address] Specialist Cardiology 01/06/19 06/13/24 Natalie Del Cid MD [address] [address] Surgeon Neurosurgery 07/21/23 Eboni Burroughs PA-C [address] [address] Specialist Neurosurgery 07/21/23 Sergio Dallas PA-C [address] [address] Specialist Neurosurgery 07/21/23 Oliva Day DNP [address] [address] Specialist Nurse Practitioner Family 06/14/24 documented as of this encounter
--- OUTSIDE RECORDS SUMMARY | 2025-05-24 13:44 | XMS_ITS | Encounter Summary ---
Author Organization [facility] Address [address] [place] [address] Care Team Providers Care Platform Engineer Name Role Phone Adelfo Fletcher MD Primary Care Provider Susan Bartlett MD Unavailable [phone] Kae Luu PA-C Unavailable Natalie Del Cid MD Unavailable [phone] Eboni Burroughs PA-C Unavailable Sergio Dallas PA-C Unavailable Oliva Day DNP Unavailable [phone] Encounter Details Date Type Department Care Team Description 06/07/2018 Orders Only Medical Records [address] [place] [address] Jeramy Fiore MD [address] [place] [address] [phone] Social History Tobacco Use Types Packs/Day Years [...] on file documented as of this encounter Procedures Procedure Name Priority Date/Time Associated Diagnosis Comments OUTSIDE PATHOLOGY Routine 05/31/2018 documented in this encounter Results * OUTSIDE PATHOLOGY (05/31/2018) Jeramy Fiore MD OUTSIDE LAB documented in this encounter Visit Diagnoses Not on filedocumented in this encounter Care Teams Platform Engineer Relationship Specialty Start Date End Date Adelfo Fletcher MD [address] [place] [address] [phone] PCP - General Internal Medicine 06/24/15 Susan Bartlett MD [address] [place] [address] [phone] Electrical And Radio Aircraft Mechanic Cardiology 02/23/17 Kae Luu PA-C [address] [place] [address] [phone] Specialist Cardiology 01/06/19 06/13/24 Natalie Del Cid MD [address] [address] Surgeon Neurosurgery 07/21/23 Eboni Burroughs PA-C [address] [address] Specialist Neurosurgery 07/21/23 Sergio Dallas PA-C [address] [address] Specialist Neurosurgery 07/21/23 Oliva Day DNP [address] [address] Specialist Nurse Practitioner Family 06/14/24 documented as of this encounter
--- OUTSIDE RECORDS SUMMARY | 2025-05-24 13:44 | XMS_ITS | Encounter Summary ---
Author Organization [facility] Address [address] [place] [address] Care Team Providers Care Blood Coordinator Name Role Phone Adelfo Fletcher MD Primary Care Provider [phone] Susan Bartlett MD Unavailable [phone] Kae Luu PA-C Unavailable Natalie Del Cid MD Unavailable [phone] Eboni Burrouhgs PA-C Unavailable Sergio Dallsa PA-C Unavailable [phone] Oliva Day DNP Unavailable [phone] Encounter Details Date Type Department Care Team Description 08/12/2015 Automobile Service Station Attendant Report Medical Records [address] [place] [address] Francisco Kennedy MD Social History Tobacco Use Types Packs/Day [...] on filedocumented in this encounter Care Teams Blood Coordinator Relationship Specialty Start Date End Date Adelfo Fletcher MD [address] [place] [address] [phone] PCP - General Internal Medicine 06/24/15 Susan Bartlett MD [address] [place] [address] Film Spooler Cardiology 02/23/17 Kae Luu PA-C [address] [place] [address] Specialist Cardiology 01/06/19 06/13/24 Natalie Del Cid MD [address] [address] Surgeon Neurosurgery 07/21/23 Eboni Burroughs PA-C [address] [address] Specialist Neurosurgery 07/21/23 Sergio Dallas PA-C [address] [address] Specialist Neurosurgery 07/21/23 Oliva Day DNP [address] [address] Specialist Nurse Practitioner Family 06/14/24 documented as of this encounter
--- OUTSIDE RECORDS SUMMARY | 2025-05-24 13:44 | XMS_ITS ---
Author Organization [facility] Care Team Providers Care Card Fixer Name Role Phone Sommer Taylor Unavailable oJn Ortiz Unavailable Unavailable Aleida Denis Unavailable Jesus Davis Allergies and adverse reactions No Known Allergies Care Team Name Role Address Phone Organization Dates Jon Horowitz PCP [address] [place] [address], [address], [facility] (Office): : [facility] 10/11/2023 - 10/28/2023 Sommer Taylor [address] [place] [address], [address], [facility] (Office): [phone] (Fax): [phone] [facility] 10/11/2023 - 10/28/2023 Aleida Denis [address] [place] [address], [address], [facility] (Office): : [facility] 10/11/2023 - 10/28/2023 Jesus Davis [address] [place] [address], [facility] (Office): [facility] 10/11/2023 - 10/28/2023 Immunizations Immunization Status Vaccine Details Vaccine Code CodeSystem Date Notes Influenza completed Influenza, high-dose, split virus, quadrivalent, injectable, preservative free 197 CVX created date: 3 consent date: 3 administe red date: 3 Influenza completed Influenza, high-dose, split virus, quadrivalent, injectable, preservative free 197 CVX created date: 3 administe red date: 2 Data obtained through [facility], administered by [facility] Pneumovax Dose 1 completed pneumococcal polysaccharide vaccine, 23 valent 33 CVX created date: 3 administe red date: 0 data obtained through [facility], administered by [facility] Prevnar 13 completed pneumococcal conjugate vaccine, 13 valent 133 CVX created date: 3 administe red date: 7 Administered by [facility], data obtained though [facility] COVID-19 Vaccine Dose 1 completed unknown vaccine or immune globulin 999 CVX created date: 3 administe red date: 1 data obtained though [facility], administered by [facility]. Moderna COVID-19 Vaccine Dose 2 completed unknown vaccine or immune globulin 999 CVX created date: 3 administe red date: 1 Data obtained though [facility], administered by [facility]. Moderna COVID-19 Vaccine Single Dose completed unknown vaccine or immune globulin Mfg: [id number] 999 CVX created date: 3 consent date: 3 administe red date: 3 COVID-19 Vaccine Single Dose completed unknown vaccine or immune globulin 999 CVX created date: 3 administe red date: 2 Obtained info from [facility], administered by [facility], Moderna Bivalent booster administered. COVID-19 Vaccine Single Dose completed unknown vaccine or immune globulin 999 CVX created date: 3 administe red date: 2 obtained data though [facility], administered by [facility]. Moderna Booster # 1 Mental Status Section Date Assessment Total Score Description 10/28/2023 BIMS 15 cognitively int act CAM 0 No delirium ind icated PHQ-9 00 10/18/2023 BIMS 15 cognitively int act CAM 0 No delirium ind icated PHQ-9 00 Problems Problem # Description Date of onset Resolved Date Code CodeSystem Concern Status 1 UNSPECIFIED ABNORMALITIES OF GAIT AND MOBILITY [address] active 2 BENIGN PAROXYSMAL VERTIGO, UNSPECIFIED EAR [address] active 3 CENTRILOBULAR EMPHYSEMA [address] active 4 ESSENTIAL (PRIMARY) HYPERTENSION [address] active 5 FOOT DROP, LEFT FOOT [address] active 6 HYPERLIPIDEMIA, UNSPECIFIED [address] active 7 LATENT TUBERCULOSIS [address] active 8 MALIGNANT NEOPLASM OF COLON, UNSPECIFIED [address] active 9 OBSTRUCTIVE SLEEP APNEA (ADULT) (PEDIATRIC) [address] active 10 PERSONAL HISTORY OF OTHER DISEASES OF THE DIGESTIVE SYSTEM [address] active 11 PERSONAL HISTORY OF OTHER MALIGNANT NEOPLASM OF LARGE INTESTINE [address] active 12 TYPE 2 DIABETES MELLITUS WITH DIABETIC PERIPHERAL ANGIOPATHY WITHOUT GANGRENE [address] active 13 TYPE 2 DIABETES MELLITUS WITH OTHER DIABETIC KIDNEY COMPLICATION [address] active 14 COVID-19 023 08/27/[address] completed 15 ACQUIRED ABSENCE OF OTHER SPECIFIED PARTS OF DIGESTIVE TRACT [address] active 16 ATHEROSCLEROSIS OF [place] ARTERIES OF EXTREMITIES WITH INTERMITTENT CLAUDICATION, BILATERAL LEGS [address] active 17 ATHEROSCLEROTIC HEART DISEASE OF [place] CORONARY ARTERY WITHOUT ANGINA PECTORIS [address] active 18 BRONCHIECTASIS, UNCOMPLICATED [address] active 19 CHRONIC OBSTRUCTIVE PULMONARY DISEASE, UNSPECIFIED 15648736 SNOMED CT active 20 DIZZINESS AND GIDDINESS 816330911 SNOMED CT active 21 DUODENAL ULCER, UNSPECIFIED ACUTE OR CHRONIC, WITHOUT HEMORRHAGE OR PERFORATION 86006690 SNOMED CT active 22 HEMIPLEGIA AND HEMIPARESIS FOLLOWING CEREBRAL INFARCTION AFFECTING LEFT NON-DOMINANT SIDE 006244678053 SNOMED CT active 23 MUSCLE WEAKNESS (GENERALIZED) 72213416 SNOMED CT active 24 PAIN IN THORACIC SPINE 551729182 SNOMED CT active 25 PERIPHERAL VASCULAR ANGIOPLASTY STATUS WITH IMPLANTS AND GRAFTS 881763871 SNOMED CT active 26 PERIPHERAL VASCULAR DISEASE, UNSPECIFIED 910008509 SNOMED CT active 27 PERSONAL HISTORY OF OTHER MALIGNANT NEOPLASM OF SMALL INTESTINE 018635195 SNOMED CT active 28 PERSONAL HISTORY OF OTHER VENOUS THROMBOSIS AND EMBOLISM 78436204 SNOMED CT active 29 PRESENCE OF CORONARY ANGIOPLASTY IMPLANT AND GRAFT 627585739 SNOMED CT active 30 RETENTION OF URINE, UNSPECIFIED 326626552 SNOMED CT active 31 SYNCOPE AND COLLAPSE 400792745 SNOMED CT active 32 TYPE 2 DIABETES MELLITUS WITH DIABETIC NEUROPATHY, UNSPECIFIED 959316777 SNOMED CT active 33 TYPE 2 DIABETES MELLITUS WITHOUT COMPLICATIONS 832225294 SNOMED CT active 34 UNSPECIFIED FALL, SUBSEQUENT ENCOUNTER [address] active 35 WEDGE COMPRESSION FRACTURE OF FIRST LUMBAR VERTEBRA, SUBSEQUENT ENCOUNTER FOR FRACTURE WITH ROUTINE HEALING 250186249 SNOMED CT active 36 [place] COMPRESSION FRACTURE OF T11-T12 VERTEBRA, SUBSEQUENT ENCOUNTER FOR FRACTURE WITH ROUTINE HEALING 457426674 SNOMED CT active Reason for Referral No Reasons for Referral Entered Social History Social History Observation Description Start Date End Date Code Code System Current Smoking Status Tobacco smoking consumption unknown 058535695 SNOMED CT Sex Assigned At Male 1950 87331-3 [facility] Gender Identity Sexual Orientation Vital Signs Code Code System Vitals Name Values and Units Timing Information 87057-5 LOINC Pain Level Value=0.0 10/28/2023 2339-0 LOINC Blood Sugar Efsoa=307.0 Units=mg/dL 10/27/2023 9279-1 [facility] Respiratory Rate Value=16.0 Units=/m in 10/25/2023 8462-4 [facility] Blood Pressure-Diastolic Value=66 Un its=mmHg 10/25/2023 8480-6 [facility] Blood Pressure-Systolic Bfezl=101 Un its=mmHg 10/25/2023 8310-5 [facility] Body Temperature Value=97.3 Units= F 10/25/2023 8867-4 [facility] Heart rate Value=57.0 Units=/min 58814-6 [facility] O2 % BldC Oximetry Value=95.0 Units= % 10/25/2023 11288-8 [facility] Weight Ttqgh=599.4 Units=Lbs 8302-2 [facility] Height Value=63.0 Units=Inches 10/11/2023
--- OUTSIDE RECORDS SUMMARY | 2025-05-24 13:44 | XMS_ITS | Encounter Summary ---
Author Organization [facility] Address [address] [facility] [place] [address] Care Team Providers Care School Director Name Role Phone Adelfo Fletcher MD Primary Care Provider [phone] Susan Bartlett MD Unavailable [phone] Kae Luu PA-C Unavailable Natalie Del Cid MD Unavailable [phone] Eboni Burroughs PA-C Unavailable Sergio Dallas PA-C Unavailable Oliva Day DNP Unavailable [phone] Encounter Details Date Type Department Care Team Description 11/04/2015 Home Energy Inspector Report Medical Records [address] [place] [address] Stefano Fowler MD Social History Tobacco Use [...] on filedocumented in this encounter Care Teams School Director Relationship Specialty Start Date End Date Adelfo Fletcher MD [address] [place] [address] [phone] PCP - General Internal Medicine 06/24/15 Susan Bartlett MD [address] [place] [address] Visitor Services Representative Cardiology 02/23/17 Kae Luu PA-C [address] [place] [address] Specialist Cardiology 01/06/19 06/13/24 Natalie Del Cid MD [address] [address] Surgeon Neurosurgery 07/21/23 Eboni Burroughs PA-C [address] [address] Specialist Neurosurgery 07/21/23 Sergio Dallas PA-C [address] [address] Specialist Neurosurgery 07/21/23 Oliva Day DNP [address] [address] Specialist Nurse Practitioner Family 06/14/24 documented as of this encounter
--- OUTSIDE RECORDS SUMMARY | 2025-05-24 13:44 | XMS_ITS | Encounter Summary ---
Author Organization [facility] Address [address] [place] [address] Care Team Providers Care Outside Solar Sales Consultant Name Role Phone Adelfo Fletcher MD Primary Care Provider Susan Bartlett MD Unavailable [phone] Kae Luu PA-C Unavailable Natalie Del Cid MD Unavailable [phone] Eboni Burroughs PA-C Unavailable Sergio Dallas PA-C Unavailable [phone] Oliva Day DNP Unavailable [phone] Reason for Visit * Reason Onset Date Comments hospital follow up 10/01/2022 Encounter Details Date Type Department Care Team Description 10/01/2022 Telephone Adult Medicine [facility] [address] [place] [address] [phone] Adelfo Fletcher MD [address] [place] [address] [phone] hospital follow up Social History Tobacco Use Types Packs/Day Years [...] * Telephone Encounter - Tabitha Santana - 10/02/2022 3:20 PM EST Attempted to reach Miriam, reached a deputy of counter intelligence, transferred me to a wrong ext. Attempted to contact back and call kept ringing with no voicemail. * Telephone Encounter - Debra Zaidi - 10/02/2022 2:19 PM EST Miriam is returning call. * Telephone Encounter - Tabitha Santana - 10/02/2022 11:24 AM EST Called Miriam and left vm to return my call. * Telephone Encounter - Yessica Dial - 10/01/2022 8:39 AM EST Hospital follow up appointment needed [facility] will send notes upon d/c 10/06/22 Please leave appt info with Miriam at [facility] Hospital patient was treated at: [facility] Was this only an ER visit or was the patient admitted to the hospital? Admitted to hospital Date of visit if ER visit only: If patient was admitted what was the date of discharge? 08/29/22 Reason/diagnosis for visit or stay: fall pneumonia and viral syndrome When was the patient told to follow up? Was visit or stay related to an injury? YES If yes, what was the date of injury (DOI)? If yes, was the injury due to N/A documented in this encounter Plan of Treatment Not on file documented as of this encounter Visit Diagnoses Not on filedocumented in this encounter Care Teams Outside Solar Sales Consultant Relationship Specialty Start Date End Date Adelfo Fletcher MD [address] [place] [address] PCP - General Internal Medicine 06/24/15 Susan Bartlett MD [address] [place] [address] Casing Splitter Cardiology 02/23/17 Kae Luu PA-C [address] [place] [address] Specialist Cardiology 01/06/19 06/13/24 Natalie Del Cid MD [address] [address] Surgeon Neurosurgery 07/21/23 Eboni Burroughs PA-C [address] [address] Specialist Neurosurgery 07/21/23 Sergio Dallas PA-C [address] [address] Specialist Neurosurgery 07/21/23 Oliva Day DNP [address] [address] Specialist Nurse Practitioner Family 06/14/24 documented as of this encounter
--- OUTSIDE RECORDS SUMMARY | 2025-05-24 13:44 | XMS_ITS | Encounter Summary ---
Author Organization [facility] Address [address] [place] [address] Care Team Providers Care Manuscript Reader Name Role Phone Adelfo Fletcher MD Primary Care Provider [phone] Susan Bartlett MD Unavailable [phone] Kae Luu PA-C Unavailable Natalie Del Cid MD Unavailable [phone] Eboni Burroughs PA-C Unavailable Sergio Dallas PA-C Unavailable Oliva Day DNP Unavailable [phone] Reason for Visit * Reason Onset Date Comments REFERRAL 07/19/2015 Encounter Details Date Type Department Care Team Description 07/19/2015 Telephone Eye Services-[address] [address] Georgina Rodney, EDUARDO REFERRAL Social History Tobacco Use Types Packs/Day Years Used Date Smoking Tobacco: Former Alcohol Use Standard Drinks/Week Comments Yes 0 (1 standard drink = 0.6 oz pur e alcohol) Sex Assigned at Date Recorded Not on file Job Start Date Occupation Industry Not on file Not on file Not on file documented as of this encounter Miscellaneous Notes * Telephone Encounter - Venessa Watson - 07/19/2015 1:54 PM EST This is just an FYI: This patient was referred to the Eye Department for diabetic eye care after being seen on 06/20/15. Since then the patient has failed to respond to our phone calls and an unable to reach letter that was sent to the patient's home. Therefore the patient will be removed from our report. documented in this encounter Plan of Treatment Not on file documented as of this encounter Visit Diagnoses Not on filedocumented in this encounter Care Teams Manuscript Reader Relationship Specialty Start Date End Date Adelfo Fletcher MD [address] [place] [address] PCP - General Internal Medicine 06/24/15 Susan Bartlett MD [address] [place] [address] [phone] Thread Winder Automatic Cardiology 02/23/17 Kae Luu PA-C [address] [place] [address] [phone] Specialist Cardiology 01/06/19 06/13/24 Natalie Del Cid MD [address] [address] Surgeon Neurosurgery 07/21/23 Eboni Burroughs PA-C [address] [address] Specialist Neurosurgery 07/21/23 Sergio Dallas PA-C [address] [address] Specialist Neurosurgery 07/21/23 Oliva Day DNP [address] [address] Specialist Nurse Practitioner Family 06/14/24 documented as of this encounter
--- OUTSIDE RECORDS SUMMARY | 2025-05-24 13:44 | XMS_ITS | Encounter Summary ---
Author Organization [facility] Address [address] [place] [address] Care Team Providers Care Stroboscope Operator Name Role Phone Adelfo Fletcher MD Primary Care Provider [phone] Susan Bartlett MD Unavailable [phone] Kae Luu PA-C Unavailable Natalie Del Cid MD Unavailable [phone] Eboni Burroughs PA-C Unavailable Sergio Dallas PA-C Unavailable Oliva Day DNP Unavailable [phone] Reason for Visit * Reason Onset Date Comments Prior Authorization 03/08/2018 Encounter Details Date Type Department Care Team Description 03/08/2018 Telephone Gastroenterology - [address] [phone] Diego Vu MD Prior Authorization Social History Tobacco Use Types Packs/Day Years [...] encounter Miscellaneous Notes * Telephone Encounter - Aliya Denis - 03/08/2018 2:39 PM EDT [facility] Medicare No auth Req Colonscopy/Endoscopy [id number] @ [facility] * Telephone Encounter - Clarita Rendon - 03/08/2018 12:54 PM EDT Pre-auth needed Patient is scheduled for an Colonoscopy/Endoscopy on 03/24/18 Patients insurance: Payor: [facility] MEDICARE FFS / Plan: [facility] MEDICARE SOLUTIONS $0 [place] / Product Type: HMO [id number] Appointment is with Michael Us MD Code to process pre-auth for: [id number], [id number] Location of procedure: [facility] documented in this encounter Plan of Treatment Not on file documented as of this encounter Visit Diagnoses Not on filedocumented in this encounter Care Teams Stroboscope Operator Relationship Specialty Start Date End Date Adelfo Fletcher MD [address] [place] [address] PCP - General Internal Medicine 06/24/15 Susan Bartlett MD [address] [place] [address] Bending Shed Worker Cardiology 02/23/17 Kae Luu PA-C [address] [place] [address] Specialist Cardiology 01/06/19 06/13/24 Natalie Del Cid MD 175 [facility] [address] [place] [address] Surgeon Neurosurgery 07/21/23 Eboni Burroughs PA-C 175 [facility] [address] [place] [address] Specialist Neurosurgery 07/21/23 Sergio Dallas PA-C 175 [facility] [address] [place] [address] Specialist Neurosurgery 07/21/23 Oliva Day DNP 175 [facility] [address] [place] [address] Specialist Nurse Practitioner Family 06/14/24 documented as of this encounter
--- OUTSIDE RECORDS SUMMARY | 2025-05-24 13:45 | XMS_ITS | Encounter Summary ---
Author Organization [facility] Address [address] [facility] [place] [address] Care Team Providers Care Airveyor Operator Name Role Phone Adelfo Fletcher MD Primary Care Provider [phone] Susan Bartlett MD Unavailable [phone] Kae Luu PA-C Unavailable Natalie Del Cid MD Unavailable [phone] Eboni Burroughs PA-C Unavailable [phone] Sergio Dallas PA-C Unavailable Oliva Day DNP Unavailable [phone] Encounter Details Date Type Department Care Team Description 08/12/2019 Hospital Medical Records [address] [place] [address] González Chauhan MD Social History Tobacco Use Types Packs/Day [...] on filedocumented in this encounter Care Teams Airveyor Operator Relationship Specialty Start Date End Date Adelfo Fletcher MD [address] [place] [address] PCP - General Internal Medicine 06/24/15 Susan Bartlett MD [address] [place] [address] Raw Material Planner Cardiology 02/23/17 Kae Luu PA-C [address] [place] [address] Specialist Cardiology 01/06/19 06/13/24 Natalie Del Cid MD [address] [address] Surgeon Neurosurgery 07/21/23 Eboni Burroughs PA-C [address] [address] Specialist Neurosurgery 07/21/23 Sergio Dallas PA-C [address] [address] Specialist Neurosurgery 07/21/23 Oliva Day DNP [address] [address] Specialist Nurse Practitioner Family 06/14/24 documented as of this encounter
--- OUTSIDE RECORDS SUMMARY | 2025-05-24 13:45 | XMS_ITS | Encounter Summary ---
Author Organization [facility] Address [address] [place] [address] Care Team Providers Care Drafter Civil Name Role Phone Adelfo Fletcher MD Primary Care Provider [phone] Susan Bartlett MD Unavailable [phone] Kae Luu PA-C Unavailable Natalie Del Cid MD Unavailable [phone] Eboni Burroughs PA-C Unavailable Sergio Dallas PA-C Unavailable [phone] Oliva Day DNP Unavailable [phone] Encounter Details Date Type Department Care Team Description 08/25/2022 Transfer Records Medical Records [address] [place] [address] González Chauhan MD Social History Tobacco Use [...] file Not on file Not on file COVID-19 Exposure Response Date Recorded In the last 10 days, have yo u been in contact with someone who was confirmed or suspected to have Coronavirus/COVID-19? No / Unsure 08/17/2022 10:28 AM EST documented as of this encounter Plan of Treatment Not on file documented as of this encounter Visit Diagnoses Not on filedocumented in this encounter Care Teams Drafter Civil Relationship Specialty Start Date End Date Adelfo Fletcher MD [address] [place], [place] [phone] PCP - General Internal Medicine 06/24/15 Susan Bartlett MD [address] [place], [place] [phone] Agronomy Advisor Cardiology 02/23/17 Kae Luu PA-C [address] [place], [place] [phone] Specialist Cardiology 01/06/19 06/13/24 Natalie Del Cid MD [address] [address] Surgeon Neurosurgery 07/21/23 Eboni Burroughs PA-C [address] [address] Specialist Neurosurgery 07/21/23 Sergio Dallas PA-C [address] [address] Specialist Neurosurgery 07/21/23 Oliva Day DNP [address] [address] Specialist Nurse Practitioner Family 06/14/24 documented as of this encounter
--- OUTSIDE RECORDS SUMMARY | 2025-05-24 13:45 | XMS_ITS | Encounter Summary ---
Author Organization [facility] Address [address] [facility] [place] [address] Care Team Providers Care Nursing Staffing Coordinator Name Role Phone Adelfo Fletcher MD Primary Care Provider [phone] Susan Bartlett MD Unavailable [phone] Kae Luu PA-C Unavailable Natalie Del Cid MD Unavailable [phone] Eboni Burroughs PA-C Unavailable Sergio Dallas PA-C Unavailable [phone] Oliva Day DNP Unavailable [phone] Encounter Details Date Type Department Care Team Description 07/18/2019 Brim Greaser Operator Report Medical Records [address] [place] [address] Stefano Fowler MD Social History Tobacco Use [...] on filedocumented in this encounter Care Teams Nursing Staffing Coordinator Relationship Specialty Start Date End Date Adelfo Fletcher MD [address] [place], [place] [phone] PCP - General Internal Medicine 06/24/15 Susan Bartlett MD [address] [place] [address] Beauty Director Cardiology 02/23/17 Kae Luu PA-C [address] [place] [address] Specialist Cardiology 01/06/19 06/13/24 Natalie Del Cid MD [address] [address] Surgeon Neurosurgery 07/21/23 Eboni Burroughs PA-C [address] [address] Specialist Neurosurgery 07/21/23 Sergio Dallas PA-C [address] [address] Specialist Neurosurgery 07/21/23 Oliva Day DNP [address] [address] Specialist Nurse Practitioner Family 06/14/24 documented as of this encounter
--- OUTSIDE RECORDS SUMMARY | 2025-05-24 13:45 | XMS_ITS | Encounter Summary ---
Author Organization [facility] Address [address] [place] [address] Care Team Providers Care Vacuum Technician Name Role Phone Adelfo Fletcher MD Primary Care Provider [phone] Susan Bartlett MD Unavailable [phone] Kae Luu PA-C Unavailable Natalie Del Cid MD Unavailable [phone] Eboni Burroughs PA-C Unavailable [phone] Sergio Dallas PA-C Unavailable Oliva Day DNP Unavailable [phone] Encounter Details Date Type Department Care Team Description 04/29/2020 Hospital Medical Records [address] [place] [address] Stefano Fowler MD Social History Tobacco Use [...] on filedocumented in this encounter Care Teams Vacuum Technician Relationship Specialty Start Date End Date Adelfo Fletcher MD [address] [place] [address] PCP - General Internal Medicine 06/24/15 Susan Bartlett MD [address] [place] [address] Fitting Supervisor Cardiology 02/23/17 Kae Luu PA-C [address] [place] [address] Specialist Cardiology 01/06/19 06/13/24 Natalie Del Cid MD [address] [address] Surgeon Neurosurgery 07/21/23 Eboni Burroughs PA-C [address] [address] Specialist Neurosurgery 07/21/23 Sergio Dallas PA-C [address] [address] Specialist Neurosurgery 07/21/23 Oliva Day DNP [address] [address] Specialist Nurse Practitioner Family 06/14/24 documented as of this encounter
--- OUTSIDE RECORDS SUMMARY | 2025-05-24 13:45 | XMS_ITS | Encounter Summary ---
Author Organization [facility] Address [address] [place] [address] Care Team Providers Care Technical Planner Name Role Phone Adelfo Fletcher MD Primary Care Provider [phone] Susan Bartlett MD Unavailable [phone] Kae Luu PA-C Unavailable Natalie Del Cid MD Unavailable [phone] Eboni Burroughs PA-C Unavailable Sergio Dallas PA-C Unavailable Oliva Day DNP Unavailable [phone] Encounter Details Date Type Department Care Team Description 09/08/2019 Orders Only Medical Records [address] [place] [address] Abstract, Provider Social History Tobacco Use Types [...] Name Priority Date/Time Associated Diagnosis Comments OUTSIDE IMAGING Routine 09/07/2019 documented in this encounter Results * OUTSIDE IMAGING (09/07/2019) González Chauhan MD RADIOLOGY documented in this encounter Visit Diagnoses Not on filedocumented in this encounter Care Teams Technical Planner Relationship Specialty Start Date End Date Adelfo Fletcher MD [address] [place] [address] [phone] PCP - General Internal Medicine 06/24/15 Susan Bartlett MD [address] [place] [address] [phone] Inclusion Special Educator Cardiology 02/23/17 Kae Luu PA-C [address] [place] [address] [phone] Specialist Cardiology 01/06/19 06/13/24 Natalie Del Cid MD [address] [address] Surgeon Neurosurgery 07/21/23 Eboni Burroughs PA-C [address] [address] Specialist Neurosurgery 07/21/23 Sergio Dallas PA-C [address] [address] Specialist Neurosurgery 07/21/23 Oliva Day DNP [address] [address] Specialist Nurse Practitioner Family 06/14/24 documented as of this encounter
--- OUTSIDE RECORDS SUMMARY | 2025-05-24 13:45 | XMS_ITS | Encounter Summary ---
Author Organization [facility] Address [address] [place] [address] Care Team Providers Care Die Engraver Name Role Phone Adelfo Fletcher MD Primary Care Provider Susan Bartlett MD Unavailable [phone] Kae Luu PA-C Unavailable Natalie Del Cid MD Unavailable [phone] Eboni Burroughs PA-C Unavailable [phone] Sergio Dallas PA-C Unavailable Oliva Day DNP Unavailable [phone] Reason for Visit * Reason Comments E-prescribe Rx Request Encounter Details Date Type Department Care Team Description 01/21/2022 Refill Adult Medicine [address] [phone] Arminda Madrigal PA E-prescribe Rx Request Social History Tobacco Use [...] encounter Miscellaneous Notes * Telephone Encounter - Jaki Alvarez M.A. - 01/21/2022 8:41 AM EDT Lab Results Component Value Date HGBA1C 6.5 09/23/2021 MALBUR 9.8 08/03/2020 MALBCR < 5.7 08/03/2020 CHOL 116 04/21/2021 LDL 47 04/21/2021 HDL 50 04/21/2021 TRIG 97 04/21/2021 GLU 135 04/21/2021 CREAT 1.02 04/21/2021 JORGE w/PCP 09/23/2021 Next OV 02/13/2022 w/PCP * Telephone Encounter - Gladys Rogers - 01/21/2022 8:24 AM EDT Patient would like script to be: E-PRESCRIBED/FAXED TO PHARMACY WHEN WAS THE PATIENT'S LAST APPOINTMENT IN ADULT MEDICINE? 09/23/2021 WHEN WAS THE LAST TIME THE PATIENT SAW THEIR PCP? Same as above Does patient have an upcoming appointment? Yes 02/13/2022 (THE MEDICATION REQUESTED IS ON THE MED LIST ABOVE) All of the medications requested were on the CURRENT MEDS list Did you check the Pharmacy information above?: YES Patient wants: 30 -day supply Is this a mail order prescription request ? NO If the refill is from a FAXED refill request what is the RX # listed on the fax? N/A Patients current insurance carrier is: Payor: [place] [employer] / Plan: [employer] $0 [facility] [id number] / Product Type: HMO [id number] documented in this encounter Plan of Treatment Not on file documented as of this encounter Visit Diagnoses Not on filedocumented in this encounter Care Teams Die Engraver Relationship Specialty Start Date End Date Adelfo Fletcher MD [address] [place], [place] [phone] PCP - General Internal Medicine 06/24/15 Susan Bartlett MD [address] [place] [address] [phone] Tire Fixer Cardiology 02/23/17 Kae Luu PA-C [address] [place], [place] [phone] Specialist Cardiology 01/06/19 06/13/24 Natalie Del Cid MD [address] [address] Surgeon Neurosurgery 07/21/23 Eboni Burroughs PA-C [address] [address] Specialist Neurosurgery 07/21/23 Sergio Dallas PA-C [address] [address] Specialist Neurosurgery 07/21/23 Oliva Day DNP [address] [address] Specialist Nurse Practitioner Family 06/14/24 documented as of this encounter
--- OUTSIDE RECORDS SUMMARY | 2025-05-24 13:45 | XMS_ITS | Encounter Summary ---
Author Organization [facility] Address [address] [place] [address] Care Team Providers Care Financial Reserve Clerk Name Role Phone Adelfo Fletcher MD Primary Care Provider [phone] Susan Bartlett MD Unavailable [phone] Kae Luu PA-C Unavailable Natalie Del Cid MD Unavailable [phone] Eboni Burroughs PA-C Unavailable [phone] Sergio Dallas PA-C Unavailable [phone] Oliva Day DNP Unavailable [phone] Reason for Visit * Reason Onset Date Comments Supply Chain Engineer Feedback 02/19/2023 Encounter Details Date Type Department Care Team Description 02/19/2023 Telephone Internal Medicine - [address], [address] [place], [place] [phone] Adelfo Fletcher MD [address] [place] [phone] Supply Chain Engineer Feedback Social History Tobacco Use Types Packs/Day Years [...] suspected to have Coronavirus/COVID-19? No / Unsure 02/16/2023 10:00 AM EDT documented as of this encounter Miscellaneous Notes * Telephone Encounter - Vidya Woodard M.A. - 02/23/2023 1:22 PM EDT Notes faxed and confirmed per [facility]. Msg left for Maria R at [facility] [phone], please confirm if they have received the notes. * Telephone Encounter - Chung Saucedo - 02/22/2023 9:18 AM EDT Patient looking to speak to dean about medical records * Telephone Encounter - Dean Hanson - 02/19/2023 12:08 PM EDT Number to call for Medical Records is [phone] * Telephone Encounter - Dean Hanson - 02/19/2023 11:57 AM EDT Asmita schaffer Queen called looking to get medical records faxed over to [facility]. Call dropped while we were discussing this. Will get information and update thisTE documented in this encounter Plan of Treatment Not on file documented as of this encounter Visit Diagnoses Not on filedocumented in this encounter Care Teams Financial Reserve Clerk Relationship Specialty Start Date End Date Adelfo Fletcher MD [address] [place] [address] PCP - General Internal Medicine 06/24/15 Susan Bartlett MD [address] [place] [address] Support Group Manager Cardiology 02/23/17 Kae Luu PA-C [address] [place] [address] Specialist Cardiology 01/06/19 06/13/24 Natalie Del Cid MD [address] [address] Surgeon Neurosurgery 07/21/23 Eboni Burroughs PA-C [address] [address] Specialist Neurosurgery 07/21/23 Sergio Dallas PA-C [address] [address] Specialist Neurosurgery 07/21/23 Oliva Day DNP [address] [address] Specialist Nurse Practitioner Family 06/14/24 documented as of this encounter
--- OUTSIDE RECORDS SUMMARY | 2025-05-24 13:45 | XMS_ITS | Encounter Summary ---
Author Organization [facility] Address [address] [facility] [place] [address] Care Team Providers Care Industrial Management Teacher Name Role Phone Adelfo Fletcher MD Primary Care Provider [phone] Susan Bartlett MD Unavailable [phone] Kae Luu PA-C Unavailable Natalie Del Cid MD Unavailable [phone] Eboni Burroughs PA-C Unavailable Sergio Dallas PA-C Unavailable Oliva Day DNP Unavailable [phone] Encounter Details Date Type Department Care Team Description 06/14/2019 Hospital Medical Records [address] [place] [id number] Maria Guadalupe Swift MD Social History Tobacco [...] on filedocumented in this encounter Care Teams Industrial Management Teacher Relationship Specialty Start Date End Date Adelfo Fletcher MD [address] [place] [address] [phone] PCP - General Internal Medicine 06/24/15 Susan Bartlett MD [address] [place] [address] Radio Director Cardiology 02/23/17 Kae Luu PA-C [address] [place] [address] Specialist Cardiology 01/06/19 06/13/24 Natalie Del Cid MD [address] [address] Surgeon Neurosurgery 07/21/23 Eboni Burroughs PA-C [address] [address] Specialist Neurosurgery 07/21/23 Sergio Dallas PA-C [address] [address] Specialist Neurosurgery 07/21/23 Oliva Day DNP [address] [address] Specialist Nurse Practitioner Family 06/14/24 documented as of this encounter
--- OUTSIDE RECORDS SUMMARY | 2025-05-24 13:45 | XMS_ITS | Encounter Summary ---
Author Organization [employer] [facility] Address [address] [facility] [place] [address] Care Team Providers Care Poker In Name Role Phone Adelfo Fletcher MD Primary Care Provider [phone] Susan Bartlett MD Unavailable [phone] Kae Luu PA-C Unavailable Natalie Del Cid MD Unavailable [phone] Eboni Burroughs PA-C Unavailable Sergio Dallas PA-C Unavailable Oliva Day DNP Unavailable [phone] Encounter Details Date Type Department Care Team Description 06/21/2019 Hospital Medical Records 4 [place] [address] Stefano Fowler MD Social History Tobacco Use [...] on filedocumented in this encounter Care Teams Poker In Relationship Specialty Start Date End Date Adelfo Fletcher MD [address] [place] [address] PCP - General Internal Medicine 06/24/15 Susan Bartlett MD [address] [place] [address] Professor Of Languages Cardiology 02/23/17 Kae Luu PA-C 444 [place] [address] Specialist Cardiology 01/06/19 06/13/24 Natalie Del Cid MD [address] [address] Surgeon Neurosurgery 07/21/23 Eboni Burroughs PA-C [address] [address] Specialist Neurosurgery 07/21/23 Sergio Dallas PA-C [address] [address] Specialist Neurosurgery 07/21/23 Olvia Day DNP [address] [address] Specialist Nurse Practitioner Family 06/14/24 documented as of this encounter
--- OUTSIDE RECORDS SUMMARY | 2025-05-24 13:45 | XMS_ITS | Encounter Summary ---
Author Organization [employer] [facility] Address [address] [place] [address] Care Team Providers Care Oil Field Pumper Name Role Phone Adelfo Fletcher MD Primary Care Provider [phone] Susan Bartlett MD Unavailable [phone] Kae Luu PA-C Unavailable Natalie Del Cid MD Unavailable [phone] Eboni Burroughs PA-C Unavailable Sergio Dallas PA-C Unavailable [phone] Oliva Day DNP Unavailable [phone] Encounter Details Date Type Department Care Team Description 05/11/2023 Orders Only Medical Records 4 [place] [address] Abstract, Provider Social History Tobacco Use Types [...] Name Priority Date/Time Associated Diagnosis Comments OUTSIDE EYE EXAM Routine 03/05/2023 OUTSIDE EYE EXAM Routine 11/26/2022 documented in this encounter Results * OUTSIDE EYE EXAM (03/05/2023) Provider Abstract PROCEDURES * OUTSIDE EYE EXAM (11/26/2022) Provider Abstract PROCEDURES documented in this encounter Visit Diagnoses Not on filedocumented in this encounter Care Teams Oil Field Pumper Relationship Specialty Start Date End Date Adelfo Fletcher MD [address] [place] [address] PCP - General Internal Medicine 06/24/15 Susan Bartlett MD [address] [place], [place] [phone] Storeroom Keeper Cardiology 02/23/17 Kae Luu PA-C [address] [place], [place] [phone] Specialist Cardiology 01/06/19 06/13/24 Natalie Del Cid MD [address] [address] Surgeon Neurosurgery 07/21/23 Eboni Burroughs PA-C [address] [address] Specialist Neurosurgery 07/21/23 Sergio Dallas PA-C [address] [address] Specialist Neurosurgery 07/21/23 Oliva Day DNP [address] [address] Specialist Nurse Practitioner Family 06/14/24 documented as of this encounter
--- OUTSIDE RECORDS SUMMARY | 2025-05-24 13:45 | XMS_ITS | Encounter Summary ---
Author Organization [facility] [facility] Address [address] [facility] [place] [address] Care Team Providers Care Shear Operator Helper Name Role Phone Adelfo Fletcher MD Primary Care Provider [phone] Susan Bartlett MD Unavailable [phone] Kae Luu PA-C Unavailable Natalie Del Cid MD Unavailable [phone] Eboni Burroughs PA-C Unavailable Sergio Dallas PA-C Unavailable Oliva Day DNP Unavailable [phone] Encounter Details Date Type Department Care Team Description 09/07/2019 Orders Only Medical Records 4 [place] [address] González Chauhan MD Social History Tobacco Use [...] Name Priority Date/Time Associated Diagnosis Comments OUTSIDE CT Routine 09/07/2019 documented in this encounter Results * OUTSIDE CT (09/07/2019) González Chauhan MD RADIOLOGY documented in this encounter Visit Diagnoses Not on filedocumented in this encounter Care Teams Shear Operator Helper Relationship Specialty Start Date End Date Adelfo Fletcher MD [address] [place] [address] [phone] PCP - General Internal Medicine 06/24/15 Susan Bartlett MD [address] [place] [address] [phone] Radiological Equipment Specialist Cardiology 02/23/17 Kae Luu PA-C [address] [place], [place] [phone] Specialist Cardiology 01/06/19 06/13/24 Natalie Del Cid MD [address] [address] Surgeon Neurosurgery 07/21/23 Eboni Burroughs PA-C [address] [address] Specialist Neurosurgery 07/21/23 Sergio Dallas PA-C 175 [facility] [address] [place] [address] Specialist Neurosurgery 07/21/23 Oliva Day DNP [address] [address] Specialist Nurse Practitioner Family 06/14/24 documented as of this encounter
--- OUTSIDE RECORDS SUMMARY | 2025-05-24 13:45 | XMS_ITS | Encounter Summary ---
Author Organization [facility] Address [address] [place] [address] Care Team Providers Care Package Line Relief Operator Name Role Phone Adelfo Fletcher MD Primary Care Provider Susan Bartlett MD Unavailable [phone] Kae Luu PA-C Unavailable Natalie Del Cid MD Unavailable [phone] Eboni Burroughs PA-C Unavailable Sergio Dallas PA-C Unavailable Oliva Day DNP Unavailable [phone] Reason for Referral * EXTERNAL (Routine) - Authorized/Booked Specialty Diagnoses / Procedures Referred By Contfrancisco t Referred To Contact Neurology Procedures REFERRAL TO NEUROLOGY Adelfo Fletcher MD [address] [place] [address] Antonio Valerio Referral ID Status Reason Start Date Expiration Date V isits Requested Visits Authorized [id number] Authorized/B ooked 10/14/2021 05/20/2022 1 1 Reason for Visit * Reason Onset Date Comments Ms Access Database Developer Feedback 10/13/2021 Antonio Rene Encounter Details Date Type Department Care Team Description 10/13/2021 Telephone Adult Medicine [address] [phone] Adelfo Fletcher MD 444 [place] [address] Ms Access Database Developer Feedback (Antonio Rene) Social History Tobacco Use Types Packs/Day Years [...] Exposure Response Date Recorded In the last month, have you been in contact with someone who was confirmed or suspected to have Coronavirus / COVID-19? No / Unsure 10/08/2021 11:24 AM EST documented as of this encounter Miscellaneous Notes * Telephone Encounter - Matilda Watson - 10/14/2021 10:56 AM EST Please review this patients new referral request. The referral has been pended. Please complete thefollowing: If approved> sign order If denied>please give instructions and route to your practice nursing pool. Practice nurse should inform referrals and the patient if denied. * Telephone Encounter - Rosio Rucker - 10/13/2021 12:08 PM EST What insurance does the patient have today? Medicare carson Effective 06/06/09: BCBS will not retro referral requests over 90 days. If request is for this please instruct patient to call the 800# on their insurance card to appeal. Do not submit a request. Referrals cannot be processed if the insurance is not accurate. If the insurance listed above in red is NO BILLING INFORMATION FOUND FOR THIS ENCOUTNER The patients correct insurance must be obtained and registered in [facility] or their referral can not be processed. Is this a retro request? NO. If yes for what date of service do you need the retro referral? N/A Who is calling to request this referral? Pt If the caller is not the patient, what is their name? N/A Ask the patient WHO referred them to this specialty: Not an initial visit; it is for follow up/continuation of care. Patients PCP is Adelfo Fletcher FIRST and LAST NAME of SPECIALIST PATIENT is seeing: Antonio Valerio What specialty is this? Neurology DIAGNOSIS Patient is being seen for (Not a body part or a procedure): stroke Have you seen this SPECIALIST for this PROBLEM/DX before?Yes If YES, when: 2019 Have you checked REVIEW or the APPT DESK to see if this referral has already been done or has visits left? YES Is this visit:Follow Up Address of Specialist: [address] [place] [address] Phone # of Specialist:[phone] Fax #: (if applicable):[phone] Does patient have an appointment scheduled?: NO Date of appointment- (including a retro-request): Is this appointment related to: Not MVA, WC or Surgery related documented in this encounter Plan of Treatment Not on file documented as of this encounter Visit Diagnoses Not on filedocumented in this encounter Care Teams Package Line Relief Operator Relationship Specialty Start Date End Date Adelfo Fletcher MD [address] [place] [address] PCP - General Internal Medicine 06/24/15 Susan Bartlett MD [address] [place] [address] Net Sql Developer Cardiology 02/23/17 Kae Luu PA-C [address] [place] [address] Specialist Cardiology 01/06/19 06/13/24 Natalie Del Cid MD [address] [address] Surgeon Neurosurgery 07/21/23 Eboni Burroughs PA-C [address] [address] Specialist Neurosurgery 07/21/23 Sergio Dallas PA-C [address] [address] Specialist Neurosurgery 07/21/23 Oliva Day, DNP 175 [facility] [address] [place] [address] Specialist Nurse Practitioner Family 06/14/24 documented as of this encounter
--- OUTSIDE RECORDS SUMMARY | 2025-05-24 13:45 | XMS_ITS | Encounter Summary ---
Author Organization [facility] Address [address] [place] [address] Care Team Providers Care Director Mobile Name Role Phone Adelfo Fletcher MD Primary Care Provider [phone] Susan Bartlett MD Unavailable [phone] Kae Luu PA-C Unavailable Natalie Del Cid MD Unavailable [phone] Eboni Burroughs PA-C Unavailable [phone] Sergio Dallas PA-C Unavailable Oliva Day DNP Unavailable [phone] Encounter Details Date Type Department Care Team Description 04/22/2020 Hospital Medical Records [address] [place] [address] [facility] Social History Tobacco Use Types Packs/Day [...] on filedocumented in this encounter Care Teams Director Mobile Relationship Specialty Start Date End Date Adelfo Fletcher MD 444 [place] [address] PCP - General Internal Medicine 06/24/15 Susan Bartlett MD 444 [place] [address] Correctional Therapy Director Cardiology 02/23/17 Kae Luu PA-C 444 [place] [address] Specialist Cardiology 01/06/19 06/13/24 Natalie Del Cid MD [address] [address] Surgeon Neurosurgery 07/21/23 Eboni Burroughs PA-C [address] [address] Specialist Neurosurgery 07/21/23 Sergio Dallas PA-C [address] [address] Specialist Neurosurgery 07/21/23 Oliva Day DNP [address] [address] Specialist Nurse Practitioner Family 06/14/24 documented as of this encounter
--- OUTSIDE RECORDS SUMMARY | 2025-05-24 13:45 | XMS_ITS | Encounter Summary ---
Author Organization [facility] Address [address] [facility] [place] [address] Care Team Providers Care Trim Line Worker Name Role Phone Adelfo Fletcher MD Primary Care Provider [phone] Susan Bartlett MD Unavailable [phone] Kae Luu PA-C Unavailable Natalie Del Cid MD Unavailable [phone] Eboni Burroughs PA-C Unavailable Sergio DallasC Unavailable [phone] Oliva Day DNP Unavailable [phone] Reason for Visit * Reason Comments E-prescribe Rx Request Encounter Details Date Type Department Care Team Description 07/26/2022 Refill Pulmonology - [place] 175 [facility] [address] [place] [address] Dangelo Malin MD 175 [place] [address] E-prescribe Rx Request Social History [...] suspected to have Coronavirus/COVID-19? No / Unsure 07/15/2022 9:00 AM EST documented as of this encounter Miscellaneous Notes * Telephone Encounter - Osmani Mitchell CMA - 07/28/2022 10:53 AM EST JORGE 10/08/21 future appt 10/15/22 * Telephone Encounter - Cassy Chan - 07/27/2022 4:35 PM EST Patient would like script to be: E-PRESCRIBED/FAXED TO PHARMACY WHEN WAS THE PATIENT'S LAST APPOINTMENT IN ADULT MEDICINE? 10/08/21 WHEN WAS THE LAST TIME THE PATIENT SAW THEIR PCP? Same as above Does patient have an upcoming appointment? Yes 10/15/22 (THE MEDICATION REQUESTED IS ON THE MED [...] N/A Patients current insurance carrier is: Payor: [facility] / Plan: Nominum $0 [facility] [id number] / Product Type: HMO [id number] documented in this encounter Plan of Treatment [...] abnormality documented in this encounter Care Teams Trim Line Worker Relationship Specialty Start Date End Date Adelfo Fletcher MD [address] [place] [address] PCP - General Internal Medicine 06/24/15 Susan Bartlett MD [address] [place], [place] [phone] Shuttle Bus Driver Cardiology 02/23/17 Kae Luu PA-C [address] [place], [place] [phone] Specialist Cardiology 01/06/19 06/13/24 Natalie Del Cid MD [address] [address] Surgeon Neurosurgery 07/21/23 Eboni Burroughs PA-C [address] [address] Specialist Neurosurgery 07/21/23 Sergio Dallas PA-C [address] [address] Specialist Neurosurgery 07/21/23 Oliva Day DNP [address] [address] Specialist Nurse Practitioner Family 06/14/24 documented as of this encounter
--- OUTSIDE RECORDS SUMMARY | 2025-05-24 13:45 | XMS_ITS | Encounter Summary ---
Author Organization [employer] [facility] Address [address] [facility] [place] [address] Care Team Providers Care Cyber Security Administrator Name Role Phone Adelfo Fletcher MD Primary Care Provider [phone] Susan Bartlett MD Unavailable [phone] Kae Luu PA-C Unavailable Natalie Del Cid MD Unavailable [phone] Eboni Burroughs PA-C Unavailable Sergio Dallas PA-C Unavailable Oliva Day DNP Unavailable [phone] Encounter Details Date Type Department Care Team Description 05/19/2023 Paramedic Supervisor Report Medical Records [address] [place] [address] Stefano Fowler MD Social History Tobacco Use [...] on filedocumented in this encounter Care Teams Cyber Security Administrator Relationship Specialty Start Date End Date Adelfo Fletcher MD [address] [place] [address] [phone] PCP - General Internal Medicine 06/24/15 Susan Bartlett MD 444 [place] [address] Cone Worker Cardiology 02/23/17 Kae Luu PA-C 444 [place] [address] Specialist Cardiology 01/06/19 06/13/24 Natalie Del Cid MD [address] [address] Surgeon Neurosurgery 07/21/23 Eboni Burroughs PA-C [address] [address] Specialist Neurosurgery 07/21/23 Sergio Dallas PA-C [address] [address] Specialist Neurosurgery 07/21/23 Oliva Day DNP [address] [address] Specialist Nurse Practitioner Family 06/14/24 documented as of this encounter
--- OUTSIDE RECORDS SUMMARY | 2025-05-24 13:45 | XMS_ITS | Encounter Summary ---
Author Organization [employer] [facility] Address [address] [place] [address] Care Team Providers Care Water Jet Loom Fixer Name Role Phone Adelfo Fletcher MD Primary Care Provider [phone] Susan Bartlett MD Unavailable [phone] Kae Luu PA-C Unavailable Natalie Del Cid MD Unavailable [phone] Eboni Burroughs PA-C Unavailable Sergio Dallas PA-C Unavailable [phone] Oliva Day DNP Unavailable [phone] Encounter Details Date Type Department Care Team Description 12/30/2021 Campaign Management Specialist Report Medical Records [address] [place] [address] Stefano Fowler MD Social History Tobacco Use [...] on filedocumented in this encounter Care Teams Water Jet Loom Fixer Relationship Specialty Start Date End Date Adelfo Fletcher MD [address] [place] [phone] PCP - General Internal Medicine 06/24/15 Susan Bartlett MD 444 [place] [address] Medical Assembler Cardiology 02/23/17 Kae Luu PA-C 444 [place] [address] Specialist Cardiology 01/06/19 06/13/24 Natalie Del Cid MD [address] [address] Surgeon Neurosurgery 07/21/23 Eboni Burroughs PA-C [address] [address] Specialist Neurosurgery 07/21/23 Sergio Dallas PA-C [address] [address] Specialist Neurosurgery 07/21/23 Oliva Day DNP [address] [address] Specialist Nurse Practitioner Family 06/14/24 documented as of this encounter
--- OUTSIDE RECORDS SUMMARY | 2025-05-24 13:45 | XMS_ITS | Encounter Summary ---
Author Organization [facility] Address [address] [place] [address] Care Team Providers Care Medical Supervisor Name Role Phone Adelfo Fletcher MD Primary Care Provider [phone] Susan Barltett MD Unavailable [phone] Kae Luu PA-C Unavailable Natalie Del Cid MD Unavailable [phone] Eboni Burroughs PA-C Unavailable Sergio Dallas PA-C Unavailable Oliva Day DNP Unavailable [phone] Encounter Details Date Type Department Care Team Description 04/02/2022 Home Health Certification Medical Records [address] [place] [address] Abstract, Provider Social History Tobacco Use Types [...] suspected to have Coronavirus/COVID-19? No / Unsure 03/24/2022 9:01 AM EDT documented as of this encounter Plan of Treatment Not on file documented as of this encounter Visit Diagnoses Not on filedocumented in this encounter Care Teams Medical Supervisor Relationship Specialty Start Date End Date Adelfo Fletcher MD [address] [place], [place] [phone] PCP - General Internal Medicine 06/24/15 Susan Bartlett MD [address] [place] [address] Supervisor Throwing Department Cardiology 02/23/17 Kae Luu PA-C 444 [place], [place] [phone] Specialist Cardiology 01/06/19 06/13/24 Natalie Del Cid MD [address] [address] Surgeon Neurosurgery 07/21/23 Eboni Burroughs PA-C [address] [address] Specialist Neurosurgery 07/21/23 Sergio Dallas PA-C [address] [address] Specialist Neurosurgery 07/21/23 Oliva Day DNP [address] [address] Specialist Nurse Practitioner Family 06/14/24 documented as of this encounter
--- OUTSIDE RECORDS SUMMARY | 2025-05-24 13:45 | XMS_ITS | Encounter Summary ---
Author Organization [facility] [facility] Address [address] [place] [address] Care Team Providers Care Postal Sorting Officer Name Role Phone Adelfo Fletcher MD Primary Care Provider [phone] Susan Bartlett MD Unavailable [phone] Kae Luu PA-C Unavailable Natalie Del Cid MD Unavailable [phone] Eboni Burroughs PA-C Unavailable Sergio Dallas PA-C Unavailable Oliva Day DNP Unavailable [phone] Encounter Details Date Type Department Care Team Description 06/29/2017 Technical Service Representative Report Medical Records [address] [place] [address] Abstract, Provider Social History Tobacco Use Types [...] on filedocumented in this encounter Care Teams Postal Sorting Officer Relationship Specialty Start Date End Date Adelfo Fletcher MD [address] [place] [address] PCP - General Internal Medicine 06/24/15 Susan Bartlett MD [address] [place] [address] Coating Engineer Cardiology 02/23/17 Kae Luu PA-C [address] [place] [address] Specialist Cardiology 01/06/19 06/13/24 Natalie Del Cid MD [address] [address] Surgeon Neurosurgery 07/21/23 Eboni Burroughs PA-C [address] [address] Specialist Neurosurgery 07/21/23 Sergio Dallas PA-C [address] [address] Specialist Neurosurgery 07/21/23 Oliva Day DNP [address] [address] Specialist Nurse Practitioner Family 06/14/24 documented as of this encounter
--- OUTSIDE RECORDS SUMMARY | 2025-05-24 13:45 | XMS_ITS | Encounter Summary ---
Author Organization [facility] Address [address] [place] [address] Care Team Providers Care Vamp Liner Name Role Phone Adelfo lFetcher MD Primary Care Provider Susan Bartlett MD Unavailable [phone] Kae Luu PA-C Unavailable Natalie Del Cid MD Unavailable [phone] Eboni Burroughs PA-C Unavailable Sergio Dallas PA-C Unavailable Oliva Day DNP Unavailable [phone] Reason for Visit * Reason Comments E-prescribe Rx Request Encounter Details Date Type Department Care Team Description 05/19/2023 Refill Adult Medicine [address] [phone] Adelfo Fletcher MD [address] [place] [address] [phone] E-prescribe Rx Request Social History Tobacco Use [...] encounter Miscellaneous Notes * Telephone Encounter - Agustina Knight - 05/19/2023 4:59 PM EDT Patient would like script to be: E-PRESCRIBED/FAXED TO PHARMACY WHEN WAS THE PATIENT'S LAST APPOINTMENT IN ADULT MEDICINE? 02/16/23 WHEN WAS THE LAST TIME THE PATIENT SAW THEIR PCP? 10/29/22 Does patient have an upcoming appointment? Yes 05/24/23 (THE MEDICATION REQUESTED IS ON THE MED LIST ABOVE) All of the medications requested were on the CURRENT MEDS list Did you check the Pharmacy information above?: YES Patient wants: 90 -day supply Is this a mail order prescription request ? NO If the refill is from a FAXED refill request what is the RX # listed on the fax? N/A Patients current insurance carrier is: Payor: [employer] / Plan: Dydra $0 [place] [id number] / Product Type: [employer] [id number] documented in this encounter Plan of Treatment Not on file documented as of this encounter Visit Diagnoses Not on filedocumented in this encounter Care Teams Vamp Liner Relationship Specialty Start Date End Date Adelfo Fletcher MD [address] [place] [address] PCP - General Internal Medicine 06/24/15 Susan Bartlett MD [address] [place] [address] [phone] Central Office Inspector Cardiology 02/23/17 Kae Luu PA-C [address] [place] [address] [phone] Specialist Cardiology 01/06/19 06/13/24 Natalie Del Cid MD [address] [address] Surgeon Neurosurgery 07/21/23 Eboni Burroughs PA-C [address] [address] Specialist Neurosurgery 07/21/23 Sergio Dallas PA-C [address] [address] Specialist Neurosurgery 07/21/23 Oliva Day DNP [address] [address] Specialist Nurse Practitioner Family 06/14/24 documented as of this encounter
--- OUTSIDE RECORDS SUMMARY | 2025-05-24 13:45 | XMS_ITS | Encounter Summary ---
Author Organization [facility] [facility] Address [address] [facility] [place] [address] Care Team Providers Care Membership Coordinator Name Role Phone Adelfo Fletcher MD Primary Care Provider [phone] Susan Bartlett MD Unavailable [phone] Kae Luu PA-C Unavailable Natalie Del Cid MD Unavailable [phone] Eboni Bruroughs PA-C Unavailable Sergio Dallas PA-C Unavailable Oliva Day DNP Unavailable [phone] Encounter Details Date Type Department Care Team Description 08/08/2019 Nnp Report Medical Records [address] [place] [address] Stefano Fowler MD Social History Tobacco Use [...] on filedocumented in this encounter Care Teams Membership Coordinator Relationship Specialty Start Date End Date Adelfo Fletcher MD 444 [place] [address] PCP - General Internal Medicine 06/24/15 Susan Bartlett MD [address] [place] [address] Public Speaking Teacher Cardiology 02/23/17 Kae Luu PA-C [address] [place] [address] Specialist Cardiology 01/06/19 06/13/24 Natalie Del Cid MD [address] [address] Surgeon Neurosurgery 07/21/23 Eboni Burroughs PA-C [address] [address] Specialist Neurosurgery 07/21/23 Sergio Dallas PA-C [address] [address] Specialist Neurosurgery 07/21/23 Oliva Day DNP [address] [address] Specialist Nurse Practitioner Family 06/14/24 documented as of this encounter
--- OUTSIDE RECORDS SUMMARY | 2025-05-24 13:45 | XMS_ITS | Encounter Summary ---
Author Organization [employer] [facility] Address [address] [place] [address] Care Team Providers Care Data Warehouse Manager Name Role Phone Adelfo Fletcher MD Primary Care Provider [phone] Susan Bartlett MD Unavailable [phone] Kae Luu PA-C Unavailable Natalie Del Cid MD Unavailable [phone] Eboni Burroughs PA-C Unavailable Sergio Dallas PA-C Unavailable Oliva Day DNP Unavailable [phone] Encounter Details Date Type Department Care Team Description 04/11/2020 Telephone Adult Medicine [address] [phone] Arminda Nevarez PA-C Social History Tobacco Use Types Packs/Day Years [...] encounter Miscellaneous Notes * Telephone Encounter - Arminda Nevarez PA-C - 04/12/2020 3:29 PM EDT Thank you. I'd like to speak with her a little more-I left her a voicemail to call back next week on Wednesday when I am in the office * Telephone Encounter - Arminda Sy PA-C - 04/12/2020 1:57 PM EDT Can wait for Arminda Nevarez PA-C return. * Telephone Encounter - Dary Schafer - 04/12/2020 1:41 PM EDT SPOKE WITH mi and she stated its his left leg his dorsiflexors on the left foot and he Only has poor muscle strength , has to lift his hip high when he is ambulating since he was discharged from hospital 01/23/20.because other ward his foot drags on the ground * Telephone Encounter - Arminda Nevarez PA-C - 04/11/2020 7:48 PM EDT I saw the patient today for an office visit to assess for an ABO (ankle/foot/orthotic) for his leftlower leg (see office note 04/11/2020). This was suggested by his PT, Mi, from [facility] services. Her phone number is [phone]. I would like to speak with her to get more details about her rec ommendation as he needs to have physical evidence of a foot drop or twisting deformity for insurance to cover the ABO. I did not see this on exam today. I am not in the office tomorrow but will try to call her again next week. If someone could try and get a hold of her to get a more specific reasonfor her ABO recommendation then that would be much appreciated. Thank you documented in this encounter Plan of Treatment Not on file documented as of this encounter Visit Diagnoses Not on filedocumented in this encounter Care Teams Data Warehouse Manager Relationship Specialty Start Date End Date Adelfo Fletcher MD [address] [place] [address] PCP - General Internal Medicine 06/24/15 Susan Bartlett MD [address] [place], [place] [phone] Doctor Of Audiology Cardiology 02/23/17 Kae Luu PA-C [address] [place], [place] [phone] Specialist Cardiology 01/06/19 06/13/24 Natalie Del Cid MD [address] [address] Surgeon Neurosurgery 07/21/23 Eboni Burroughs PA-C [address] [address] Specialist Neurosurgery 07/21/23 Sergio Dallas PA-C [address] [address] Specialist Neurosurgery 07/21/23 Oliva Day DNP [address] [address] Specialist Nurse Practitioner Family 06/14/24 documented as of this encounter
--- OUTSIDE RECORDS SUMMARY | 2025-05-24 13:45 | XMS_ITS | Encounter Summary ---
Author Organization [employer] [facility] Address [address] [facility] [place] [address] Care Team Providers Care Merchandise Displayer Name Role Phone Adelfo Fletcher MD Primary Care Provider Susan Bartlett MD Unavailable [phone] Kae Luu PA-C Unavailable Natalie Del Cid MD Unavailable [phone] Eboni Burroughs PA-C Unavailable Sergio Dallas PA-C Unavailable Oliva Day DNP Unavailable [phone] Reason for Visit * Reason Onset Date Comments Faxed Order 02/20/2022 overlook [id number] Encounter Details Date Type Department Care Team Description 02/20/2022 Telephone Adult Medicine [address] [phone] Adelfo Fletcher MD [address] [place] [address] [phone] Faxed Order (overlook [id number]) Social History Tobacco Use Types Packs/Day Years [...] on filedocumented in this encounter Care Teams Merchandise Displayer Relationship Specialty Start Date End Date Adelfo Fletcher MD [address] [place] [address] PCP - General Internal Medicine 06/24/15 Susan Bartlett MD [address] [place] [address] [phone] Healthcare Sales Representative Cardiology 02/23/17 Kae Luu PA-C [address] [place], [place] [phone] Specialist Cardiology 01/06/19 06/13/24 Natalie Del Cid MD [address] [address] Surgeon Neurosurgery 07/21/23 Eboni Burroughs PA-C [address] [address] Specialist Neurosurgery 07/21/23 Sergio Dallas PA-C [address] [address] Specialist Neurosurgery 07/21/23 Oliva Day DNP [address] [address] Specialist Nurse Practitioner Family 06/14/24 documented as of this encounter
--- OUTSIDE RECORDS SUMMARY | 2025-05-24 13:45 | XMS_ITS | Encounter Summary ---
Author Organization [employer] [facility] Address [address] [facility] [place] [address] Care Team Providers Care Electrostatic Powder Coating Technician Name Role Phone Adelfo Fletcher MD Primary Care Provider [phone] Susan Bartlett MD Unavailable [phone] Kae Luu PA-C Unavailable Natalie Del Cid MD Unavailable [phone] Eboni Burroughs PA-C Unavailable Sergio Dallas PA-C Unavailable [phone] Oliva Day DNP Unavailable [phone] Encounter Details Date Type Department Care Team Description 07/22/2017 Senior Pharmacy Technician Report Medical Records [address] [place] [address] Stefano Fowler MD Social History Tobacco Use [...] on filedocumented in this encounter Care Teams Electrostatic Powder Coating Technician Relationship Specialty Start Date End Date Adelfo Fletcher MD [address] [place] [address] [phone] PCP - General Internal Medicine 06/24/15 Susan Bartlett MD [address] [place] [address] Message Broker Developer Cardiology 02/23/17 Kae Luu PA-C [address] [place], [place] [phone] Specialist Cardiology 01/06/19 06/13/24 Natalie Del Cid MD [address] [address] Surgeon Neurosurgery 07/21/23 Eboni Burroughs PA-C [address] [address] Specialist Neurosurgery 07/21/23 Sergio Dallas PA-C [address] [address] Specialist Neurosurgery 07/21/23 Oliva Day DNP [address] [address] Specialist Nurse Practitioner Family 06/14/24 documented as of this encounter
--- OUTSIDE RECORDS SUMMARY | 2025-05-24 13:45 | XMS_ITS | Encounter Summary ---
Author Organization [employer] [facility] Address [address] [facility] [place] [address] Care Team Providers Care Local Flatbed Driver Name Role Phone Adelfo Fletcher MD Primary Care Provider Susan Bartlett MD Unavailable [phone] Kae Luu PA-C Unavailable Natalie Del Cid MD Unavailable [phone] Eboni Burroughs PA-C Unavailable Sergio Dallas PA-C Unavailable Oliva Day DNP Unavailable [phone] Reason for Visit * Reason Onset Date Comments Faxed Order 04/27/2022 ENHABIT [id number] Encounter Details Date Type Department Care Team Description 04/27/2022 Telephone Adult Medicine [facility] [address] [place] [address] [phone] Adelfo Fletcher MD [address] [place], [place] [phone] Faxed Order (ENHABIT [id number]) Social History Tobacco Use Types Packs/Day Years [...] encounter Miscellaneous Notes * Telephone Encounter - Lor Perkins - 04/27/2022 10:12 AM EDT [facility] to be signed and faxed back to [phone] . documented in this encounter Plan of Treatment Not on file documented as of this encounter Visit Diagnoses Not on filedocumented in this encounter Care Teams Local Flatbed Driver Relationship Specialty Start Date End Date Adelfo Fletcher MD [address] [place] [address] PCP - General Internal Medicine 06/24/15 Susan Bartlett MD [address] [place] [address] Health And Safety Director Cardiology 02/23/17 Kae Luu PA-C [address] [place], [place] [phone] Specialist Cardiology 01/06/19 06/13/24 Natalie Del Cid MD [address] [address] Surgeon Neurosurgery 07/21/23 Eboni Burroughs PA-C [address] [address] Specialist Neurosurgery 07/21/23 Sergio Dallas PA-C [address] [address] Specialist Neurosurgery 07/21/23 Oliva Day DNP [address] [address] Specialist Nurse Practitioner Family 06/14/24 documented as of this encounter
--- OUTSIDE RECORDS SUMMARY | 2025-05-24 13:45 | XMS_ITS | Encounter Summary ---
Author Organization [employer] [facility] Address [address] [place] [address] Care Team Providers Care Farm Instructor Name Role Phone Adelfo Fletcher MD Primary Care Provider [phone] Susan Bartlett MD Unavailable [phone] Kae Luu PA-C Unavailable Natalie Del Cid MD Unavailable [phone] Eboni Burroughs PA-C Unavailable [phone] Sergio Dallas PA-C Unavailable Oliva Day DNP Unavailable [phone] Reason for Visit * Reason Onset Date Comments Medication 08/02/2019 colon prep Encounter Details Date Type Department Care Team Description 08/02/2019 Refill Gastroenterology - [address] [place] [address] Marlee Us MD [address] [place] [address] [phone] Medication (colon prep) Social History Tobacco Use Types Packs/Day Years [...] on filedocumented in this encounter Care Teams Farm Instructor Relationship Specialty Start Date End Date Adelfo Fletcher MD [address] [place], [place] [phone] PCP - General Internal Medicine 06/24/15 Susan Bartlett MD [address] [place], [place] [phone] Leather Tooler Cardiology 02/23/17 Kae Luu PA-C [address] [place], [place] [phone] Specialist Cardiology 01/06/19 06/13/24 Natalie Del Cid MD [address] [address] Surgeon Neurosurgery 07/21/23 Eboni Burroughs PA-C [address] [address] Specialist Neurosurgery 07/21/23 Sergio Dallas PA-C [address] [address] Specialist Neurosurgery 07/21/23 Oliva Day DNP [address] [address] Specialist Nurse Practitioner Family 06/14/24 documented as of this encounter
--- OUTSIDE RECORDS SUMMARY | 2025-05-24 13:45 | XMS_ITS | Encounter Summary ---
Author Organization [facility] Address [address] [place] [address] Care Team Providers Care Biofuels Technology Development Manager Name Role Phone Adelfo Fletcher MD Primary Care Provider [phone] Susan Bartlett MD Unavailable [phone] Kae Luu PA-C Unavailable Natalie Del Cid MD Unavailable [phone] Eboni Burroughs PA-C Unavailable [phone] Sergio Dallas PA-C Unavailable [phone] Oliva Day DNP Unavailable [phone] Encounter Details Date Type Department Care Team Description 10/10/2019 Orders Only Medical Records [address] [place] [address] Nirmal Prieto MD [address] [place] [phone] Social History Tobacco Use Types Packs/Day Years [...] Name Priority Date/Time Associated Diagnosis Comments OUTSIDE SLEEP STUDY Routine 10/03/2019 documented in this encounter Results * OUTSIDE SLEEP STUDY (10/03/2019) Nirmal Prieto MD PULMONOLOG Y documented in this encounter Visit Diagnoses Not on filedocumented in this encounter Care Teams Biofuels Technology Development Manager Relationship Specialty Start Date End Date Adelfo Fletcher MD [address] [place] [address] [phone] PCP - General Internal Medicine 06/24/15 Susan Bartlett MD [address] [place] [address] [phone] Hospitality Team Member Cardiology 02/23/17 Kae Luu PA-C [address] [place] [address] [phone] Specialist Cardiology 01/06/19 06/13/24 Natalie Del Cid MD [address] [address] Surgeon Neurosurgery 07/21/23 Eboni Burroughs PA-C [address] [address] Specialist Neurosurgery 07/21/23 Sergio Dallas PA-C [address] [address] Specialist Neurosurgery 07/21/23 Oliva Day DNP [address] [address] Specialist Nurse Practitioner Family 06/14/24 documented as of this encounter
--- OUTSIDE RECORDS SUMMARY | 2025-05-24 13:45 | XMS_ITS | Encounter Summary ---
Author Organization [employer] [facility] Address [address] [facility] [place] [address] Care Team Providers Care Community Case Manager Name Role Phone Adelfo Fletcher MD Primary Care Provider [phone] Susan Bartlett MD Unavailable [phone] Kae Luu PA-C Unavailable Natalie Del Cid MD Unavailable [phone] bEoni Burroughs PA-C Unavailable Sergio Dallas PA-C Unavailable Oliva Day DNP Unavailable [phone] Encounter Details Date Type Department Care Team Description 02/13/2020 SNF discharge summary Medical Records [address] [place] [address] Abstract, Provider Social History Tobacco Use Types [...] on filedocumented in this encounter Care Teams Community Case Manager Relationship Specialty Start Date End Date Adelfo Fletcher MD [address] [place] [address] PCP - General Internal Medicine 06/24/15 Susan Bartlett MD [address] [place] [address] Bridge Game Director Cardiology 02/23/17 Kae Luu PA-C [address] [place] [address] Specialist Cardiology 01/06/19 06/13/24 Natalie Del Cid MD [address] [address] Surgeon Neurosurgery 07/21/23 Eboni Burroughs PA-C [address] [address] Specialist Neurosurgery 07/21/23 Sergio Dallas PA-C [address] [address] Specialist Neurosurgery 07/21/23 Oliva Day DNP [address] [address] Specialist Nurse Practitioner Family 06/14/24 documented as of this encounter
--- OUTSIDE RECORDS SUMMARY | 2025-05-24 13:45 | XMS_ITS | Encounter Summary ---
Author Organization [employer] [facility] Address [address] [facility] [place] [address] Care Team Providers Care Application Lead Name Role Phone Adelfo Fletcher MD Primary Care Provider Susan Bartlett MD Unavailable [phone] Kae Luu PA-C Unavailable Natalie Del Cid MD Unavailable [phone] Eboni Burroughs PA-C Unavailable [phone] Sergio Dallas PA-C Unavailable Oliva Day DNP Unavailable [phone] Reason for Visit * Reason Onset Date Comments Faxed Order 05/18/2022 [facility]abit [id number] Encounter Details Date Type Department Care Team Description 05/18/2022 Telephone Adult Medicine [address] [address] Adelfo Fletcher MD [address] [place] [address] Faxed Order (enhabit [id number]) Social History Tobacco Use Types Packs/Day Years [...] suspected to have Coronavirus/COVID-19? No / Unsure 05/21/2022 10:36 AM EDT documented as of this encounter Plan of Treatment Not on file documented as of this encounter Visit Diagnoses Not on filedocumented in this encounter Care Teams Application Lead Relationship Specialty Start Date End Date Adelfo Fletcher MD [address] [place] [address] PCP - General Internal Medicine 06/24/15 Susan Bartlett MD [address] [place] [address] Retort Kiln Burner Cardiology 02/23/17 Kae Luu PA-C [address] [place] [address] Specialist Cardiology 01/06/19 06/13/24 Natalie Del Cid MD [address] [address] Surgeon Neurosurgery 07/21/23 Eboni Burroughs PA-C [address] [address] Specialist Neurosurgery 07/21/23 Sergio Dallas PA-C [address] [address] Specialist Neurosurgery 07/21/23 Oliva Day DNP [address] [address] Specialist Nurse Practitioner Family 06/14/24 documented as of this encounter
--- OUTSIDE RECORDS SUMMARY | 2025-05-24 13:45 | XMS_ITS | Encounter Summary ---
Author Organization [employer] [facility] Address [address] [place] [address] Care Team Providers Care Job Developer For Deaf Adults Name Role Phone Adelfo Fletcher MD Primary Care Provider [phone] Susan Bartlett MD Unavailable [phone] Kae Luu PA-C Unavailable Natalie Del Cid MD Unavailable [phone] Eboni Burroughs PA-C Unavailable Sergio Dallas PA-C Unavailable Oliva Day DNP Unavailable [phone] Encounter Details Date Type Department Care Team Description 05/25/2023 Telephone Internal Medicine - [address], [address] [place] [address] Adelfo Fletcher MD [address] [place] [address] [phone] Social History Tobacco Use Types Packs/Day Years [...] suspected to have Coronavirus/COVID-19? No / Unsure 05/24/2023 12:45 PM EDT documented as of this encounter Plan of Treatment Not on file documented as of this encounter Visit Diagnoses Not on filedocumented in this encounter Care Teams Job Developer For Deaf Adults Relationship Specialty Start Date End Date Adelfo Fletcher MD [address] [place] [address] PCP - General Internal Medicine 06/24/15 Susan Bartlett MD [address] [place] [address] [phone] Supervisor Assembling Cardiology 02/23/17 Kae Luu PA-C [address] [place] [address] [phone] Specialist Cardiology 01/06/19 06/13/24 Natalie Del Cid MD [address] [address] Surgeon Neurosurgery 07/21/23 Eboni Burroughs PA-C [address] [address] Specialist Neurosurgery 07/21/23 Sergio Dallas PA-C [address] [address] Specialist Neurosurgery 07/21/23 Oliva Day DNP [address] [address] Specialist Nurse Practitioner Family 06/14/24 documented as of this encounter
--- OUTSIDE RECORDS SUMMARY | 2025-05-24 13:45 | XMS_ITS | Encounter Summary ---
Author Organization [employer] [facility] Address [address] [facility] [place] [address] Care Team Providers Care Buffing Machine Operator Semiautomatic Name Role Phone Adelfo Fletcher MD Primary Care Provider [phone] Susan Bartlett MD Unavailable [phone] Kae Luu PA-C Unavailable Natalie Del Cid MD Unavailable [phone] Eboni Burroughs PA-C Unavailable Sergio Dallas PA-C Unavailable Oliva Day DNP Unavailable [phone] Encounter Details Date Type Department Care Team Description 10/10/2019 Release of Information Medical Records [address] [place] [address] Abstract, Provider Social History Tobacco Use Types [...] on filedocumented in this encounter Care Teams Buffing Machine Operator Semiautomatic Relationship Specialty Start Date End Date Adelfo Fletcher MD [address] [place] [address] PCP - General Internal Medicine 06/24/15 Susan Bartlett MD [address] [place] [address] Wedding Planning Internship Cardiology 02/23/17 Kae Luu PA-C [address] [place] [address] Specialist Cardiology 01/06/19 06/13/24 Natalie Del Cid MD [address] [address] Surgeon Neurosurgery 07/21/23 Eboni Burroughs PA-C [address] [address] Specialist Neurosurgery 07/21/23 Sergio Dallas PA-C [address] [address] Specialist Neurosurgery 07/21/23 Oliva Day DNP [address] [address] Specialist Nurse Practitioner Family 06/14/24 documented as of this encounter
--- OUTSIDE RECORDS SUMMARY | 2025-05-24 13:45 | XMS_ITS | Encounter Summary ---
Author Organization [facility] Address [address] [facility] [place] [address] Care Team Providers Care Bone Char Operator Name Role Phone Adelfo Fletcher MD Primary Care Provider Susan Bartlett MD Unavailable [phone] Kae Luu PA-C Unavailable Natalie Del Cid MD Unavailable [phone] Eboni Burroughs PA-C Unavailable [phone] Sergio DallasC Unavailable [phone] Oliva Day DNP Unavailable [phone] Reason for Visit * Reason Onset Date Comments Faxed Order 03/18/2023 [facility] 2nd request received on 05/14/23 Encounter Details Date Type Department Care Team Description 03/18/2023 Telephone Adult Medicine [facility] [address] [place] [address] [phone] Adelfo Fletcher MD [address] [place], [place] [phone] Faxed Order ([facility] 2nd request received on 05/14/23) Social History Tobacco Use Types Packs/Day Years [...] on filedocumented in this encounter Care Teams Bone Char Operator Relationship Specialty Start Date End Date Adelfo Fletcher MD [address] [place] [address] PCP - General Internal Medicine 06/24/15 Susan Bartlett MD [address] [place] [address] [phone] Patient Transportation Driver Cardiology 02/23/17 Kae Luu PA-C [address] [place] [address] Specialist Cardiology 01/06/19 06/13/24 Natalie Del Cid MD [address] [address] Surgeon Neurosurgery 07/21/23 Eboni Burroughs PA-C [address] [address] Specialist Neurosurgery 07/21/23 Sergio Dallas PA-C [address] [address] Specialist Neurosurgery 07/21/23 Oliva Day DNP [address] [address] Specialist Nurse Practitioner Family 06/14/24 documented as of this encounter
--- OUTSIDE RECORDS SUMMARY | 2025-05-24 13:45 | XMS_ITS ---
Author Name [facility] Organization Unknown Problems Problem Status Onset Date Problem Type Date of Resoluti on Source Bilateral hearing loss, unspecified hearing loss type active [facility]
--- OUTSIDE RECORDS SUMMARY | 2025-05-24 13:45 | XMS_ITS | Encounter Summary ---
Author Organization [facility] Address [address] [place] [address] Care Team Providers Care Nurse Midwife/Clinical Instructor Name Role Phone Adelfo Fletcher MD Primary Care Provider [phone] Susan Bartlett MD Unavailable [phone] Kae Luu PA-C Unavailable Natalie Del Cid MD Unavailable [phone] Eboni Burroughs PA-C Unavailable [phone] Sergio Dallas PA-C Unavailable Oliva Day DNP Unavailable [phone] Reason for Visit * Reason Onset Date Comments Outdoor Emergency Care Technician Feedback 03/24/2022 Physical therapy Encounter Details Date Type Department Care Team Description 03/24/2022 Telephone Adult Medicine [address] [id number] Arminda Madrigal PA Cro Feedback (Physical therapy) Social History Tobacco Use Types Packs/Day Years [...] encounter Miscellaneous Notes * Telephone Encounter - Jeramy Ballesteros - 05/06/2022 12:23 PM EDT No insurance referral required per patient's insurance. Dr Fletcher faxed order and notes on one of their patients, so they could be seen with our providers. Patient has been referred to Physical therapy DX: Unknown INS: Medicare Please review this patients new referral request. The referral has been pended. Please complete thefollowing: If approved> sign order If denied>please give instructions and route to your practice nursing pool. Practice nurse should inform referrals and the patient if denied. Order is pended * Telephone Encounter - Madhav Grimes L.P.N. - 04/01/2022 2:20 PM EDT [facility] called they are startfing the case tomorrow Daughter aware Received referral for Pt/Ot for patient from A [facility] PAC for Dr. Fletcher . Called [facility] P [phone] f [phone] Home Care's Intake staff, all information regarding the patient was given. Last pertinent office visit, Snapshot, Patient Inquiry sheet, Face to face, order for referral werefaxed to the home care agency. Pt / family were notified that they will be hearing from the Agency. This message routed to the [facility] Referrals Staff at p [phone] * Telephone Encounter - Madhav Grimes L.P.N. - 03/31/2022 12:15 PM EDT Call # [phone] Spoke with Georgina Hong Faxed information case pending * Telephone Encounter - Madhav Grimes L.P.N. - 03/30/2022 4:04 PM EDT Telephone Information: Called daughter left a message on home phone for daughter to call me Called call phone kiley pegueron't understand him * Telephone Encounter - Sulma Godwin - 03/30/2022 3:55 PM EDT Patient Daughter is calling back, please give a call back. * Telephone Encounter - Madhav Grimes L.P.N. - 03/30/2022 3:13 PM EDT 7 Home care agency were called they declined case due to staffing issues or insurance Telephone Information: Called daughter Selina left her a VM to call me Please pass this call to me at EX [phone] Thank you * Telephone Encounter - Madhav Grimes L.P.N. - 03/26/2022 11:36 AM EDT [facility] can't accept this insurance 7 Called Paul [phone] not taking this insurance at this time ID card must start with a 9 for [facility] * Telephone Encounter - Madhav Grimes L.P.N. - 03/26/2022 11:15 AM EDT [facility] declined case They do accept his insurance Had the patient before Called [facility] Declined 2 [facility] declined 3 [facility] Doesn't accept the insurance 4 [facility] Declined 5 [facility] doesn't accept the insurance 6 spokek with [facility] [phone] they will run the insurance to see if they need a prior auth Case pending will fax information to [phone] If they accept the case they don't have OT will have to DC the OT Please advise * Telephone Encounter - Madhav Grimes L.P.N. - 03/25/2022 2:32 PM EDT Spoke with Saima at [facility] they has had the patient serveral times Faxed intake information to [phone] Case pending * Telephone Encounter - Dominic Hill M.A. - 03/24/2022 2:31 PM EDT Spoke with patient's daughter listed FYI, patient is aware of results. * Telephone Encounter - Arminda Sy PA-C - 03/24/2022 1:56 PM EDT Please let patient's daughter know that her father's A1c is increased from 6.5- 7. I am hesitant to make any changes to his diabetic regimen right now as he has not had any hyper or hypoglycemic episodes. Most likely the elevated sugars are related to his recent hospitalization. We will continue to monitor this. Thank you. documented in this encounter Plan of Treatment Not on file documented as of this encounter Visit Diagnoses Not on filedocumented in this encounter Care Teams Nurse Midwife/Clinical Instructor Relationship Specialty Start Date End Date Adelfo Fletcher MD [address] [place] [address] PCP - General Internal Medicine 06/24/15 Susan Bartlett MD [address] [place] [address] Home Care Attendant Cardiology 02/23/17 Kae Luu PA-C [address] [place] [address] Specialist Cardiology 01/06/19 06/13/24 Natalie Del Cid MD [address] [address] Surgeon Neurosurgery 07/21/23 Eboni Burroughs PA-C [address] [address] Specialist Neurosurgery 07/21/23 Sergio Dallas PA-C [address] [address] Specialist Neurosurgery 07/21/23 Oliva Day DNP [address] [address] Specialist Nurse Practitioner Family 06/14/24 documented as of this encounter
--- OUTSIDE RECORDS SUMMARY | 2025-05-24 13:45 | XMS_ITS | Encounter Summary ---
Author Organization [facility] [facility] Address [address] [facility] [place] [address] Care Team Providers Care Gallery Or Museum Technician Name Role Phone Adelfo Fletcher MD Primary Care Provider [phone] Susan Bartlett MD Unavailable [phone] Kae Luu PA-C Unavailable Natalie Del Cid MD Unavailable [phone] Eboni Burroughs PA-C Unavailable Sergio Dallas PA-C Unavailable Oliva Day DNP Unavailable [phone] Encounter Details Date Type Department Care Team Description 08/13/2019 Hospital Medical Records [address] [place] [id number] Claude Saenz, DO Social History Tobacco Use Types Packs/Day Years [...] on filedocumented in this encounter Care Teams Gallery Or Museum Technician Relationship Specialty Start Date End Date Adelfo Fletcher MD [address] [place] [address] PCP - General Internal Medicine 06/24/15 Susan Bartlett MD [address] [place] [address] Surgical Technology Instructor Cardiology 02/23/17 Kae Luu PA-C [address] [place] [address] Specialist Cardiology 01/06/19 06/13/24 Natalie Del Cid MD [address] [address] Surgeon Neurosurgery 07/21/23 Eboni Burroughs PA-C [address] [address] Specialist Neurosurgery 07/21/23 Sergio Dallas PA-C [address] [address] Specialist Neurosurgery 07/21/23 Oliva Day DNP [address] [address] Specialist Nurse Practitioner Family 06/14/24 documented as of this encounter
--- OUTSIDE RECORDS SUMMARY | 2025-05-24 13:45 | XMS_ITS | Encounter Summary ---
Author Organization [email or web address] [facility] Address [address] [place] [address] Care Team Providers Care Dining Room Supervisor Name Role Phone Adelfo Fletcher MD Primary Care Provider [phone] Susan Bartlett MD Unavailable [phone] Kae Luu PA-C Unavailable Natalie Del Cid MD Unavailable [phone] Eboni Burroughs PA-C Unavailable Sergio Dallas PA-C Unavailable [phone] Oliva Day DNP Unavailable [phone] Reason for Visit * Reason Comments E-prescribe Rx Request Encounter Details Date Type Department Care Team Description 03/01/2022 Refill Adult Medicine [address] [phone] Stacy Ambroico PA-C E-prescribe Rx Request Social History Tobacco Use [...] on filedocumented in this encounter Care Teams Dining Room Supervisor Relationship Specialty Start Date End Date Adelfo Fletcher MD [address] [place] [address] PCP - General Internal Medicine 06/24/15 Susan Bartlett MD [address] [place], [place] [phone] Director Workforce Management Cardiology 02/23/17 Kae Luu PA-C [address] [place], [place] [phone] Specialist Cardiology 01/06/19 06/13/24 Natalie Del Cid MD [address] [address] Surgeon Neurosurgery 07/21/23 Eboni Burroughs PA-C [address] [address] Specialist Neurosurgery 07/21/23 Sergio Dallas PA-C [address] [address] Specialist Neurosurgery 07/21/23 Oliva Day DNP [address] [address] Specialist Nurse Practitioner Family 06/14/24 documented as of this encounter
--- OUTSIDE RECORDS SUMMARY | 2025-05-24 13:45 | XMS_ITS | Encounter Summary ---
Author Organization [facility] Address [address] [facility] [place] [address] Care Team Providers Care Outreach Educator Name Role Phone Adelfo Fletcher MD Primary Care Provider [phone] Susan Bartlett MD Unavailable [phone] Kae Luu PA-C Unavailable Natalie Del Cid MD Unavailable [phone] Eboni Burroughs PA-C Unavailable Sergio Dallas PA-C Unavailable Oliva Day DNP Unavailable [phone] Encounter Details Date Type Department Care Team Description 11/07/2019 Metal Casket Maker Report Medical Records [address] [place] [address] Stefano Fowler MD Social History Tobacco Use [...] on filedocumented in this encounter Care Teams Outreach Educator Relationship Specialty Start Date End Date Adelfo Fletcher MD [address] [place] [address] PCP - General Internal Medicine 06/24/15 Susan Bartlett MD [address] [place] [address] Magnet Maker Cardiology 02/23/17 Kae Luu PA-C [address] [place] [address] Specialist Cardiology 01/06/19 06/13/24 Natalie Del Cid MD [address] [address] Surgeon Neurosurgery 07/21/23 bEoni Burroughs PA-C [address] [address] Specialist Neurosurgery 07/21/23 Sergio Dallas PA-C [address] [address] Specialist Neurosurgery 07/21/23 Oliva Day DNP [address] [address] Specialist Nurse Practitioner Family 06/14/24 documented as of this encounter
--- OUTSIDE RECORDS SUMMARY | 2025-05-24 13:45 | XMS_ITS | Encounter Summary ---
Author Organization [employer] [facility] Address [address] [place] [address] Care Team Providers Care Manager Unit Name Role Phone Adelfo Fletcher MD Primary Care Provider Susan Bartlett MD Unavailable [phone] Kae Luu PA-C Unavailable Natalie Del Cid MD Unavailable [phone] Eboni Burroughs PA-C Unavailable Sergio Dallas PA-C Unavailable [phone] Oliva Day DNP Unavailable [phone] Reason for Visit * Reason Onset Date Comments Faxed Order 08/04/2019 Encounter Details Date Type Department Care Team Description 08/04/2019 Telephone Adult Medicine [address] [phone] Adelfo Fletcher MD [address] [place] [address] [phone] Faxed Order Social History Tobacco Use Types [...] * Telephone Encounter - Livier Shen - 08/04/2019 9:31 AM EST Physician order for Dr. Adelfo Fletcher's signature documented in this encounter Plan of Treatment Not on file documented as of this encounter Visit Diagnoses Not on filedocumented in this encounter Care Teams Manager Unit Relationship Specialty Start Date End Date Adelfo Fletcher MD [address] [place] [address] PCP - General Internal Medicine 06/24/15 Susan Bartlett MD [address] [place] [address] [phone] Shoe Sprayer Cardiology 02/23/17 Kae Luu PA-C [address] [place] [address] Specialist Cardiology 01/06/19 06/13/24 Natalie Del Cid MD [address] [address] Surgeon Neurosurgery 07/21/23 Eboni Burroughs PA-C [address] [address] Specialist Neurosurgery 07/21/23 Sergio Dallas PA-C [address] [address] Specialist Neurosurgery 07/21/23 Oliva Day DNP [address] [address] Specialist Nurse Practitioner Family 06/14/24 documented as of this encounter
--- OUTSIDE RECORDS SUMMARY | 2025-05-24 13:46 | XMS_ITS | Encounter Summary ---
Author Organization [employer] [facility] Address [address] [place] [address] Care Team Providers Care Computer Systems Engineer Name Role Phone Adelfo Fletcher MD Primary Care Provider [phone] Susan Bartlett MD Unavailable [phone] Kae Luu PA-C Unavailable Natalie Del Cid MD Unavailable [phone] Eboni Burroughs PA-C Unavailable Sergio Dallas PA-C Unavailable Oliva Day DNP Unavailable [phone] Encounter Details Date Type Department Care Team Description 12/27/2018 Farm Machinery Mechanic Report Medical Records [address] [place] [address] Stefano Fowler MD Social History Tobacco Use [...] on filedocumented in this encounter Care Teams Computer Systems Engineer Relationship Specialty Start Date End Date Adelfo Fletcher MD [address] [place] [address] PCP - General Internal Medicine 06/24/15 Susan Bartlett MD [address] [place] [address] Telecommunications Field Technician Cardiology 02/23/17 Kae Luu PA-C [address] [place] [address] Specialist Cardiology 01/06/19 06/13/24 Natalie Del Cid MD [address] [address] Surgeon Neurosurgery 07/21/23 Eboni Burroughs PA-C [address] [address] Specialist Neurosurgery 07/21/23 Sergio Dallas PA-C [address] [address] Specialist Neurosurgery 07/21/23 Oliva Day DNP [address] [address] Specialist Nurse Practitioner Family 06/14/24 documented as of this encounter
--- OUTSIDE RECORDS SUMMARY | 2025-05-24 13:46 | XMS_ITS | Encounter Summary ---
Author Organization [employer] [facility] Address [address] [facility] [place] [address] Care Team Providers Care Insole Bottom Filler Name Role Phone Adelfo Fletcher MD Primary Care Provider [phone] Susan Bartlett MD Unavailable [phone] Kae Luu PA-C Unavailable Natalie Del Cid MD Unavailable [phone] Eboni Burroughs PA-C Unavailable Sergio Dallas PA-C Unavailable Oliva Day DNP Unavailable [phone] Encounter Details Date Type Department Care Team Description 01/13/2016 Business Doc Medical Records [address] [place] [address] Abstract, Provider Social History Tobacco Use Types [...] on filedocumented in this encounter Care Teams Insole Bottom Filler Relationship Specialty Start Date End Date Adelfo Fletcher MD [address] [place] [address] PCP - General Internal Medicine 06/24/15 Susan Bartlett MD [address] [place] [address] Dishroom Attendant Cardiology 02/23/17 Kae Luu PA-C [address] [place] [address] Specialist Cardiology 01/06/19 06/13/24 Natalie Del Cid MD [address] [address] Surgeon Neurosurgery 07/21/23 Eboni Burroughs PA-C [address] [address] Specialist Neurosurgery 07/21/23 Sergio Dallas PA-C [address] [address] Specialist Neurosurgery 07/21/23 Oliva Day DNP [address] [address] Specialist Nurse Practitioner Family 06/14/24 documented as of this encounter
--- OUTSIDE RECORDS SUMMARY | 2025-05-24 13:46 | XMS_ITS | Clinical Summary ---
Author Organization [address] Address [address] [place] [phone] Phone Care Team Providers Care Drive Man Name Role Phone Adelfo Fletcher MD Primary Care Provider [phone] Allergies No known active allergies Medications acetaminophen (TYLENOL) 325 mg tablet 2 tablets (650 mg total) every 6 hours. 02/23/20 20 Active aspirin 81 mg EC tablet 1 tablet (81 mg total) 1 (one) time each day at the same time. 03/28/20 24 Active magnesium citrate solution Take 296 mL by mouth. Active pen needle, diabetic (BD Ultra-Fine Short Pen Needle) 31 gauge x 5/16 needle USE TO INJECT INSULIN ONCE DAILY 06/05/20 24 Active saliva substitute combo no.9 (BIOTENE DRY MOUTH ORAL RINSE MM) Take 5 mL by mouth daily. 11/11/19 24 Active pantoprazole (PROTONIX) 20 mg EC tablet Take 1 Tablet by mouth daily. Active diaper,brief, adult,disposa ble misc 8 Each by Does not apply route daily. SARAH-99 Disposable underwear moderate absorbency size large 8/day 240 per month 11 refills 10/21/19 23 Active diclofenac (VOLTAREN) 1 % topical gel APPLY 4 G TOPICALLY 3 TIMES DAILY. 07/31/20 22 Active Autolet lancing device USE TO TEST BLOOD SUGAR 3 TIMES DAILY 01/09/20 22 Active lidocaine (XYLOCAINE) 5 % ointment Apply topically as needed. Active insulin glargine (LANTUS SoloStar) 100 unit/mL (3 mL) injection pen Inject 5 Units under the skin 1 (one) time each day in the morning. 45 mL 1 10/13/19 25 Active metFORMIN (GLUCOPHAGE) 500 mg tablet TOME 1 TABLETA POR VIA ORAL DOS VECES AL DAR CON ALIMENTO 180 tablet 1 11/28/19 25 Active ipratropium-a lbuteroL (Combivent Respimat) 20-100 mcg/actuation inhaler INHALE 1 PUFF INTO THE LUNGS 4 TIMES DAILY NEEDED (WHEEZING) FOR UP TO 30 DAYS. 1 each 3 11/28/19 25 026 Active amLODIPine (NORVASC) 2.5 mg tablet Take 1 tablet (2.5 mg total) by mouth 1 (one) time each day. 90 tablet 1 01/05/20 25 Active atorvastatin (LIPITOR) 80 mg tablet Take 1 tablet (80 mg total) by mouth at bedtime. 90 each 01/05/20 25 Active gabapentin (NEURONTIN) 300 mg capsule Take 1 capsule (300 mg total) by mouth 3 (three) times a day. 270 capsule 1 01/19/20 25 025 Active senna-docusat e (PERICOLACE) 8.6-50 mg per tablet Take 1 tablet by mouth 1 (one) time each day. 90 each 1 02/28/20 25 025 Active lancets (OneTouch Delica Plus Lancet) 33 gauge Use to check blood sugars three times daily 300 each 1 03/20/20 25 Active bisacodyL (DULCOLAX) 5 mg EC tablet Take 2 tablets by mouth right before beginning bowel prep. See instructions provided by the office 2 tablet 04/26/20 25 Active polyethylene glycol (Golytely) 236-22.74-6.7 4 -5.86 gram solution Take 4L by mouth once for one dose. May substitue any PEG. Starting at 2PM the day before your procedure drink 1 8oz glasses at your own pace until you complete half of the gallon. Finish 2nd half of the gallon at 8PM. 4000 mL 04/26/20 25 Active sucralfate (CARAFATE) 1 gram tablet Take 1 tablet (1 g total) by mouth 4 (four) times a day. Take 1 hour before meals and at bedtime 120 each 05/10/20 026 Active omeprazole (PriLOSEC) [address] capsule Take 1 capsule (40 mg total) by mouth 2 (two) times a day before meals. Do not crush or chew. 60 each 05/10/20 025 Active OneTouch Ultra Test test strip USE TO TEST BLOOD SUGAR THREE TIMES DAILY 300 strip 05/23/20 25 Active ibuprofen (ADVIL,MOTRIN ) 800 mg tablet TOME MIGUEL ANGEL TABLETA POR V A ORAL CADA OCHO HORAS CUANDO SEA NECESARIO PARA EL DOLOR 09/18/19 025 Discontinued(S top Taking at Discharge) OneTouch Ultra Test test strip USE TO TEST BLOOD SUGAR THREE TIMES DAILY 09/14/19 025 Discontinued Active Problems Problem Noted Date Diagnosed Date Diabetes mellitus ([facility] V24, [facility] V28) Hyperlipidemia 07/31/2024 Overview (07/31/2024): Last Assessment & Plan: He is currently utilizing atorvastatin 20 mg p.o. daily. His most recent LDL was calculated to be 30. This is at target. Should continue adhering to a cardiac healthy diet. Assessment & Plan (01/11/2025 4:22 PM EDT): Continue with the high-dose atorvastatin. Assessment & Plan (09/22/2024 3:31 PM EST): Patient's most recent LDL level was 54. Continue on current medication regimen including statin. Continue to adhere to a cardiac healthy diet. Orders: Lipid panel; Future Nuclear stress test with myocardial perfusion; Future Cardiac event monitor; Future Proteinuria 07/31/2024 Stroke ([facility] V24, [facility] V28) 07/31/2024 Postural dizziness with presyncope 06/20/2024 Overview (07/31/2024): Last Assessment & Plan: Since being discharged from the hospital patient has had no episodes of dizziness or presyncope. He has not had any falls, denies any chest pain chest tightness dyspnea on exertion or shortness of breath. When, his 14-day monitor only had about 7 days of usable data. If he has any recurrent symptoms, would pursue an ILR due to his difficulties with an external monitor and also allowing for more prolonged monitoring time. For now though, given that he has not any recurrence, we will hold off. For now though, given that he does not have any concerning symptoms, will not change any of his medical therapy. Patient's been educated on signs of worsening symptoms and when to report to the office or when to present to the emergency room. Patient states that he understands. Ataxia 07/21/2023 Overview (07/31/2024): Last Assessment & Plan: Mr. Mishra has been having increasing trouble ambulating over the past months. He has a magnetic gait, incontinence, and some spasticity. These could be related to his CVA in 2020, but his daughter insists these issues have been progressive over the past several months. I will order an MRI of the cervical spine to evaluate for cord compression. I will also order a CT of the head to check for hydrocephalus. Cervicalgia 07/21/2023 Overview (07/31/2024): Last Assessment & Plan: Mr. Mishra describes progressive neck pain with radiation to the bilateral trapezius and down the arms in a C7 distribution. He has been having increasing trouble walking. I am going to get xrays and an MRI of the cervical spine. Lumbar radiculopathy 07/21/2023 Overview (07/31/2024): Last Assessment & Plan: Mr. Mishra describes low back and left leg pain in an L5/S1 distribution. His MRI of the lumbar spine from [facility] on 06/30/23 shows multilevel degenerative changes. At L5-S1 there is disc bulging, facet arthropathy and endplate spurring resulting in severe left foraminal stenosis. He is scheduled for an injection with [facility]. Physical therapy and accupuncture would be other reasonable modalities. Occlusion of femoropopliteal bypass graft ([facility] V24) 07/21/2023 Overview (07/31/2024): Occlusion of femoropopliteal bypass graft Left foot drop 08/20/2021 Overview (07/31/2024): Follows with [facility] on a 3-month basis. CAD (coronary artery disease) 12/18/2020 Overview (07/31/2024): mi in 2011 Last Assessment & Plan: The patient denies any anginal symptoms to his current albeit limited MET workload. At [address] and one of his notes from the hospital and mentioned perhaps that he had an episode of chest discomfort that this is very vaguely described. Given that he has not had any recurrence of his chest discomfort, will hold off for now. Instead, continue his ongoing medical therapy with calcium channel bea, statin and aspirin. He will notify us immediately if any changes in current condition. Should he have any recurrence of any chest discomfort, would pursue pharmacologic nuclear stress test at that time Assessment & Plan (01/11/2025 4:22 PM EDT): No new anginal symptoms today. Continue on statin, and baby aspirin. I educated the patient about adhering to a cardiac healthy diet. Will go over the results of the nuclear stress test today. Will continue to medically manage. Instructed to call 911 or go to the emergency room should the patient begin to experience chest pain or pressure lasting greater than 10 minutes does not resolve with rest. Assessment & Plan (09/22/2024 3:31 PM EST): Continue on statin, and baby aspirin. I educated the patient about adhering to a cardiac healthy diet. I am going to update a nuclear stress test. Has been several years since the patient has had an ischemic evaluation. Instructed to call 911 or go to the emergency room should the patient begin to experience chest pain or pressure lasting greater than 10 minutes does not resolve with rest. Orders: Nuclear stress test with myocardial perfusion; Future Cardiac event monitor; Future Cerebral infarction, unspecified (CMS/HCC V24, C NE/HCC V28) 12/18/2020 Chronic obstructive pulmonar y disease, unspecified (CMS/HCC V24, CMS/HCC V28) 12/18/2020 Hypertension 12/18/2020 Overview (07/31/2024): Last Assessment & Plan: Patient's blood pressure is well-controlled at today's visit. He should continue on current medication regimen. Assessment & Plan (01/11/2025 4:22 PM EDT): Well-controlled continue on current medication regimen. Assessment & Plan (09/22/2024 3:31 PM EST): Patient's blood pressure is well-controlled today. Continue on current medication regimen. Orders: Nuclear stress test with myocardial perfusion; Future Cardiac event monitor; Future Peripheral vascular disease, unspecified ([facility] V24) 12/18/2020 Type 2 diabetes mellitus wit h other diabetic kidney complication ([facility] V24, [facility] V28) 12/18/2020 History of 2019 novel coronavirus disease (COVID -19) 07/31/2020 Overview (07/31/2024): Dx: 06/27/20. Asymptomatic Hemiplegia and hemiparesis f ollowing cerebral infarction affecting left non-dominant side ([facility] V24, [facility] V28) 05/10/2020 Centrilobular emphysema ([facility] V24, [facility] V2 8) 03/20/2020 Obstructive sleep apnea 10/10/2019 Overview (07/31/2024): [facility] Home Sleep Apnea Test: Date 10/03/2019; Wt 150#; BMI 27; KATJA 8, AI 3; HI 5; Unclassified apneas 1; Obstructive apneas 14; Central apneas 1; Mixed apneas 6; hypopneas 41; average oxygen saturation 94% (lowest 82% without saturations <88% for 5% or more of study) - Obstructive Sleep Apnea - mild; mostly hypopneas with some central and mixed apneas; without sleep related hypoventilation by 2019 home sleep apnea test. Benign paroxysmal positional vertigo 08/25/2019 COPD suggested by initial ev aluation ([facility] V24, [facility] V28) 01/13/2019 Overview (07/31/2024): LDCT: 11/2021: No malignancy PND (paroxysmal nocturnal dyspnea) 01/13/2019 Positive QuantiFERON-TB Gold test 01/13/2019 Snoring 01/13/2019 TB lung, latent 01/13/2019 Malignant neoplasm of sigmoi d colon ([facility] V24, [facility] V28) 06/23/2018 Duodenal ulcer 04/14/2018 Colon cancer ([facility] V24, [facility] V28) 03/28/20 Overview (07/31/2024): Sigmoid colon cancer, biopsies obtained at colonoscopy 03/24/18. Gallstone 03/08/2018 Overview (07/31/2024): Seen on CT 2016. Positive PPD 03/31/2016 DM (diabetes mellitus), type 2 with peripheral vascular complications ([facility] V24, [facility] V28) 01/08/2016 Encounters Date Type Department Care Team Description 05/10/2025 9:38 AM EDT Anesthesia Event [facility] [address] [place] [phone] Chung Ambriz MD 05/10/2025 7:32 AM EDT - 05/10/2025 11:59 PM EDT Hospital Encounter [facility] [address] [place] [phone] Mirlande Us MD Steele, Matthew G, CONTRACT COORDINATOR Esophageal dysphagia; History of colon cancer in adulthood; Chronic idiopathic constipation Discharge Disposition: Home or Self Care 03/02/2025 4:35 PM EDT - 03/02/2025 11:59 PM EDT Hospital Encounter [facility] CT Scan [address] [place] [phone] Encounter for screening for malignant neoplasm of respiratory organs; Nicotine dependence, cigarettes, uncomplicated Discharge Disposition: Home or Self Care 02/27/2025 2:20 PM EDT Consult [facility]astroenterology - [place] [address] [facility] [address] [place] [phone] Sadie Elias NP Chronic idiopathic constipation (Primary Dx); History of colon cancer in adulthood; Esophageal dysphagia 02/27/2025 Telephone [facility]astroenterology - [place] [address] [place] [address] Sadie Elias NP from Last 3 Months Immunizations Name Administration Dates Next Due [employer] SARS-CoV-2 COVI D-19, vector-nr, rS-ChAdOx1, preservative free 07/23/2022 COVID-19 (Moderna/Spikevax) 12yo and older 07/03 Influenza Quadravalent, 0.5m l (Fluad) 65yo and older 07/03/2023,06/14/2021 Influenza Quadravalent, 0.5m l (Fluzone High-dose) 65yo and older 07/23/2022 Influenza Quadravalent, dallin mbinant, 0.5ml, preservative free (Flublok) 18yo and older 05/29/2020 Influenza Quadrivalent, 0.5m l, preservative free (Fluarix; FluLaval; Fluzone) ages 6mo and older (Afluria) 3yo and older 06/13/2019 Influenza trivalent, 0.5mL, preservative free (Fluarix; FluLaval; Fluzone) ages 6mo and older (Afluria) 3 years and older 06/02/2018,06/09/2016 Influenza trivalent, with pr eservative (Fluzone; Afluria) 6mo and older 08/25/2019,05/23/2017,06/20/2015 Influenza, Unspecified 07/13/2022,12/04/2020,11/2020 PPD Test 12/18/2020 Pneumococcal conjugate 13 va lent (Prevnar 13, PCV13) 2mo and older 08/16/2017 Pneumococcal polysaccharide 23 valent (Pneumovax 23) 2yo and older 07/31/2020 Td Tetanus diptheria (Tdvax) 7yo and older 07/31 Surgical History Surgery Date Site/Laterality Comments CATARACT EXTRACTION PROCEDURE: HISTORICAL CATARACT REMOVAL CARDIAC CATHETERIZATION 01/2012 PROCEDURE: HISTORICAL CARDIAC CATH ANKLE SURGERY PROCEDURE: HISTORICAL ANKLE SURGERY EYE SURGERY PROCEDURE: HISTORICAL EYE SURGERY; COMMENT: lens intraocular ABDOMINAL SURGERY 1994 PROCEDURE: HISTORICAL ABDOMINAL SURGERY; COMMENT: gastrectomy for obstruction UPPER GASTROINTESTINAL ENDOSCOPY 03/24/2018 PROCEDURE: ME UPPER GI ENDOSCOPY PERFORMED; COMMENT: Muslu; ulcer: COLONOSCOPY 03/24/2018 PROCEDURE: HISTORICAL COLONOSCOPY; COMMENT: Malignant-appearing sigmoid colon tumor: adenocarcinoma with 3 pos nodes. ABDOMINAL SURGERY 2017 PROCEDURE: HISTORICAL ABDOMINAL SURGERY; COMMENT: sigmoid resection for colon cancer CT HEAD STROKE Medical History Medical History Date Comments Proteinuria DX:Proteinuria Hypertension DX:Hypertension CAD (coronary artery disease) DX :CAD (coronary artery disease); COMMENT: mi in 2011 Hyperlipidemia DX:Hyperlipidemi a Type 2 diabetes mellitus wit h renal manifestations ([facility] V24, [facility] V28) DX:Type 2 diabetes mellitus with renal manifestations (HCC) PAD (peripheral artery disea se) ([facility] V24) 06/19/2016 DX:PAD (peripheral artery di sease) ([facility]); COMMENT: S/p left femoral to popliteal bypass; 06/2016 Positive PPD 03/31/2016 DX:Positive PPD DM (diabetes mellitus), type 2 with peripheral vascular complications ([facility] V24, [facility] V28) 01/08/2016 DX:DM (diabetes mellitus), 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) Gallstone 03/08/2018 DX:Gallstone; CO MMENT: Seen on CT 2015. Colon cancer ([facility] V24, C NE/[facility] V28) 03/28/2018 DX:Colon cancer (HCC); COMME NT: Sigmoid colon cancer, biopsies obtained at colonoscopy 03/24/18. Loss of hearing DX:Loss of heari ng Sleep apnea Lung disease CVA (cerebral vascular accid ent) ([facility] V24, [facility] V28) Family History Medical History Relation Name Comments Other cancer Brother throat CA, diab etes Diabetes Father Diabetes Mother Diabetes Sister Leukemia Son Relation Name Status Comments Brother Father Mother Sister Son Social History Tobacco Use Types Packs/Day Years Used Date Smoking Tobacco: Former Cigarettes 0 1967 - 2007 Smokeless Tobacco: Never Alcohol Use Standard Drinks/Week Comments Not Currently 0 (1 standard drink = 0.6 oz pur e alcohol) Sex and Gender Information Value Date Recorded Sex Assigned at Male 03/01/2025 1:00 PM EDT Legal Sex Male 10:26 AM EST Gender Identity Male 03/01/2025 1:00 PM EDT Sexual Orientation Not on file Obstetrics History Last Filed Vital Signs Vital Sign Reading Time Taken Comments Blood Pressure 128/58 05/10/2025 10:30 AM EDT Pulse 59 05/10/2025 10:30 AM EDT Temperature 36.2 C (97.2 F) 05/10/2025 10:10 AM EDT Respiratory Rate 15 05/10/2025 10:30 AM EDT Oxygen Saturation 99% 05/10/2025 10:30 AM EDT Inhaled Oxygen Concentration - - Weight 58.5 kg (129 lb) 05/10/2025 9:02 AM EDT Height 165.1 cm (5' 5 ) 05/10/2025 9:02 AM EDT Body Mass Index 21.47 05/10/2025 9:02 AM EDT Plan of Treatment Upcoming Encounters Date Type Department Care Team (Late st Contact Info) Description 07/09/2025 2:30 PM EST [facility] [address] [phone] Dangelo Malin MD [address] [phone] 07/17/2025 1:15 PM EST Office Visit Adult Medicine [address] [phone] Adelfo Fletcher MD [address] [place] [phone] Health Maintenance Due Date Last Done Comments Zoster Vaccines (1 of 2) 1970 Colorectal Cancer Screening: Stool Based Tests (FOBT/FIT) 08/13/2022 Social Influencers of Health Screening 08/13/2022 Diabetes: Annual Foot Exam 06/08/2023 06/08/2022 Medicare Annual Wellness Visit 02/17/2024 02/16/2023 Depression Screening 09/06/2024 02/16/2023 Influenza Vaccine (#1) 2025 , 07/03/2023, 07/23/2022, Additional history exists COVID-19 Vaccine (6 - Moderna risk season) 2025 11/26/2024, 07/03/2023, 07/23/2022, Additional history exists Diabetes: Annual Retina Eye Exam 06/07/2025 06/07/2024 Diabetes: Blood Sugar Control Test (HGBA1C) 07/07/2025 01/04/2025, 08/16/2024, 06/29/2024, Additional history exists Diabetes: Annual Urine Albumin-Creatinine Ratio (uACR) 07/14/2025 07/14/2024, 11/04/2022 Diabetes: Annual GFR (Glomerular Filtration Rate) 01/04/2026 01/04/2025, 09/01/2024, 08/21/2024, Additional history exists Hypertension/CHF/CAD Annual BMP Blood Test 01/04/2026 01/04/2025, 09/01/2024, 08/21/2024, Additional history exists Falls Risk Assessment 05/10/2026 05/10/2025, 022 Cholesterol Screening (Lipid Panel) 01/04/2030 01/04/2025, 09/22/2024, 06/29/2024, Additional history exists DTaP,Tdap,and Td Vaccines (2 - Td or Tdap) 07/31/2030 07/31/2020 Hepatitis C Screening Completed 08/17/2017 Pneumococcal Vaccine: 50+ Years Completed 07/31/2020, 08/16/2017 Abdominal Aortic Aneurysm (AAA) Screen Completed 06/17/2021 RSV Immunization Adult Patients Completed 11/27/2024 Colorectal Cancer Screening: Colonoscopy Discontinued 05/10/2025, 03/26/2020 HIB Vaccines Aged Out No longer eligi ble based on patient's age to complete this topic HPV Vaccines Aged Out No longer eligi ble based on patient's age to complete this topic Hepatitis A Vaccines Aged Out No long er eligible based on patient's age to complete this topic Hepatitis B Vaccines Aged Out No long er eligible based on patient's age to complete this topic IPV Vaccines Aged Out No longer eligi ble based on patient's age to complete this topic MMR Vaccines Aged Out No longer eligi ble based on patient's age to complete this topic Meningococcal ACWY Vaccine Aged Out N o longer eligible based on patient's age to complete this topic Meningococcal B Vaccine Aged Out No l onger eligible based on patient's age to complete this topic RSV Immunization Patients Under 20 months Aged Out No longer eligible based on patient's age to complete this topic Varicella Vaccines Aged Out No longer eligible based on patient's age to complete this topic Procedures Procedure Name Priority Date/Time Associated Diagnosis Comments POCT GLUCOSE BLOOD Routine 05/10/2025 10:21 AM EDT COLONOSCOPY Routine 05/10/2025 10:09 AM EDT Esophageal dysphagia History of colon cancer in adulthood Chronic idiopathic constipation EGD Routine 05/10/2025 10:09 AM EDT Esophageal dysphagia History of colon cancer in adulthood Chronic idiopathic constipation TISSUE EXAM Routine 05/10/2025 9:50 AM EDT Esophageal dysphagia History of colon cancer in adulthood Chronic idiopathic constipation POCT GLUCOSE BLOOD Routine 05/10/2025 9: 38 AM EDT POCT GLUCOSE BLOOD Routine 05/10/2025 9: [address] LUNG SCREENING Routine 03/02/2025 4:5 0 PM EDT Encounter for screening for malignant neoplasm of respiratory organs Nicotine dependence, cigarettes, uncomplicated COMPREHENSIVE METABOLIC PANEL Routine 01/04/2025 2:03 PM EDT Type 2 diabetes mellitus with other diabetic kidney complication ([facility] V24, [facility] V28) Primary hypertension Encounter for long-term (current) use of medications HEMOGLOBIN A1C Routine 01/04/2025 2:03 PM EDT Type 2 diabetes mellitus with other diabetic kidney complication ([facility] V24, CMS/HCC V28) LIPID PANEL WITH REFLEX TO DIRECT LDL Routine 01/04/2025 2:03 PM EDT Pure hypercholesterolemia MICROALBUMIN CREATININE URINE RATIO Routine 07/14/2024 1:34 PM EST Hyperlipemia HM DIABETES EYE EXAM Routine 06/07/2024 DEPRESSION SCREENING Routine 02/16/2023 FALLS RISK ASSESSMENT Routine 07/15/2022 DIABETES FOOT EXAM Routine 06/08/2022 ABDOMINAL AORTA REAL TIME SCREEN STUDY AAA Routine 06/17/2021 9:08 AM EDT Encounter for screening for cardiovascular disorders HEPATITIS C SCREENING Routine 08/17/2017 from Last 3 Months or Most Recently Relevant to Health Maintenance Results * (ABNORMAL) POCT Glucose, blood (05/10/2025 10:21 AM EDT) Only the most recent of3 resultswithin the time period is included. Glucose POCT 120(H) 70 - 100 mg/dL 05/10/2025 10:31 AM EDT [facility] Blood Capillary blood specimen / Unknown 05/10/2025 10:21 AM EDT 05/10/2025 10:32 AM EDT Bartolo Eid CONTRACT COORDINATOR LAB POINT OF CARE TEST DOCKED DEVICE UNSOLICITED RESULTS Final Result [facility] [address] [place] [address], * COLONOSCOPY Anesthesia - [facility]; [facility] ENDOSCOPY (05/10/2025 10:09 AM EDT) Anatomical Region Laterality Modality Endoscopy 05/10/2025 9:37 AM EDT Impressions 05/10/2025 10:13 AM EDT - Patent end-to-end colo-colonic anastomosis, characterized by healthy appearing mucosa. - One diminutive polyp in the descending colon, removed with a cold snare. Resected and retrieved. - Internal hemorrhoids. Recommendation: - Await pathology results. - No repeat colonoscopy due to current age (66 years or older). Narrative 05/10/2025 10:13 AM EDT [facility] Patient Name: Alissa Mishra Procedure Date: 05/10/2025 9:37 AM Date of : 1950 Age: 75 Gender: Male Note Status: Finalized Attending MD: Mirlande Us MD, Procedure Date No Time: 05/10/2025 Procedure: Colonoscopy Indications: High risk colon cancer surveillance: Personal history of colon cancer Providers: Mirlande Us MD Referring MD: Mirlande Us MD Medicines: Monitored Anesthesia Care Complications: No immediate complications. Estimated blood loss: Minimal. Estimated Blood Loss: Estimated blood loss was minimal. Procedure: Pre-Anesthesia Assessment: - Prior to the procedure, a History and Physical was performed, and patient medications and allergies were reviewed. The patient is competent. The risks and benefits of the procedure and the sedation options and risks were discussed with the patient. All questions were answered and informed consent was obtained. Patient identification and proposed procedure were verified by the physician, the nurse, the ladle filler and the oil refinery process technician in the pre-procedure area in the endoscopy suite. Mental Status Examination: alert and oriented. Airway Examination: normal oropharyngeal airway and neck mobility. Respiratory Examination: clear to auscultation. CV Examination: normal. Prophylactic Antibiotics: The patient does not require prophylactic antibiotics. Prior Anticoagulants: The patient has taken no anticoagulant or antiplatelet agents. ASA Grade Assessment: IV - A patient with severe systemic disease that is a constant threat to life. After reviewing the risks and benefits, the patient was deemed in satisfactory condition to undergo the procedure. The anesthesia plan was to use monitored anesthesia care (MAC). Immediately prior to administration of medications, the patient was re-assessed for adequacy to receive sedatives. The heart rate, respiratory rate, oxygen saturations, blood pressure, adequacy of pulmonary ventilation, and response to care were monitored throughout the procedure. The physical status of the patient was re-assessed after the procedure. After I obtained informed consent, the scope was passed under direct vision. Throughout the procedure, the patient's blood pressure, pulse, and oxygen saturations were monitored continuously.The Olympus Colonoscope was introduced through the anus and advanced to the cecum, identified by appendiceal orifice and ileocecal valve. The colonoscopy was performed without difficulty. The patient tolerated the procedure well. The quality of the bowel preparation was good. Findings: The perianal and digital rectal examinations were normal. There was evidence of a prior end-to-end colo-colonic anastomosis in the sigmoid colon and in the descending colon. This was patent and was characterized by healthy appearing mucosa. The anastomosis was traversed. A diminutive polyp was found in the descending colon. The polyp was sessile. The polyp was removed with a cold snare. Resection and retrieval were complete. Estimated blood loss was minimal. Internal hemorrhoids were found during retroflexion. The hemorrhoids were Grade I (internal hemorrhoids that do not prolapse). Procedure Code(s): --- Professional --- 49673, Colonoscopy, flexible; with removal of tumor(s), polyp(s), or other lesion(s) by snare technique Diagnosis Code(s): --- Professional --- D12.4, Benign neoplasm of descending colon CPT copyright 2020 [employer]. All rights reserved. The codes documented in this report are preliminary and upon insolvency consultant review may be revised to meet current compliance requirements. Mirlande Us MD 05/10/2025 10:13:23 AM This report has been signed electronically.Mirlande Us MD Number of Addenda: 0 Note Initiated On: 05/10/2025 9:37 AM Scope Withdrawal Time: 0 hours 6 minutes 30 seconds Scope In: 9:43:08 AM Scope Out: 9:52:48 AM Endoscopy Department at [facility] - [address] [place] [id number] Procedure Note Mirlande Us MD - 05/10/2025 [facility] GI Patient Name: Alissa Mishra Procedure Date: 05/10/2025 9:37 AM Date of : 1950 Age: 75 Gender: Male Note Status: Finalized Attending MD: Mirlande Us MD, Procedure Date No Time: 05/10/2025 Procedure: Colonoscopy Indications: High risk colon cancer surveillance: Personalhistory of colon cancer Providers: Mirlande Us MD Referring MD: Mirlande Us MD Medicines: Monitored Anesthesia Care Complications: No immediate complications. Estimated blood loss: Minimal. Estimated Blood Loss: Estimated blood loss was minimal. Procedure: Pre-Anesthesia Assessment: - Prior to the procedure, a History and Physicalwas performed, and patient medications and allergieswere reviewed. The patient is competent. The risks and benefits of the procedure and the sedation optionsand risks were discussed with the patient. Allquestions were answered and informed consent was obtained. Patient identification and proposed procedure were verified by the physician, the nurse, theanesthetist and the oil refinery process technician in the pre-procedure area in the endoscopy suite. Mental Status Examination: alertand oriented. Airway Examination: normal oropharyngeal airway and neck mobility. Respiratory Examination: clear to auscultation. CV Examination: normal. Prophylactic Antibiotics: The patient does notrequire prophylactic antibiotics. Prior Anticoagulants: The patient has taken no anticoagulant or antiplatelet agents. ASA Grade Assessment: IV - A patient with severe systemic disease that is a constant threatto life. After reviewing the risks and benefits, the patient was deemed in satisfactory condition to undergo the procedure. The anesthesia plan was touse monitored anesthesia care (MAC). Immediately priorto administration of medications, the patient was re-assessed for adequacy to receive sedatives. The heart rate, respiratory rate, oxygen saturations, blood pressure, adequacy of pulmonary ventilation,and response to care were monitored throughout the procedure. The physical status of the patient was re-assessed after the procedure. After I obtained informed consent, the scope was passed under direct vision. Throughout theprocedure, the patient's blood pressure, pulse, and oxygen saturations were monitored continuously.The Olympus Colonoscope was introduced through the anus and advanced to the cecum, identified by appendiceal orifice and ileocecal valve. The colonoscopy was performed without difficulty. The patient tolerated the procedure well. The quality of the bowel preparation was good. Findings: The perianal and digital rectal examinations were normal. There was evidence of a prior fqr-dx-rzjhebz-colonic anastomosis in the sigmoid colon and in thedescending colon. This was patent and was characterized by healthy appearing mucosa. The anastomosis was traversed. A diminutive polyp was found in the descendingcolon. The polyp was sessile. The polyp was removed with a cold snare. Resection and retrieval were complete. Estimated blood loss was minimal. Internal hemorrhoids were found duringretroflexion. The hemorrhoids were Grade I (internal hemorrhoids that do not prolapse). Procedure Code(s): --- Professional --- 26351, Colonoscopy, flexible; with removal of tumor(s), polyp(s), or other lesion(s) by snare technique Diagnosis Code(s): --- Professional --- D12.4, Benign neoplasm of descending colon CPT copyright 2020 [employer]. All rights reserved. The codes documented in this report are preliminary and upon insolvency consultant reviewmay be revised to meet current compliance requirements. Mirlande Us MD 05/10/2025 10:13:23 AM This report has been signed electronically.Mirlande Us MD Number of Addenda: 0 Note Initiated On: 05/10/2025 9:37 AM Scope Withdrawal Time: 0 hours 6 minutes 30 seconds Scope In: 9:43:08 AM Scope Out: 9:52:48 AM Endoscopy Department at [facility] - [address] [place] [id number] IMPRESSION: - Patent end-to-end colo-colonic anastomosis, characterized by healthy appearing mucosa. - One diminutive polyp in the descending colon, removed with a cold snare. Resected andretrieved. - Internal hemorrhoids. Recommendation: - Await pathology results. - No repeat colonoscopy due to current age (66years or older). Mirlande Us MD GI~PROCEDURE ORDERABLES Fin al Result * EGD Anesthesia - MAC; [facility] ENDOSCOPY (05/10/2025 10:09 AM EDT) Anatomical Region Laterality Modality Endoscopy 05/10/2025 9:37 AM EDT Impressions 05/10/2025 10:11 AM EDT - Normal second portion of the duodenum. - Duodenitis. - Non-bleeding gastric ulcer with pigmented material. Biopsied. - Gastritis. Biopsied. - Benign-appearing esophageal stenosis. Dilated. Recommendation: - Discharge patient to home. - Await pathology results. - Follow an antireflux regimen. - Use a proton pump inhibitor PO daily. Narrative 05/10/2025 10:11 AM EDT [facility] Patient Name: Alissa Mishra Procedure Date: 05/10/2025 9:37 AM Date of : 1950 Age: 75 Gender: Male Note Status: Finalized Attending MD: Mirlande Us MD, Procedure Date No Time: 05/10/2025 Procedure: Upper GI endoscopy Indications: Dysphagia Providers: Mirlande Us MD Referring MD: Mirlande Us MD Medicines: Monitored Anesthesia Care Complications: No immediate complications. Estimated blood loss: Minimal. Estimated Blood Loss: Estimated blood loss was minimal. Procedure: Pre-Anesthesia Assessment: - Prior to the procedure, a History and Physical was performed, and patient medications and allergies were reviewed. The patient is competent. The risks and benefits of the procedure and the sedation options and risks were discussed with the patient. All questions were answered and informed consent was obtained. Patient identification and proposed procedure were verified by the physician, the nurse, the ladle filler and the oil refinery process technician in the pre-procedure area in the endoscopy suite. Mental Status Examination: alert and oriented. Airway Examination: normal oropharyngeal airway and neck mobility. Respiratory Examination: clear to auscultation. CV Examination: normal. Prophylactic Antibiotics: The patient does not require prophylactic antibiotics. Prior Anticoagulants: The patient has taken no anticoagulant or antiplatelet agents. ASA Grade Assessment: IV - A patient with severe systemic disease that is a constant threat to life. After reviewing the risks and benefits, the patient was deemed in satisfactory condition to undergo the procedure. The anesthesia plan was to use monitored anesthesia care (MAC). Immediately prior to administration of medications, the patient was re-assessed for adequacy to receive sedatives. The heart rate, respiratory rate, oxygen saturations, blood pressure, adequacy of pulmonary ventilation, and response to care were monitored throughout the procedure. The physical status of the patient was re-assessed after the procedure. After obtaining informed consent, the endoscope was passed under direct vision. Throughout the procedure, the patient's blood pressure, pulse, and oxygen saturations were monitored continuously.The Olympus Gastroscope was introduced through the mouth, and advanced to the second part of duodenum. The upper GI endoscopy was accomplished without difficulty. The patient tolerated the procedure well. Findings: The second portion of the duodenum was normal. Patchy severe inflammation characterized by congestion (edema), erythema and mucus was found in the duodenal bulb. One non-bleeding superficial gastric ulcer with pigmented material was found at the pylorus. The lesion was 6 mm in largest dimension. Biopsies were taken with a cold forceps for histology. Estimated blood loss was minimal. Patchy mild inflammation characterized by adherent blood, congestion (edema) and erythema was found in the entire examined stomach. Biopsies were taken with a cold forceps for histology. Estimated blood loss was minimal. One benign-appearing, intrinsic moderate (circumferential scarring or stenosis; an endoscope may pass) stenosis was found in the lower third of the esophagus. This stenosis measured 1.3 cm (inner diameter) x 2 cm (in length). The stenosis was traversed. A guidewire was placed and the scope was withdrawn. Dilation was performed with a Savary dilator with mild resistance at 14 mm, 15 mm and 16 mm. Estimated blood loss was minimal. Procedure Code(s): --- Professional --- 32052, Esophagogastroduodenoscopy, flexible, transoral; with insertion of guide wire followed by passage of dilator(s) through esophagus over guide wire 91285, 59, Esophagogastroduodenoscopy, flexible, transoral; with biopsy, single or multiple Diagnosis Code(s): --- Professional --- K29.80, Duodenitis without bleeding K25.9, Gastric ulcer, unspecified as acute or chronic, without hemorrhage or perforation K29.70, Gastritis, unspecified, without bleeding K22.2, Esophageal obstruction CPT copyright 2020 [employer]. All rights reserved. The codes documented in this report are preliminary and upon insolvency consultant review may be revised to meet current compliance requirements. Mirlande Us MD 05/10/2025 10:11:43 AM This report has been signed electronically.Mirlande Us MD Number of Addenda: 0 Note Initiated On: 05/10/2025 9:37 AM Scope In: Scope Out: Endoscopy Department at [facility] - [address] [place] [id number] Procedure Note Mirlande Us MD - 05/10/2025 [facility] GI Patient Name: Alissa Mishra Procedure Date: 05/10/2025 9:37 AM Date of : 1950 Age: 75 Gender: Male Note Status: Finalized Attending MD: Mirlande Us MD, Procedure Date No Time: 05/10/2025 Procedure: Upper GI endoscopy Indications: Dysphagia Providers: Mirlande Us MD Referring MD: Mirlande Us MD Medicines: Monitored Anesthesia Care Complications: No immediate complications. Estimated blood loss: Minimal. Estimated Blood Loss: Estimated blood loss was minimal. Procedure: Pre-Anesthesia Assessment: - Prior to the procedure, a History and Physicalwas performed, and patient medications and allergieswere reviewed. The patient is competent. The risks and benefits of the procedure and the sedation optionsand risks were discussed with the patient. Allquestions were answered and informed consent was obtained. Patient identification and proposed procedure were verified by the physician, the nurse, theanesthetist and the oil refinery process technician in the pre-procedure area in the endoscopy suite. Mental Status Examination: alertand oriented. Airway Examination: normal oropharyngeal airway and neck mobility. Respiratory Examination: clear to auscultation. CV Examination: normal. Prophylactic Antibiotics: The patient does notrequire prophylactic antibiotics. Prior Anticoagulants: The patient has taken no anticoagulant or antiplatelet agents. ASA Grade Assessment: IV - A patient with severe systemic disease that is a constant threatto life. After reviewing the risks and benefits, the patient was deemed in satisfactory condition to undergo the procedure. The anesthesia plan was touse monitored anesthesia care (MAC). Immediately priorto administration of medications, the patient was re-assessed for adequacy to receive sedatives. The heart rate, respiratory rate, oxygen saturations, blood pressure, adequacy of pulmonary ventilation,and response to care were monitored throughout the procedure. The physical status of the patient was re-assessed after the procedure. After obtaining informed consent, the endoscope was passed under direct vision. Throughout theprocedure, the patient's blood pressure, pulse, and oxygen saturations were monitored continuously.The Olympus Gastroscope was introduced through the mouth, and advanced to the second part of duodenum. The upperGI endoscopy was accomplished without difficulty. The patient tolerated the procedure well. Findings: The second portion of the duodenum was normal. Patchy severe inflammation characterized bycongestion (edema), erythema and mucus was found in theduodenal bulb. One non-bleeding superficial gastric ulcer with pigmented material was found at the pylorus. The lesion was 6 mm in largest dimension. Biopsies were taken with a cold forceps for histology. Estimated blood loss was minimal. Patchy mild inflammation characterized by adherent blood, congestion (edema) and erythema was found in the entire examined stomach. Biopsies were takenwith a cold forceps for histology. Estimated blood losswas minimal. One benign-appearing, intrinsic moderate (circumferential scarring or stenosis; an endoscope may pass) stenosis was found in the lower third ofthe esophagus. This stenosis measured 1.3 cm (inner diameter) x 2 cm (in length). The stenosis was traversed. A guidewire was placed and the scope was withdrawn. Dilation was performed with a Savary dilator with mild resistance at 14 mm, 15 mm and 16 mm. Estimated blood loss was minimal. Procedure Code(s): --- Professional --- 14554, Esophagogastroduodenoscopy, flexible, transoral; with insertion of guide wire followed by passage of dilator(s) through esophagus over guidewire 01106, 59, Esophagogastroduodenoscopy, flexible, transoral; with biopsy, single or multiple Diagnosis Code(s): --- Professional --- K29.80, Duodenitis without bleeding K25.9, Gastric ulcer, unspecified as acute orchronic, without hemorrhage or perforation K29.70, Gastritis, unspecified, without bleeding K22.2, Esophageal obstruction CPT copyright 2020 [employer]. All rights reserved. The codes documented in this report are preliminary and upon insolvency consultant reviewmay be revised to meet current compliance requirements. Mirlande Us MD 05/10/2025 10:11:43 AM This report has been signed electronically.Mirlande Us MD Number of Addenda: 0 Note Initiated On: 05/10/2025 9:37 AM Scope In: Scope Out: Endoscopy Department at [facility] - [address] [place] [phone] IMPRESSION: - Normal second portion of the duodenum. - Duodenitis. - Non-bleeding gastric ulcer with pigmentedmaterial. Biopsied. - Gastritis. Biopsied. - Benign-appearing esophageal stenosis. Dilated. Recommendation: - Discharge patient to home. - Await pathology results. - Follow an antireflux regimen. - Use a proton pump inhibitor PO daily. us Mirlande Us MD GI~PROCEDURE ORDERABLES Fin al Result * Tissue exam (05/10/2025 9:50 AM EDT) Addendum Part B: Immunohistochemistry: Helicobacter pylori: negative. 12:45 PM EDT [facility] Addendum electronically signed by Brittny De La Fuente MD on 05/14/2025 at 12:45 PM Final Diagnosis A. Large Intestine, Left/Descending Colon, polyp x1: - Hyperplastic polyp. B. Stomach, pyloric ulcer biopsy: - Gastric antral mucosa with ulcer, intestinal metaplasia, and marked acute inflammation. - Negative for dysplasia. Note: Immunostain for Helicobacter pylori will be performed to rule out Helicobacter pylori infection in the setting of acute ulcerative gastritis as Helicobacter pylori organisms are not morphologically apparent on H&E stained slide. C. Stomach, gastric biopsies: - Gastric oxyntic mucosa with no specific pathologic changes. - No Helicobacter pylori organisms are morphologically identified. 12:45 PM EDT [facility] Gross Description A. Large Intestine, Left/Descending Colon, polyp x 1: Labeled descending colon polyp x 1 . Received in formalin are two irregular joyce mucosal tissue fragments, each measuring approximately 0.2 cm in greatest dimension, which are wrapped in paper and submitted in toto in one cassette, two pieces, multiple levels on one slide. B. Stomach, pyloric ulcer biopsy: Labeled stomach pyloric u . Received in formalin are two irregular joyce mucosal tissue fragments, measuring 0.2 cm and 0.4 cm in greatest dimension, which are wrapped in paper and submitted in toto in one cassette, two pieces, multiple levels on one slide. C. Stomach, gastric biopsies: Labeled stomach gastric . Received in formalin are four irregular joyce mucosal tissue fragments, ranging from 0.2 cm to 0.5 cm in greatest dimension, which are wrapped in paper and submitted in toto in one cassette, four pieces, multiple levels on one slide. MITESH 12:45 PM EDT [facility] Disclaimer NOTE: The immunohistochemical tests and in situ hybridization tests were developed and their performance characteristics were determined by [facility]. They have not been cleared or approved by the U.S. Food and Drug Administration. The FDA has determined that such clearance or approval is not necessary. These tests are used for clinical purposes. They should not be regarded as investigational or for research. This laboratory is certified under the Clinical Laboratory Improvement Amendments of 1988 (CLIA) as qualified to perform high complexity clinical laboratory testing. (controls appropriate) Unless otherwise specified, all tissue is 10% NB formalin fixed and paraffin embedded. 12:45 PM EDT [facility] Tissue Descending colon structure / Unknown 05/10/2025 9:50 AM EDT 05/10/2025 10:24 AM EDT Tissue specimen (specimen) Stomach structure / Unknown 05/10/2025 9:58 AM EDT 05/10/2025 10:24 AM EDT Tissue specimen (specimen) Stomach structure / Unknown 05/10/2025 10:00 AM EDT 05/10/2025 10:24 AM EDT Mirlande Us MD LAB PATHOLOGY ORDERABLES Ed ited Result - Final [facility] [address] [place] [address], * CT Lung Screening (03/02/2025 4:50 PM EDT) Anatomical Region Laterality Modality Chest Computed Tomogra phy 03/05/2025 2:25 PM EDT Impressions 03/05/2025 2:32 PM EDT Unchanged appearance of the chest, with multifocal parenchymal scarring is a stable 4 mm nodule in the superior segment of the left lower lobe. Lung RADS 2. Guidelines recommend repeat low-dose screening CT in 12 months. -------- FINAL REPORT -------- Dictated By: Vasile Liang Dictated Date: 03/05/2025 14:25 ET Assigned Physician: Vasile Liang Reviewed and Electronically Signed By: Vasile Liang Signed Date: 03/05/2025 14:32 ET Workstation ID: [id number] Transcribed By: Self Edit Transcribed Date: 03/05/2025 14:25 ET Narrative 03/05/2025 2:32 PM EDT PROCEDURE: Low-dose CT of the chest without intravenous contrast. TECHNIQUE: Low-dose CT of the chest without intravenous contrast administration. Coronal and sagittal reformats and MIP reconstructions were created. Dose length product: 80 mGy-cm. HISTORY: Lung cancer screening, >=20 pk yr smoking history in last 15 yrs (Age 50-80y) COMPARISON: 02/29/2024. FINDINGS: Lungs/pleura: The central airways are clear and normal in caliber. Multifocal groundglass and reticulation in both lungs consistent with areas of interstitial scarring. Stable 4 mm nodule in the superior segment of the left lower lobe, series 3 image 34. No pleural effusion or pneumothorax. Mediastinum/donovan: No mediastinal mass or lymphadenopathy. No appreciable hilar lymphadenopathy on limited noncontrast evaluation. Vasculature: Normal caliber pulmonary arteries. Moderate atherosclerotic calcifications of the aorta and great vessels. Cardiac: Mild cardiomegaly. Moderate aortic annular and coronary artery calcification. Chest wall: No axillary or supraclavicular lymphadenopathy. Limited abdomen: Surgical clips near the gastroesophageal junction. Cholecystectomy. Unchanged rim calcified structure in the right hepatic lobe. Bones: Degenerative changes of the spine. Stable T11 compression deformity with vertebroplasty cement. L1 vertebroplasty cement is also evident on publication director images. The T7-8 endplates are fused. Mild degenerative changes of the shoulders. Procedure Note Vasile Liang MD - 03/05/2025 PROCEDURE: Low-dose CT of the chest without intravenous contrast. TECHNIQUE: Low-dose CT of the chest without intravenous contrastadministration. Coronal and sagittal reformats and MIP reconstructionswere created. Dose length product: 80 mGy-cm. HISTORY: Lung cancer screening, >=20 pk yr smoking history in last 15 yrs(Age 50-80y) COMPARISON: 02/29/2024. FINDINGS: Lungs/pleura: The central airways are clear and normal in caliber.Multifocal groundglass and reticulation in both lungs consistent withareas of interstitial scarring. Stable 4 mm nodule in the superiorsegment of the left lower lobe, series 3 image 34. No pleural effusion orpneumothorax. Mediastinum/donovan: No mediastinal mass or lymphadenopathy. No appreciablehilar lymphadenopathy on limited noncontrast evaluation. Vasculature: Normal caliber pulmonary arteries. Moderate atheroscleroticcalcifications of the aorta and great vessels. Cardiac: Mild cardiomegaly. Moderate aortic annular and coronary arterycalcification. Chest wall: No axillary or supraclavicular lymphadenopathy. Limited abdomen: Surgical clips near the gastroesophageal junction.Cholecystectomy. Unchanged rim calcified structure in the right hepaticlobe. Bones: Degenerative changes of the spine. Stable T11 compressiondeformity with vertebroplasty cement. L1 vertebroplasty cement is alsoevident on publication director images. The T7-8 endplates are fused. Mild degenerativechanges of the shoulders. IMPRESSION: Unchanged appearance of the chest, with multifocal parenchymal scarring michael stable 4 mm nodule in the superior segment of the left lower lobe. LungRADS 2. Guidelines recommend repeat low-dose screening CT in 12 months. -------- FINAL REPORT -------- Dictated By: Vasile Liang Dictated Date: 03/05/2025 14:25 ET Assigned Physician: Vasile Liang Reviewed and Electronically Signed By: Vasile Liang Signed Date: 03/05/2025 14:32 ET Workstation ID: [id number] Transcribed By: Self Edit Transcribed Date: 03/05/2025 14:25 ET Eugenie Grider MD [facility] CT PROCEDURES Final Result * Lipid panel with reflex to direct LDL (01/04/2025 2:03 PM EDT) Cholesterol 95 0 - 200 mg/dL LAB CHEMISTRY METHOD 01/04/2025 5:50 PM EDT [facility] Triglycerides 39 0 - 150 mg/dL LAB CHEMISTRY METHOD 01/04/2025 5:50 PM EDT [facility] HDL 50 >=40 mg/dL LAB CHEMISTRY METHOD 01/04/2025 5:50 PM EDT [facility] LDL Calculated 37 0 - 100 mg/dL LAB CHEMISTRY METHOD 01/04/2025 5:50 PM EDT [facility] VLDL Cholesterol Mahesh 7.8 mg/dL LAB CHEMISTRY METHOD 01/04/2025 5:50 PM EDT [facility] Non HDL Chol. (LDL+VLDL) 45 <145 mg/dL LAB CHEMISTRY METHOD 01/04/2025 5:50 PM EDT [facility] Chol/HDL Ratio 1.9 0.0 - 4.4 LAB CHEMISTRY METHOD 01/04/2025 5:50 PM EDT [facility] Blood Venous blood specimen / Unknown Venipuncture / Unknown 01/04/2025 2:03 PM EDT 01/04/2025 2:03 PM EDT us Adelfo Fletcher MD LAB BLOOD ORDERABLES Final Resu lt Performing Organization Address [facility]/ZIP Co de Phone Number [facility] [address] [place] [address], [place] [phone] * Hemoglobin A1c (01/04/2025 2:03 PM EDT) Hemoglobin A1C 6.3 <6.5 % LAB CHEMISTRY METHOD 01/04/2025 10:17 PM EDT [facility] Mean Bld Glu Estim. 134 mg/dL LAB CHEMISTRY METHOD 01/04/2025 10:17 PM EDT [facility] Blood Venous blood specimen / Unknown Venipuncture / Unknown 01/04/2025 2:03 PM EDT 01/04/2025 2:03 PM EDT us Adelfo Fletcher MD LAB BLOOD ORDERABLES Final Resu lt Performing Organization Address City/[facility]/ZIP Co de Phone Number [facility] [address] [place] [address], [place] [phone] * (ABNORMAL) Comprehensive metabolic panel (01/04/2025 2:03 PM EDT) Sodium 138 133 - 145 mmol/L LAB CHEMISTRY METHOD 01/04/2025 5:50 PM [facility] Potassium 4.7 3.5 - 5.5 mmol/L LAB CHEMISTRY METHOD 01/04/2025 5:50 PM [facility] Chloride 104 96 - 110 mmol/L LAB CHEMISTRY METHOD 01/04/2025 5:50 PM [facility] CO2 29 21 - 32 mmol/L LAB CHEMISTRY METHOD 01/04/2025 5:50 PM [facility] Anion Gap 5 3 - 11 LAB CHEMISTRY METHOD 01/04/2025 5:50 PM [facility] Glucose 122(H) 70 - 100 mg/dL LAB CHEMISTRY METHOD 01/04/2025 5:50 PM [facility] BUN 19 5 - 25 mg/dL LAB CHEMISTRY METHOD 01/04/2025 5:50 PM [facility] Creatinine 0.75 0.70 - 1.30 mg/dL LAB CHEMISTRY METHOD 01/04/2025 5:50 PM [facility] eGFR 95 >=60 mL/min/1. 73m2 LAB CHEMISTRY METHOD 01/04/2025 5:50 PM [facility] Comment:Calculation based on the Chronic Kidney Disease Epidemiology Collaboration (CKD-EPI) equation refit without adjustment for race. BUN/Creatinine Ratio 25.3 LAB CHEMISTRY METHOD 01/04/2025 5:50 PM [facility] Calcium 9.3 8.5 - 10.5 mg/dL LAB CHEMISTRY METHOD 01/04/2025 5:50 PM [facility] AST (SGOT) 23 10 - 42 unit/L LAB CHEMISTRY METHOD 01/04/2025 5:50 PM [facility] ALT (SGPT) 30 10 - 60 unit/L LAB CHEMISTRY METHOD 01/04/2025 5:50 PM [facility] Alkaline Phosphatase 83 42 - 121 unit/L LAB CHEMISTRY METHOD 01/04/2025 5:50 PM [facility] Total Protein 7.6 6.0 - 8.0 g/dL LAB CHEMISTRY METHOD 01/04/2025 5:50 PM EDT [facility] Albumin 3.9 3.2 - 5.0 g/dL LAB CHEMISTRY METHOD 01/04/2025 5:50 PM EDT [facility] Total Bilirubin 0.5 0.0 - 1.4 mg/dL LAB CHEMISTRY METHOD 01/04/2025 5:50 PM EDT [facility] Blood Venous blood specimen / Unknown Venipuncture / Unknown 01/04/2025 2:03 PM EDT 01/04/2025 2:03 PM EDT us Adelfo Fletcher MD LAB BLOOD ORDERABLES Final Resu lt Performing Organization Address City/[facility]/ZIP Co de Phone Number [facility] [address] [place] [address], [place] [phone] * Microalbumin creatinine urine ratio (07/14/2024 1:34 PM EST) Creatinine, Urine 63.0 mg/dL LAB CHEMISTRY METHOD 07/14/2024 5:49 PM EST [facility] Microalb, Ur 6.6 0.0 - 29.0 mg/L LAB CHEMISTRY METHOD 07/14/2024 5:49 PM EST [facility] Microalb/Creat Ratio 10 <30 mg/g creat LAB CHEMISTRY METHOD 07/14/2024 5:49 PM EST [facility] Urine Urine specimen obtained by clean catch procedure / Unknown Non-blood Collection / Unknown 07/14/2024 1:34 PM EST 07/14/2024 1:34 PM EST us Adelfo Fletcher MD LAB URINE ORDERABLES Final Resu lt Performing Organization Address City/[facility]/ZIP Co de Phone Number [facility] [address] [place] [address], [place] [phone] * Diabetes Eye Exam (06/07/2024) Pathologist [facility] Diabetes: Annual Retina Eye Exam abstracted [facility] Provider MD HEALTH MAINTENANCE Final Result * Depression Screening (02/16/2023) Pathologist [facility] Depression Screening abstracted [facility] MD HEALTH MAINTENANCE Final Result * Falls Risk Assessment (07/15/2022) Pathologist [facility] Falls Risk Assessment abstracted [facility] Provider MD HEALTH MAINTENANCE Final Result * Diabetes Foot Exam (06/08/2022) Pathologist [facility] Diabetes: Annual Foot Exam abstracted Result [facility] Provider MD HEALTH MAINTENANCE Final Result * US ABDOMINAL AORTA REAL TIME SCREEN STUDY AAA (06/17/2021 9:08 AM EDT) Anatomical Region Laterality Modality Ultrasound 05/28/2021 11:3 9 AM EDT Narrative 06/17/2021 10:03 AM EDT History: Screening for abdominal aortic aneurysm. Ultrasound of the abdominal aorta: There is some mild irregularity of the aortic wall consistent with atherosclerosis. The abdominal aorta is otherwise normal in course, caliber and configuration. Proximal aortic AP diameter is 2.2 cm maximum. Mid aortic diameter is 2.1 cm, and distal aortic diameter is 1.2 cm. The common iliac arteries are normal in caliber as well. IMPRESSION: Atherosclerosis. Negative screening examination for abdominal aortic aneurysm. Procedure Note Kristopher Hopkins MD - 08/25/2022 History: Screening for abdominal aortic aneurysm. Ultrasound of the abdominal aorta: There is some mild irregularity of theaortic wall consistent with atherosclerosis. The abdominal aorta is otherwise normalin course, caliber and configuration. Proximal aortic AP diameter is 2.2 cm maximum. Midaortic diameter is 2.1 cm, and distal aortic diameter is 1.2 cm. The common iliac arteries arenormal in caliber as well. IMPRESSION: Atherosclerosis. Negative screening examination for abdominal aorticaneurysm. [facility] IM[facility] US PROCEDURES Final Resul t * Hepatitis C Screening (08/17/2017) Hepatitis C Screening abstracted Historical Provider HEALTH MAINTENANCE Final Result from Last 3 Months or Most Recently Relevant to Health Maintenance Insurance MEDICAID - [place] [employer] MEDICARE Advance Directives Documents on File Type Date Recorded Patient Block Cleaner Expl anation Advance Directives and Living Will 05/10/2025 7:31 AM Health Care Decision (hx) 12/02/2020 AD GRULLON DIRECTIVE Health Care Decision (hx) 12/02/2020 AD GRULLON DIRECTIVE Health Care Decision (hx) 12/02/2020 AD GRULLON DIRECTIVE Health Care Decision (hx) 12/02/2020 AD GRULLON DIRECTIVE Health Care Decision (hx) 12/02/2020 AD GRULLON DIRECTIVE Health Care Decision (hx) 12/02/2020 AD GRULLON DIRECTIVE Health Care Decision (hx) 12/02/2020 AD GRULLON DIRECTIVE Health Care Decision (hx) 12/02/2020 AD GRULLON DIRECTIVE Health Care Decision (hx) 12/02/2020 AD GRULLON DIRECTIVE Health Care Decision (hx) 12/02/2020 AD GRULLON DIRECTIVE Health Care Decision (hx) 12/02/2020 AD GRULLON DIRECTIVE Health Care Decision (hx) 12/02/2020 AD GRULLON DIRECTIVE Health Care Decision (hx) 12/02/2020 AD GRULLON DIRECTIVE Health Care Decision (hx) 12/02/2020 AD GRULLON DIRECTIVE Health Care Decision (hx) 12/02/2020 AD GRULLON DIRECTIVE Health Care Decision (hx) 12/02/2020 AD GRULLON DIRECTIVE Health Care Decision (hx) 05/17/2018 AD GRULLON DIRECTIVE Health Care Decision (hx) 05/17/2018 AD GRULLON DIRECTIVE Health Care Decision (hx) 05/17/2018 AD GRULLON DIRECTIVE Health Care Decision (hx) 05/17/2018 AD GRULLON DIRECTIVE Health Care Decision (hx) 05/17/2018 AD GRULLON DIRECTIVE Health Care Decision (hx) 05/17/2018 AD GRULLON DIRECTIVE Health Care Decision (hx) 05/17/2018 AD GRULLON DIRECTIVE Health Care Decision (hx) 05/17/2018 AD GRULLON DIRECTIVE Health Care Decision (hx) 05/17/2018 AD GRULLON DIRECTIVE Health Care Decision (hx) 05/17/2018 AD GRULLON DIRECTIVE Health Care Decision (hx) 05/17/2018 AD GRULLON DIRECTIVE Care Teams Drive Man Relationship Specialty Start Date End Date Adelfo Fletcher MD [address] [place] [phone] PCP - General Internal Medicine 09/18/24
--- OUTSIDE RECORDS SUMMARY | 2025-05-24 13:46 | XMS_ITS | Encounter Summary ---
Author Organization [facility] Address [address] [place] [address] Care Team Providers Care Scaler Name Role Phone Adelfo Fletcher MD Primary Care Provider Susan Bartlett MD Unavailable [phone] Kae Luu PA-C Unavailable Natalie Del Cid MD Unavailable [phone] Eboni Burroughs PA-C Unavailable Sergio Dallas PA-C Unavailable Oliva Day DNP Unavailable [phone] Encounter Details Date Type Department Care Team Description 12/19/2018 Refill Adult Medicine [address] [address] Adelfo Fletcher MD [address] [place] [address] [phone] Social History Tobacco Use Types Packs/Day Years [...] encounter Miscellaneous Notes * Telephone Encounter - Sierra Levine - 12/19/2018 2:56 PM EDT Error documented in this encounter Plan of Treatment Not on file documented as of this encounter Visit Diagnoses Not on filedocumented in this encounter Care Teams Scaler Relationship Specialty Start Date End Date Adelfo Fletcher MD [address] [place] [address] PCP - General Internal Medicine 06/24/15 Susan Bartlett MD [address] [place], [place] [phone] Product Management Internship Cardiology 02/23/17 Kae Luu PA-C [address] [place], [place] [phone] Specialist Cardiology 01/06/19 06/13/24 Natalie Del Cid MD [address] [address] Surgeon Neurosurgery 07/21/23 Eboni Burroughs PA-C [address] [address] Specialist Neurosurgery 07/21/23 Sergio Dallas PA-C [address] [address] Specialist Neurosurgery 07/21/23 Oliva Day DNP [address] [address] Specialist Nurse Practitioner Family 06/14/24 documented as of this encounter
--- OUTSIDE RECORDS SUMMARY | 2025-05-24 13:46 | XMS_ITS | Encounter Summary ---
Author Organization [facility] Address [address] [place] [address] Care Team Providers Care Supervisor Knitting Name Role Phone Adelfo Fletcher MD Primary Care Provider Susan Bartlett MD Unavailable [phone] Kae Luu PA-C Unavailable Natalie Del Cid MD Unavailable [phone] Eboni Burroughs PA-C Unavailable [phone] Sergio Dallas PA-C Unavailable Oliva Day DNP Unavailable [phone] Reason for Visit * Reason Onset Date Comments Orders Call 01/31/2021 Tb Gold for work Encounter Details Date Type Department Care Team Description 01/31/2021 Telephone Adult Medicine [address] [phone] Adelfo Fletcher MD [address] [place] [address] [phone] Orders Call (Tb [employer] for work) Social History Tobacco Use Types Packs/Day Years [...] or suspected to have Coronavirus / COVID-19? Unable to assess 01/28/2021 7:39 AM EDT documented as of this encounter Miscellaneous Notes * Telephone Encounter - Arminda Sy PA-C - 02/04/2021 1:07 PM EDT Testing ordered * Telephone Encounter - Meka Smith C.M.A. - 02/04/2021 10:28 AM EDT Spoke to pt's daughter Selina (on VR) LV 01/02/21, requesting Quantiferon blood test * Telephone Encounter - Heena Diaz - 01/31/2021 4:30 PM EDT Patient calling to request labs be ordered: What lab work is patient requesting? Tb shot for employment Does patient have an upcoming appointment, if yes when and WITH WHO? no Patients PCP is: Adelfo Fletcher documented in this encounter Plan of Treatment Not on file documented as of this encounter Results * (ABNORMAL) QUANTIFERON TB GOLD (09/23/2021 4:32 PM EST) [facility] QFT PLUS INTERPRETATION POSITIVE( A) NEGATIVE 09/26/2021 12:38 PM EST [facility] 09/23/2021 4:32 PM EST 09/23/2021 4:33 PM EST Narrative [facility] - 09/26/2021 12:38 PM EST Release to patient->Immediate [facility] documented in this encounter Visit Diagnoses Diagnosis Screening-pulmonary TB- Primary Screening examination for pulmonary tuberculosis Screening-pulmonary TB Screening examination for pulmonary tuberculosis DM (diabetes mellitus), 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) Type II or unspecified type diabetes mellitus with peripheral circulatory disorders, not stated as uncontrolled Routine physical examination Routine general medical examination at a health care facility documented in this encounter Care Teams Supervisor Knitting Relationship Specialty Start Date End Date Adelfo Fletcher MD [address] [place], [place] [phone] PCP - General Internal Medicine 06/24/15 Susan Bartlett MD [address] [place], [place] [phone] Pulpwood Buyer Cardiology 02/23/17 Kae Luu PA-C [address] [place], [place] [phone] Specialist Cardiology 01/06/19 06/13/24 Natalie Del Cid MD [address] [address] Surgeon Neurosurgery 07/21/23 Eboni Burroughs PA-C [address] [address] Specialist Neurosurgery 07/21/23 Sergio Dallas PA-C [address] [address] Specialist Neurosurgery 07/21/23 Oliva Day DNP [address] [address] Specialist Nurse Practitioner Family 06/14/24 documented as of this encounter
--- OUTSIDE RECORDS SUMMARY | 2025-05-24 13:46 | XMS_ITS | Encounter Summary ---
Author Organization [employer] [facility] Address [address] [facility] [place] [address] Care Team Providers Care Retail Management Trainee Name Role Phone Adelfo Fletcher MD Primary Care Provider [phone] Susan Bartlett MD Unavailable [phone] Kae Luu PA-C Unavailable Natalie Del Cid MD Unavailable [phone] Eboni Burroughs PA-C Unavailable Sergio Dallas PA-C Unavailable [phone] Oliva Day DNP Unavailable [phone] Encounter Details Date Type Department Care Team Description 05/05/2017 Clerk Entry Level Report Medical Records [address] [place] [phone] Celia Marcano Social History Tobacco Use Types Packs/Day Years [...] on filedocumented in this encounter Care Teams Retail Management Trainee Relationship Specialty Start Date End Date Adelfo Fletcher MD [address] [place] [address] [phone] PCP - General Internal Medicine 06/24/15 Susan Bartlett MD [address] [place] [address] Box Feeder Cardiology 02/23/17 Kae Luu PA-C [address] [place], [place] [phone] Specialist Cardiology 01/06/19 06/13/24 Natalie Del Cid MD [address] [address] Surgeon Neurosurgery 07/21/23 Eboni Burroughs PA-C [address] [address] Specialist Neurosurgery 07/21/23 Sergio Dallas PA-C [address] [address] Specialist Neurosurgery 07/21/23 Oliva Day DNP [address] [address] Specialist Nurse Practitioner Family 06/14/24 documented as of this encounter
--- OUTSIDE RECORDS SUMMARY | 2025-05-24 13:46 | XMS_ITS | Encounter Summary ---
Author Organization [employer] Address [address] [place] [address] Care Team Providers Care Swimming Pool Installer Name Role Phone Adelfo Fletcher MD Primary Care Provider [phone] Encounter Details Date Type Department Care Team (Late st Contact Info) Description 09/01/2024 Lab Requisition [facility] Main Lab [address] [facility] [place] [address] Wilmer Duff MD [address] [facility] [address] [place], [phone] Type 2 diabetes mellitus without complications (CMS/HCC V24, CMS/HCC V28) Social History Tobacco Use Types Packs/Day Years [...] PM EDT Sexual Orientation Not on file documented as of this encounter Plan of Treatment Upcoming Encounters Date Type Department Care Team (Late st Contact Info) Description 07/09/2025 2:30 PM EST Office Visit [facility] [address] [facility] [address] [place] [address] Dangelo Malin MD [address] [place] [phone] 07/17/2025 1:15 PM EST Office Visit Adult [facility] [address] [place], [place] [phone] Adelfo Fletcher MD [address] [place] [address] documented as of this encounter Procedures Procedure Name Priority Date/Time Associated Diagnosis Comments COMPLETE BLOOD COUNT Routine 09/01/2024 7:25 AM EST Type 2 diabetes mellitus without complications (CMS/HCC) COMPREHENSIVE METABOLIC PANEL Routine 09/01/2024 7:25 AM EST Type 2 diabetes mellitus without complications (CMS/HCC) documented in this encounter Results * (ABNORMAL) Comprehensive metabolic panel (09/01/2024 7:25 AM EST) Sodium 139 133 - 145 mmol/L LAB CHEMISTRY METHOD 09/01/2024 11:04 AM [facility] Potassium 4.5 3.5 - 5.5 mmol/L LAB CHEMISTRY METHOD 09/01/2024 11:04 AM [facility] Chloride 109 96 - 110 mmol/L LAB CHEMISTRY METHOD 09/01/2024 11:04 AM [facility] CO2 27 21 - 32 mmol/L LAB CHEMISTRY METHOD 09/01/2024 11:04 AM [facility] Anion Gap 3 3 - 11 LAB CHEMISTRY METHOD 09/01/2024 11:04 AM [facility] Glucose 103(H) 70 - 100 mg/dL LAB CHEMISTRY METHOD 09/01/2024 11:04 AM [facility] BUN 29(H) 5 - 25 mg/dL LAB CHEMISTRY METHOD 09/01/2024 11:04 AM [facility] Creatinine 0.76 0.70 - 1.30 mg/dL LAB CHEMISTRY METHOD 09/01/2024 11:04 AM [facility] eGFR 95 >=60 mL/min/1. 73m2 LAB CHEMISTRY METHOD 09/01/2024 11:04 AM [facility] Comment:Calculation based on the Chronic Kidney Disease Epidemiology Collaboration (CKD-EPI) equation refit without adjustment for race. BUN/Creatinine Ratio 38.2 LAB CHEMISTRY METHOD 09/01/2024 11:04 AM [facility] Calcium 9.3 8.5 - 10.5 mg/dL LAB CHEMISTRY METHOD 09/01/2024 11:04 AM [facility] AST (SGOT) 20 10 - 42 unit/L LAB CHEMISTRY METHOD 09/01/2024 11:04 AM [facility] ALT (SGPT) 26 10 - 60 unit/L LAB CHEMISTRY METHOD 09/01/2024 11:04 AM [facility] Alkaline Phosphatase 118 42 - 121 unit/L LAB CHEMISTRY METHOD 09/01/2024 11:04 AM [facility] Total Protein 7.1 6.0 - 8.0 g/dL LAB CHEMISTRY METHOD 09/01/2024 11:04 AM [facility] Albumin 3.4 3.2 - 5.0 g/dL LAB CHEMISTRY METHOD 09/01/2024 11:04 AM [facility] Total Bilirubin 0.5 0.0 - 1.4 mg/dL LAB CHEMISTRY METHOD 09/01/2024 11:04 AM [facility] Blood Venous blood specimen / Unknown Venipuncture / Unknown 09/01/2024 7:25 AM EST 09/01/2024 10:03 AM EST us Wilmer Duff MD LAB BLOOD ORDERABLES Final Resul t [facility] [address] [place] [address], [place] [phone] * (ABNORMAL) Complete blood count (09/01/2024 7:25 AM EST) [facility] WBC 6.4 4.8 - 10.8 K/mcL LAB HEMETOLOGY METHOD 09/01/2024 10:44 AM [facility] RBC 3.80(L) 4.50 - 5.50 M/mcL LAB HEMETOLOGY METHOD 09/01/2024 10:44 AM [facility] Hemoglobin 11.0(L) 13.5 - 17.5 g/dL LAB HEMETOLOGY METHOD 09/01/2024 10:44 AM [facility] Hematocrit 34.2(L) 42.0 - 54.0 % LAB HEMETOLOGY METHOD 09/01/2024 10:44 AM [facility] MCV 90.0 79.0 - 98.0 FL LAB HEMETOLOGY METHOD 09/01/2024 10:44 AM [facility] MCH 28.9 27.0 - 32.0 pcg LAB HEMETOLOGY METHOD 09/01/2024 10:44 AM [facility] MCHC 32.2 32.0 - 37.0 g/dL LAB HEMETOLOGY METHOD 09/01/2024 10:44 AM [facility] RDW 13.3 11.0 - 15.0 % LAB HEMETOLOGY METHOD 09/01/2024 10:44 AM [facility] Platelets 246 130 - 400 K/mcL LAB HEMETOLOGY METHOD 09/01/2024 10:44 AM [facility] MPV 11.8(H) 7.0 - 11.0 FL LAB HEMETOLOGY METHOD 09/01/2024 10:44 AM [facility] NRBC 0.0 <1.0 % LAB HEMETOLOGY METHOD 09/01/2024 10:44 AM [facility] NRBC Absolute 0.00 <0.10 K/[facility] LAB HEMETOLOGY METHOD 09/01/2024 10:44 AM EST [facility] Blood Venous blood specimen / Unknown Venipuncture / Unknown 09/01/2024 7:25 AM EST 09/01/2024 10:03 AM EST us Wilmer Duff MD LAB BLOOD ORDERABLES Final Resul t [facility] [address] [place] [address], documented in this encounter Visit Diagnoses Diagnosis Type 2 diabetes mellitus without complications (CMS/HCC V24, CMS/HCC V28) documented in this encounter Care Teams Swimming Pool Installer Relationship Specialty Start Date End Date Adelfo Fletcher MD [address] [place] [address] PCP - General Internal Medicine 09/18/24 documented as of this encounter
--- OUTSIDE RECORDS SUMMARY | 2025-05-24 13:46 | XMS_ITS | Encounter Summary ---
Author Organization [facility] Address [address] [place] [address] Care Team Providers Care Infant Teacher Name Role Phone Adelfo Fletcher MD Primary Care Provider [phone] Susan Bartlett MD Unavailable [phone] Kae Luu PA-C Unavailable Natalie Del Cid MD Unavailable [phone] Eboni Burroughs PA-C Unavailable [phone] Sergio Dallas PA-C Unavailable Oliva Day DNP Unavailable [phone] Encounter Details Date Type Department Care Team Description 01/17/2019 Hospital Medical Records 4 [place] [address] Stefano Fowler MD Social History Tobacco Use [...] on filedocumented in this encounter Care Teams Infant Teacher Relationship Specialty Start Date End Date Adelfo Fletcher MD [address] [place] [address] PCP - General Internal Medicine 06/24/15 Susan Bartlett MD [address] [place] [address] Advertising Production Manager Cardiology 02/23/17 Kae Luu PA-C [address] [place] [address] Specialist Cardiology 01/06/19 06/13/24 Natalie Del Cid MD [address] [address] Surgeon Neurosurgery 07/21/23 Eboni Burroughs PA-C [address] [address] Specialist Neurosurgery 07/21/23 Sergio Dallas PA-C [address] [address] Specialist Neurosurgery 07/21/23 Oliva Day DNP [address] [address] Specialist Nurse Practitioner Family 06/14/24 documented as of this encounter
--- OUTSIDE RECORDS SUMMARY | 2025-05-24 13:46 | XMS_ITS | Encounter Summary ---
Author Organization [facility] Address [address] [place] [address] Care Team Providers Care Cable Installer Repairer Helper Name Role Phone Adelfo Fletcher MD Primary Care Provider [phone] Susan Bartlett MD Unavailable [phone] Kae Luu PA-C Unavailable Natalie Del Cid MD Unavailable [phone] Eboni Burroughs PA-C Unavailable Sergio Dallas PA-C Unavailable Oliva Day DNP Unavailable [phone] Encounter Details Date Type Department Care Team Description 03/06/2021 Global Compensation Analyst Report Medical Records [address] [place] [address] Richard Bill Social History Tobacco Use Types Packs/Day Years [...] on filedocumented in this encounter Care Teams Cable Installer Repairer Helper Relationship Specialty Start Date End Date Adelfo Fletcher MD [address] [place], [place] [phone] PCP - General Internal Medicine 06/24/15 Susan Bartlett MD [address] [place] [address] Guitar Repair Technician Cardiology 02/23/17 Kae Luu PA-C [address] [place] [address] Specialist Cardiology 01/06/19 06/13/24 Natalie Del Cid MD [address] [address] Surgeon Neurosurgery 07/21/23 Eboni Burroughs PA-C [address] [address] Specialist Neurosurgery 07/21/23 Sergio Dallas PA-C [address] [address] Specialist Neurosurgery 07/21/23 Oliva Day DNP [address] [address] Specialist Nurse Practitioner Family 06/14/24 documented as of this encounter
--- OUTSIDE RECORDS SUMMARY | 2025-05-24 13:46 | XMS_ITS | Encounter Summary ---
Author Organization [facility] Address [address] [place] [address] Care Team Providers Care Radiation Control Specialist Name Role Phone Adelfo Fletcher MD Primary Care Provider [phone] Susan Bartlett MD Unavailable [phone] Kae Luu PA-C Unavailable Natalie Del Cid MD Unavailable [phone] Eboni Burroughs PA-C Unavailable Sergio Dallas PA-C Unavailable [phone] Oliva Day DNP Unavailable [phone] Encounter Details Date Type Department Care Team Description 11/03/2016 Inspector Outside Production Report Medical Records [address] [place] [address] Carine Cormier MD Social History Tobacco Use [...] on filedocumented in this encounter Care Teams Radiation Control Specialist Relationship Specialty Start Date End Date Adelfo Fletcher MD [address] [place] [address] [phone] PCP - General Internal Medicine 06/24/15 Susan Bartlett MD [address] [place] [address] Granite Polisher Machine Cardiology 02/23/17 Kae Luu PA-C [address] [place] [address] Specialist Cardiology 01/06/19 06/13/24 Natalie Del Cid MD [address] [address] Surgeon Neurosurgery 07/21/23 Eboni Burroughs PA-C [address] [address] Specialist Neurosurgery 07/21/23 Sergio Dallas PA-C [address] [address] Specialist Neurosurgery 07/21/23 Oliva Day DNP [address] [address] Specialist Nurse Practitioner Family 06/14/24 documented as of this encounter
--- OUTSIDE RECORDS SUMMARY | 2025-05-24 13:46 | XMS_ITS ---
Author Organization [address] Address [address] [place], [place] [address], [place] [address] Phone Care Team Providers Care Amusement Equipment Operator Name Role Phone Adelfo Fletcher MD Primary Care Provider [phone] Active Problems Problem Noted Date Diagnosed Date Diabetes mellitus ([facility] V24, [facility] V28) Hyperlipidemia 07/31/2024 Overview (07/31/2024): Last Assessment [...] Cardiac event monitor; Future Proteinuria 07/31/2024 Stroke ([facility] V24, [facility] V28) 07/31/2024 Postural dizziness with presyncope 06/20/2024 [...] His MRI of the lumbar spine from [place] on 06/30/23 shows multilevel degenerative changes. At L5-S1 there is disc bulging, facet arthropathy and endplate spurring resulting in severe left foraminal stenosis. He is scheduled for an injection with [facility]. Physical therapy and accupuncture would be other reasonable modalities. Occlusion of femoropopliteal bypass graft (CMS/ CC V24) 07/21/2023 Overview (07/31/2024): Occlusion of [...] Cardiac event monitor; Future Cerebral infarction, unspecified ([facility] V24, [facility] [place] V28) 12/18/2020 Chronic obstructive pulmonar y disease, unspecified ([facility] V24, [facility] V28) 12/18/2020 Hypertension 12/18/2020 Overview (07/31/2024): Last [...] event monitor; Future Peripheral vascular disease, unspecified ([facility] V24) 12/18/2020 Type 2 diabetes mellitus wit h other diabetic kidney complication ([facility] V24, [facility] V28) 12/18/2020 History of 2019 novel coronavirus disease (COVID -19) 07/31/2020 Overview (07/31/2024): Dx: 06/27/20. Asymptomatic Hemiplegia and hemiparesis f ollowing cerebral infarction affecting left non-dominant side ([facility] V24, [facility] V28) 05/10/2020 Centrilobular emphysema ([facility] V24, [facility] V2 8) 03/20/2020 Obstructive sleep apnea 10/10/2019 Overview (07/31/2024): 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 Gallstone 03/08/2018 Overview (07/31/2024): Seen on CT 2016. Positive PPD 03/31/2016 DM (diabetes mellitus), type 2 with peripheral vascular complications ([facility] V24, [facility] V28) 01/08/2016 Current Oncology Plans No current plan information found. Past Plans No past plan information found. Radiation Treatments * No radiation treatments are documented for this patient in [facility]. Treatments may have been administered in another system. Lifetime Dose Tracking * Chemical Lifetime Dose Automatic Entry Manual Entr y Radiation (DLP) 80.2 mGy-cm 80.2 mGy-cm 0 mGy-cm CTDIvol 2.85 mGy 2.85 mGy 0 mGy
--- OUTSIDE RECORDS SUMMARY | 2025-05-24 13:46 | XMS_ITS | Encounter Summary ---
Author Organization [facility] Address [address] [place] [address] Care Team Providers Care Awning Installer Name Role Phone Adelfo Fletcher MD Primary Care Provider [phone] Susan Barteltt MD Unavailable [phone] Kae Luu PA-C Unavailable Natalie Del Cid MD Unavailable [phone] Eboni Burroughs PA-C Unavailable Sergio Dallas PA-C Unavailable Oliva Day DNP Unavailable [phone] Encounter Details Date Type Department Care Team Description 01/03/2021 Telephone Adult Medicine [address] [phone] Arminda Madrigal PA Social History Tobacco Use Types Packs/Day Years [...] encounter Miscellaneous Notes * Telephone Encounter - Navneet Glover C.M.A. - 01/07/2021 1:33 PM EDT Still awaiting faxes to come in * Telephone Encounter - Arminda Sy PA-C - 01/07/2021 12:23 PM EDT Have the notes come in? * Telephone Encounter - Alba Fernández M.A. - 01/03/2021 2:58 PM EDT I called and spoke with vascular Dr. Fowler. Patient was last seen August of 2020. These notes [facility] fax[facility] to [facility] * Telephone Encounter - Arminda Sy PA-C - 01/03/2021 11:42 AM EDT Can I please have most recen vascular notes to confirm this. Last notes are from 06/25. * Telephone Encounter - Meka Smith C.M.A. - 01/03/2021 11:39 AM EDT Spoke to pt, he states that his vascular doctor was the one who discontinued Plavix. Please advise * Telephone Encounter - Arminda Sy PA-C - 01/03/2021 7:45 AM EDT Please let patient's daughter who is on verbal release know that patient is supposed to be on Plavix. His Plavix was held during his had last hospitalization but after reviewing his most recent vascular appointment notes, he is supposed to be on Plavix 75 mg qd d/t history of stroke, peripheral ater ial disease. If patient needs a refill please let me know. documented in this encounter Plan of Treatment Not on file documented as of this encounter Visit Diagnoses Not on filedocumented in this encounter Care Teams Awning Installer Relationship Specialty Start Date End Date Adelfo Fletcher MD [address] [place] [address] [phone] PCP - General Internal Medicine 06/24/15 Susan Bartlett MD [address] [place] [address] [phone] Machinery Mover Cardiology 02/23/17 Kae Luu PA-C [address] [place] [address] [phone] Specialist Cardiology 01/06/19 06/13/24 Natalie Del Cid MD [address] [address] Surgeon Neurosurgery 07/21/23 Eboni Burroughs PA-C [address] [address] Specialist Neurosurgery 07/21/23 Sergio Dallas PA-C [address] [address] Specialist Neurosurgery 07/21/23 Oliva Day DNP [address] [address] Specialist Nurse Practitioner Family 06/14/24 documented as of this encounter
--- OUTSIDE RECORDS SUMMARY | 2025-05-24 13:46 | XMS_ITS | Encounter Summary ---
Author Organization [facility] Address [address] [facility] [place] [address] Care Team Providers Care Dental Technologist Name Role Phone Adelfo Fletcher MD Primary Care Provider [phone] Susan Bartlett MD Unavailable [phone] Kae Luu PA-C Unavailable Natalie Del Cid MD Unavailable [phone] Eboni Burroughs PA-C Unavailable Sergio Dallas PA-C Unavailable [phone] Oliva Day DNP Unavailable [phone] Encounter Details Date Type Department Care Team Description 04/29/2021 Associate Web Developer Report Medical Records [address] [place] [address] Richard Bill Social History Tobacco Use Types [...] have Coronavirus / COVID-19? No / Unsure 04/21/2021 9:44 AM EDT documented as of this encounter Plan of Treatment Not on file documented as of this encounter Visit Diagnoses Not on filedocumented in this encounter Care Teams Dental Technologist Relationship Specialty Start Date End Date Adelfo Fletcher MD [address] [place], [place] [phone] PCP - General Internal Medicine 06/24/15 Susan Bartlett MD [address] [place] [address] Top Lift And Automatic Window Repairer Cardiology 02/23/17 Kae Luu PA-C [address] [place], [place] [phone] Specialist Cardiology 01/06/19 06/13/24 Natalie Del Cid MD [address] [address] Surgeon Neurosurgery 07/21/23 Eboni Burroughs PA-C [address] [address] Specialist Neurosurgery 07/21/23 Sergio Dallas PA-C [address] [address] Specialist Neurosurgery 07/21/23 Oliva Day DNP [address] [address] Specialist Nurse Practitioner Family 06/14/24 documented as of this encounter
--- OUTSIDE RECORDS SUMMARY | 2025-05-24 13:46 | XMS_ITS | Encounter Summary ---
Author Organization [facility] [facility] Address [address] [place] [address] Care Team Providers Care Animal Care Attendant Name Role Phone Adelfo Fletcher MD Primary Care Provider [phone] Susan Bartlett MD Unavailable [phone] Kae Luu PA-C Unavailable Natalie Del Cid MD Unavailable [phone] Eboni Burroughs PA-C Unavailable Sergio Dallas PA-C Unavailable Oliva Day DNP Unavailable [phone] Encounter Details Date Type Department Care Team Description 05/20/2021 Cleaner Assistant Report Medical Records [address] [place] [address] Claire Liu DPM Social History Tobacco Use Types Packs/Day Years [...] on filedocumented in this encounter Care Teams Animal Care Attendant Relationship Specialty Start Date End Date Adelfo Fletcher MD [address] [place], [place] 2840020 PCP - General Internal Medicine 06/24/15 Susan Bartlett MD [address] [place], [place] [phone] Cocoa Bean Roaster Cardiology 02/23/17 Kae Luu PA-C [address] [place], [place] [phone] Specialist Cardiology 01/06/19 06/13/24 Natalie Del Cid MD [address] [address] Surgeon Neurosurgery 07/21/23 Eboni Burroughs PA-C [address] [address] Specialist Neurosurgery 07/21/23 Sergio Dallas PA-C [address] [address] Specialist Neurosurgery 07/21/23 Oliva Day DNP [address] [address] Specialist Nurse Practitioner Family 06/14/24 documented as of this encounter
--- OUTSIDE RECORDS SUMMARY | 2025-05-24 13:46 | XMS_ITS | Encounter Summary ---
Author Organization [facility] Address [address] [facility] [place] [address] Care Team Providers Care Security System Analyst Name Role Phone Adelfo Fletcher MD Primary Care Provider [phone] Susan Bartlett MD Unavailable [phone] Kae Luu PA-C Unavailable Natalie Del Cid MD Unavailable [phone] Eboni Burroughs PA-C Unavailable Sergio Dallas PA-C Unavailable [phone] Oliva Day DNP Unavailable [phone] Reason for Visit * Reason Onset Date Comments Faxed Order 05/27/2016 Encounter Details Date Type Department Care Team Description 05/27/2016 Telephone Adult Medicine [address] [phone] Adelfo Fletcher MD [address] [place] [address] [phone] Faxed Order Social History Tobacco Use Types [...] * Telephone Encounter - Livier Shen - 05/27/2016 4:06 PM EDT Medication orders for Dr Farias's signature documented in this encounter Plan of Treatment Not on file documented as of this encounter Visit Diagnoses Not on filedocumented in this encounter Care Teams Security System Analyst Relationship Specialty Start Date End Date Adelfo Fletcher MD [address] [place] [address] PCP - General Internal Medicine 06/24/15 Susan Bartlett MD [address] [place] [address] [phone] Specialist Employee Labor Relations Cardiology 02/23/17 Kae Luu PA-C [address] [place] [address] [phone] Specialist Cardiology 01/06/19 06/13/24 Natalie Del Cid MD [address] [address] Surgeon Neurosurgery 07/21/23 Eboni Burroughs PA-C [address] [address] Specialist Neurosurgery 07/21/23 Sergio Dallas PA-C [address] [address] Specialist Neurosurgery 07/21/23 Oliva Day DNP [address] [address] Specialist Nurse Practitioner Family 06/14/24 documented as of this encounter
--- OUTSIDE RECORDS SUMMARY | 2025-05-24 13:46 | XMS_ITS | Encounter Summary ---
Author Organization [facility] Address [address] [place] [address] Care Team Providers Care Strap Making Machine Operator Name Role Phone Adelfo Fletcher MD Primary Care Provider [phone] Susan Bartlett MD Unavailable [phone] Kae Luu PA-C Unavailable Natalie Del Cid MD Unavailable [phone] Eboni Burroughs PA-C Unavailable Sergio Dallas PA-C Unavailable [phone] Oliva Day DNP Unavailable [phone] Encounter Details Date Type Department Care Team Description 10/13/2018 Deaf And Hard Of Hearing Teacher Report Medical Records [address] [place] [address] Stefano Fowler MD Social History Tobacco Use [...] on filedocumented in this encounter Care Teams Strap Making Machine Operator Relationship Specialty Start Date End Date Adelfo Fletcher MD [address] [place] [address] PCP - General Internal Medicine 06/24/15 Susan Bartlett MD [address] [place] [address] Waste Management Engineer Cardiology 02/23/17 Kae Luu PA-C [address] [place] [address] Specialist Cardiology 01/06/19 06/13/24 Natalie Del Cid MD [address] [address] Surgeon Neurosurgery 07/21/23 Eboni Burroughs PA-C [address] [address] Specialist Neurosurgery 07/21/23 Sergio Dallas PA-C [address] [address] Specialist Neurosurgery 07/21/23 Oliva Day DNP [address] [address] Specialist Nurse Practitioner Family 06/14/24 documented as of this encounter
--- OUTSIDE RECORDS SUMMARY | 2025-05-24 13:46 | XMS_ITS | Encounter Summary ---
Author Organization [facility] Address [address] [place] [address] Care Team Providers Care Alcoholism Worker Name Role Phone Adelfo Fletcher MD Primary Care Provider Susan Bartlett MD Unavailable [phone] Kae Luu PA-C Unavailable Natalie Del Cid MD Unavailable [phone] Eboni Burroughs PA-C Unavailable [phone] Sergio Dallas PA-C Unavailable Oliva Day DNP Unavailable [phone] Encounter Details Date Type Department Care Team Description 05/05/2019 Nitrogen Operator Report Medical Records [address] [place] [address] Virginia Richard PA-C [address] [address] Social History Tobacco Use Types Packs/Day [...] on filedocumented in this encounter Care Teams Alcoholism Worker Relationship Specialty Start Date End Date Adelfo Fletcher MD [address] [place] [address] PCP - General Internal Medicine 06/24/15 Susan Bartlett MD [address] [place], [place] [phone] Solvent Process Extractor Operator Cardiology 02/23/17 Kae Luu PA-C [address] [place], [place] [phone] Specialist Cardiology 01/06/19 06/13/24 Natalie Del Cid MD [address] [address] Surgeon Neurosurgery 07/21/23 Eboni Burroughs PA-C [address] [address] Specialist Neurosurgery 07/21/23 Sergio Dallas PA-C [address] [address] Specialist Neurosurgery 07/21/23 Oliva Day DNP [address] [address] Specialist Nurse Practitioner Family 06/14/24 documented as of this encounter
--- OUTSIDE RECORDS SUMMARY | 2025-05-24 13:46 | XMS_ITS | Clinical Summary ---
Author Organization [facility] Address [address] [place] [address] Care Team Providers Care High Worker Name Role Phone Unavailable Primary Care Provider Unavailabl e Social History Tobacco Use Types Packs/Day Years Used Date Smoking Tobacco: Never Assessed Sex and Gender Information Value Date Recorded Sex Assigned at Not on file Legal Sex Male 3:56 PM EDT Gender Identity Not on file Sexual Orientation Not on file Plan of Treatment Health Maintenance Due Date Last Done Comments Advance Care Planning 1950 Hepatitis C Virus Screening 1950 DTaP/Tdap/Td Vaccines (1 - Tdap) 1970 Pneumococcal Vaccines 50+ (1 of 1 - PCV) 2001 Zoster (Shingles) Vaccine (1 of 2) 2001 COVID-19 Vaccine (3 - 2024-2 6 season) 2025 07/03/2023, 07/23/2022 RSV Vaccine 60 years and older and Patients (1 - 1-dose 75+ series) 2026 Hepatitis B Vaccines Aged Out No long er eligible based on patient's age to complete this topic
--- OUTSIDE RECORDS SUMMARY | 2025-05-24 13:46 | XMS_ITS | Encounter Summary ---
Author Organization [facility] Address [address] [facility] [place] [address] Care Team Providers Care Semiconductor Wafers Etch Operator Name Role Phone Adelfo Fletcher MD Primary Care Provider [phone] Susan Bartlett MD Unavailable [phone] Kae Luu PA-C Unavailable Natalie Del Cid MD Unavailable [phone] Eboni Burroughs PA-C Unavailable [phone] Sergio Dallas PA-C Unavailable Oliva Day DNP Unavailable [phone] Encounter Details Date Type Department Care Team Description 10/05/2016 Change Management Administrator Report Medical Records [address] [place] [address] Stefano Fowler MD Social History Tobacco Use [...] on filedocumented in this encounter Care Teams Semiconductor Wafers Etch Operator Relationship Specialty Start Date End Date Adelfo Fletcher MD [address] [place] [address] [phone] PCP - General Internal Medicine 06/24/15 Susan Bartlett MD [address] [place] [address] Cold Strip Feeder Cardiology 02/23/17 Kae Luu PA-C [address] [place], [place] [phone] Specialist Cardiology 01/06/19 06/13/24 Natalie Del Cid MD [address] [address] Surgeon Neurosurgery 07/21/23 Eboni Burroughs PA-C [address] [address] Specialist Neurosurgery 07/21/23 Sergio Dallas PA-C [address] [address] Specialist Neurosurgery 07/21/23 Oliva Day DNP [address] [address] Specialist Nurse Practitioner Family 06/14/24 documented as of this encounter
--- OUTSIDE RECORDS SUMMARY | 2025-05-24 13:46 | XMS_ITS | Encounter Summary ---
Author Organization [facility] Address [address] [place] [address] Care Team Providers Care Submarine Operator Name Role Phone Adelfo Fletcher MD Primary Care Provider [phone] Susan Bartlett MD Unavailable [phone] Kae Luu PA-C Unavailable Natalie Del Cid MD Unavailable [phone] Eboni Burroughs PA-C Unavailable Sergio Dallas PA-C Unavailable Oliva aDy DNP Unavailable [phone] Encounter Details Date Type Department Care Team Description 06/09/2016 Hospital Medical Records [address] [place] [address] Deniz Lozano MD Social History Tobacco Use Types Packs/Day [...] on filedocumented in this encounter Care Teams Submarine Operator Relationship Specialty Start Date End Date Adelfo Fletcher MD [address] [place] [address] PCP - General Internal Medicine 06/24/15 Susan Bartlett MD [address] [place] [address] Ticket Speculator Cardiology 02/23/17 Kae Luu PA-C [address] [place] [address] Specialist Cardiology 01/06/19 06/13/24 Natalie Del Cid MD [address] [address] Surgeon Neurosurgery 07/21/23 Eboni Burroughs PA-C [address] [address] Specialist Neurosurgery 07/21/23 Sergio Dallas PA-C [address] [address] Specialist Neurosurgery 07/21/23 Oliva Day DNP [address] [address] Specialist Nurse Practitioner Family 06/14/24 documented as of this encounter
--- OUTSIDE RECORDS SUMMARY | 2025-05-24 13:46 | XMS_ITS | Encounter Summary ---
Author Organization [employer] ([employer] [facility] Address [address] [place] [address] Care Team Providers Care Silver Plater Name Role Phone Adelfo Fletcher MD Primary Care Provider [phone] Susan Bartlett MD Unavailable [phone] Kae Luu PA-C Unavailable Natalie Del Cid MD Unavailable [phone] Eboni Burroughs PA-C Unavailable [phone] Sergio Dallas PA-C Unavailable Oliva Day DNP Unavailable [phone] Encounter Details Date Type Department Care Team Description 04/26/2017 Transfer Records Medical Records [address] [place] [address] Abstract, Provider Social History Tobacco Use Types [...] on filedocumented in this encounter Care Teams Silver Plater Relationship Specialty Start Date End Date Adelfo Fletcher MD [address] [place] [address] PCP - General Internal Medicine 06/24/15 Susan Bartlett MD [address] [place] [address] Railroad Police Cardiology 02/23/17 Kae Luu PA-C [address] [place] [address] Specialist Cardiology 01/06/19 06/13/24 Natalie Del Cid MD [address] [address] Surgeon Neurosurgery 07/21/23 Eboni Burroughs PA-C [address] [address] Specialist Neurosurgery 07/21/23 Sergio Dallas PA-C [address] [address] Specialist Neurosurgery 07/21/23 Oliva Day DNP [address] [address] Specialist Nurse Practitioner Family 06/14/24 documented as of this encounter
--- OUTSIDE RECORDS SUMMARY | 2025-05-24 13:46 | XMS_ITS | Encounter Summary ---
Author Organization [employer] [facility] Address [address] [place] [address] Care Team Providers Care Weight Loss Sales Consultant Name Role Phone Adelfo Fletcher MD Primary Care Provider [phone] Susan Bartlett MD Unavailable [phone] Kae Luu PA-C Unavailable Natalie Del Cid MD Unavailable [phone] Eboni Burroughs PA-C Unavailable [phone] Sergio Dallas PA-C Unavailable [phone] Oliva Day DNP Unavailable [phone] Encounter Details Date Type Department Care Team Description 12/14/2016 Business Doc Medical Records [address] [place] [address] Abstract, Provider Social History Tobacco Use Types [...] on filedocumented in this encounter Care Teams Weight Loss Sales Consultant Relationship Specialty Start Date End Date Adelfo Fletcher MD [address] [place] [address] PCP - General Internal Medicine 06/24/15 Susan Bartlett MD [address] [place] [address] Marketing Communications Assistant Cardiology 02/23/17 Kae Luu PA-C [address] [place] [address] Specialist Cardiology 01/06/19 06/13/24 Natalie Del Cid MD [address] [address] Surgeon Neurosurgery 07/21/23 Eboni Burroughs PA-C [address] [address] Specialist Neurosurgery 07/21/23 Sergio Dallas PA-C [address] [address] Specialist Neurosurgery 07/21/23 Oliva Day DNP [address] [address] Specialist Nurse Practitioner Family 06/14/24 documented as of this encounter
--- OUTSIDE RECORDS SUMMARY | 2025-05-24 13:46 | XMS_ITS | Encounter Summary ---
Author Organization [facility] Address [address] [facility] [place] [address] Care Team Providers Care Vacuum Cleaner Repair Person Name Role Phone Adelfo Fletcher MD Primary Care Provider [phone] Susan Bartlett MD Unavailable [phone] Kae Luu PA-C Unavailable Natalie Del Cid MD Unavailable [phone] Eboni Burroughs PA-C Unavailable [phone] Sergio Dallas PA-C Unavailable Oliva Day DNP Unavailable [phone] Encounter Details Date Type Department Care Team Description 11/26/2015 Hopper Feeder Report Medical Records [address] [place] [address] Abstract, Provider Social History Tobacco Use Types [...] filedocumented in this encounter Care Teams Vacuum Cleaner Repair Person Relationship Specialty Start Date End Date Adelfo Fletcher MD [address] [place] [address] PCP - General Internal Medicine 06/24/15 Susan Bartlett MD [address] [place] [address] Tin Plater Cardiology 02/23/17 Kae Luu PA-C [address] [place] [address] Specialist Cardiology 01/06/19 06/13/24 Natalie Del Cid MD [address] [address] Surgeon Neurosurgery 07/21/23 Eboni Burroughs PA-C [address] [address] Specialist Neurosurgery 07/21/23 Sergio Dallas PA-C [address] [address] Specialist Neurosurgery 07/21/23 Oliva Day DNP [address] [address] Specialist Nurse Practitioner Family 06/14/24 documented as of this encounter
--- OUTSIDE RECORDS SUMMARY | 2025-05-24 13:46 | XMS_ITS | Encounter Summary ---
Author Organization [employer] [facility] Address [address] [place] [address] Care Team Providers Care Jail Manager Name Role Phone Adelfo Fletcher MD Primary Care Provider [phone] Susan Bartlett MD Unavailable [phone] Kae Luu PA-C Unavailable Natalie Del Cid MD Unavailable [phone] Eboni Burroughs PA-C Unavailable Sergio Dallas PA-C Unavailable Oliva Day DNP Unavailable [phone] Encounter Details Date Type Department Care Team Description 06/30/2018 Terminal Press Operator Report Medical Records [address] [place] [address] Stefano Fowler MD Social History Tobacco Use [...] on filedocumented in this encounter Care Teams Jail Manager Relationship Specialty Start Date End Date Adelfo Fletcher MD [address] [place] [address] PCP - General Internal Medicine 06/24/15 Susan Bartlett MD [address] [place] [address] Rental Salesperson Cardiology 02/23/17 Kae Luu PA-C [address] [place] [address] Specialist Cardiology 01/06/19 06/13/24 Natalie Del Cid MD [address] [address] Surgeon Neurosurgery 07/21/23 Eboni Burroughs PA-C [address] [address] Specialist Neurosurgery 07/21/23 Sergio Dallas PA-C [address] [address] Specialist Neurosurgery 07/21/23 Oliva Day DNP [address] [address] Specialist Nurse Practitioner Family 06/14/24 documented as of this encounter
--- OUTSIDE RECORDS SUMMARY | 2025-05-24 13:46 | XMS_ITS | Encounter Summary ---
Author Organization [facility] Address [address] [facility] [place] [address] Care Team Providers Care Esthetics Instructor Name Role Phone Adelfo Fletcher MD Primary Care Provider [phone] Susan Bartlett MD Unavailable [phone] Kae Luu PA-C Unavailable Natalie Del Cid MD Unavailable [phone] Eboni Burroughs PA-C Unavailable Sergio Dallas PA-C Unavailable Oliva Day DNP Unavailable [phone] Encounter Details Date Type Department Care Team Description 2019 Hospital Medical Records [address] [place] [address] Stefano Fowler MD Social History Tobacco Use [...] on filedocumented in this encounter Care Teams Esthetics Instructor Relationship Specialty Start Date End Date Adelfo Fletcher MD [address] [place] [address] PCP - General Internal Medicine 06/24/15 Susan Bartlett MD [address] [place] [address] Health And Wellness Director Cardiology 02/23/17 Kae Luu PA-C [address] [place] [address] Specialist Cardiology 01/06/19 06/13/24 Natalie Del Cid MD [address] [address] Surgeon Neurosurgery 07/21/23 Eboni Burroughs PA-C [address] [address] Specialist Neurosurgery 07/21/23 Sergio Dallas PA-C [address] [address] Specialist Neurosurgery 07/21/23 Oliva Day DNP [address] [address] Specialist Nurse Practitioner Family 06/14/24 documented as of this encounter
--- OUTSIDE RECORDS SUMMARY | 2025-05-24 13:46 | XMS_ITS | Encounter Summary ---
Author Organization [employer] [facility] Address [address] [place] [address] Care Team Providers Care General Maintenance Mechanic Name Role Phone Adelfo Fletcher MD Primary Care Provider [phone] Susan Bartlett MD Unavailable [phone] Kae Luu PA-C Unavailable Natalie Del Cid MD Unavailable [phone] Eboni Burroughs PA-C Unavailable Sergio Dallas PA-C Unavailable Oliva Day DNP Unavailable [phone] Encounter Details Date Type Department Care Team Description 06/06/2019 Scouring Pads Supervisor Report Medical Records [address] [place] [address] Stefano Fowler MD Social History Tobacco Use [...] on filedocumented in this encounter Care Teams General Maintenance Mechanic Relationship Specialty Start Date End Date Adelfo Fletcher MD [address] [place] [address] PCP - General Internal Medicine 06/24/15 Susan Bartlett MD [address] [place] [address] Optometric Tech Cardiology 02/23/17 Kae Luu PA-C [address] [place] [address] Specialist Cardiology 01/06/19 06/13/24 Natalie Del Cid MD [address] [address] Surgeon Neurosurgery 07/21/23 Eboni Burroughs PA-C [address] [address] Specialist Neurosurgery 07/21/23 Sergio Dallas PA-C [address] [address] Specialist Neurosurgery 07/21/23 Oliva aDy DNP [address] [address] Specialist Nurse Practitioner Family 06/14/24 documented as of this encounter
--- OUTSIDE RECORDS SUMMARY | 2025-05-24 13:46 | XMS_ITS | Encounter Summary ---
Author Organization [employer] [facility] Address [address] [facility] [place] [place] [address] Care Team Providers Care Pathology Laboratory Director Name Role Phone Adelfo Fletcher MD Primary Care Provider [phone] Susan Bartlett MD Unavailable [phone] Kae Luu PA-C Unavailable Natalie Del Cid MD Unavailable [phone] Eboni Burroughs PA-C Unavailable Sergio Dallas PA-C Unavailable [phone] Oliva Day DNP Unavailable [phone] Encounter Details Date Type Department Care Team Description 07/27/2016 Pilot Teacher Report Medical Records [address] [place] [address] Stefano Fowler MD Social History Tobacco Use [...] on filedocumented in this encounter Care Teams Pathology Laboratory Director Relationship Specialty Start Date End Date Adelfo Fletcher MD [address] [place] [address] [phone] PCP - General Internal Medicine 06/24/15 Susan Bartlett MD [address] [place] [address] Recreation Facility Manager Cardiology 02/23/17 Kae Luu PA-C [address] [place] [address] Specialist Cardiology 01/06/19 06/13/24 Natalie Del Cid MD [address] [address] Surgeon Neurosurgery 07/21/23 Eboni Burroughs PA-C [address] [address] Specialist Neurosurgery 07/21/23 Sergio Dallas PA-C [address] [address] Specialist Neurosurgery 07/21/23 Oliva Day DNP [address] [address] Specialist Nurse Practitioner Family 06/14/24 documented as of this encounter
--- OUTSIDE RECORDS SUMMARY | 2025-05-24 13:46 | XMS_ITS | Encounter Summary ---
Author Organization [facility] [facility] Address [address] [facility] [place] [address] Care Team Providers Care Tile Erector Name Role Phone Adelfo Fletcher MD Primary Care Provider [phone] Susan Bartlett MD Unavailable [phone] Kae Luu PA-C Unavailable Natalie Del Cid MD Unavailable [phone] Eboni Burroughs PA-C Unavailable [phone] Sergio Dallas PA-C Unavailable Oliva Day DNP Unavailable [phone] Encounter Details Date Type Department Care Team Description 05/12/2019 Release of Information Medical Records [address] [place] [address] Abstract, Provider Social History Tobacco Use Types [...] on filedocumented in this encounter Care Teams Tile Erector Relationship Specialty Start Date End Date Adelfo Fletcher MD [address] [place] [address] PCP - General Internal Medicine 06/24/15 Susan Bartlett MD [address] [place] [address] Ammonia Worker Cardiology 02/23/17 Kae Luu PA-C [address] [place] [address] Specialist Cardiology 01/06/19 06/13/24 Natalie Del Cid MD [address] [address] Surgeon Neurosurgery 07/21/23 Eboni Burroughs PA-C [address] [address] Specialist Neurosurgery 07/21/23 Sergio Dallas PA-C [address] [address] Specialist Neurosurgery 07/21/23 Oliva Day DNP [address] [address] Specialist Nurse Practitioner Family 06/14/24 documented as of this encounter
--- OUTSIDE RECORDS SUMMARY | 2025-05-24 13:46 | XMS_ITS | Encounter Summary ---
Author Organization [employer] [facility] Address [address] [place] [address] Care Team Providers Care Bellows Filler Name Role Phone Adelfo Fletcher MD Primary Care Provider Susan Bartlett MD Unavailable [phone] Kae Luu PA-C Unavailable Natalie Del Cid MD Unavailable [phone] Eboni Burroughs PA-C Unavailable Sergio Dallas PA-C Unavailable Oliva Day DNP Unavailable [phone] Reason for Visit * Reason Onset Date Comments Faxed Order 07/01/2018 Encounter Details Date Type Department Care Team Description 07/01/2018 Telephone Adult Medicine [address] [phone] Adelfo Fletcher MD [address] [place] [address] [phone] Faxed Order Social History Tobacco Use Types [...] encounter Miscellaneous Notes * Telephone Encounter - Gladys Rogers - 07/01/2018 2:33 PM EDT Plan of care documented in this encounter Plan of Treatment Not on file documented as of this encounter Visit Diagnoses Not on filedocumented in this encounter Care Teams Bellows Filler Relationship Specialty Start Date End Date Adelfo Fletcher MD [address] [place] [address] PCP - General Internal Medicine 06/24/15 Susan Bartlett MD [address] [place] [address] Assembler Corncob Pipes Cardiology 02/23/17 Kae Luu PA-C [address] [place], [place] 3781220 Specialist Cardiology 01/06/19 06/13/24 Natalie Del Cid MD [address] [address] Surgeon Neurosurgery 07/21/23 Eboni Burroughs PA-C [address] [address] Specialist Neurosurgery 07/21/23 Sergio Dallas PA-C [address] [address] Specialist Neurosurgery 07/21/23 Oliva Day DNP [address] [address] Specialist Nurse Practitioner Family 06/14/24 documented as of this encounter
--- OUTSIDE RECORDS SUMMARY | 2025-05-24 13:46 | XMS_ITS | Encounter Summary ---
Author Organization [employer] [facility] Address [address] [facility] [place] [address] Care Team Providers Care Photocopying Equipment Repairer Name Role Phone Adelfo Fletcher MD Primary Care Provider [phone] Susan Bartlett MD Unavailable [phone] Kae Luu PA-C Unavailable Natalie Del Cid MD Unavailable [phone] Eboni Burroughs PA-C Unavailable Sergio Dallas PA-C Unavailable Oliva Day DNP Unavailable [phone] Encounter Details Date Type Department Care Team Description 01/21/2017 Venetian Blind Mechanic Report Medical Records [address] [place] [address] Stefano Fowler MD Social History Tobacco Use [...] on filedocumented in this encounter Care Teams Photocopying Equipment Repairer Relationship Specialty Start Date End Date Adelfo Fletcher MD [address] [place] [phone] PCP - General Internal Medicine 06/24/15 Susan Bartlett MD [address] [place] [address] Almond Roaster Cardiology 02/23/17 Kae Luu PA-C [address] [place], [place] 4381520 Specialist Cardiology 01/06/19 06/13/24 Natalie Del Cid MD [address] [address] Surgeon Neurosurgery 07/21/23 Eboni Burroughs PA-C [address] [address] Specialist Neurosurgery 07/21/23 Sergio Dallas PA-C [address] [address] Specialist Neurosurgery 07/21/23 Oliva Day DNP [address] [address] Specialist Nurse Practitioner Family 06/14/24 documented as of this encounter
--- OUTSIDE RECORDS SUMMARY | 2025-05-24 13:46 | XMS_ITS | Encounter Summary ---
Author Organization [employer] [facility] Address [address] [place] [address] Care Team Providers Care Professional Builder Name Role Phone Adelfo Fletcher MD Primary Care Provider [phone] Susan Bartlett MD Unavailable [phone] Kae Luu PA-C Unavailable Natalie Del Cid MD Unavailable [phone] Eboni Burroughs PA-C Unavailable Sergio Dallas PA-C Unavailable [phone] Oliva Day DNP Unavailable [phone] Reason for Visit * Reason Comments E-prescribe Rx Request Encounter Details Date Type Department Care Team Description 05/13/2019 Refill Adult Medicine [address] [id number] Arminda Madrigal PA E-prescribe Rx Request Social [...] encounter Miscellaneous Notes * Telephone Encounter - Claire Monreal - 05/15/2019 9:38 AM EDT No medication on refill request documented in this encounter Plan of Treatment Not on file documented as of this encounter Visit Diagnoses Not on filedocumented in this encounter Care Teams Professional Builder Relationship Specialty Start Date End Date Adelfo Fletcher MD [address] [place] [address] PCP - General Internal Medicine 06/24/15 Susan Bartlett MD [address] [place] [address] Edge Inker Cardiology 02/23/17 Kae Luu PA-C [address] [place], [place] 3740420 Specialist Cardiology 01/06/19 06/13/24 Natalie Del Cid MD [address] [address] Surgeon Neurosurgery 07/21/23 Eboni Burroughs PA-C [address] [address] Specialist Neurosurgery 07/21/23 Sergio Dallas PA-C [address] [address] Specialist Neurosurgery 07/21/23 Oliva Day DNP [address] [address] Specialist Nurse Practitioner Family 06/14/24 documented as of this encounter
--- OUTSIDE RECORDS SUMMARY | 2025-05-24 13:46 | XMS_ITS ---
Author Organization [facility] Care Team Providers Care Air Cargo Ground Operations Supervisor Name Role Phone Willie Landa Unavailable Unavailable Leelee Peralta Unavailable Unavailable Jhoana Owen Unavailable Unavailable Allergies and adverse reactions No Known Allergies Care Team Name Role Address Phone Organization Dates Jhoana Owen PCP [address] [facility] [address], [place], [address], [facility] (Office): : [facility] 03/28/2024 - 04/14/2024 Willie Landa [address], [address], [place] (Office): : : [facility] 03/28/2024 - 04/14/2024 Leelee Peralta [address] [employer] [address], [place], [address], [facility] (Office): : [facility] 03/28/2024 - 04/14/2024 Goals Section Goals Description Status Target Date [place] Advanced Directive decisions through revie w date. Active 06/28/2024 I am currently not receiving medication or treatments for this diagnosis. Active 06/28/2024 I will be compliant with lab s & diagnostics if ordered by my doctor through the review date. Active 06/28/2024 I will be compliant with lab s & diagnostics if ordered by my doctor through the review date. Active 06/28/2024 I will be compliant with weana [place] skin assessments though review date. Active 06/28/2024 I will be free of falls through the review date. Active 06/28/2024 I will express satisfaction with the type of activities I am involved in when asked through the review date. Active 2023 I will let staff know if I h ave shortness of breath, weakness, dizziness, or chest pain through the review date. Active 06/07 I will safely ambulate on le erika surfaces 150 feet using Two-wheeled walker with Supervised Assist prior to returning to community. Active 04/26/2024 My dignity & privacy will be maintained through the review date. Active 06/28/2024 Mental Status Section Date Assessment Total Score Description 04/14/2024 CAM 0 No delirium ind icated 03/30/2024 BIMS [address]rence impairment CAM 2 Delirium indica darshan PHQ-9 00 Plan of Treatment Section Interventions Intervention Code Code System Display Name Proposed D ate Problems Problem # Description Date of onset Resolved Date Code CodeSystem Concern Status 1 CHRONIC OBSTRUCTIVE PULMONARY DISEASE, UNSPECIFIED [address] active 2 OTHER CHRONIC PAIN [address] active 3 PAIN IN LEFT KNEE [address] active 4 ANEMIA, UNSPECIFIED [address] active 5 CEREBRAL INFARCTION, UNSPECIFIED [address] active 6 DORSALGIA, UNSPECIFIED [address] active 7 ELEVATED WHITE BLOOD CELL COUNT, UNSPECIFIED [address] active 8 ESSENTIAL (PRIMARY) HYPERTENSION [address] active 9 GASTRO-ESOPHAGEAL REFLUX DISEASE WITHOUT ESOPHAGITIS [address] active 10 HEMIPLEGIA AND HEMIPARESIS FOLLOWING CEREBRAL INFARCTION AFFECTING LEFT NON-DOMINANT SIDE [address] active 11 HYPERLIPIDEMIA, UNSPECIFIED [address] active 12 METABOLIC ENCEPHALOPATHY [address] active 13 OCCLUSION AND STENOSIS OF UNSPECIFIED CAROTID ARTERY [address] active 14 OTHER LACK OF COORDINATION [address] active 15 OTHER MALAISE [address] active 16 OTHER SYMPTOMS AND SIGNS INVOLVING COGNITIVE FUNCTIONS AND AWARENESS [address] active 17 PERIPHERAL VASCULAR DISEASE, UNSPECIFIED [address] active 18 PNEUMONIA, UNSPECIFIED ORGANISM [address] active 19 SEPSIS, UNSPECIFIED ORGANISM [address] active 20 SYNCOPE AND COLLAPSE [address] active 21 TYPE 2 DIABETES MELLITUS WITH DIABETIC NEPHROPATHY [address] active 22 TYPE 2 DIABETES MELLITUS WITH HYPERGLYCEMIA [address] active Reason for Referral No Reasons for Referral Entered Social History Social History Observation Description Start Date End Date Code Code System Current Smoking Status Tobacco smoking consumption unknown 671201154 SNOMED CT Sex Assigned At Male 1950 84172-[address] [facility] Gender Identity Sexual Orientation Vital Signs Code Code System Vitals Name Values and Units Timing Information 88335-[address] [facility] Pain Level Value=0.0 04/14/2024 2339-[address] [facility] Blood Sugar Flhlt=575.0 Units=mg/dL 04/14/2024 9279-[address] [facility] Respiratory Rate Value=18.0 Units=/m in 04/14/2024 8462-4 [facility] Blood Pressure-Diastolic Value=61 Un its=mmHg 04/14/2024 8480-6 [facility] Blood Pressure-Systolic Fpydb=331 Un its=mmHg 04/14/2024 8310-[address] [facility] Body Temperature Value=98.2 Units= F 04/14/2024 8867-[address] [facility] Heart rate Value=60.0 Units=/min 05/2024 35684-[address] [facility] O2 % BldC Oximetry Value=95.0 Units= % 04/14/2024 56128-[address] [facility] Weight Jcgfr=400.6 Units=Lbs 01/2024 8302-[address] [facility] Height Value=65.0 Units=Inches 03/31/2024
--- OUTSIDE RECORDS SUMMARY | 2025-05-24 13:46 | XMS_ITS | Encounter Summary ---
Author Organization [facility] Address [address] [facility] [place] [address] Care Team Providers Care Refrigerator Car Icer Name Role Phone Adelfo Fletcher MD Primary Care Provider Susan Bartlett MD Unavailable [phone] Kae Luu PA-C Unavailable Natalie Del Cid MD Unavailable [phone] Eboni Burroughs PA-C Unavailable [phone] Sergio Dallas PA-C Unavailable Oliva Day DNP Unavailable [phone] Reason for Visit * Reason Onset Date Comments refill request 04/24/2021 Encounter Details Date Type Department Care Team Description 04/24/2021 Refill Pulmonology - [place] 175 [facility] [address] [place] [address] Nirmal Prieto MD 175 [facility] [address] [place] [address] refill request Social History Tobacco Use Types Packs/Day Years [...] encounter Miscellaneous Notes * Telephone Encounter - Liyah Ricketts - 04/24/2021 11:20 AM EDT Patient would like script to be: E-PRESCRIBED/FAXED TO PHARMACY WHEN WAS THE PATIENT'S LAST APPOINTMENT WITH THE PRESCRIBING PROVIDER? 01/28/21 Does patient have an upcoming appointment? Yes 06/02/21 (THE MEDICATION REQUESTED IS ON THE MED LIST ABOVE) All of the medications requested were on the CURRENT MEDS list Did you check the Pharmacy information above?: YES Patient wants: 30 -day supply Is this a mail order prescription request ? NO Patients current insurance carrier is: Payor: [employer] / Plan: [employer] $0 [facility] [id number] / Product Type: HMO [id number] documented in this encounter Plan of Treatment [...] abnormality documented in this encounter Care Teams Refrigerator Car Icer Relationship Specialty Start Date End Date Adelfo Fletcher MD [address] [place], [place] [phone] PCP - General Internal Medicine 06/24/15 Susan Bartlett MD [address] [place], [place] [phone] Ledger Poster Cardiology 02/23/17 Kae Luu PA-C 444 [place], [place] [phone] Specialist Cardiology 01/06/19 06/13/24 Natalie Del Cid MD [address] [address] Surgeon Neurosurgery 07/21/23 Eboni Burroughs PA-C [address] [address] Specialist Neurosurgery 07/21/23 Sergio Dallas PA-C [address] [address] Specialist Neurosurgery 07/21/23 Oliva Day DNP [address] [address] Specialist Nurse Practitioner Family 06/14/24 documented as of this encounter
--- OUTSIDE RECORDS SUMMARY | 2025-05-24 13:46 | XMS_ITS | Encounter Summary ---
Author Organization [facility] Address [address] [place] [address] Care Team Providers Care Superintendent House Name Role Phone Adelfo Fletcher MD Primary Care Provider Susan Bartlett MD Unavailable [phone] Kae Luu PA-C Unavailable Natalie Del Cid MD Unavailable [phone] Eboni Burroughs PA-C Unavailable Sergio Dallas PA-C Unavailable Oliva Day DNP Unavailable [phone] Reason for Visit * Reason Onset Date Comments Faxed Order 10/10/2018 Encounter Details Date Type Department Care Team Description 10/10/2018 Telephone Adult Medicine [address] [phone] Adelfo Fletcher MD [address] [place] [address] [phone] Faxed Order Social History Tobacco Use Types [...] encounter Miscellaneous Notes * Telephone Encounter - Cipriano Hughes - 10/10/2018 4:00 PM EST Please sign orders for Carla TALBOTA, placed in Dr. Fletcher incoming documented in this encounter Plan of Treatment Not on file documented as of this encounter Visit Diagnoses Not on filedocumented in this encounter Care Teams Superintendent House Relationship Specialty Start Date End Date Adelfo Fletcher MD [address] [place] [address] PCP - General Internal Medicine 06/24/15 Susan Bartlett MD [address] [place] [address] [phone] Refuse And Recycling Worker Cardiology 02/23/17 Kae Luu PA-C 444 [place], [place] [phone] Specialist Cardiology 01/06/19 06/13/24 Natalie Del Cid MD [address] [address] Surgeon Neurosurgery 07/21/23 Eboni Burroughs PA-C [address] [address] Specialist Neurosurgery 07/21/23 Sergio Dallas PA-C [address] [address] Specialist Neurosurgery 07/21/23 Oliva Day DNP [address] [address] Specialist Nurse Practitioner Family 06/14/24 documented as of this encounter
--- OUTSIDE RECORDS SUMMARY | 2025-05-24 13:47 | XMS_ITS | Encounter Summary ---
Author Organization [facility] Address [address] [place] [address] Care Team Providers Care Loan Funder Name Role Phone Adelfo Fletcher MD Primary Care Provider [phone] Susan Bartlett MD Unavailable [phone] Kae Luu PA-C Unavailable Natalie Del Cid MD Unavailable [phone] Eboni Burroughs PA-C Unavailable Sergio Dallas PA-C Unavailable [phone] Oliva Day DNP Unavailable [phone] Reason for Visit * Reason Onset Date Comments Vna- Intake 10/28/2023 Encounter Details Date Type Department Care Team Description 10/28/2023 Telephone Adult Medicine [address] [phone] Adelfo Fletcher MD [address] [place] [address] [phone] Vna- Intake Social History Tobacco Use Types Packs/Day Years [...] Miscellaneous Notes * Telephone Encounter - Madhav Grimes L.P.N. - 10/29/2023 10:09 AM EST VO given to Gómez * Telephone Encounter - Adelfo Fletcher MD - 10/28/2023 6:33 PM EST Please give the vo * Telephone Encounter - Madhav Rivera.P.N. - 10/28/2023 10:40 AM EST [facility]NA requesting V O for nursing PT and OT Please review and advise Please send response to the VNA pool P [phone] Thank you Er follow up with Adeel PEDROZA 11/02/23 * Telephone Encounter - Raven Colin - 10/28/2023 10:11 AM EST VNA CALL Which VNA office is calling? Gómez from [facility] Full name of caller: Laynie The caller is Intake Is the caller at the patients home?: NO Reason for call: Needs verbal orders for mcc, PT, and OT. Does caller need an urgent call back? YES Was CONTACT Telephone # obtained above?: YES Fax #: documented in this encounter Plan of Treatment Not on file documented as of this encounter Visit Diagnoses Not on filedocumented in this encounter Care Teams Loan Funder Relationship Specialty Start Date End Date Adelfo Fletcher MD [address] [place] [address] [phone] PCP - General Internal Medicine 06/24/15 Susan Bartlett MD [address] [place] [address] [phone] Automatic Oven Operator Cardiology 02/23/17 Kae Luu PA-C 444 [place] [address] Specialist Cardiology 01/06/19 06/13/24 Natalie Del Cid MD [address] [address] Surgeon Neurosurgery 07/21/23 Eboni Burroughs PA-C [address] [address] Specialist Neurosurgery 07/21/23 Sergio Dallas PA-C [address] [address] Specialist Neurosurgery 07/21/23 Oliva Day DNP [address] [address] Specialist Nurse Practitioner Family 06/14/24 documented as of this encounter
--- OUTSIDE RECORDS SUMMARY | 2025-05-24 13:47 | XMS_ITS | Encounter Summary ---
Author Organization [employer] [facility] Address [address] [place] [address] Care Team Providers Care Internal Carver Name Role Phone Adelfo Fletcher MD Primary Care Provider [phone] Susan Bartlett MD Unavailable [phone] Kae Luu PA-C Unavailable Natalie Del Cid MD Unavailable [phone] Eboni Burroughs PA-C Unavailable Sergio Dallas PA-C Unavailable [phone] Oliva Day DNP Unavailable [phone] Encounter Details Date Type Department Care Team Description 05/31/2020 Smoke Chaser Report Medical Records [address] [place] [address] [facility] Social History Tobacco Use Types Packs/Day [...] have Coronavirus / COVID-19? No / Unsure 05/10/2020 8:57 AM EDT documented as of this encounter Plan of Treatment Not on file documented as of this encounter Visit Diagnoses Not on filedocumented in this encounter Care Teams Internal Carver Relationship Specialty Start Date End Date Adelfo Fletcher MD [address] [place], [place] [phone] PCP - General Internal Medicine 06/24/15 Susan Bartlett MD [address] [place], [place] [phone] Park Services Specialist Cardiology 02/23/17 Kae Luu PA-C [address] [place], [place] [phone] Specialist Cardiology 01/06/19 06/13/24 Natalie Del Cid MD [address] [address] Surgeon Neurosurgery 07/21/23 Eboni Burroughs PA-C [address] [address] Specialist Neurosurgery 07/21/23 Sergio Dallas PA-C [address] [address] Specialist Neurosurgery 07/21/23 Oliva Day DNP [address] [address] Specialist Nurse Practitioner Family 06/14/24 documented as of this encounter
--- OUTSIDE RECORDS SUMMARY | 2025-05-24 13:47 | XMS_ITS | Encounter Summary ---
Author Organization [facility] Address [address] [place] [address] Care Team Providers Care Skin Pass Operator Name Role Phone Adelfo Fletcher MD Primary Care Provider [phone] Susan Bartlett MD Unavailable [phone] Kae Luu PA-C Unavailable Natalie Del Cid MD Unavailable [phone] Eboni Burroughs PA-C Unavailable [phone] Sergio Dallas PA-C Unavailable Oliva Day DNP Unavailable [phone] Encounter Details Date Type Department Care Team Description 10/13/2023 Hospital Medical Records [address] [place] [address] Abstract, Provider Social History Tobacco Use Types [...] on filedocumented in this encounter Care Teams Skin Pass Operator Relationship Specialty Start Date End Date Adelfo Fletcher MD [address] [place] [address] PCP - General Internal Medicine 06/24/15 Susan Bartlett MD [address] [place] [address] Manager Loan Cardiology 02/23/17 Kae Luu PA-C [address] [place] [address] Specialist Cardiology 01/06/19 06/13/24 Natalie Del Cid MD [address] [address] Surgeon Neurosurgery 07/21/23 Eboni Burroughs PA-C [address] [address] Specialist Neurosurgery 07/21/23 Sergio Dallas PA-C [address] [address] Specialist Neurosurgery 07/21/23 Oliva Day DNP [address] [address] Specialist Nurse Practitioner Family 06/14/24 documented as of this encounter
--- OUTSIDE RECORDS SUMMARY | 2025-05-24 13:47 | XMS_ITS | Encounter Summary ---
Author Organization [facility] Address [address] [place] [address] Care Team Providers Care Video Producer Name Role Phone Adelfo Fletcher MD Primary Care Provider Susan Bartlett MD Unavailable [phone] Kae Luu PA-C Unavailable Natalie Del Cid MD Unavailable [phone] Eboni Burroughs PA-C Unavailable Sergio Dallas PA-C Unavailable [phone] Oliva Day DNP Unavailable [phone] Reason for Visit * Reason Onset Date Comments Faxed Order 08/10/2018 Encounter Details Date Type Department Care Team Description 08/10/2018 Telephone Adult Medicine [address] [phone] Adelfo Fletcher MD [address] [place] [address] [phone] Faxed Order Social History Tobacco Use Types [...] * Telephone Encounter - Livier Shen - 08/10/2018 9:31 AM EST Modified order for Dr Adelfo Fletcher's signature documented in this encounter Plan of Treatment Not on file documented as of this encounter Visit Diagnoses Not on filedocumented in this encounter Care Teams Video Producer Relationship Specialty Start Date End Date Adelfo Fletcher MD [address] [place] [address] PCP - General Internal Medicine 06/24/15 Susan Bartlett MD [address] [place] [address] [phone] Jewelry Drill Operator Cardiology 02/23/17 Kae Luu PA-C [address] [place] [address] [phone] Specialist Cardiology 01/06/19 06/13/24 Natalie Del Cid MD [address] [address] Surgeon Neurosurgery 07/21/23 Eboni Burroughs PA-C [address] [address] Specialist Neurosurgery 07/21/23 Sergio Dallas PA-C [address] [address] Specialist Neurosurgery 07/21/23 Oliva Day DNP [address] [address] Specialist Nurse Practitioner Family 06/14/24 documented as of this encounter
--- OUTSIDE RECORDS SUMMARY | 2025-05-24 13:47 | XMS_ITS | Encounter Summary ---
Author Organization [facility] Address [address] [facility] [place] [address] Care Team Providers Care Limousine And Hearse Upholsterer Name Role Phone Adelfo Fletcher MD Primary Care Provider [phone] Susan Bartlett MD Unavailable [phone] Kae Luu PA-C Unavailable Natalie Del Cid MD Unavailable [phone] Eboni Burroughs PA-C Unavailable [phone] Sergio Dallas PA-C Unavailable [phone] Oliva Day DNP Unavailable [phone] Encounter Details Date Type Department Care Team Description 07/26/2018 Release of Information Medical Records [address] [place] [address] Abstract, Provider Social History Tobacco Use Types [...] on filedocumented in this encounter Care Teams Limousine And Hearse Upholsterer Relationship Specialty Start Date End Date Adelfo Fletcher MD [address] [place] [address] PCP - General Internal Medicine 06/24/15 Susan Bartlett MD [address] [place] [address] Dialysis Chief Equipment Technician Cardiology 02/23/17 Kae Luu PA-C [address] [place] [address] Specialist Cardiology 01/06/19 06/13/24 Natalie Del Cid MD [address] [address] Surgeon Neurosurgery 07/21/23 Eboni Burroughs PA-C [address] [address] Specialist Neurosurgery 07/21/23 Sergio Dallas PA-C [address] [address] Specialist Neurosurgery 07/21/23 Oliva Day DNP [address] [address] Specialist Nurse Practitioner Family 06/14/24 documented as of this encounter
--- OUTSIDE RECORDS SUMMARY | 2025-05-24 13:47 | XMS_ITS | Encounter Summary ---
Author Organization [employer] [facility] Address [address] [facility] [place] [address] Care Team Providers Care Review Coordinator Name Role Phone Adelfo Fletcher MD Primary Care Provider [phone] Susan Bartlett MD Unavailable [phone] Kae Luu PA-C Unavailable Natalie Del Cid MD Unavailable [phone] Eboni Burroughs PA-C Unavailable Sergio Dallas PA-C Unavailable Oliva Day DNP Unavailable [phone] Encounter Details Date Type Department Care Team Description 10/29/2023 Orders Only Medical Records [address] [place] [address] [facility] Social History Tobacco Use Types Packs/Day [...] Name Priority Date/Time Associated Diagnosis Comments OUTSIDE PLAIN FILM Routine 10/09/2023 documented in this encounter Results * OUTSIDE PLAIN FILM (10/09/2023) [facility] documented in this encounter Visit Diagnoses Not on filedocumented in this encounter Care Teams Review Coordinator Relationship Specialty Start Date End Date Adelfo Fletcher MD [address] [place] [address] [phone] PCP - General Internal Medicine 06/24/15 Susan Bartlett MD [address] [place] [address] [phone] Planer Stone Cardiology 02/23/17 Kae Luu PA-C [address] [place] [address] [phone] Specialist Cardiology 01/06/19 06/13/24 Natalie Del Cid MD [address] [address] Surgeon Neurosurgery 07/21/23 Eboni Burroughs PA-C [address] [address] Specialist Neurosurgery 07/21/23 Sergio Dallas PA-C 175 [facility] [address] [place] [address] Specialist Neurosurgery 07/21/23 Oliva Day DNP [address] [address] Specialist Nurse Practitioner Family 06/14/24 documented as of this encounter
--- OUTSIDE RECORDS SUMMARY | 2025-05-24 13:47 | XMS_ITS | Encounter Summary ---
Author Organization [facility] Address [address] [facility] [place] [address] Care Team Providers Care Customer Facilities Supervisor Name Role Phone Adelfo Fletcher MD Primary Care Provider Susan Bartlett MD Unavailable [phone] Kae Luu PA-C Unavailable Natalie Del Cid MD Unavailable [phone] Eboni Burroughs PA-C Unavailable Sergio Dallas PA-C Unavailable Oliva Day DNP Unavailable [phone] Reason for Visit * Reason Onset Date Comments refill request 09/16/2021 Encounter Details Date Type Department Care Team Description 09/16/2021 Refill Pulmonology - [place] 175 [facility] [address] [place] [address] Dangelo Malin MD 175 [place] [address] refill request Social History Tobacco [...] * Telephone Encounter - Liyah Ricketts - 09/16/2021 4:52 PM EST Patient would like script to be: E-PRESCRIBED/FAXED TO PHARMACY WHEN WAS THE PATIENT'S LAST APPOINTMENT WITH THE PRESCRIBING PROVIDER? 01/28/21 Does patient have an upcoming appointment? Yes 09/19/21 (THE MEDICATION REQUESTED IS ON THE MED LIST ABOVE) All of the medications requested were on the CURRENT MEDS list Did you check the Pharmacy information above?: YES Patient wants: 30 -day supply Is this a mail order prescription request ? NO Patients current insurance carrier is: Payor: [employer] / Plan: [employer]. $0 [facility] [id number] / Product Type: [employer] [id number] documented in this encounter Plan of Treatment Not on file documented as of this encounter Visit Diagnoses Diagnosis JUANA and COPD overlap syndrome (HCC) Centrilobular emphysema (HCC) Other emphysema Obstructive sleep apnea mild KATJA 8. Obstructive sleep apnea (adult) (pediatric) History of multiple strokes Former heavy cigarette smoker (20-39 per day) Personal history of tobacco use, presenting hazards to health At risk for cancer Other specified conditions influencing health status Follow up at [facility] for screening for malignant neoplasm of lung Positive QuantiFERON-TB Gold test Nonspecific reaction to cell mediated immunity measurement of gamma interferon antigen response without active tuberculosis History of 2019 novel coronavirus disease (COVID-19) documented in this encounter Care Teams Customer Facilities Supervisor Relationship Specialty Start Date End Date Adelfo Fletcher MD [address] [place] [address] PCP - General Internal Medicine 06/24/15 Susan Bartlett MD [address] [place] [address] Cognos Administrator Cardiology 02/23/17 Kae Luu PA-C [address] [place] [address] Specialist Cardiology 01/06/19 06/13/24 Natalie Del Cid MD [address] [address] Surgeon Neurosurgery 07/21/23 Eboni Burroughs PA-C [address] [address] Specialist Neurosurgery 07/21/23 Sergio Dallas PA-C [address] [address] Specialist Neurosurgery 07/21/23 Oliva Day DNP [address] [address] Specialist Nurse Practitioner Family 06/14/24 documented as of this encounter
--- OUTSIDE RECORDS SUMMARY | 2025-05-24 13:47 | XMS_ITS | Encounter Summary ---
Author Organization [facility] Address [address] [place] [address] Care Team Providers Care Transit Manager Name Role Phone Adelfo Fletcher MD Primary Care Provider [phone] Susan Bartlett MD Unavailable [phone] Kae Luu PA-C Unavailable Natalie Del Cid MD Unavailable [phone] Eboni Burroughs PA-C Unavailable Sergio Dallas PA-C Unavailable [phone] Oliva Day DNP Unavailable [phone] Encounter Details Date Type Department Care Team Description 07/22/2023 [facility] Neurosurgery [place] [address] [address] Sergio Dallas PA-C [address] [phone] Social History Tobacco Use Types Packs/Day Years [...] suspected to have Coronavirus/COVID-19? No / Unsure 07/21/2023 11:38 AM EST documented as of this encounter Plan of Treatment Not on file documented as of this encounter Visit Diagnoses Not on filedocumented in this encounter Care Teams Transit Manager Relationship Specialty Start Date End Date Adelfo Fletcher MD [address] [place] [address] [phone] PCP - General Internal Medicine 06/24/15 Susan Bartlett MD [address] [place] [address] [phone] Translator Deaf Cardiology 02/23/17 Kae Luu PA-C [address] [place] [address] [phone] Specialist Cardiology 01/06/19 06/13/24 Natalie Del Cid MD [address] [address] Surgeon Neurosurgery 07/21/23 Eboni Burroughs PA-C [address] [address] Specialist Neurosurgery 07/21/23 Sergio Dallas PA-C [address] [address] Specialist Neurosurgery 07/21/23 Oliva Day DNP [address] [address] Specialist Nurse Practitioner Family 06/14/24 documented as of this encounter
--- OUTSIDE RECORDS SUMMARY | 2025-05-24 13:47 | XMS_ITS | Encounter Summary ---
Author Organization [facility] [facility] Address [address] [facility] [place] [address] Care Team Providers Care Body Maker Machine Setter Name Role Phone Adelfo Fletcher MD Primary Care Provider [phone] Susan Bartlett MD Unavailable [phone] Kae Luu PA-C Unavailable Natalie Del Cid MD Unavailable [phone] Eboni Burroughs PA-C Unavailable Sergio Dallas PA-C Unavailable [phone] Oliva Day DNP Unavailable [phone] Reason for Visit * Reason Onset Date Comments Faxed Order 11/02/2023 Nilo TALBOTA Ord er # [id number] Encounter Details Date Type Department Care Team Description 11/02/2023 Telephone Adult Medicine [facility] [address] [place] [address] [phone] Adelfo Fletcher MD [address] [place], [place] [phone] Faxed Order (Nilo TALBOTA Order # [id number]) Social History Tobacco Use Types Packs/Day Years [...] encounter Miscellaneous Notes * Telephone Encounter - Asmita Shannon - 11/02/2023 11:18 AM EST Nilo TALBOTA Order # [id number] documented in this encounter Plan of Treatment Not on file documented as of this encounter Visit Diagnoses Not on filedocumented in this encounter Care Teams Body Maker Machine Setter Relationship Specialty Start Date End Date Adelfo Fletcher MD [address] [place] [address] PCP - General Internal Medicine 06/24/15 Susan Bartlett MD [address] [place] [address] Net Lead Architect Cardiology 02/23/17 Kae Luu PA-C [address] [place] [address] Specialist Cardiology 01/06/19 06/13/24 Natalie Del Cid MD [address] [address] Surgeon Neurosurgery 07/21/23 Eboni Burroughs PA-C [address] [address] Specialist Neurosurgery 07/21/23 Sergio Dallas PA-C [address] [address] Specialist Neurosurgery 07/21/23 Oliva Day DNP [address] [address] Specialist Nurse Practitioner Family 06/14/24 documented as of this encounter
--- OUTSIDE RECORDS SUMMARY | 2025-05-24 13:47 | XMS_ITS | Encounter Summary ---
Author Organization [employer] [facility] Address [address] [place] [address] Care Team Providers Care Real Estate Closer Name Role Phone Adelfo Fletcher MD Primary Care Provider Susan Bartlett MD Unavailable [phone] Kae Luu PA-C Unavailable Natalie Del Cid MD Unavailable [phone] Eboni Burroughs PA-C Unavailable Sergio Dallas PA-C Unavailable [phone] Oliva Day DNP Unavailable [phone] Reason for Visit * Reason Onset Date Comments Faxed Order 06/06/2024 OverlookOrder #[id number], [id number] Encounter Details Date Type Department Care Team Description 06/06/[address] [facility] [address] [place] [address] [phone] Adelfo Fletcher MD [address] [place], [place] [phone] Faxed Order (Nilo/Order #[id number], [id number]) Social History Tobacco Use Types Packs/Day Years [...] encounter Miscellaneous Notes * Telephone Encounter - Stacy Gandhi - 06/06/2024 2:36 PM EDT [facility] [id number], [id number] [facility] provider bin. Please review, sign, and fax to [phone] documented in this encounter Plan of Treatment Not on file documented as of this encounter Visit Diagnoses Not on filedocumented in this encounter Care Teams Real Estate Closer Relationship Specialty Start Date End Date Adelfo Fletcher MD [address] [place] [address] PCP - General Internal Medicine 06/24/15 Susan Bartlett MD [address] [place] [address] Director Stage Cardiology 02/23/17 Kae Luu PA-C [address] [place] [address] Specialist Cardiology 01/06/19 06/13/24 Natalie Del Cid MD [address] [address] Surgeon Neurosurgery 07/21/23 Eboni Burroughs PA-C [address] [address] Specialist Neurosurgery 07/21/23 Sergio Dallas PA-C [address] [address] Specialist Neurosurgery 07/21/23 Oliva Day DNP [address] [address] Specialist Nurse Practitioner Family 06/14/24 documented as of this encounter
--- OUTSIDE RECORDS SUMMARY | 2025-05-24 13:47 | XMS_ITS | Encounter Summary ---
Author Organization [employer] [facility] Address [address] [place] [address] Care Team Providers Care Medicine Technologist Name Role Phone Adelfo Fletcher MD Primary Care Provider [phone] Susan Bartlett MD Unavailable [phone] Kae Luu PA-C Unavailable Natalie Del Cid MD Unavailable [phone] Eboni Burroughs PA-C Unavailable Sergio Dallas PA-C Unavailable Oliva Day DNP Unavailable [phone] Encounter Details Date Type Department Care Team Description 05/21/2020 Physical Therapy Coordinator Report Medical Records [address] [place] [address] Stefano Fowler MD Social History Tobacco Use [...] on filedocumented in this encounter Care Teams Medicine Technologist Relationship Specialty Start Date End Date Adelfo Fletcher MD [address] [place], [place] [phone] PCP - General Internal Medicine 06/24/15 Susan Bartlett MD [address] [place], [place] [phone] Community Specialist Cardiology 02/23/17 Kae Luu PA-C [address] [place], [place] [phone] Specialist Cardiology 01/06/19 06/13/24 Natalie Del Cid MD [address] [address] Surgeon Neurosurgery 07/21/23 Eboni Burroughs PA-C [address] [address] Specialist Neurosurgery 07/21/23 Sergio Dallas PA-C [address] [address] Specialist Neurosurgery 07/21/23 Oliva Day DNP [address] [address] Specialist Nurse Practitioner Family 06/14/24 documented as of this encounter
--- OUTSIDE RECORDS SUMMARY | 2025-05-24 13:47 | XMS_ITS | Encounter Summary ---
Author Organization [employer] [facility] Address [address] [place] [address] Care Team Providers Care Regulatory Lead Name Role Phone Adelfo Fletcher MD Primary Care Provider Susan Bartlett MD Unavailable [phone] Kae Luu PA-C Unavailable Natalie Del Cid MD Unavailable [phone] Eboni Burroughs PA-C Unavailable [phone] Sergio Dallas PA-C Unavailable [phone] Oliva Day DNP Unavailable [phone] Reason for Visit * Reason Onset Date Comments Form 10/08/2020 [facility] Call 10/08/2020 Encounter Details Date Type Department Care Team Description 10/08/2020 Telephone Adult Medicine [facility] [address] [place] [address] Adelfo Fletcher MD [address] [place] [address] [phone] Form; VNA Call Social History Tobacco Use Types [...] have Coronavirus / COVID-19? Unable to assess 09/30/2020 9:08 AM EST documented as of this encounter Miscellaneous Notes * Telephone Encounter - Madhav Grimes L.P.N. - 10/11/2020 4:23 PM EST No forms received encounter closed * Telephone Encounter - Madhav Grimes L.P.N. - 10/08/2020 2:08 PM EST Spoke with Kina from [facility] program needs last visit note She will send the release to [id number] To my attention * Telephone Encounter - Arminda Simon - 10/08/2020 1:34 PM EST VNA CALL Which [facility]NA office is calling? [facility] Full name of caller: [place] The caller is A nurse Is the caller at the patients home?: NO Reason for call: Nurse coordinator is calling to request a copy of pt's last physical form . Nurse states she has a release form for the pt and would like this to be faxed to the [facility] at [phone] . She also asks that if this for some reason is not possible to please call her at [phone] to discuss. Please advise. Does caller need an urgent call back? YES Was CONTACT Telephone # obtained above?: YES Fax #: [phone] documented in this encounter Plan of Treatment Not on file documented as of this encounter Visit Diagnoses Not on filedocumented in this encounter Care Teams Regulatory Lead Relationship Specialty Start Date End Date Adelfo Fletcher MD [address] [place] [address] PCP - General Internal Medicine 06/24/15 Susan Bartlett MD [address] [place] [address] Medical Device Assembler Cardiology 02/23/17 Kae Luu PA-C [address] [place] [address] Specialist Cardiology 01/06/19 06/13/24 Natalie Del Cid MD [address] [address] Surgeon Neurosurgery 07/21/23 Eboni Burroughs PA-C [address] [address] Specialist Neurosurgery 07/21/23 Sergio Dallas PA-C [address] [address] Specialist Neurosurgery 07/21/23 Oliva Day DNP [address] [address] Specialist Nurse Practitioner Family 06/14/24 documented as of this encounter
--- OUTSIDE RECORDS SUMMARY | 2025-05-24 13:47 | XMS_ITS | Encounter Summary ---
Author Organization [facility] [facility] Address [address] [facility] [place] [address] Care Team Providers Care Load Builder Name Role Phone Adelfo Fletcher MD Primary Care Provider [phone] Susan Bartlett MD Unavailable [phone] Kae Luu PA-C Unavailable Natalie Del Cid MD Unavailable [phone] Eboni Burroughs PA-C Unavailable Sergio Dallas PA-C Unavailable Oliva Day DNP Unavailable [phone] Encounter Details Date Type Department Care Team Description 11/14/2020 Old Medical Records Medical Records [address] [place] [address] Abstract, Provider Social History Tobacco Use Types [...] on filedocumented in this encounter Care Teams Load Builder Relationship Specialty Start Date End Date Adelfo Fletcher MD [address] [place] [address] PCP - General Internal Medicine 06/24/15 Susan Bartlett MD [address] [place] [address] Marine Fitter Cardiology 02/23/17 Kae Luu PA-C [address] [place] [address] Specialist Cardiology 01/06/19 06/13/24 Natalie Del Cid MD [address] [address] Surgeon Neurosurgery 07/21/23 Eboni Burroughs PA-C [address] [address] Specialist Neurosurgery 07/21/23 Sergio Dallas PA-C [address] [address] Specialist Neurosurgery 07/21/23 Oliva Day DNP [address] [address] Specialist Nurse Practitioner Family 06/14/24 documented as of this encounter
--- OUTSIDE RECORDS SUMMARY | 2025-05-24 13:47 | XMS_ITS | Encounter Summary ---
Author Organization [employer] [facility] Address [address] [place] [address] Care Team Providers Care Monorail Crane Operator Name Role Phone Adelfo Fletcher MD Primary Care Provider Susan Bartlett MD Unavailable [phone] Kae Luu PA-C Unavailable Natalie Del Cid MD Unavailable [phone] Eboni Burroughs PA-C Unavailable Sergio Dallas PA-C Unavailable Oliva Day DNP Unavailable [phone] Reason for Visit * Reason Onset Date Comments Faxed Order 08/12/2018 Encounter Details Date Type Department Care Team Description 08/12/2018 Telephone Adult Medicine [address] [phone] Adelfo Fletcher MD [address] [place] [address] [phone] Faxed Order Social History Tobacco Use Types [...] * Telephone Encounter - Livier Shen - 08/12/2018 9:24 AM EST Modified order for Dr Adelfo Fletcher's signature documented in this encounter Plan of Treatment Not on file documented as of this encounter Visit Diagnoses Not on filedocumented in this encounter Care Teams Monorail Crane Operator Relationship Specialty Start Date End Date Adelfo Fletcher MD [address] [place] [address] PCP - General Internal Medicine 06/24/15 Susan Bartlett MD [address] [place] [address] [phone] Merchandising Lead Cardiology 02/23/17 Kae Luu PA-C [address] [place] [address] 9382020 Specialist Cardiology 01/06/19 06/13/24 Natalie Del Cid MD [address] [address] Surgeon Neurosurgery 07/21/23 Eboni Burroughs PA-C [address] [address] Specialist Neurosurgery 07/21/23 Sergio Dallas PA-C [address] [address] Specialist Neurosurgery 07/21/23 Oliva Day DNP [address] [address] Specialist Nurse Practitioner Family 06/14/24 documented as of this encounter
--- OUTSIDE RECORDS SUMMARY | 2025-05-24 13:47 | XMS_ITS | Encounter Summary ---
Author Organization [employer] [facility] Address [address] [place] [address] Care Team Providers Care Mechanical Technologist Name Role Phone Adelfo Fletcher MD Primary Care Provider [phone] Susan Bartlett MD Unavailable [phone] Kae Luu PA-C Unavailable Natalie Del Cid MD Unavailable [phone] Eboni Burroughs PA-C Unavailable Sergio Dallas PA-C Unavailable Oliva Day DNP Unavailable [phone] Reason for Visit * Reason Onset Date Comments Faxed Order 07/20/2018 Encounter Details Date Type Department Care Team Description 07/20/2018 Telephone Adult Medicine [address] [phone] Adelfo Fletcher MD [address] [place] [address] [phone] Faxed Order Social History Tobacco Use Types [...] * Telephone Encounter - Cipriano Hughes - 07/20/2018 1:06 PM EST Please sign orders for rosio tylera, placed in Dr. Fletcher incoming documented in this encounter Plan of Treatment Not on file documented as of this encounter Visit Diagnoses Not on filedocumented in this encounter Care Teams Mechanical Technologist Relationship Specialty Start Date End Date Adelfo Fletcher MD [address] [place] [address] PCP - General Internal Medicine 06/24/15 Susan Bartlett MD [address] [place], [place] [phone] Analyst Market Intelligence Cardiology 02/23/17 Kae Luu PA-C [address] [place], [place] [phone] Specialist Cardiology 01/06/19 06/13/24 Natalie Del Cid MD [address] [address] Surgeon Neurosurgery 07/21/23 Eboni Burroughs PA-C [address] [address] Specialist Neurosurgery 07/21/23 Sergio Dallas PA-C [address] [address] Specialist Neurosurgery 07/21/23 Oliva Day DNP [address] [address] Specialist Nurse Practitioner Family 06/14/24 documented as of this encounter
--- OUTSIDE RECORDS SUMMARY | 2025-05-24 13:47 | XMS_ITS | Encounter Summary ---
Author Organization [employer] [facility] Address [address] [facility] [place] [address] Care Team Providers Care Certified Medical Assistant Name Role Phone Adelfo Fletcher MD Primary Care Provider Susan Bartlett MD Unavailable [phone] Kae Luu PA-C Unavailable Natalie Del Cid MD Unavailable [phone] Eboni Burroughs PA-C Unavailable [phone] Sergio Dallas PA-C Unavailable [phone] Oliva Day DNP Unavailable [phone] Encounter Details Date Type Department Care Team Description 07/31/2020 Telephone Adult Medicine [address] [phone] Adelfo Fletcher MD [address] [place] [address] [phone] Social History Tobacco Use Types Packs/Day Years [...] or suspected to have Coronavirus / COVID-19? Yes 07/31/2020 10:18 AM EST documented as of this encounter Plan of Treatment Not on file documented as of this encounter Visit Diagnoses Not on filedocumented in this encounter Care Teams Certified Medical Assistant Relationship Specialty Start Date End Date Adelfo Fletcher MD [address] [place] [address] PCP - General Internal Medicine 06/24/15 Susan Bartlett MD [address] [place] [address] Utility Sales And Service Manager Cardiology 02/23/17 Kae Luu PA-C [address] [place] [address] Specialist Cardiology 01/06/19 06/13/24 Natalie Del Cid MD [address] [address] Surgeon Neurosurgery 07/21/23 Eboni Burroughs PA-C [address] [address] Specialist Neurosurgery 07/21/23 Sergio Dallas PA-C [address] [address] Specialist Neurosurgery 07/21/23 Oliva Day DNP [address] [address] Specialist Nurse Practitioner Family 06/14/24 documented as of this encounter
--- OUTSIDE RECORDS SUMMARY | 2025-05-24 13:47 | XMS_ITS | Encounter Summary ---
Author Organization [employer] [facility] Address [address] [facility] [place] [address] Care Team Providers Care Aerial Gunner Name Role Phone Adelfo Fletcher MD Primary Care Provider [phone] Susan Bartlett MD Unavailable [phone] Kae Luu PA-C Unavailable Natalie Del Cid MD Unavailable [phone] Eboni Burroughs PA-C Unavailable Sergio Dallas PA-C Unavailable Oliva Day DNP Unavailable [phone] Encounter Details Date Type Department Care Team Description 06/13/2024 Orders Only Medical Records [address] [place] [address] Social History Tobacco Use Types Packs/Day Years [...] Name Priority Date/Time Associated Diagnosis Comments OUTSIDE LAB Routine 05/15/2024 OUTSIDE PLAIN FILM Routine 05/14/2024 documented in this encounter Results * OUTSIDE LAB (05/15/2024) [facility] LAB * OUTSIDE PLAIN FILM (05/14/2024) [facility] RADIOLOGY documented in this encounter Visit Diagnoses Not on filedocumented in this encounter Care Teams Aerial Gunner Relationship Specialty Start Date End Date Adelfo Fletcher MD [address] [place], [place] [phone] PCP - General Internal Medicine 06/24/15 Susan Bartlett MD [address] [place], [place] [phone] Elevator Serviceman Cardiology 02/23/17 Kae Luu PA-C [address] [place], [place] [phone] Specialist Cardiology 01/06/19 06/13/24 Natalie Del Cid MD [address] [address] Surgeon Neurosurgery 07/21/23 Eboni Burroughs PA-C [address] [address] Specialist Neurosurgery 07/21/23 Sergio Dallas PA-C [address] [address] Specialist Neurosurgery 07/21/23 Oliva Day DNP [address] [address] Specialist Nurse Practitioner Family 06/14/24 documented as of this encounter
--- OUTSIDE RECORDS SUMMARY | 2025-05-24 13:47 | XMS_ITS | Encounter Summary ---
Author Organization [employer] [facility] Address [address] [place] [address] Care Team Providers Care Oxyacetylene Welder Name Role Phone Adelfo Fletcher MD Primary Care Provider [phone] Susan Bartlett MD Unavailable [phone] Kae Luu PA-C Unavailable Natalie Del Cid MD Unavailable [phone] Eboni Burroughs PA-C Unavailable [phone] Sergio Dallas PA-C Unavailable [phone] Oliva Day DNP Unavailable [phone] Encounter Details Date Type Department Care Team Description 10/11/2020 Poultry Dressing Worker Report Medical Records [address] [place] [address] Claire Liu DPM Social History Tobacco Use [...] on filedocumented in this encounter Care Teams Oxyacetylene Welder Relationship Specialty Start Date End Date Adelfo Fletcher MD [address] [place], [place] [phone] PCP - General Internal Medicine 06/24/15 Susan Bartlett MD [address] [place], [place] [phone] Adjunct Professor Of Law Cardiology 02/23/17 Kae Luu PA-C [address] [place], [place] [phone] Specialist Cardiology 01/06/19 06/13/24 Natalie Del Cid MD [address] [address] Surgeon Neurosurgery 07/21/23 Eboni Burroughs PA-C [address] [address] Specialist Neurosurgery 07/21/23 Sergio Dallas PA-C [address] [address] Specialist Neurosurgery 07/21/23 Oliva Day DNP [address] [address] Specialist Nurse Practitioner Family 06/14/24 documented as of this encounter
--- OUTSIDE RECORDS SUMMARY | 2025-05-24 13:47 | XMS_ITS | Encounter Summary ---
Author Organization [facility] Address [address] [place] [address] Care Team Providers Care Wine Consultant Name Role Phone Adelfo Fletcher MD Primary Care Provider Susan Bartlett MD Unavailable [phone] Kae Luu PA-C Unavailable Natalie Del Cid MD Unavailable [phone] Eboni Burroughs PA-C Unavailable [phone] Sergio Dallas PA-C Unavailable [phone] Oliva Day DNP Unavailable [phone] Encounter Details Date Type Department Care Team Description 05/28/2020 Home Health Certification Medical Records [address] [place] [address] [employer] [address] [phone] Social History Tobacco Use Types Packs/Day Years [...] on filedocumented in this encounter Care Teams Wine Consultant Relationship Specialty Start Date End Date Adelfo Fletcher MD [address] [place] [address] PCP - General Internal Medicine 06/24/15 Susan Bartlett MD [address] [place] [address] Sales Force Administrator Cardiology 02/23/17 Kae Luu PA-C [address] [place], [place] [phone] Specialist Cardiology 01/06/19 06/13/24 Natalie Del Cid MD [address] [address] Surgeon Neurosurgery 07/21/23 Eboni Burroughs PA-C [address] [address] Specialist Neurosurgery 07/21/23 Sergio Dallas PA-C [address] [address] Specialist Neurosurgery 07/21/23 Oliva Day DNP [address] [address] Specialist Nurse Practitioner Family 06/14/24 documented as of this encounter
--- OUTSIDE RECORDS SUMMARY | 2025-05-24 13:47 | XMS_ITS | Encounter Summary ---
Author Organization [facility] [facility] Address [address] [facility] [address] Care Team Providers Care Residential Counselor Name Role Phone Adelfo Fletcher MD Primary Care Provider [phone] Susan Bartlett MD Unavailable [phone] Kae Luu PA-C Unavailable Natalie Del Cid MD Unavailable [phone] Eboni Burroughs PA-C Unavailable [phone] Sergio Dallas PA-C Unavailable [phone] Oliva Dya DNP Unavailable [phone] Encounter Details Date Type Department Care Team Description 08/27/2021 Orders Only Cardio PVCA Diag Testing [address] [facility] [address] [place] [address] Mary Matthews NP Syncope, unspecified syncope type (Primary Dx) Social History Tobacco Use Types [...] have Coronavirus / COVID-19? No / Unsure 08/06/2021 9:47 AM EST documented as of this encounter Plan of Treatment Scheduled Orders Name Type Priority Associated Diagnoses Orde r Schedule ECG HOLTER MONITOR, REVIEW/INTERP Cardiology Routine Syncope, unspecified syncope type Expected: 08/27/2021, Expires: 08/27/2022 documented as of this encounter Visit Diagnoses Diagnosis Syncope, unspecified syncope type- Primary documented in this encounter Care Teams Residential Counselor Relationship Specialty Start Date End Date Adelfo Fletcher MD [address] [place] [address] PCP - General Internal Medicine 06/24/15 Susan Bartlett MD [address] [place] [address] Ground Nuclear Weapons Assembly Officer Cardiology 02/23/17 Kae Luu PA-C [address] [place], [place] 6200520 Specialist Cardiology 01/06/19 06/13/24 Natalie Del Cid MD [address] [address] Surgeon Neurosurgery 07/21/23 Eboni Burroughs PA-C [address] [address] Specialist Neurosurgery 07/21/23 Sergio Dallas PA-C [address] [address] Specialist Neurosurgery 07/21/23 Oliva Day DNP [address] [address] Specialist Nurse Practitioner Family 06/14/24 documented as of this encounter
--- OUTSIDE RECORDS SUMMARY | 2025-05-24 13:47 | XMS_ITS | Encounter Summary ---
Author Organization [facility] Address [address] [facility] [place] [address] Care Team Providers Care Drywall Sander Name Role Phone Adelfo Fletcher MD Primary Care Provider [phone] Susan Bartlett MD Unavailable [phone] Kae Luu PA-C Unavailable Natalie Del Cid MD Unavailable [phone] Eboni Burroughs PA-C Unavailable Sergio Dallas PA-C Unavailable Oliva Day DNP Unavailable [phone] Encounter Details Date Type Department Care Team Description 06/15/2018 SNF discharge summary Medical Records [address] [place] [address] Social History Tobacco Use Types Packs/Day Years [...] on filedocumented in this encounter Care Teams Drywall Sander Relationship Specialty Start Date End Date Adelfo Fletcher MD [address] [place], [place] [phone] PCP - General Internal Medicine 06/24/15 Susan Bartlett MD [address] [place] [address] Breaker Up Cardiology 02/23/17 Kae Luu PA-C [address] [place] [address] Specialist Cardiology 01/06/19 06/13/24 Natalie Del Cid MD [address] [address] Surgeon Neurosurgery 07/21/23 Eboni Burroughs PA-C [address] [address] Specialist Neurosurgery 07/21/23 Sergio Dallas PA-C [address] [address] Specialist Neurosurgery 07/21/23 Oliva Day DNP [address] [address] Specialist Nurse Practitioner Family 06/14/24 documented as of this encounter
--- OUTSIDE RECORDS SUMMARY | 2025-05-24 13:47 | XMS_ITS | Encounter Summary ---
Author Organization [employer] [facility] Address [address] [place] [address] Care Team Providers Care Director Drug Name Role Phone Adelfo Fletcher MD Primary Care Provider [phone] Susan Bartltet MD Unavailable [phone] Kae Luu PA-C Unavailable Natalie Del Cid MD Unavailable [phone] Eboni Burroughs PA-C Unavailable [phone] Sergio Dallas PA-C Unavailable [phone] Oliva Day DNP Unavailable [phone] Encounter Details Date Type Department Care Team Description 08/20/2020 Occupational Therapy Technician Report Medical Records [address] [place] [address] Stefano Fowler MD Social History Tobacco Use [...] filedocumented in this encounter Care Teams Director Drug Relationship Specialty Start Date End Date Adelfo Fletcher MD [address] [place], [place] [phone] PCP - General Internal Medicine 06/24/15 Susan Bartlett MD [address] [place] [address] [phone] Singer And Unloader Cardiology 02/23/17 Kae Luu PA-C [address] [place], [place] [phone] Specialist Cardiology 01/06/19 06/13/24 Natalie Del Cid MD [address] [address] Surgeon Neurosurgery 07/21/23 Eboni Burroughs PA-C [address] [address] Specialist Neurosurgery 07/21/23 Sergio Dallas PA-C [address] [address] Specialist Neurosurgery 07/21/23 Oliva Day DNP [address] [address] Specialist Nurse Practitioner Family 06/14/24 documented as of this encounter
--- OUTSIDE RECORDS SUMMARY | 2025-05-24 13:47 | XMS_ITS | Encounter Summary ---
Author Organization [employer] [facility] Address [address] [place] [address] Care Team Providers Care Change Management Director Name Role Phone Adelfo Fletcher MD Primary Care Provider [phone] Susan Bartlett MD Unavailable [phone] Kae Luu PA-C Unavailable Natalie Del Cid MD Unavailable [phone] Eboni Burroughs PA-C Unavailable Sergio Dallas PA-C Unavailable Oliva Day DNP Unavailable [phone] Encounter Details Date Type Department Care Team Description 11/02/2023 Home Health Certification Medical Records [address] [place] [address] Social History Tobacco Use Types Packs/Day Years [...] on filedocumented in this encounter Care Teams Change Management Director Relationship Specialty Start Date End Date Adelfo Fletcher MD [address] [place], [place] [phone] PCP - General Internal Medicine 06/24/15 Susan Bartlett MD [address] [place] [address] Floor Worker Well Service Cardiology 02/23/17 Kae Luu PA-C [address] [place] [address] Specialist Cardiology 01/06/19 06/13/24 Natalie Del Cid MD [address] [address] Surgeon Neurosurgery 07/21/23 Eboni Burroughs PA-C [address] [address] Specialist Neurosurgery 07/21/23 Sergio Dallas PA-C [address] [address] Specialist Neurosurgery 07/21/23 Oliva Day DNP [address] [address] Specialist Nurse Practitioner Family 06/14/24 documented as of this encounter
--- OUTSIDE RECORDS SUMMARY | 2025-05-24 13:47 | XMS_ITS | Encounter Summary ---
Author Organization [employer] [facility] Address [address] [place] [address] Care Team Providers Care Latent Print Examiner Name Role Phone Adelfo Fletcher MD Primary Care Provider Susan Bartlett MD Unavailable [phone] Kae Luu PA-C Unavailable Natalie Del Cid MD Unavailable [phone] Eboni Burroughs PA-C Unavailable Sergio Dallas PA-C Unavailable [phone] Oliva Day DNP Unavailable [phone] Reason for Visit * Reason Onset Date Comments Exposure Infectious Disease 07/08/2020 Posi tive for Covid Encounter Details Date Type Department Care Team Description 07/08/2020 Telephone Adult Medicine [address] [phone] Adelfo Fletcher MD [address] [place] [address] [phone] Exposure Infectious Disease (Positive for Covid) Social History Tobacco Use Types Packs/Day Years [...] Telephone Encounter - Vidya Woodard M.A. - 07/08/2020 1:52 PM EST FYI * Telephone Encounter - Elida Mathias - 07/08/2020 1:33 PM EST Daughter calling to report patient is positive for Covid. Patient is in [facility] in [facility] documented in this encounter Plan of Treatment Not on file documented as of this encounter Visit Diagnoses Not on filedocumented in this encounter Care Teams Latent Print Examiner Relationship Specialty Start Date End Date Adelfo Fletcher MD [address] [place] [address] PCP - General Internal Medicine 06/24/15 Susan Bartlett MD [address] [place] [address] Expediter Service Order Cardiology 02/23/17 Kae Luu PA-C [address] [place] [address] Specialist Cardiology 01/06/19 06/13/24 Natalie Del Cid MD [address] [address] Surgeon Neurosurgery 07/21/23 Eboni Burroughs PA-C [address] [address] Specialist Neurosurgery 07/21/23 Sergio Dallas PA-C [address] [address] Specialist Neurosurgery 07/21/23 Oliva Day DNP [address] [address] Specialist Nurse Practitioner Family 06/14/24 documented as of this encounter
--- OUTSIDE RECORDS SUMMARY | 2025-05-24 13:47 | XMS_ITS | Encounter Summary ---
Author Organization [employer] [facility] Address [address] [facility] [place] [address] Care Team Providers Care Glue Line Operator Name Role Phone Adelfo Fletcher MD Primary Care Provider [phone] Susan Bartlett MD Unavailable [phone] Kae Luu PA-C Unavailable Natalie Del Cid MD Unavailable [phone] Eboni Burroughs PA-C Unavailable Sergio Dallas PA-C Unavailable [phone] Oliva Day DNP Unavailable [phone] Encounter Details Date Type Department Care Team Description 08/24/2021 [facility] Medical Records [address] [place] [address] [facility] Social History Tobacco Use Types Packs/Day Years [...] Name Priority Date/Time Associated Diagnosis Comments OUTSIDE MRI/MRA Routine 08/25/2021 OUTSIDE LAB Routine 08/25/2021 OUTSIDE LAB Routine 08/25/2021 OUTSIDE EKG Routine 08/24/2021 OUTSIDE PLAIN FILM Routine 08/24/2021 documented in this encounter Results * OUTSIDE MRI/MRA (08/25/2021) Provider Default RADIOLOGY * OUTSIDE LAB (08/25/2021) Provider Default LAB * OUTSIDE LAB (08/25/2021) Provider Default LAB * OUTSIDE PLAIN FILM (08/24/2021) Provider Default RADIOLOGY * OUTSIDE EKG (08/24/2021) Provider Default CARDIOLOGY documented in this encounter Visit Diagnoses Not on filedocumented in this encounter Care Teams Glue Line Operator Relationship Specialty Start Date End Date Adelfo Fletcher MD [address] [place] [address] PCP - General Internal Medicine 06/24/15 Susan Bartlett MD [address] [place] [address] [phone] Spot Worker Cardiology 02/23/17 Kae Luu PA-C [address] [place] [address] [phone] Specialist Cardiology 01/06/19 06/13/24 Natalie Del Cid MD [address] [address] Surgeon Neurosurgery 07/21/23 Eboni Burroughs PA-C [address] [address] Specialist Neurosurgery 07/21/23 Sergio Dallas PA-C [address] [address] Specialist Neurosurgery 07/21/23 Oliva Day, DNP 175 [facility] [address] [place] [address] Specialist Nurse Practitioner Family 06/14/24 documented as of this encounter
--- OUTSIDE RECORDS SUMMARY | 2025-05-24 13:47 | XMS_ITS | Encounter Summary ---
Author Organization [employer] [facility] Address [address] [place] [address] Care Team Providers Care Manager Global Name Role Phone Adelfo Fletcher MD Primary Care Provider [phone] Susan Bartlett MD Unavailable [phone] Kae Luu PA-C Unavailable Natalie Del Cid MD Unavailable [phone] Eboni Burroughs PA-C Unavailable [phone] Sergio Dallas PA-C Unavailable Oliva Day DNP Unavailable [phone] Encounter Details Date Type Department Care Team Description 06/16/2023 Telephone Internal Medicine - [address], [address] [place] [address] Adelfo Fletcher MD [address] [place] [address] [phone] Social History Tobacco Use Types Packs/Day Years [...] suspected to have Coronavirus/COVID-19? No / Unsure 06/02/2023 10:27 AM EDT documented as of this encounter Plan of Treatment Not on file documented as of this encounter Visit Diagnoses Not on filedocumented in this encounter Care Teams Manager Global Relationship Specialty Start Date End Date Adelfo Fletcher MD [address] [place] [address] PCP - General Internal Medicine 06/24/15 Susan Bartlett MD [address] [place] [address] [phone] Net Trainer Cardiology 02/23/17 Kae Luu PA-C [address] [place] [address] [phone] Specialist Cardiology 01/06/19 06/13/24 Natalie Del Cid MD [address] [address] Surgeon Neurosurgery 07/21/23 Eboni Burroughs PA-C [address] [address] Specialist Neurosurgery 07/21/23 Sergio Dallas PA-C [address] [address] Specialist Neurosurgery 07/21/23 Oliva Day DNP [address] [address] Specialist Nurse Practitioner Family 06/14/24 documented as of this encounter
--- OUTSIDE RECORDS SUMMARY | 2025-05-24 13:47 | XMS_ITS | Encounter Summary ---
Author Organization [employer] [facility] Address [address] [place] [address] Care Team Providers Care Memory Care Program Director Name Role Phone Adelfo Fletcher MD Primary Care Provider Susan Bartlett MD Unavailable [phone] Kae Luu PA-C Unavailable Natalie Del Cid MD Unavailable [phone] Eboni Burroughs PA-C Unavailable Sergio Dallas PA-C Unavailable Oliva Day DNP Unavailable [phone] Reason for Visit * Reason Onset Date Comments Faxed Order 06/25/2020 Encounter Details Date Type Department Care Team Description 06/25/2020 Telephone Adult Medicine [address] [phone] Adelfo Fletcher MD [address] [place] [address] [phone] Faxed Order Social History Tobacco Use Types [...] * Telephone Encounter - Livier Shen - 06/25/2020 6:44 PM EDT Interim orders for Dr. Adelfo Fletcher's signature documented in this encounter Plan of Treatment Not on file documented as of this encounter Visit Diagnoses Not on filedocumented in this encounter Care Teams Memory Care Program Director Relationship Specialty Start Date End Date Adelfo Fletcher MD [address] [place] [address] PCP - General Internal Medicine 06/24/15 Susan Bartlett MD [address] [place] [phone] Bridge Mechanic Cardiology 02/23/17 Kae Luu PA-C [address] [place], [place] [phone] Specialist Cardiology 01/06/19 06/13/24 Natalie Del Cid MD [address] [address] Surgeon Neurosurgery 07/21/23 Eboni Burroughs PA-C [address] [address] Specialist Neurosurgery 07/21/23 Sergio Dallas PA-C [address] [address] Specialist Neurosurgery 07/21/23 Oliva Day DNP [address] [address] Specialist Nurse Practitioner Family 06/14/24 documented as of this encounter
--- OUTSIDE RECORDS SUMMARY | 2025-05-24 13:47 | XMS_ITS | Encounter Summary ---
Author Organization [facility] Address [address] [place] [address] Care Team Providers Care County Adviser Name Role Phone Adelfo Fletcher MD Primary Care Provider Susan Bartlett MD Unavailable [phone] Natalie Del Cid MD Unavailable [phone] Eboni Burroughs PA-C Unavailable Sergio DallasC Unavailable [phone] Oliva Day DNP Unavailable [phone] Reason for Visit * Reason Onset Date Comments Faxed Order 06/24/2024 Nilo alexander Nurse order # [id number] Encounter Details Date Type Department Care Team Description 06/24/2024 Telephone Adult Medicine [address] [phone] Adelfo Fletcher MD [address] [place] [address] [phone] Faxed Order ([facility] Visiting Nurse order # [id number]) Social History Tobacco Use Types Packs/Day Years [...] encounter Miscellaneous Notes * Telephone Encounter - Summer Kimbrough - 06/24/2024 8:13 PM EDT Recived orders from Nilo Visiting Nurse order # [id number]. Please sign and fax to [phone] documented in this encounter Plan of Treatment Not on file documented as of this encounter Visit Diagnoses Not on filedocumented in this encounter Care Teams County Adviser Relationship Specialty Start Date End Date Adelfo Fletcher MD [address] [place] [address] PCP - General Internal Medicine 06/24/15 Susan Bartlett MD [address] [place] [address] Senior Planning Analyst Cardiology 02/23/17 Natalie Del Cid MD [address] [address] Surgeon Neurosurgery 07/21/23 Eboni Burroughs PA-C [address] [address] Specialist Neurosurgery 07/21/23 Sergio Dallas PA-C [address] [address] Specialist Neurosurgery 07/21/23 Oliva Day DNP [address] [address] Specialist Nurse Practitioner Family 06/14/24 documented as of this encounter
--- OUTSIDE RECORDS SUMMARY | 2025-05-24 13:47 | XMS_ITS | Encounter Summary ---
Author Organization [employer] [facility] Address [address] [place] [address] Care Team Providers Care Chamber Walker Name Role Phone Adelfo Fletcher MD Primary Care Provider [phone] Susan Bartlett MD Unavailable [phone] Kae Luu PA-C Unavailable Natalie Del Cid MD Unavailable [phone] Eboni Burroughs PA-C Unavailable [phone] Sergio Dallas PA-C Unavailable Oliva Day DNP Unavailable [phone] Encounter Details Date Type Department Care Team Description 07/16/2023 Orders Only Orthopedics-[address] [phone] Kiran Saenz PA-C Degenerative disc disease, lumbar; Lumbar radiculopathy Social History Tobacco Use Types Packs/Day Years [...] Procedure Name Priority Date/Time Associated Diagnosis Comments MRI OF LUMBAR SPINE NO CONTRAST Routine 06/30/2023 Degenerative disc disease, lumbar Lumbar radiculopathy documented in this encounter Results * MRI OF LUMBAR SPINE NO CONTRAST (06/30/2023) 06/30/2023 Kiran Saenz PA-C MRI [facility] [address] [place] [address] documented in this encounter Visit Diagnoses Diagnosis Degenerative disc disease, lumbar Degeneration of lumbar or lumbosacral intervertebral disc Lumbar radiculopathy Thoracic or lumbosacral neuritis or radiculitis, unspecified documented in this encounter Care Teams Chamber Walker Relationship Specialty Start Date End Date Adelfo Fletcher MD [address] [place] [address] [phone] PCP - General Internal Medicine 06/24/15 Susan Bartlett MD [address] [place] [address] Snap Attacher Cardiology 02/23/17 Kae Luu PA-C [address] [place] [address] Specialist Cardiology 01/06/19 06/13/24 Natalie Del Cid MD [address] [address] Surgeon Neurosurgery 07/21/23 Eboni Burroughs PA-C [address] [address] Specialist Neurosurgery 07/21/23 Sergio Dallas PA-C [address] [address] Specialist Neurosurgery 07/21/23 Oliva Day DNP [address] [address] Specialist Nurse Practitioner Family 06/14/24 documented as of this encounter
--- OUTSIDE RECORDS SUMMARY | 2025-05-24 13:47 | XMS_ITS | Encounter Summary ---
Author Organization [employer] [facility] Address [address] [place] [address] Care Team Providers Care Home Health Lvn Name Role Phone Adelfo Fletcher MD Primary Care Provider Susan Bartlett MD Unavailable [phone] Kae Luu PA-C Unavailable Natalie Del Cid MD Unavailable [phone] Eboni Burroughs PA-C Unavailable [phone] Sergio Dallas PA-C Unavailable [phone] Oliva Day DNP Unavailable [phone] Reason for Visit * Reason Onset Date Comments Faxed Order 06/07/2020 Encounter Details Date Type Department Care Team Description 06/07/2020 Telephone Adult Medicine [address] [phone] Adelfo Fletcher MD [address] [place] [address] [phone] Faxed Order Social History Tobacco Use Types [...] Miscellaneous Notes * Telephone Encounter - Arminda Hu - 06/07/2020 1:04 PM EDT Faxed order received from [employer]. Please sign, date and fax to [phone]. documented in this encounter Plan of Treatment Not on file documented as of this encounter Visit Diagnoses Not on filedocumented in this encounter Care Teams Home Health Lvn Relationship Specialty Start Date End Date Adelfo Fletcher MD [address] [place] [address] PCP - General Internal Medicine 06/24/15 Susan Bartlett MD [address] [place] [address] Shelf Stocker Cardiology 02/23/17 Kae Luu PA-C [address] [place] [address] Specialist Cardiology 01/06/19 06/13/24 Natalie Del Cid MD [address] [address] Surgeon Neurosurgery 07/21/23 Eboni Burroughs PA-C [address] [address] Specialist Neurosurgery 07/21/23 Sergio Dallas PA-C [address] [address] Specialist Neurosurgery 07/21/23 Oliva Day DNP [address] [address] Specialist Nurse Practitioner Family 06/14/24 documented as of this encounter
--- OUTSIDE RECORDS SUMMARY | 2025-05-24 13:47 | XMS_ITS | Encounter Summary ---
Author Organization [employer] [facility] Address [address] [place] [address] Care Team Providers Care Rn Dermatology Name Role Phone Adelfo Fletcher MD Primary Care Provider [phone] Susan Bartlett MD Unavailable [phone] Kae Luu PA-C Unavailable Natalie Del Cid MD Unavailable [phone] Eboni Burroughs PA-C Unavailable [phone] Sergio Dallas PA-C Unavailable Oliva Day DNP Unavailable [phone] Encounter Details Date Type Department Care Team Description 12/03/2020 Brine Supervisor Report Medical Records [address] [place] [address] [facility] Social History Tobacco Use Types Packs/Day [...] have Coronavirus / COVID-19? No / Unsure 11/28/2020 11:33 AM EDT documented as of this encounter Plan of Treatment Not on file documented as of this encounter Visit Diagnoses Not on filedocumented in this encounter Care Teams Rn Dermatology Relationship Specialty Start Date End Date Adelfo Fletcher MD [address] [place], [place] [phone] PCP - General Internal Medicine 06/24/15 Susan Bartlett MD [address] [place], [place] [phone] Receiving Clerk Cardiology 02/23/17 Kae Luu PA-C [address] [place], [place] [phone] Specialist Cardiology 01/06/19 06/13/24 Natalie Del Cid MD [address] [address] Surgeon Neurosurgery 07/21/23 Eboni Burroughs PA-C [address] [address] Specialist Neurosurgery 07/21/23 Sergio Dallas PA-C [address] [address] Specialist Neurosurgery 07/21/23 Oliva Day DNP [address] [address] Specialist Nurse Practitioner Family 06/14/24 documented as of this encounter
--- OUTSIDE RECORDS SUMMARY | 2025-05-24 13:47 | XMS_ITS | Encounter Summary ---
Author Organization [facility] Address [address] [place] [address] Care Team Providers Care Quality Rep Name Role Phone Adelfo Fletcher MD Primary Care Provider [phone] Susan Bartlett MD Unavailable [phone] Kae Luu PA-C Unavailable Natalie Del Cid MD Unavailable [phone] Eboni Burroughs PA-C Unavailable Sergio Dallas PA-C Unavailable [phone] Oliva Day DNP Unavailable [phone] Encounter Details Date Type Department Care Team Description 07/22/2023 [facility] Neurosurgery [place] [address] [address] Sergio Dallas PA-C [address] [phone] Social History Tobacco Use Types Packs/Day Years [...] on filedocumented in this encounter Care Teams Quality Rep Relationship Specialty Start Date End Date Adelfo Fletcher MD [address] [place] [address] [phone] PCP - General Internal Medicine 06/24/15 Susan Bartlett MD [address] [place] [address] [phone] Regional Commercial Sales Manager Cardiology 02/23/17 Kae Luu PA-C [address] [place] [address] [phone] Specialist Cardiology 01/06/19 06/13/24 Natalie Del Cid MD [address] [address] Surgeon Neurosurgery 07/21/23 Eboni Burroughs PA-C [address] [address] Specialist Neurosurgery 07/21/23 Sergio Dallas PA-C [address] [address] Specialist Neurosurgery 07/21/23 Oliva Day DNP [address] [address] Specialist Nurse Practitioner Family 06/14/24 documented as of this encounter
--- OUTSIDE RECORDS SUMMARY | 2025-05-24 13:47 | XMS_ITS | Encounter Summary ---
Author Organization [employer] [facility] Address [address] [place] [address] Care Team Providers Care Campus Coordinator Name Role Phone Adelfo Fletcher MD Primary Care Provider Susan Bartlett MD Unavailable [phone] Kae Luu PA-C Unavailable Natalie Del Cid MD Unavailable [phone] Eboni Burroughs PA-C Unavailable Sergio Dallas PA-C Unavailable Oliva Day DNP Unavailable [phone] Reason for Visit * Reason Onset Date Comments Faxed Order 08/08/2018 Encounter Details Date Type Department Care Team Description 08/08/2018 Telephone Adult Medicine [address] [phone] Adelfo Fletcher MD [address] [place] [address] [phone] Faxed Order Social History Tobacco Use Types [...] * Telephone Encounter - Livier Shen - 08/08/2018 3:47 PM EST Modified Order for Dr Adelfo Fletcher's signature documented in this encounter Plan of Treatment Not on file documented as of this encounter Visit Diagnoses Not on filedocumented in this encounter Care Teams Campus Coordinator Relationship Specialty Start Date End Date Adelfo Fletcher MD [address] [place] [address] PCP - General Internal Medicine 06/24/15 Susan Bartlett MD [address] [place] [address] [phone] Compressed Yeast Supervisor Cardiology 02/23/17 Kae Luu PA-C [address] [place] [address] [phone] Specialist Cardiology 01/06/19 06/13/24 Natalie Del Cid MD [address] [address] Surgeon Neurosurgery 07/21/23 Eboni Burroughs PA-C [address] [address] Specialist Neurosurgery 07/21/23 Sergio Dallas PA-C [address] [address] Specialist Neurosurgery 07/21/23 Oliva Day DNP [address] [address] Specialist Nurse Practitioner Family 06/14/24 documented as of this encounter
--- OUTSIDE RECORDS SUMMARY | 2025-05-24 13:47 | XMS_ITS | Encounter Summary ---
Author Organization [facility] Address [address] [place] [address] Care Team Providers Care Broach Trouble Shooter Name Role Phone Adelfo Fletcher MD Primary Care Provider [phone] Susan Bartlett MD Unavailable [phone] Kae Luu PA-C Unavailable Natalie Del Cid MD Unavailable [phone] Eboni Burroughs PA-C Unavailable [phone] Sergio Dallas PA-C Unavailable [phone] Oliva Day DNP Unavailable [phone] Encounter Details Date Type Department Care Team Description 07/27/2023 Orders Only [facility] Neurosurgery [place] [address] [address] Sergio Dallas PA-C [address] [phone] Cervicalgia; Ataxia Social History Tobacco Use Types Packs/Day Years [...] Priority Date/Time Associated Diagnosis Comments MRI OF CERVICAL SPINE NO CONTRAST Routine 023 Cervicalgia Ataxia documented in this encounter Results * MRI OF CERVICAL SPINE NO CONTRAST (07/23/2023) Sergio Dallas PA-C MRI [facility] [address] [facility] documented in this encounter Visit Diagnoses Diagnosis Cervicalgia Ataxia Lack of coordination documented in this encounter Care Teams Broach Trouble Shooter Relationship Specialty Start Date End Date Adelfo Fletcher MD [address] [place] [address] PCP - General Internal Medicine 06/24/15 uSsan Bartlett MD [address] [place] [address] Roll Skinner Cardiology 02/23/17 Kae Luu PA-C [address] [place] [address] Specialist Cardiology 01/06/19 06/13/24 Natalie Del Cid MD [address] [address] Surgeon Neurosurgery 07/21/23 Eboni Burroughs PA-C [address] [address] Specialist Neurosurgery 07/21/23 Sergio Dallas PA-C [address] [address] Specialist Neurosurgery 07/21/23 Oliva Day DNP [address] [address] Specialist Nurse Practitioner Family 06/14/24 documented as of this encounter
--- OUTSIDE RECORDS SUMMARY | 2025-05-24 13:47 | XMS_ITS | Encounter Summary ---
Author Organization [employer] Address [address] [place] [address] Care Team Providers Care Welding Technician Name Role Phone Adelfo Fletcher MD Primary Care Provider [phone] Encounter Details Date Type Department Care Team (Late st Contact Info) Description 08/21/2024 Lab Requisition [facility] - Main Lab 299 [facility] [place] [address] Wilmer Duff MD 38 [facility] [address] [place], [address] Chronic obstructive pulmonary disease, unspecified (CMS/HCC V24, CMS/HCC V28) Social History Tobacco [...] Description 07/09/2025 2:30 PM EST Office Visit [facility] 175 [facility] [address] [place] [address] Dangelo Malin MD [address] [place] [address] 07/17/2025 1:15 PM EST Office Visit Adult Medicine [facility] [address] [place], [place] [phone] Adelfo Fletcher MD [address] [place] [address] documented as of this encounter Procedures Procedure Name Priority Date/Time Associated Diagnosis Comments COMPLETE BLOOD COUNT Routine 08/21/2024 6:10 AM EST Chronic obstructive pulmonary disease, unspecified (CMS/HCC) COMPREHENSIVE METABOLIC PANEL Routine 08/21/2024 6:10 AM EST Chronic obstructive pulmonary disease, unspecified (CMS/HCC) documented in this encounter Results * (ABNORMAL) Comprehensive metabolic panel (08/21/2024 6:10 AM EST) Sodium 137 133 - 145 mmol/L LAB CHEMISTRY METHOD 08/21/2024 12:53 PM [facility] Potassium 5.1 3.5 - 5.5 mmol/L LAB CHEMISTRY METHOD 08/21/2024 12:53 PM [facility] Chloride 104 96 - 110 mmol/L LAB CHEMISTRY METHOD 08/21/2024 12:53 PM [facility] CO2 27 21 - 32 mmol/L LAB CHEMISTRY METHOD 08/21/2024 12:53 PM [facility] Anion Gap 6 3 - 11 LAB CHEMISTRY METHOD 08/21/2024 12:53 PM [facility] Glucose 116(H) 70 - 100 mg/dL LAB CHEMISTRY METHOD 08/21/2024 12:53 PM [facility] BUN 28(H) 5 - 25 mg/dL LAB CHEMISTRY METHOD 08/21/2024 12:53 PM [facility] Comment:Results verified by repeat testing Creatinine 0.75 0.70 - 1.30 mg/dL LAB CHEMISTRY METHOD 08/21/2024 12:53 PM [facility] eGFR 95 >=60 mL/min/1. 73m2 LAB CHEMISTRY METHOD 08/21/2024 12:53 PM [facility] Comment:Calculation based on the Chronic Kidney Disease Epidemiology Collaboration (CKD-EPI) equation refit without adjustment for race. BUN/Creatinine Ratio 37.3 LAB CHEMISTRY METHOD 08/21/2024 12:53 PM [facility] Calcium 9.0 8.5 - 10.5 mg/dL LAB CHEMISTRY METHOD 08/21/2024 12:53 PM [facility] AST (SGOT) 33 10 - 42 unit/L LAB CHEMISTRY METHOD 08/21/2024 12:53 PM [facility] ALT (SGPT) 78(H) 10 - 60 unit/L LAB CHEMISTRY METHOD 08/21/2024 12:53 PM [facility] Alkaline Phosphatase 126(H) 42 - 121 unit/L LAB CHEMISTRY METHOD 08/21/2024 12:53 PM [facility] Total Protein 7.1 6.0 - 8.0 g/dL LAB CHEMISTRY METHOD 08/21/2024 12:53 PM [facility] Albumin 3.0(L) 3.2 - 5.0 g/dL LAB CHEMISTRY METHOD 08/21/2024 12:53 PM [facility] Total Bilirubin 0.4 0.0 - 1.4 mg/dL LAB CHEMISTRY METHOD 08/21/2024 12:53 PM [facility] Blood Venous blood specimen / Unknown Venipuncture / Unknown 08/21/2024 6:10 AM EST 08/21/2024 10:12 AM EST us Wilmer Duff MD LAB BLOOD ORDERABLES Final Resul t [facility] [address] [place] [address], * (ABNORMAL) Complete blood count (08/21/2024 6:10 AM EST) [facility] WBC 9.9 4.8 - 10.8 K/mcL LAB HEMETOLOGY METHOD 08/21/2024 10:41 AM [facility] RBC 3.70(L) 4.50 - 5.50 M/mcL LAB HEMETOLOGY METHOD 08/21/2024 10:41 AM [facility] Hemoglobin 10.8(L) 13.5 - 17.5 g/dL LAB HEMETOLOGY METHOD 08/21/2024 10:41 AM [facility] Hematocrit 33.6(L) 42.0 - 54.0 % LAB HEMETOLOGY METHOD 08/21/2024 10:41 AM [facility] MCV 91.6 79.0 - 98.0 FL LAB HEMETOLOGY METHOD 08/21/2024 10:41 AM [facility] MCH 29.4 27.0 - 32.0 pcg LAB HEMETOLOGY METHOD 08/21/2024 10:41 AM [facility] MCHC 32.1 32.0 - 37.0 g/dL LAB HEMETOLOGY METHOD 08/21/2024 10:41 AM [facility] RDW 13.5 11.0 - 15.0 % LAB HEMETOLOGY METHOD 08/21/2024 10:41 AM [facility] Platelets 521(H) 130 - 400 K/mcL LAB HEMETOLOGY METHOD 08/21/2024 10:41 AM [facility] MPV 10.3 7.0 - 11.0 FL LAB HEMETOLOGY METHOD 08/21/2024 10:41 AM [facility] NRBC 0.0 <1.0 % LAB HEMETOLOGY METHOD 08/21/2024 10:41 AM EST [facility] NRBC Absolute 0.00 <0.10 K/mcL LAB HEMETOLOGY METHOD 08/21/2024 10:41 AM EST [facility] Blood Venous blood specimen / Unknown Venipuncture / Unknown 08/21/2024 6:10 AM EST 08/21/2024 10:12 AM EST us Wilmer Duff MD LAB BLOOD ORDERABLES Final Resul t [facility] [address] [place] [address], documented in this encounter Visit Diagnoses Diagnosis Chronic obstructive pulmonary disease, unspecified (CMS/HCC V24, CMS/HCC V28) documented in this encounter Care Teams Welding Technician Relationship Specialty Start Date End Date Adelfo Fletcher MD [address] [place] [phone] PCP - General Internal Medicine 09/18/24 documented as of this encounter
--- OUTSIDE RECORDS SUMMARY | 2025-05-24 13:47 | XMS_ITS | Encounter Summary ---
Author Organization [facility] Address [address] [place] [address] Care Team Providers Care Oven Heater Name Role Phone Adelfo Fletcher MD Primary Care Provider [phone] Susan Bartlett MD Unavailable [phone] Kae Luu PA-C Unavailable Natalie Del Cid MD Unavailable [phone] Eboni Burroughs PA-C Unavailable Sergio Dallas PA-C Unavailable Oliva Day DNP Unavailable [phone] Encounter Details Date Type Department Care Team Description 12/01/2023 Orders Only [facility] Screening Program [place] [address] [phone] Eugenie Grider MD 299 [facility] [place] [address] [place], [place] [phone] Social History Tobacco Use Types Packs/Day Years [...] on filedocumented in this encounter Care Teams Oven Heater Relationship Specialty Start Date End Date Adelfo Fletcher MD [address] [place], [place] [phone] PCP - General Internal Medicine 06/24/15 Susan Bartlett MD [address] [place], [place] [phone] Kettle Coordinator Cardiology 02/23/17 Kae Luu PA-C [address] [place], [place] [phone] Specialist Cardiology 01/06/19 06/13/24 Natalie Del Cid MD [address] [address] Surgeon Neurosurgery 07/21/23 Eboni Burroughs PA-C [address] [address] Specialist Neurosurgery 07/21/23 Sergio Dallas PA-C [address] [address] Specialist Neurosurgery 07/21/23 Oliva Day DNP [address] [address] Specialist Nurse Practitioner Family 06/14/24 documented as of this encounter
--- OUTSIDE RECORDS SUMMARY | 2025-05-24 13:47 | XMS_ITS | Encounter Summary ---
Author Organization [employer] Address [address] [place] [address] Care Team Providers Care Nurse Educator Name Role Phone Adelfo Fletcher MD Primary Care Provider [phone] Encounter Details Date Type Department Care Team (Late st Contact Info) Description 08/16/2024 Lab Requisition [facility] - Main Lab 299 [facility] [place] [address] Wilmer Duff MD 38 [facility] [address] [place], [address] Essential (primary) hypertension Social History Tobacco Use Types Packs/Day Years [...] Encounters Date Type Department Care Team (Late Contact Info) Description 07/09/2025 2:30 PM EST Office Visit [facility] 175 [facility] [address] [place] [address] Dangelo Malin MD 175 [facility] [address] [place] [address] 07/17/2025 1:15 PM EST Office Visit Adult [facility] [address] [place] [address] Adelfo Fletcher MD 444 [place], [place] documented as of this encounter Procedures Procedure Name Priority Date/Time Associated Diagnosis Comments CBC WITH AUTO DIFFERENTIAL Routine 08/16/2024 6:30 AM EST Essential (primary) hypertension CBC AND DIFFERENTIAL Routine 08/16/2024 6:30 AM EST Essential (primary) hypertension HEMOGLOBIN A1C Routine 08/16/2024 6:30 AM EST Essential (primary) hypertension COMPREHENSIVE METABOLIC PANEL Routine 08/16/2024 6:30 AM EST Essential (primary) hypertension documented in this encounter Results * (ABNORMAL) CBC auto differential (08/16/2024 6:30 AM EST) WBC 9.9 4.8 - 10.8 K/mcL LAB HEMETOLOGY METHOD 08/16/2024 12:[address] [facility] RBC 3.60(L) 4.50 - 5.50 M/mcL LAB HEMETOLOGY METHOD 08/16/2024 12:[address] [facility] Hemoglobin 10.5(L) 13.5 - 17.5 g/dL LAB HEMETOLOGY METHOD 08/16/2024 12:[address] [facility] Hematocrit 31.8(L) 42.0 - 54.0 % LAB HEMETOLOGY METHOD 08/16/2024 12:[address] [facility] MCV 89.1 79.0 - 98.0 FL LAB HEMETOLOGY METHOD 08/16/2024 12:[address] [facility] MCH 29.4 27.0 - 32.0 pcg LAB HEMETOLOGY METHOD 08/16/2024 12:[address] [facility] MCHC 33.0 32.0 - 37.0 g/dL LAB HEMETOLOGY METHOD 08/16/2024 12:[address] [facility] RDW 13.4 11.0 - 15.0 % LAB HEMETOLOGY METHOD 08/16/2024 12:[address] [facility] Platelets 355 130 - 400 K/mcL LAB HEMETOLOGY METHOD 08/16/2024 12:[address] [facility] MPV 10.9 7.0 - 11.0 FL LAB HEMETOLOGY METHOD 08/16/2024 12:[address] [facility] NRBC 0.3 <1.0 % LAB HEMETOLOGY METHOD 08/16/2024 12:[address] [facility] NRBC Absolute 0.03 <0.10 K/mcL LAB HEMETOLOGY METHOD 08/16/2024 12:[address] [facility] Neutrophils Relative 65.8 % LAB HEMETOLOGY METHOD 08/16/2024 12:[address] [facility] Lymphocytes Relative 18.6 % LAB HEMETOLOGY METHOD 08/16/2024 12:[address] [facility] Monocytes Relative 11.1 % LAB HEMETOLOGY METHOD 08/16/2024 12:[address] [facility] Eosinophils Relative 3.3 % LAB HEMETOLOGY METHOD 08/16/2024 12:[address] [facility] Basophils Relative 0.6 % LAB HEMETOLOGY METHOD 08/16/2024 12:[address] [facility] Immature Granulocytes Relative 0.6 % LAB HEMETOLOGY METHOD 08/16/2024 12:[address] [facility] Neutrophils Absolute 6.54 1.50 - 7.00 K/mcL LAB HEMETOLOGY METHOD 08/16/2024 12:15 PM EST [facility] Lymphocytes Absolute 1.85 1.00 - 5.00 K/[facility] LAB HEMETOLOGY METHOD 08/16/2024 12:15 PM EST [facility] Monocytes Absolute 1.10(H) 0.20 - 1.00 K/[facility] LAB HEMETOLOGY METHOD 08/16/2024 12:15 PM EST [facility] Eosinophils Absolute 0.33 0.00 - 0.50 K/[facility] LAB HEMETOLOGY METHOD 08/16/2024 12:15 PM EST [facility] Basophils Absolute 0.06 0.00 - 0.20 K/[facility] LAB HEMETOLOGY METHOD 08/16/2024 12:[address] [facility] Immature Granulocytes Absolute 0.06(H) 0.00 - 0.03 K/[facility] LAB HEMETOLOGY METHOD 08/16/2024 12:15 PM EST [facility] Blood Venous blood specimen / Unknown Venipuncture / Unknown 08/16/2024 6:30 AM EST 08/16/2024 10:33 AM EST us Wilmer Duff MD LAB BLOOD ORDERABLES Final Resul t [facility] [address] [place] [address], * (ABNORMAL) Hemoglobin A1c (08/16/2024 6:30 AM EST) Hemoglobin A1C 6.7(H) <6.5 % LAB CHEMISTRY METHOD 08/16/2024 2:13 PM EST [facility] Mean Bld Glu Estim. 146 mg/dL LAB CHEMISTRY METHOD 08/16/2024 2:13 PM EST [facility] Blood Venous blood specimen / Unknown Venipuncture / Unknown 08/16/2024 6:30 AM EST 08/16/2024 10:33 AM EST us Wilmer Duff MD LAB BLOOD ORDERABLES Final Resul t [facility] [address] [place] [address], [place] [phone] * (ABNORMAL) Comprehensive metabolic panel (08/16/2024 6:30 AM EST) Sodium 135 133 - 145 mmol/L LAB CHEMISTRY METHOD 08/16/2024 12:[address] [facility] Potassium 5.4 3.5 - 5.5 mmol/L LAB CHEMISTRY METHOD 08/16/2024 12:[address] [facility] Chloride 103 96 - 110 mmol/L LAB CHEMISTRY METHOD 08/16/2024 12:[address] [facility] CO2 25 21 - 32 mmol/L LAB CHEMISTRY METHOD 08/16/2024 12:[address] [facility] Anion Gap 7 3 - 11 LAB CHEMISTRY METHOD 08/16/2024 12:[address] [facility] Glucose 155(H) 70 - 100 mg/dL LAB CHEMISTRY METHOD 08/16/2024 12:[address] [facility] BUN 16 5 - 25 mg/dL LAB CHEMISTRY METHOD 08/16/2024 12:[address] [facility] Creatinine 0.73 0.70 - 1.30 mg/dL LAB CHEMISTRY METHOD 08/16/2024 12:[address] [facility] eGFR 96 >=60 mL/min/1. 73m2 LAB CHEMISTRY METHOD 08/16/2024 12:[address] [facility] Comment:Calculation based on the Chronic Kidney Disease Epidemiology Collaboration (CKD-EPI) equation refit without adjustment for race. BUN/Creatinine Ratio 21.9 LAB CHEMISTRY METHOD 08/16/2024 12:[address] [facility] Calcium 9.1 8.5 - 10.5 mg/dL LAB CHEMISTRY METHOD 08/16/2024 12:[address] [facility] AST (SGOT) 82(H) 10 - 42 unit/L LAB CHEMISTRY METHOD 08/16/2024 12:[address] [facility] ALT (SGPT) 163(H) 10 - 60 unit/L LAB CHEMISTRY METHOD 08/16/2024 12:[address] [facility] Alkaline Phosphatase 132(H) 42 - 121 unit/L LAB CHEMISTRY METHOD 08/16/2024 12:[address] [facility] Total Protein 6.9 6.0 - 8.0 g/dL LAB CHEMISTRY METHOD 08/16/2024 12:[address] [facility] Albumin 2.8(L) 3.2 - 5.0 g/dL LAB CHEMISTRY METHOD 08/16/2024 12:[address] [facility] Total Bilirubin 0.4 0.0 - 1.4 mg/dL LAB CHEMISTRY METHOD 08/16/2024 12:[address] [facility] Blood Venous blood specimen / Unknown Venipuncture / Unknown 08/16/2024 6:30 AM EST 08/16/2024 10:33 AM EST us Wilmer Duff MD LAB BLOOD ORDERABLES Final Resul t [facility] [address] [place] [address], documented in this encounter Visit Diagnoses Diagnosis Essential (primary) hypertension Unspecified essential hypertension documented in this encounter Care Teams Nurse Educator Relationship Specialty Start Date End Date Adelfo Fletcher MD [address] [place] [phone] PCP - General Internal Medicine 09/18/24 documented as of this encounter
--- OUTSIDE RECORDS SUMMARY | 2025-05-24 13:47 | XMS_ITS | Encounter Summary ---
Author Organization [facility] Address [address] [place] [address] Care Team Providers Care Career Law Clerk Name Role Phone Adelfo Fletcher MD Primary Care Provider [phone] Susan Bartlett MD Unavailable [phone] Kae Luu PA-C Unavailable Natalie Del Cid MD Unavailable [phone] Eboni Burroughs PA-C Unavailable Sergio Dallas PA-C Unavailable Oliva Day DNP Unavailable [phone] Encounter Details Date Type Department Care Team Description 07/30/2023 [facility] Neurosurgery [place] 175 [facility] [address] [place] [phone] Natalie Del Cid MD [address] [phone] Social History Tobacco Use Types Packs/Day Years [...] on filedocumented in this encounter Care Teams Career Law Clerk Relationship Specialty Start Date End Date Adelfo Fletcher MD [address] [place] [phone] PCP - General Internal Medicine 06/24/15 Susan Bartlett MD [address] [place] [phone] Manufacturing Quality Technician Cardiology 02/23/17 Kae Luu PA-C [address] [place] [phone] Specialist Cardiology 01/06/19 06/13/24 Natalie Del Cid MD [address] [address] Surgeon Neurosurgery 07/21/23 Eboni Burroughs PA-C [address] [address] Specialist Neurosurgery 07/21/23 Sergio Dallas PA-C [address] [address] Specialist Neurosurgery 07/21/23 Oliva Day DNP [address] [address] Specialist Nurse Practitioner Family 06/14/24 documented as of this encounter
--- OUTSIDE RECORDS SUMMARY | 2025-05-24 13:47 | XMS_ITS | Encounter Summary ---
Author Organization [employer] [facility] Address [address] [place] [address] Care Team Providers Care Boat Assembler Name Role Phone Adelfo Fletcher MD Primary Care Provider [phone] Susan Bartlett MD Unavailable [phone] Kae Luu PA-C Unavailable Natalie Del Cid MD Unavailable [phone] Eboni Burroughs PA-C Unavailable Sergio Dallas PA-C Unavailable [phone] Oliva Day DNP Unavailable [phone] Encounter Details Date Type Department Care Team Description 06/07/2024 Orders Only Medical Records [address] [place] [address] Social History Tobacco Use Types Packs/Day Years [...] Associated Diagnosis Comments OUTSIDE EYE EXAM Routine 06/07/2024 documented in this encounter Results * OUTSIDE EYE EXAM (06/07/2024) [facility] PROCEDURES documented in this encounter Visit Diagnoses Not on filedocumented in this encounter Care Teams Boat Assembler Relationship Specialty Start Date End Date Adelfo Fletcher MD [address] [place], [place] [phone] PCP - General Internal Medicine 06/24/15 Susan Bartlett MD [address] [place], [place] [phone] Metal Smelter Cardiology 02/23/17 Kae Luu PA-C [address] [place], [place] [phone] Specialist Cardiology 01/06/19 06/13/24 Natalie Del Cid MD [address] [address] Surgeon Neurosurgery 07/21/23 Eboni Burroughs PA-C [address] [address] Specialist Neurosurgery 07/21/23 Sergio Dallas PA-C [address] [address] Specialist Neurosurgery 07/21/23 Oliva Dya DNP [address] [address] Specialist Nurse Practitioner Family 06/14/24 documented as of this encounter
--- OUTSIDE RECORDS SUMMARY | 2025-05-24 13:47 | XMS_ITS | Encounter Summary ---
Author Organization [employer] [facility] Address [address] [place] [address] Care Team Providers Care Tank Inspector Name Role Phone Adelfo Fletcher MD Primary Care Provider [phone] Susan Bartlett MD Unavailable [phone] Kae Luu PA-C Unavailable Natalie Del Cid MD Unavailable [phone] Eboni Burroughs PA-C Unavailable [phone] Sergio Dallas PA-C Unavailable [phone] Oliva Day DNP Unavailable [phone] Encounter Details Date Type Department Care Team Description 06/04/2021 Geothermal Heat Pump Machinist Report Medical Records [address] [place] [address] Richard Bill Social History Tobacco Use Types [...] have Coronavirus / COVID-19? No / Unsure 05/28/2021 10:30 AM EDT documented as of this encounter Plan of Treatment Not on file documented as of this encounter Visit Diagnoses Not on filedocumented in this encounter Care Teams Tank Inspector Relationship Specialty Start Date End Date Adelfo Fletcher MD [address] [place], [place] [phone] PCP - General Internal Medicine 06/24/15 Susan Bartlett MD [address] [place] [address] Hot Strip Mill Supervisor Cardiology 02/23/17 Kae Luu PA-C [address] [place], [place] [phone] Specialist Cardiology 01/06/19 06/13/24 Natalie Del Cid MD [address] [address] Surgeon Neurosurgery 07/21/23 Eboni Burroughs PA-C [address] [address] Specialist Neurosurgery 07/21/23 Sergio Dallas PA-C [address] [address] Specialist Neurosurgery 07/21/23 Oliva Day DNP [address] [address] Specialist Nurse Practitioner Family 06/14/24 documented as of this encounter
--- OUTSIDE RECORDS SUMMARY | 2025-05-24 13:48 | XMS_ITS | Encounter Summary ---
Author Organization [facility] Address [address] [facility] [place] [address] Care Team Providers Care Outsole Handler Name Role Phone Adelfo Fletcher MD Primary Care Provider [phone] Susan Bartlett MD Unavailable [phone] Kae Luu PA-C Unavailable Natalie Del Cid MD Unavailable [phone] Eboni Burroughs PA-C Unavailable Sergio Dallas PA-C Unavailable Oliva Day DNP Unavailable [phone] Reason for Visit * Reason Onset Date Comments Faxed Order 12/31/2023 Nilo [place] Ord er # [id number] Encounter Details Date Type Department Care Team Description 12/31/2023 Telephone Adult Medicine [facility] [address] [place] [phone] Adelfo Fletcher MD [address] [place], [place] [phone] Faxed Order (Nilo [facility] Order # [id number]) Social History Tobacco Use Types Packs/Day Years [...] on filedocumented in this encounter Care Teams Outsole Handler Relationship Specialty Start Date End Date Adelfo Fletcher MD [address] [place] [address] PCP - General Internal Medicine 06/24/15 Susan Bartlett MD [address] [place], [place] [phone] Associate Professor Of Management Cardiology 02/23/17 Kae Luu PA-C [address] [place], [place] [phone] Specialist Cardiology 01/06/19 06/13/24 Natalie Del Cid MD [address] [address] Surgeon Neurosurgery 07/21/23 Eboni Burroughs PA-C [address] [address] Specialist Neurosurgery 07/21/23 Sergio Dallas PA-C [address] [address] Specialist Neurosurgery 07/21/23 Oliva Day DNP [address] [address] Specialist Nurse Practitioner Family 06/14/24 documented as of this encounter
--- OUTSIDE RECORDS SUMMARY | 2025-05-24 13:48 | XMS_ITS | Clinical Summary ---
Author Organization [facility] Address [address] [place] [address] Care Team Providers Care Clock Smith Name Role Phone Adelfo Fletcher MD Primary Care Provider [phone] Allergies No known active allergies Medications Medication Sig Dispensed Refills Start Date End Date Status ammonium lactate (LAC-HYDRIN) 12 % lotion Apply topically as needed for dry skin. 0 Active atorvastatin (LIPITOR) tablet 20 mg Take 1 tablet (20 mg total) by mouth daily. 0 Active Ciclopirox 0.77 % gel Apply topically 2 (two) times a day. 0 Active gabapentin (NEURONTIN) 300 MG capsule Take 3 capsules (900 mg total) by mouth 3 (three) times a day. 0 Active insulin glargine (LANTUS SOLOSTAR) injection 100 units/mL Inject 20 Units under the skin. 0 Active lidocaine (LIDODERM) 5 % Place 1 patch onto the skin daily. Remove & Discard patch within 12 hours or as directed by MD 0 Active lidocaine (XYLOCAINE) 5 % ointment Apply topically as needed. 0 Active magnesium citrate ([employer]S MAGNESIUM CITRATE) 1.745 GM/30ML SOLN oral solution Take 296 mL by mouth once. 0 Active Meclizine HCl 25 MG CHEW Chew by mouth. 0 Active metFORMIN (GLUCOPHAGE) tablet 500 mg Take 1 tablet (500 mg total) by mouth. 0 Active midodrine (PROAMATINE) 2.5 MG tablet Take 1 tablet (2.5 mg total) by mouth 3 (three) times a day before meals. 0 Active omeprazole (PriLOSEC) 10 MG capsule Take 1 capsule (10 mg total) by mouth daily. 0 Active oxyCODONE (ROXICODONE) 5 MG immediate release tablet Take 1 tablet (5 mg total) by mouth every 4 (four) hours as needed for pain. 0 Active Simethicone 125 MG TABS Take by mouth. 0 Active acetaminophen (TYLENOL) 325 MG tablet Take 2 tablets (650 mg total) by mouth every 6 (six) hours as needed for pain. 0 Active vitamin C (ASCORBIC ACID) 500 MG tablet Take 1 tablet (500 mg total) by mouth daily. 0 Active Naproxen Sodium (ALEVE) 220 MG CAPS Take by mouth. 0 A ctive ondansetron (ZOFRAN) 8 MG tablet Take 1 tablet (8 mg total) by mouth every 8 (eight) hours as needed for nausea. 30 tablet 2 11/14/2018 Active meclizine (ANTIVERT) 25 MG tablet Take 1 tablet (25 mg total) by mouth 3 (three) times a day as needed. 90 tablet 0 11/28/2018 Active doxycycline (ADOXA) 100 MG tablet Take 1 tablet (100 mg total) by mouth 2 (two) times a day. 0 Active Ipratropium-Albutero l (COMBIVENT RESPIMAT IN) Inhale into the lungs 3 (three) times a day. 0 Active Umeclidinium-Vilante rol (ANORO ELLIPTA IN) Inhale into the lungs. 0 Active Active Problems Problem Noted Date Diagnosed Date Malignant neoplasm of sigmoid colon 06/23/2018 Social History Tobacco Use Types Packs/Day Years Used Date Smoking Tobacco: Former Smokeless Tobacco: Never Alcohol Use Standard Drinks/Week Comments No 0 (1 standard drink = 0.6 oz pur e alcohol) Sex and Gender Information Value Date Recorded Sex Assigned at Not on file Gender Identity Not on file Sexual Orientation Not on file Job Start Date Occupation Industry Not on file Not on file Not on file Last Filed Vital Signs Vital Sign Reading Time Taken Comments Blood Pressure 130/48 11/25/2023 10:25 AM EDT Pulse 53 11/25/2023 10:25 AM EDT Temperature 36.3 C (97.4 F) 11/25/2023 10:25 AM EDT Respiratory Rate - - Oxygen Saturation 100% 11/25/2023 10:25 AM EDT Inhaled Oxygen Concentration - - Weight 68.5 kg (151 lb) 11/25/2023 10:25 AM EDT Height 157.5 cm (5' 2 ) 05/19/2023 10:52 AM EDT Body Mass Index 27.62 05/19/2023 10:52 AM EDT Plan of Treatment Health Maintenance Due Date Last Done Comments Hepatitis C Screening 1950 COVID-19 Vaccine (#1) 01/17/1956 Depression Screening 1963 Preventative Health Evaluation 1969 Shingrix-Zoster Vaccine (1 of 2) 1970 Colon Cancer Screening (Colonoscopy) 01/17/1996 Fall Risk Assessment 01/17/2016 DTap / Tdap / Td (1 - Tdap) 08/01/2020 07/31/2020 Influenza Vaccine (#1) 2025 3, 07/23/2022, 06/14/2021, Additional history exists RSV Adult > 60+ Yrs or (1 - 1-dose 75+ series) 2026 Pneumococcal Vaccine Completed 07/31/2020, 08/16/20 17 Hepatitis B Vaccines Aged Out No long er eligible based on patient's age to complete this topic RSV Ped < 20 months Aged Out No longe r eligible based on patient's age to complete this topic Care Teams Clock Smith Relationship Specialty Start Date End Date Adelfo Fletcher MD PCP - General Internal Medicine 06/23/18
--- OUTSIDE RECORDS SUMMARY | 2025-05-24 13:48 | XMS_ITS | Encounter Summary ---
Author Organization [employer] [facility] Address [address] [place] [address] Care Team Providers Care Ornamenter Hand Name Role Phone Adelfo Fletcher MD Primary Care Provider [phone] Susan Bartlett MD Unavailable [phone] Kae Luu PA-C Unavailable Natalie Del Cid MD Unavailable [phone] Eboni Burroughs PA-C Unavailable Sergio Dallas PA-C Unavailable [phone] Oliva Day DNP Unavailable [phone] Reason for Visit * Reason Onset Date Comments Medication 04/18/2024 Encounter Details Date Type Department Care Team Description 04/18/2024 Refill Gastroenterology - [address] [place] [address] Marlee Us MD [address] [place] [address] [phone] Medication Social History Tobacco Use Types Packs/Day Years [...] on filedocumented in this encounter Care Teams Ornamenter Hand Relationship Specialty Start Date End Date Adelfo Fletcher MD [address] [place], [place] [phone] PCP - General Internal Medicine 06/24/15 Susan Bartlett MD [address] [place], [place] [phone] Operator Prefinish Cardiology 02/23/17 Kae Luu PA-C [address] [place], [place] [phone] Specialist Cardiology 01/06/19 06/13/24 Natalie Del Cid MD [address] [address] Surgeon Neurosurgery 07/21/23 Eboni Burroughs PA-C [address] [address] Specialist Neurosurgery 07/21/23 Sergio Dallas PA-C [address] [address] Specialist Neurosurgery 07/21/23 Oliva Day DNP [address] [address] Specialist Nurse Practitioner Family 06/14/24 documented as of this encounter
--- OUTSIDE RECORDS SUMMARY | 2025-05-24 13:48 | XMS_ITS | Encounter Summary ---
Author Organization [employer] [facility] Address [address] [facility] [address] Care Team Providers Care Office Machine Installer Name Role Phone Adelfo Fletcher MD Primary Care Provider [phone] Susan Bartlett MD Unavailable [phone] Kae Luu PA-C Unavailable Natalie Del Cid MD Unavailable [phone] Eboni Burroughs PA-C Unavailable Sergio Dallas PA-C Unavailable Oliva Day DNP Unavailable [phone] Encounter Details Date Type Department Care Team Description 12/30/2023 Director Of Staff Development Report Medical Records [address] [place] [address] Celia Marcano Social History Tobacco Use Types [...] on filedocumented in this encounter Care Teams Office Machine Installer Relationship Specialty Start Date End Date Adelfo Fletcher MD [address] [place] [address] [phone] PCP - General Internal Medicine 06/24/15 Susan Bartlett MD [address] [place], [place] [phone] Certified Master Safe Technician Cardiology 02/23/17 Kae Luu PA-C [address] [place], [place] [phone] Specialist Cardiology 01/06/19 06/13/24 Natalie Del Cid MD [address] [address] Surgeon Neurosurgery 07/21/23 Eboni Burroughs PA-C [address] [address] Specialist Neurosurgery 07/21/23 Sergio Dallas PA-C [address] [address] Specialist Neurosurgery 07/21/23 Oliva Day DNP [address] [address] Specialist Nurse Practitioner Family 06/14/24 documented as of this encounter
--- OUTSIDE RECORDS SUMMARY | 2025-05-24 13:48 | XMS_ITS | Encounter Summary ---
Author Organization [facility] Address [address] [place] [address] Care Team Providers Care Mechanism Assembler Name Role Phone Adelfo Fletcher MD Primary Care Provider Susan Bartlett MD Unavailable [phone] Kae Luu PA-C Unavailable Natalie Del Cid MD Unavailable [phone] Eboni Burroughs PA-C Unavailable [phone] Sergio Dallas PA-C Unavailable [phone] Oliva Day DNP Unavailable [phone] Encounter Details Date Type Department Care Team Description 03/22/2024 Hospital Medical Records [address] [place] [address] Social History Tobacco Use Types Packs/Day Years [...] Name Priority Date/Time Associated Diagnosis Comments OUTSIDE ECHO Routine 03/27/[address] Routine 03/25/[address] Routine 03/25/2024 OUTSIDE EKG Routine 03/22/2024 OUTSIDE PLAIN FILM Routine 03/22/2024 documented in this encounter Results * OUTSIDE ECHO (03/27/2024) Provider Abstract CARDIOLOGY * OUTSIDE CT (03/25/2024) Provider Abstract RADIOLOGY * OUTSIDE CT (03/25/2024) Provider Abstract RADIOLOGY * OUTSIDE PLAIN FILM (03/22/2024) Provider Abstract RADIOLOGY * OUTSIDE EKG (03/22/2024) Provider Abstract CARDIOLOGY documented in this encounter Visit Diagnoses Not on filedocumented in this encounter Care Teams Mechanism Assembler Relationship Specialty Start Date End Date Adelfo Fletcher MD [address] [place] [address] PCP - General Internal Medicine 06/24/15 Susan Bartlett MD [address] [place] [address] Chief Clinical Dietitian Cardiology 02/23/17 Kae Luu PA-C [address] [place] [address] Specialist Cardiology 01/06/19 06/13/24 Natalie Del Cid MD [address] [address] Surgeon Neurosurgery 07/21/23 Eboni Burroughs PA-C [address] [address] Specialist Neurosurgery 07/21/23 Sergio Dallas PA-C [address] [address] Specialist Neurosurgery 07/21/23 Oliva Day DNP [address] [address] Specialist Nurse Practitioner Family 06/14/24 documented as of this encounter
--- OUTSIDE RECORDS SUMMARY | 2025-05-24 13:48 | XMS_ITS | Encounter Summary ---
Author Organization [facility] Address [address] [facility] [place] [address] Care Team Providers Care Wildlife Photographer Name Role Phone Adelfo Fletcher MD Primary Care Provider Susan Bartlett MD Unavailable [phone] Kae Luu PA-C Unavailable Natalie Del Cid MD Unavailable [phone] Eboni Burroughs PA-C Unavailable Sergio Dallas PA-C Unavailable [phone] Oliva Day DNP Unavailable [phone] Reason for Visit * Reason Onset Date Comments Faxed Order 05/18/2024 [facility] [place] / O rder # [id number] Encounter Details Date Type Department Care Team Description 05/18/2024 Telephone Adult Medicine [facility] [address] [place] [address] [phone] Adelfo Fletcher MD [address] [place], [place] [phone] Faxed Order ([facility] / Order # [id number]) Social History Tobacco Use Types Packs/Day Years [...] encounter Miscellaneous Notes * Telephone Encounter - Kristopher Rosales - 05/18/2024 1:53 PM EDT Faxed Order # [id number] From: Nilo BOB[facility] Date: 05/16/2024 To be signed and faxed back to [phone] Placed in provider's bin documented in this encounter Plan of Treatment Not on file documented as of this encounter Visit Diagnoses Not on filedocumented in this encounter Care Teams Wildlife Photographer Relationship Specialty Start Date End Date Adelfo Fletcher MD [address] [place] [address] PCP - General Internal Medicine 06/24/15 Susan Bartlett MD [address] [place] [address] Biofuels Production Associate Cardiology 02/23/17 Kae Luu PA-C [address] [place] [address] Specialist Cardiology 01/06/19 06/13/24 Natalie Del Cid MD [address] [address] Surgeon Neurosurgery 07/21/23 Eboni Burroughs PA-C [address] [address] Specialist Neurosurgery 07/21/23 Sergio Dallas PA-C [address] [address] Specialist Neurosurgery 07/21/23 Oliva Day DNP [address] [address] Specialist Nurse Practitioner Family 06/14/24 documented as of this encounter
--- OUTSIDE RECORDS SUMMARY | 2025-05-24 13:48 | XMS_ITS | Encounter Summary ---
Author Organization [facility] Address [address] [facility] [place] [address] Care Team Providers Care Roof Painter Name Role Phone Adelfo Fletcher MD Primary Care Provider [phone] Susan Bartlett MD Unavailable [phone] Kae Luu PA-C Unavailable Natalie Del Cid MD Unavailable [phone] Eboni Burroughs PA-C Unavailable [phone] Sergio Dallas PA-C Unavailable [phone] Oliva Day DNP Unavailable [phone] Encounter Details Date Type Department Care Team Description 05/15/2024 Hospital Medical Records [address] [place] [address] Social History Tobacco Use Types Packs/Day Years [...] on filedocumented in this encounter Care Teams Roof Painter Relationship Specialty Start Date End Date Adelfo Fletcher MD [address] [place] [address] [phone] PCP - General Internal Medicine 06/24/15 Susan Bartlett MD [address] [place] [address] Compensation Consulting Manager Cardiology 02/23/17 Kae Luu PA-C [address] [place] [address] Specialist Cardiology 01/06/19 06/13/24 Natalie Del Cid MD [address] [address] Surgeon Neurosurgery 07/21/23 Eboni Burroughs PA-C [address] [address] Specialist Neurosurgery 07/21/23 Sergio Dallas PA-C [address] [address] Specialist Neurosurgery 07/21/23 Oliva Day DNP [address] [address] Specialist Nurse Practitioner Family 06/14/24 documented as of this encounter
--- OUTSIDE RECORDS SUMMARY | 2025-05-24 13:48 | XMS_ITS | Encounter Summary ---
Author Organization [facility] Address [address] [facility] [place] [address] Care Team Providers Care Automotive Tire Technician Name Role Phone Adelfo Fletcher MD Primary Care Provider [phone] Susan Bartlett MD Unavailable [phone] Kae Luu PA-C Unavailable Natalie Del Cid MD Unavailable [phone] Eboni Burroughs PA-C Unavailable [phone] Sergio Dallas PA-C Unavailable Oliva Day DNP Unavailable [phone] Encounter Details Date Type Department Care Team Description 05/14/2024 Hospital Medical Records [address] [place] [address] Social History Tobacco Use Types Packs/Day Years [...] on filedocumented in this encounter Care Teams Automotive Tire Technician Relationship Specialty Start Date End Date Adelfo Fletcher MD [address] [place] [address] [phone] PCP - General Internal Medicine 06/24/15 Susan Bartlett MD [address] [place] [address] Curing Finisher Cardiology 02/23/17 Kae Luu PA-C [address] [place] [address] Specialist Cardiology 01/06/19 06/13/24 Natalie Del Cid MD [address] [address] Surgeon Neurosurgery 07/21/23 Eboni Burroughs PA-C [address] [address] Specialist Neurosurgery 07/21/23 Sergio Dallas PA-C [address] [address] Specialist Neurosurgery 07/21/23 Oliva Day DNP [address] [address] Specialist Nurse Practitioner Family 06/14/24 documented as of this encounter
--- OUTSIDE RECORDS SUMMARY | 2025-05-24 13:48 | XMS_ITS | Encounter Summary ---
Author Organization [facility] Address [address] [place] [address] Care Team Providers Care Reference Test Clerk Name Role Phone Adelfo Fletcher MD Primary Care Provider [phone] Susan Bartlett MD Unavailable [phone] Kae Luu PA-C Unavailable Natalie Del Cid MD Unavailable [phone] Eboni Burroughs PA-C Unavailable Sergio Dallas PA-C Unavailable Oliva Day DNP Unavailable [phone] Encounter Details Date Type Department Care Team Description 03/03/2024 Barrel Tester And Drainer Report Medical Records [address] [place] [address] Claire Liu DPM Social History Tobacco Use [...] on filedocumented in this encounter Care Teams Reference Test Clerk Relationship Specialty Start Date End Date Adelfo Fletcher MD [address] [place] [address] PCP - General Internal Medicine 10/19/15 Susan Bartlett MD [address] [place], [place] [phone] Supervisor Car And Yard Cardiology 02/23/17 Kae Luu PA-C [address] [place], [place] [phone] Specialist Cardiology 01/06/19 06/13/24 Natalie Del Cid MD [address] [address] Surgeon Neurosurgery 07/21/23 Eboni Burroughs PA-C [address] [address] Specialist Neurosurgery 07/21/23 Sergio Dallas PA-C [address] [address] Specialist Neurosurgery 07/21/23 Oliva Day DNP [address] [address] Specialist Nurse Practitioner Family 06/14/24 documented as of this encounter
--- OUTSIDE RECORDS SUMMARY | 2025-05-24 13:48 | XMS_ITS | Encounter Summary ---
Author Organization [facility] Address [address] [facility] [place] [address] Care Team Providers Care Handyperson Name Role Phone Adelfo Fletcher MD Primary Care Provider Susan Bartlett MD Unavailable [phone] Kae Luu PA-C Unavailable Natalie Del Cid MD Unavailable [phone] Eboni Burroughs PA-C Unavailable [phone] Sergio Dallas PA-C Unavailable Oliva Day DNP Unavailable [phone] Reason for Visit * Reason Onset Date Comments Faxed Order 05/18/2024 [facility] / O rder # [id number] Encounter Details Date Type Department Care Team Description 05/18/2024 Telephone Adult Medicine [facility] [address] [place] [address] [phone] Adelfo Fletcher MD [address] [place], [place] [phone] Faxed Order ([facility] / Order # [id number]) Social History Tobacco Use Types Packs/Day Years [...] Miscellaneous Notes * Telephone Encounter - Kristopher Bobby - 05/18/2024 8:19 AM EDT Faxed Order # [id number] From: [facility]ilo [facility] Date: 05/11/2024 To be signed and faxed back to [phone] Placed in provider's bin documented in this encounter Plan of Treatment Not on file documented as of this encounter Visit Diagnoses Not on filedocumented in this encounter Care Teams Handyperson Relationship Specialty Start Date End Date Adelfo Fletcher MD [address] [place] [address] PCP - General Internal Medicine 06/24/15 Susan Bartlett MD [address] [place] [address] Supervisor Mold Cleaning And Storage Cardiology 02/23/17 Kae Luu PA-C [address] [place] [address] Specialist Cardiology 01/06/19 06/13/24 Natalie Del Cid MD [address] [address] Surgeon Neurosurgery 07/21/23 Eboni Burroughs PA-C [address] [address] Specialist Neurosurgery 07/21/23 Sergio Dallas PA-C [address] [address] Specialist Neurosurgery 07/21/23 Oliva Day DNP [address] [address] Specialist Nurse Practitioner Family 06/14/24 documented as of this encounter
--- OUTSIDE RECORDS SUMMARY | 2025-05-24 13:48 | XMS_ITS | Clinical Summary ---
Author Organization [facility] Address [address] [facility] [place] [address] Care Team Providers Care District Director Name Role Phone Adelfo Fletcher MD Primary Care Provider [phone] Susan Bartlett MD Unavailable [phone] Natalie Del Cid MD Unavailable [phone] Eboni Burroughs PA-C Unavailable Sergio DallasC Unavailable [phone] Oliva Day DNP Unavailable [phone] Allergies No known active allergies Medications Medication Sig Dispensed Refills Start Date End Date Status aspirin (ASPIRIN 81) 81 MG chewable tablet Take 1 Tab by mouth daily. 90 Tab 3 07/07/2018 Active acetaminophen (TYLENOL) 325 MG tablet Take 2 Tabs by mouth every 6 hours as needed for Pain. 60 Tab 0 02/23/2020 Active lidocaine (XYLOCAINE) 5 % ointment Apply to knee bid 35.44 g 5 05/28/2021 Active Blood Glucose Monitoring Suppl (ONE TOUCH ULTRA 2) w/Device Kit USE TO TEST BLOOD SUGAR 3 TIMES DAILY 1 Kit 0 01/08/2022 Active Diclofenac Sodium 1 % Gel APPLY 4 G TOPICALLY 3 TIMES DAILY. 100 g 1 07/31/2022 Active Incontinence Supply Disposable (Select Disposable Underwear Lg) MiscIndications:Uri nary incontinence, unspecified type 8 Each by Does not apply route daily. SARAH-99 Disposable underwear moderate absorbency size large 8/day 240 per month 11 refills 240 Each 11 10/21/2022 Active Combivent Respimat 20-100 MCG/ACT Aero SolnIndications:WHEEL LACER AND TRUER D suggested by initial evaluation ([facility]),Former heavy cigarette smoker (20-39 per day),At risk for cancer,Encounter for screening for malignant neoplasm of lung,Positive QuantiFERON-TB Gold test,Positive PPD,TB lung, latent,Snoring,PND (paroxysmal nocturnal dyspnea) INHALE 1 PUFF INTO THE LUNGS 4 TIMES DAILY NEEDED (WHEEZING) FOR UP TO 30 DAYS. 1 g 3 12/09/2022 Active Insulin Glargine (Lantus SoloStar) 100 UNIT/ML Solution Pen-injector INJECT 5 UNITS INTO THE SKIN DAILY Strength: 100 UNIT/ML 15 mL 3 02/23/2023 Active pantoprazole (PROTONIX) 20 MG tablet Take 1 Tablet by mouth daily. 0 Active OneTouch Ultra strip USE TO TEST BLOOD SUGAR THREE TIMES DAILY 300 Strip 1 09/14/2023 Active ibuprofen (ADVIL,MOTRIN) 800 MG tablet TOME MIGUEL ANGEL TABLETA POR V A ORAL CADA OCHO HORAS CUANDO SEA NECESARIO PARA EL DOLOR 0 09/18/2023 Active Artificial Saliva (Biotene Dry Mouth Moisturizing) Solution Take 5 mL by mouth daily. 300 mL 0 11/11/2023 Active gabapentin (NEURONTIN) 300 MG capsule TAKE 3 CAPSULES BY MOUTH EVERY MORNING & 3 CAPSULES EVERY EVENING 540 Capsule 1 11/15/2023 Active atorvastatin (LIPITOR) 20 MG tablet TOME MIGUEL ANGEL TABLETA TODOS [place] [facility] ACOSTARSE 90 Tablet 1 01/06/2024 Active Lancets (OneTouch Delica Plus [id number]) Misc USE TO TEST BLOOD SUGAR 3 TIMES A DAY 300 Each 1 01/06/2024 Active metformin (GLUCOPHAGE) 500 MG tablet Take one tablet by mouth twice a day with meals 180 Tablet 1 05/17/2024 Active B-D ULTRAFINE III SHORT PEN 31G X 8 MM Misc USE TO INJECT INSULIN ONCE DAILY 100 Each 3 06/05/2024 Active amlodipine (NORVASC) 2.5 MG tablet Take 1 Tablet by mouth daily. 90 Tablet 0 06/05/2024 Active Active Problems Problem Noted Date Postural dizziness with presyncope 06/20 Last Assessment & Plan: Since being discharged [...] emergency room. Patient states that he understands. Occlusion of femoropopliteal bypass toney t 07/21/2023 Overview: Occlusion of femoropopliteal bypass graft Cervicalgia 07/21/2023 Last Assessment & Plan: Mr. Mishra describes progressive neck pain with radiation to the bilateral trapezius and down the arms in a C7 distribution. He has been having increasing trouble walking. I am going to get xrays and an MRI of the cervical spine. Ataxia 07/21/2023 Last Assessment & Plan: Mr. Mishra has [...] of the head to check for hydrocephalus. Lumbar radiculopathy 07/21/2023 Last Assessment & Plan: Mr. Mishra describes low back and left leg pain in an L5/S1 distribution. His MRI of the lumbar spine from [place] on 06/30/23 shows multilevel degenerative changes. At L5-S1 there is disc bulging, facet arthropathy and endplate spurring resulting in severe left foraminal stenosis. He is scheduled for an injection with [facility]. Physical therapy and accupuncture would be other reasonable modalities. Left foot drop 08/20/2021 Overview: Follows with [facility] on a 3-month basis. History of duodenal ulcer 08/06/2021 History of 2019 novel coronavirus diseas e (COVID-19) 07/31/2020 Overview: Dx: 06/27/20. Asymptomatic Personal history of colon cancer 020 Hemiplegia and hemiparesis f ollowing cerebral infarction affecting left non-dominant side 05/10/2020 Centrilobular emphysema 03/20/2020 Obstructive sleep apnea mild KATJA 8. 02/0 12/2019 Overview: [facility] Home Sleep Apnea Test: Date 10/03/2019; [...] sleep apnea test. 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 Gallstone 03/08/2018 Overview: Seen on CT 2016. 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 He should continue on current medication regimen. Hyperlipidemia Last Assessment & Plan: He is currently utilizing atorvastatin 20 mg p.o. daily. His most recent LDL was calculated to be 30. This is at target. Should continue adhering to a cardiac healthy diet. CAD (coronary artery disease) Overview: mi in 2011 Last Assessment & Plan: [...] pharmacologic nuclear stress test at that time Immunizations Name Administration Dates Next Due COVID-19 (Moderna Booster) 07/03/2023 COVID-19 (Moderna) 09/18/2021,12/04/2020, 021 COVID-19 (Moderna) PT Reported 11/06/2020 Covid-19 Bivalent (Moderna) 07/23/2022 Influenza (> 6 Months) 05/29/2020,06/13/2019, Influenza Flu (PT Reported) 07/13/2022 Influenza vaccine high dose age 65 and over 07/03/2023,07/23/2022,06/14/2021,08/25,05/23/2017 Pneumoccoccal(Adult) Polysac charide PPSV23 07/31/2020 Pneumococcal Conjugate PCV-13 08/16/2017 TD (STATE SUPPLIED FOR ADULT S AND CHILDREN) 07/31/2020 Family History Medical History Relation Name Comments Cancer, Other Brother throat CA, deng betes Diabetes Father Diabetes Mother Diabetes Sister Leukemia [...] Sign Reading Time Taken Comments Blood Pressure 110/50 06/29/2024 1:14 PM EDT Pulse 64 06/29/2024 1:14 PM EDT Temperature 36.6 C (97.9 F) 06/29/2024 1:14 PM EDT Respiratory Rate 12 06/29/2024 1:14 PM EDT Oxygen Saturation 99% 06/20/2024 2:00 PM EDT Inhaled Oxygen Concentration - - Weight 68.5 kg (151 lb) 06/29/2024 1:14 PM EDT Height 160 cm (5' 3 ) 06/29/2024 1:14 PM EDT Body Mass Index 26.75 06/29/2024 1:14 PM EDT Plan of Treatment Health Maintenance Due Date Last Done Comments SHINGLES VACCINE (1 of 2) 2001 DTAP/TDAP/TD (1 - Tdap) 08/01/2020 07/31/2020 COLON CANCER SCREENING 03/26/2021 0, 03/24/2018, 03/24/2018 DIABETES: ANNUAL FOOT EXAM 06/08/202306/08 (Completed), 08/19/2021 (External Completion), 10/11/2020 (External Completion), Additional history exists FALL RISK ASSESSMENT 07/15/2023 07/15/2022, 04/21/2021, 04/11/2020, Additional history exists DIABETES: ANNUAL URINE PROTE IN TEST (MICROALBUMIN) 11/05/2023 11/04/2022, 04/27/2022, 08/03/2020, Additional history exists DEPRESSION SCREEN 02/17/2024 02/16/2023, (Completed), 12/08/2017, Additional history exists BMI CHECK/ADVISE 09/06/2024 11/20/2022, 05/2023, 05/21/2022, Additional history exists DIABETES: BLOOD SUGAR CONTRO L TEST (HGBA1C) 09/29/2024 06/29/2024, 11/11/2023, 02/16/2023, Additional history exists Covid-19 Vaccine (2022-10 4 season) 2025 07/03/2023, 07/23/2022, 09/18/2021, Additional history exists INFLUENZA (#1) 2025 07/03/2023, 07/07, 07/13/2022, Additional history exists DIABETES: ANNUAL EYE EXAM 06/07/20252023, 03/05/2023, 11/26/2022, Additional history exists DIABETES/HEART DISEASE: [place] AL CHOLESTEROL (LDL) 06/29/2025 06/29/2024, 11/11/2023, 10/29/2022, Additional history exists HEPATITIS C SCREENING Completed 08/17/2017 PNEUMOCOCCAL VACCINE Completed 07/31/2020, 08/16/20 17 ABDOMINAL AORTIC ANEURYSM (A AA) SCREENING Completed 06/17/2021 Care Teams District Director Relationship Specialty Start Date End Date Adelfo Fletcher MD [address] [place] [address] [phone] PCP - General Internal Medicine 06/24/15 Susan Bartlett MD [address] [place] [address] [id number] Litigation Legal Secretary Cardiology 02/23/17 Natalie Del Cid MD [address] [address] Surgeon Neurosurgery 07/21/23 Eboni Burroughs PA-C [address] [address] Specialist Neurosurgery 07/21/23 Sergio Dallas PA-C [address] [address] Specialist Neurosurgery 07/21/23 Oliva Day DNP [address] [address] Specialist Nurse Practitioner Family 06/14/24
--- OUTSIDE RECORDS SUMMARY | 2025-05-24 13:48 | XMS_ITS | Encounter Summary ---
Author Organization [facility] Address [address] [facility] [place] [address] Care Team Providers Care Barrel And Receiver Aligner Name Role Phone Adelfo Fletcher MD Primary Care Provider [phone] Susan Bartlett MD Unavailable [phone] Kae Luu PA-C Unavailable Natalie Del Cid MD Unavailable [phone] Eboni Burroughs PA-C Unavailable Sergio Dallas PA-C Unavailable Oliva Day DNP Unavailable [phone] Encounter Details Date Type Department Care Team Description 05/12/2024 Tobacco Classer Report Medical Records [address] [place] [address] Abstract, Provider Social History Tobacco Use Types [...] on filedocumented in this encounter Care Teams Barrel And Receiver Aligner Relationship Specialty Start Date End Date Adelfo Fletcher MD [address] [place] [address] PCP - General Internal Medicine 06/24/15 Susan Bartlett MD [address] [place] [address] Stonemason Cardiology 02/23/17 Kae Luu PA-C [address] [place] [address] Specialist Cardiology 01/06/19 06/13/24 Natalie Del Cid MD [address] [address] Surgeon Neurosurgery 07/21/23 Eboni Burroughs PA-C [address] [address] Specialist Neurosurgery 07/21/23 Sergio Dallas PA-C [address] [address] Specialist Neurosurgery 07/21/23 Oliva Day DNP [address] [address] Specialist Nurse Practitioner Family 06/14/24 documented as of this encounter
--- OUTSIDE RECORDS SUMMARY | 2025-05-24 13:48 | XMS_ITS ---
Author Organization [facility] Care Team Providers Care Popcorn Attendant Name Role Phone Andrew Banks Unavailable Unavailable Wilmer Duff Unavailable Unavailable Linette Wu Unavailable Unavailable Allergies and adverse reactions No Known Allergies Care Team Name Role Address Phone Organization Dates Andrew Banks [address], [place], [address], [place] (Office): : : [facility] 12/18/2020 - 12/29/2020 Wilmer Duff [address], [place], [address], [place] (Office): : [facility] 12/18/2020 - 12/29/2020 Linette uW [address] [place] [address] [address], [place], [address], [place]Office): : [facility] 12/18/2020 - 12/29/2020 Immunizations Immunization Status Vaccine Details Vaccine Code CodeSystem Date Notes TB 2 Step Mantoux Skin Test completed tuberculin skin test; purified protein derivative solution, intradermal lotNumber: [id number] expiry: 11/03/2021 Mfg: PAR [employer] Given 0.1 ml Left Forearm intradermally Step 1 of Multi-step with next step required 96 CVX created date: 12/20/2020 consent date: 12/19/2020 administer ed date: 12/19/2020 COVID-19 Vaccine Dose 1 completed unknown vaccine or immune globulin 999 CVX created date: 12/27/2020 administer ed date: 11/06/2020 dining room captain vaccinated elsewhere verified on line COVID-19 Vaccine Dose 2 completed unknown vaccine or immune globulin 999 CVX created date: 12/27/2020 administer ed date: 12/04/2020 dining room captain elsewhere verified on line Mental Status Section Date Assessment Total Score Description 12/29/2020 BIMS 15 cognitively int act CAM 0 No delirium ind icated PHQ-9 00 Problems Problem # Description Date of onset Resolved Date Code CodeSystem Concern Status 1 ATHEROSCLEROTIC HEART DISEASE OF [place] CORONARY ARTERY WITHOUT ANGINA PECTORIS 12/19/[address] active 2 BENIGN PAROXYSMAL VERTIGO, UNSPECIFIED EAR 12/19/[address] active 3 CENTRILOBULAR EMPHYSEMA 12/19/[address] active 4 CEREBRAL INFARCTION, UNSPECIFIED 12/19/[address] active 5 CHRONIC OBSTRUCTIVE PULMONARY DISEASE, UNSPECIFIED 12/19/[address] active 6 ESSENTIAL (PRIMARY) HYPERTENSION 12/19/[address] active 7 HEMIPLEGIA AND HEMIPARESIS FOLLOWING CEREBRAL INFARCTION AFFECTING LEFT NON-DOMINANT SIDE 12/19/[address] active 8 OBSTRUCTIVE SLEEP APNEA (ADULT) (PEDIATRIC) 12/19/[address] active 9 PERIPHERAL VASCULAR DISEASE, UNSPECIFIED 12/19/[address] active 10 PERSONAL HISTORY OF OTHER MALIGNANT NEOPLASM OF LARGE INTESTINE 12/19/[address] active 11 TYPE 2 DIABETES MELLITUS WITH OTHER DIABETIC KIDNEY COMPLICATION 12/19/[address] active Reason for Referral No Reasons for Referral Entered Social History Social History Observation Description Start Date End Date Code Code System Current Smoking Status Tobacco smoking consumption unknown 468513721 SNOMED CT Sex Assigned At Male 1950 35213-7 [facility] Gender Identity Sexual Orientation Vital Signs Code Code System Vitals Name Values and Units Timing Information 17747-1 [facility] O2 % BldC Oximetry Value=99.0 Units= % 12/29/2020 8867-4 [facility] Heart rate Value=63.0 Units=/min 8310-5 [facility] Body Temperature Value=97.3 Units= F 12/29/2020 01551-5 [facility] Weight Xnfaz=784.0 Units=Lbs 26221-1 [facility] Pain Level Value=0.0 12/28/2020 9279-1 [facility] Respiratory Rate Value=18.0 Units=/m in 12/27/2020 8462-4 [facility] Blood Pressure-Diastolic Value=60 Un its=mmHg 12/23/2020 8480-6 [facility] Blood Pressure-Systolic Etaeo=863 Un its=mmHg 12/23/2020 2339-0 [facility] Blood Sugar Jtziz=018.0 Units=mg/dL 12/20/2020 8302-2 [facility] Height Value=63.0 Units=Inches 12/20/2020
--- OUTSIDE RECORDS SUMMARY | 2025-05-24 13:48 | XMS_ITS | Encounter Summary ---
Author Organization [facility] [facility] Address [address] [place] [address] Care Team Providers Care Early Childhood Name Role Phone Adelfo Fletcher MD Primary Care Provider [phone] Susan Bartlett MD Unavailable [phone] Kae Luu PA-C Unavailable Natalie Del Cid MD Unavailable [phone] Eboni Burroughs PA-C Unavailable Sergio DallasC Unavailable Oliva Day DNP Unavailable [phone] Reason for Visit * Reason Comments E-prescribe Rx Request Encounter Details Date Type Department Care Team Description 07/24/2021 Refill Pulmonology - [place] [address] [facility] [address] [place] [address] Dangelo Malin MD [address] [place] [address] E-prescribe Rx Request Social History [...] * Telephone Encounter - Liyah Ricketts - 07/24/2021 11:09 AM EST Patient would like script to be: [...] NO Patients current insurance carrier is: Payor: [employer] / Plan: [employer] $[employer] [facility] [id number] / Product Type: [email or web address] [id number] documented in this encounter Plan of Treatment [...] abnormality documented in this encounter Care Teams Early Childhood Relationship Specialty Start Date End Date Adelfo Fletcher MD [address] [place] [address] PCP - General Internal Medicine 06/24/15 Susan Bartlett MD [address] [place] [address] Disposal Operator Cardiology 02/23/17 Kae Luu PA-C [address] [place] [address] Specialist Cardiology 01/06/19 06/13/24 Natalie Del Cid MD [address] [address] Surgeon Neurosurgery 07/21/23 Eboni Burroughs PA-C [address] [address] Specialist Neurosurgery 07/21/23 Sergio Dallas PA-C [address] [address] Specialist Neurosurgery 07/21/23 Oliva Day DNP [address] [address] Specialist Nurse Practitioner Family 06/14/24 documented as of this encounter
--- OUTSIDE RECORDS SUMMARY | 2025-05-24 13:48 | XMS_ITS | Encounter Summary ---
Author Organization [facility] Address [address] [facility] [place] [address] Care Team Providers Care Help Desk Coordinator Name Role Phone Adelfo Fletcher MD Primary Care Provider [phone] Susan Bartlett MD Unavailable [phone] Kae Luu PA-C Unavailable Natalie Del Cid MD Unavailable [phone] Eboni Burroughs PA-C Unavailable [phone] Sergio Dallas PA-C Unavailable [phone] Oliva Day DNP Unavailable [phone] Encounter Details Date Type Department Care Team Description 04/28/2024 Home Health Certification Medical Records [address] [place] [address] Social History Tobacco Use Types Packs/Day Years [...] on filedocumented in this encounter Care Teams Help Desk Coordinator Relationship Specialty Start Date End Date Adelfo Fletcher MD [address] [place] [address] PCP - General Internal Medicine 06/24/15 Susan Bartlett MD [address] [place] [address] Clinical Pharmacist Cardiology 02/23/17 Kae Luu PA-C [address] [place] [address] Specialist Cardiology 01/06/19 06/13/24 Natalie Del Cid MD [address] [address] Surgeon Neurosurgery 07/21/23 Eboni Burroughs PA-C [address] [address] Specialist Neurosurgery 07/21/23 Sergio Dallas PA-C [address] [address] Specialist Neurosurgery 07/21/23 Oliva Day DNP [address] [address] Specialist Nurse Practitioner Family 06/14/24 documented as of this encounter
--- OUTSIDE RECORDS SUMMARY | 2025-05-24 13:48 | XMS_ITS | Encounter Summary ---
Author Organization [facility] Address [address] [place] [address] Care Team Providers Care Petroleum Production Engineer Name Role Phone Adelfo Fletcher MD Primary Care Provider [phone] Susan Bartlett MD Unavailable [phone] Kae Luu PA-C Unavailable Natalie Del Cid MD Unavailable [phone] Eboni Burroughs PA-C Unavailable [phone] Sergio Dallas PA-C Unavailable Oliva Day DNP Unavailable [phone] Encounter Details Date Type Department Care Team Description 04/24/2024 Hospital Medical Records [address] [place] [address] Social History Tobacco Use Types Packs/Day Years [...] Name Priority Date/Time Associated Diagnosis Comments OUTSIDE EKG Routine 04/24/[address] Routine 04/24/2024 OUTSIDE PLAIN FILM Routine 04/24/2024 documented in this encounter Results * OUTSIDE CT (04/24/2024) Provider Abstract RADIOLOGY * OUTSIDE PLAIN FILM (04/24/2024) Provider Abstract RADIOLOGY * OUTSIDE EKG (04/24/2024) Provider Abstract CARDIOLOGY documented in this encounter Visit Diagnoses Not on filedocumented in this encounter Care Teams Petroleum Production Engineer Relationship Specialty Start Date End Date Adelfo Fletcher MD [address] [place] [address] PCP - General Internal Medicine 06/24/15 Susan Bartlett MD [address] [place], [place] 1149320 Shuttle Filler Cardiology 02/23/17 Kae Luu PA-C [address] [place], [place] [address] Specialist Cardiology 01/06/19 06/13/24 Natalie Del Cid MD [address] [address] Surgeon Neurosurgery 07/21/23 Eboni Burroughs PA-C [address] [address] Specialist Neurosurgery 07/21/23 Sergio Dallas PA-C [address] [address] Specialist Neurosurgery 07/21/23 Oliva Day DNP [address] [address] Specialist Nurse Practitioner Family 06/14/24 documented as of this encounter
[2025-05-24] MEDS: iohexoL 350 MG/ML 100 ML INFUS..BTL 80 ML IV (14:54)
[2025-05-24 17:39] VITALS: BP 148/51; PULSE 52; RESP 14; TEMP 36.7; O2SAT 99
[2025-05-24 20:35] VITALS: BP 130/58; PULSE 55; RESP 16; TEMP 36.6; O2SAT 98
--- NOTE | 2025-05-24 21:05 | MHC.CM.ED ---
CM met with patient with medical cash poster, as patient is Romanian speaking only. Pt is A&Ox3. Very pleasant. States he has been having leg pain since Wednesday. He is unable to ambulate without pain. He is afraid to fall. He lives with his daughter. His HCP is on file. His daughter, Selina Hansen ([phone]). He has no home services. He is agreeable to STR if recommended by PT. He understands that PT will see him in the morning. Pt is requesting [facility] as his first choice, as he has been there before. CM will make local referrals, with [facility] as first choice. CM will follow for discharge planning.
[2025-05-25] VITALS (8 sets, daily range): BP systolic 124–148; BP diastolic 45–63; PULSE 51–90; RESP 14–18; TEMP 36.4–36.8; O2SAT 98–100
--- NOTE | 2025-05-25 05:58 | PC.NURSE ---
med rec completed using pt home medication list provided to staff
--- NOTE | 2025-05-25 09:23 | PHA.MEDREC ---
Pharmacy Consult ? Medication Reconciliation Pharmacy has completed the medication reconciliation.MED REC DONE BY NURSING REVIEWED BY INDU
--- NOTE | 2025-05-25 09:55 | PC.NURSE ---
late entry for 7am. Pt was awake, alert and oriented to time/place. Assisted to commode but unable to have BM. reports constipation and last BM yesterday. 1 assist to commode. denies Lower extremity pain. skin pwd. unlabored resp/
--- NOTE | 2025-05-25 09:59 | MHC.CM.ED ---
Patient remains in ER. Physical therapy eval completed. Short term rehab is recommended. [facility] is able to offer a bed and is in the process of obtaining insurance auth. Met with patient, brother and cranberry bog supervisor to explain above information. Patient and brother also aware if insurance auth is not obtained by 4pm today patient could potentially be in ER until Wednesday. Both verbalize understanding. Continue to monitor for d/c needs.
[2025-05-25] MEDS: Aspirin Enteric Coated 81 MG TABLET.DR PO (11:17)
[2025-05-25 11:28] LABS: Glucose, Whole Blood 255 mg/dL (60-115)
[2025-05-25 18:12] LABS: Resp Syncy Virus RNA Qual PCR NEGATIVE (Negative); SARS COV2 PCR INHOUSE NEGATIVE (Negative)
--- NOTE | 2025-05-25 20:14 | PC.NURSE ---
Spoke with Saima RAJAN and reported HS POC of 109. Per Saima, do not give HS dose of insulin
[2025-05-26] VITALS (8 sets, daily range): BP systolic 93–126; BP diastolic 40–58; PULSE 50–64; RESP 12–18; TEMP 36.6–36.8; O2SAT 97–100
[2025-05-26 01:26] LABS: Glucose, Whole Blood 109 mg/dL (60-115)
[2025-05-26 07:27] LABS: Glucose, Whole Blood 101 mg/dL (60-115)
[2025-05-26] MEDS: Aspirin Enteric Coated 81 MG TABLET.DR PO (08:37)
--- NOTE | 2025-05-26 09:01 | PC.NURSE ---
Pt is alert/bolivian speaking. Ambulatory with walker to bathroom, slow but mostly steady. Skin pwd. VSS. Meds given as ordered. Buttocks red, new foam dressing placed for pressure support.
--- NOTE | 2025-05-26 11:17 | MHC.CM.PN ---
CM CONTINUES TO AWAIT INSURANCE AUTH VIA [facility]. CM CONTINUES TO FOLLOW.
[2025-05-26 12:27] LABS: Glucose, Whole Blood 156 mg/dL (60-115)
[2025-05-26] MEDS: Insulin Glargine,Hum.rec.anlog 100 UNIT/ML 10 ML VIAL SUBCUT (20:56)
[2025-05-27 00:15] LABS: Glucose, Whole Blood 132 mg/dL (60-115)
[2025-05-27 01:29] VITALS: PULSE 62; RESP 18; O2SAT 97
[2025-05-27 07:02] LABS: Glucose, Whole Blood 101 mg/dL (60-115)
--- NOTE | 2025-05-27 07:11 | PC.NURSE ---
barbadian speaking gentleman presenting with difficulty ambulating. DM - metformin. alert, oriented, eats independently, pills whole, VSS, nocturnal CPAP. #20 LAC. unsteady w walker. male purewick functioning, large output of clear yellow urine overnight. known arterial occlusion followed by Jan[facility], plan to f/u outpatient. d/c tmrw to [place]?
[2025-05-27 07:17] VITALS: BP 113/54; PULSE 62; RESP 16; O2SAT 98
[2025-05-27 07:59] VITALS: BP 116/51; PULSE 69; RESP 14; TEMP 36.6; O2SAT 99
--- NOTE | 2025-05-27 08:11 | PC.NURSE ---
report given to Coral at bedside
[2025-05-27 08:29] LABS: Glucose, Whole Blood 151 mg/dL (60-115)
[2025-05-27] MEDS: Aspirin Enteric Coated 81 MG TABLET.DR PO (08:34)
[2025-05-27 11:37] LABS: Glucose, Whole Blood 118 mg/dL (60-115)
--- NOTE | 2025-05-27 13:35 | PC.NURSE ---
Addendum entered by Minna Yun RN 05/27/25 13:36: Patient is a 75-year-old male, with a past medical history of CAD, hypertension, peripheral vascular disease, diabetes, who presents emergency department accompanied by his daughter with concerns of increased left leg pain over the last 2 days. Patient denies any recent trauma or injury. He states that he feels as though his circulation in his leg worsens. Pain worsens with weight-bearing. He states that he is able to take several steps however states that the pain worsens when he does so. Denies any numbness or tingling. Patient alert, primarily amharic speaking. Respirations even and non-labored. Abdomen flat soft, non-tender with positive bowel sounds. Purewick patent and draining straw colored urine. Positive pedal pulses with no edema. Evaluated by PT and STR recommended. Original Note: Medical History Infection of vascular bypass graft Dizziness CVA (cerebral vascular accident) PVD (peripheral vascular disease) Myocardial infarct, old Diabetes
[2025-05-27 14:00] VITALS: BP 115/60; PULSE 65; RESP 14; TEMP 36.7; O2SAT 98
--- NOTE | 2025-05-27 16:05 | MHC.CM.PN ---
CM CONTINUES TO AWAIT INSURANCE AUTH VIA [facility] FOR STR. CM WILL CONTINUE TO FOLLOW.
[2025-05-27 16:24] LABS: Glucose, Whole Blood 121 mg/dL (60-115)
[2025-05-27 20:47] LABS: Glucose, Whole Blood 121 mg/dL (60-115)
[2025-05-27] MEDS: Insulin Glargine,Hum.rec.anlog 100 UNIT/ML 10 ML VIAL SUBCUT (20:50)
[2025-05-27 21:24] VITALS: BP 114/68; PULSE 68; RESP 18; TEMP 36.5; O2SAT 95
--- NOTE | 2025-05-27 22:19 | PC.NURSE ---
Pt uses cpap at night; RN called RT to connect cpap for pt.
--- NOTE | 2025-05-28 00:29 | PC.NURSE ---
pt going back to Ed rm 16. Over flow is closing for the night. RN and TEch to bring pt in hospital bed. RN waiting for RT since pt is on cpap.
[2025-05-28 07:20] LABS: Glucose, Whole Blood 111 mg/dL (60-115)
[2025-05-28 08:35] VITALS: BP 108/53; PULSE 63; RESP 16; TEMP 36.3; O2SAT 98
[2025-05-28 08:38] VITALS: BP 108/53
[2025-05-28] MEDS: Aspirin Enteric Coated 81 MG TABLET.DR PO (08:38)
--- NOTE | 2025-05-28 11:34 | PC.NURSE ---
Addendum entered by Valorie Martell RN 05/28/25 11:37: Patient is in Overflow 3, not Overflow 2. Documentation/mistype error by this RN. Original Note: Patient in Overflow 2 as of 9AM today. Care assumed by this RN. Denies pain at this time. Watching TV on tablet. doughnut machine operator helper came to bedside. Awaiting STR placement, pending authorization.
[2025-05-28 11:54] LABS: Glucose, Whole Blood 117 mg/dL (60-115)
[2025-05-28 12:56] VITALS: BP 114/75; PULSE 67; RESP 16; TEMP 36.5; O2SAT 98
--- NOTE | 2025-05-28 13:31 | MHC.CM.ED ---
Patient remains in ER. [facility] submitted for auth on Wednesday. Still waiting to hear from [facility]. Patient aware. Continue to monitor for d/c needs.
[2025-05-28 15:40] VITALS: BP 100/46; PULSE 59; RESP 18; TEMP 36.2; O2SAT 98
[2025-05-28 16:53] LABS: Glucose, Whole Blood 110 mg/dL (60-115)
[2025-05-28] MEDS: Insulin Glargine,Hum.rec.anlog 100 UNIT/ML 10 ML VIAL SUBCUT (20:03)
--- NOTE | 2025-05-28 20:35 | PC.NURSE ---
Respiratory here to place pt on CPAP
[2025-05-28 20:43] VITALS: RESP 18
--- NOTE | 2025-05-28 21:46 | PC.NURSE ---
assumed care of pt, pt oriented to time, place, self and situation. Pt respirations even and unlabored.
[2025-05-28 21:53] LABS: Glucose, Whole Blood 141 mg/dL (60-115)
--- NOTE | 2025-05-28 22:18 | HO.NURTONUR ---
Verbal oxit-ji-ulld reprt to NORA Marie
[2025-05-29 05:26] VITALS: BP 113/49; PULSE 60; RESP 16; TEMP 36.7; O2SAT 97
[2025-05-29 07:39] VITALS: BP 126/55; PULSE 60; RESP 18; TEMP 36.2; O2SAT 93
--- NOTE | 2025-05-29 07:41 | PC.NURSE ---
Patient is a 75-year-old male, with a past medical history of CAD, hypertension, peripheral vascular disease, diabetes, who presents emergency department accompanied by his daughter with concerns of increased left leg pain over the last 2 days. Patient denies any recent trauma or injury. He states that he feels as though his circulation in his leg worsens. Pain worsens with weight-bearing. He states that he is able to take several steps however states that the pain worsens when he does so. Denies any numbness or tingling. Patient alert, primarily ghanaian speaking. Lungs essentially clear bilat. Respirations even and non-labored. Abdomen flat soft, non-tender with positive bowel sounds. Purewick patent and draining straw colored urine. Positive pedal pulses with no edema. c/o left heel pain. No redness or swelling noted. Evaluated by PT and STR recommended. Original Note: Medical History Infection of vascular bypass graft Dizziness CVA (cerebral vascular accident) PVD (peripheral vascular disease) Myocardial infarct, old Diabetes
[2025-05-29] MEDS: Aspirin Enteric Coated 81 MG TABLET.DR PO (09:05)
--- NOTE | 2025-05-29 09:08 | MHC.CM.ED ---
Addendum entered by Sharona Monsivais 05/29/25 10:30: Insurance auth obtained by [facility]. Patient can leave at 2pm. [facility] booked. Med [facility] with chart. Patient, daughter, Dot Marks RN and Zohreh RAJAN aware. Original Note: Patient remains in ER overflow. Still waiting for auth for [facility]. Continue to monitor for d/c needs.
[2025-05-29 11:31] LABS: Glucose, Whole Blood 126 mg/dL (60-115)
--- NOTE | 2025-05-29 12:58 | PC.NURSE ---
Report given to Yair MELENDEZ at [facility]
[2025-05-29 13:42] VITALS: BP 106/50; PULSE 92; RESP 16; TEMP 36.8; O2SAT 98
[2025-05-29 14:13] VITALS: BP 106/50; PULSE 92; RESP 16; TEMP 36.8; O2SAT 98
== END 2025-05-29 14:14 ==
PROVIDERS: Physician Assistant Medical; Registered Nurse Emergency; Emergency Provider Emergency Medicine; PCP Internal Medicine
DX: M79.605 Pain in left leg (principal); E11.51 Type 2 diabetes mellitus with diabetic peripheral angiopathy without gangrene; I70.202 Unspecified atherosclerosis of native arteries of extremities, left leg; I10 Essential (primary) hypertension; Z86.73 Personal history of transient ischemic attack (TIA), and cerebral infarction without residual deficits; Z79.899 Other long term (current) drug therapy; I25.2 Old myocardial infarction
CPT/HCPCS: 36415; 75635; 80048; 80076; 82947; 83735; 85025; 85652; 86140; 87637; 93971; 96365; 97162; 99285; J0131; Q9967

== ENCOUNTER → 2025-05-24 12:42 | Outpatient (BNV) | payer OTHER, SELFPAY | PROVIDERS: Emergency Provider Emergency Medicine; PCP Internal Medicine; Visit Provider Radiology Diagnostic Radiology | DX: M79.605 Pain in left leg (principal) | CPT/HCPCS: 93971 ==

== ENCOUNTER 2025-06-07 13:45 | Outpatient (AMB) | payer OTHER, SELFPAY ==
--- NOTE | 2025-06-07 13:46 | MHC.OFFVIS ---
Intake Visit Reasons: ED follow up for PVD Intake Note: Ed follow up for Left LE pain and weakness more than before. Was discharged to rehab, [facility]. Pt has physical daily. 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 He has a history of undergoing a left femoropopliteal bypass in 2017, which subsequently became infected in April 2020, necessitating its removal. Since then, his lower extremities have been managed conservatively. Recently, the patient underwent a CT angiogram in the emergency room due to increased leg pain. He reports that the pain has limited his activity, causing him to walk less. He is currently in rehabilitation and reports some improvement in pain levels. The patient has experienced unexplained weight loss despite maintaining his usual diet. Endoscopy and colonoscopy were performed, and results were normal. He also reports numbness in his left leg, which is attributed to poor blood vessel condition in that limb. [facility] Medical History Infection of vascular bypass graft Dizziness CVA (cerebral vascular accident) PVD (peripheral vascular disease) Myocardial infarct, old Diabetes Surgical History History of femoropopliteal bypass History of cardiac catheterization Family History Father Diabetes Mother Diabetes Depression Alzheimer disease Social History Alcohol intake: never Patient Tobacco Use Status: Former Tobacco user Years Smoked: 40 +/- Advance Directives Date on File: 07/02/20 Review of Systems Const All systems reviewed & are unremarkable except as noted in HPI and below Reports no additional complaints ENT Reports Normal hearing present Card Denies chest pain, Denies chest pain at rest, Denies chest pain with activity and Denies pedal edema Resp Denies cough GI Denies abdominal pain Musc Denies abnormal gait, Denies muscle cramps and Denies radiating pain into limb Skin/Breast Denies skin ulcer and Denies wounds Neuro Reports Normal hearing present and Denies abnormal gait Psych Reports no additional complaints Physical Exam Const General: cooperative, healthy appearing and comfortable Orientation/consciousness: oriented to person, oriented to place and oriented to time HEENT Head: Yes normal to inspection Neck Neck: Yes normal visual inspection Carotids: no bruits Chest Chest palpation & inspection: normal inspection of the chest Resp Effort & Inspection: normal respiratory effort and able to speak in complete sentences Auscultation: clear to auscultation bilaterally, no crackles, no rales, no rhonchi and no wheezes Cardio Other: Bilateral DP signals. No active ulceration. Rate: regular rate Rhythm: regular rhythm Heart sounds: S1 normal heart sound present and S2 normal heart sound present Bruits: no carotid bruits Peripheral pulses: Peripheral pulses 2+ throughout GI Inspection: Yes normal to inspection Skin Wounds: no wounds Hair: normal Neuro General: oriented to person, oriented to place and oriented to time Cranial nerves: Yes CN's II-XII intact bilaterally and Yes Normal hearing present Cognition (Neuro): normal cognition Motor exam (neuro): 5/5 motor strength present throughout Extrem Other: venous exam: No significant superficial varicosities or spider telangiectasias, minimal edema General: No clubbing, No cyanosis and No edema Psych Appearance: grossly normal Mental Status: mental status grossly normal Speech and movement: Normal speech and movement present Assessment & Plan Assessment & Plan (1) PVD (peripheral vascular disease): Comment: Left fem-pop in 2018 with removal on 05/02/2020 Code(s): I73.9 - Peripheral vascular disease, unspecified Category: Medical Plan: Unfortunately patient has 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 At the current time would continue with conservative management and pain control. I have added cilostazol to his medication regimen. He will follow up with us in September for his routine annual scheduled arterial surveillance. Thank you for allowing us to assist in his care. If there are any questions or concerns please do not hesitate to contact us. Medications: New cilostazol 100 mg PO BID 60 tabs 3RF Coding Level of Care Code Est Pt Level 4 (14757) Diagnoses PVD (peripheral vascular disease) I73.9
--- OUTSIDE RECORDS SUMMARY | 2025-06-07 15:25 | XMS_ITS | Clinical Summary ---
Author Organization [address] Address [address] [place] [phone] Phone Care Team Providers Care Service Cleaner Name Role Phone Adelfo Fletcher MD Primary Care Provider [phone] Allergies No known active allergies Medications acetaminophen [...] day. 90 tablet 1 01/05/20 25 Active gabapentin (NEURONTIN) 300 mg capsule Take 1 capsule (300 mg total) by mouth 3 (three) times a day. 270 capsule 1 01/19/20 25 025 Active senna-docusat e (PERICOLACE) 8.6-50 mg per tablet Take 1 tablet by mouth 1 (one) time each day. 90 each 1 02/28/20 25 025 Active bisacodyL (DULCOLAX) 5 mg EC tablet [...] before meals and at bedtime 120 each 11 05/10/20 25 026 Active OneTouch Ultra Test test strip USE TO TEST BLOOD SUGAR THREE TIMES DAILY 300 strip 1 05/23/20 25 Active blood sugar diagnostic (Contour Next Test Strips) test strip Use to check blood sugars three times daily 300 each 1 05/30/20 25 026 Active blood-glucose meter misc Use to check blood sugars three times daily with Countour glucometer 1 each 05/30/20 25 026 Active lancets lancets Use to check blood sugars three times daily 100 each 1 05/30/20 25 026 Active atorvastatin (LIPITOR) 80 mg tablet Take 1 tablet (80 mg total) by mouth at bedtime. 90 tablet 06/05/20 25 Active omeprazole (PriLOSEC) [address] capsule TOME 1 CAPSULA (40 MG TOTAL) POR VIA ORAL DOS VECES AL DAR ANTES DE LAS COMIDAS DO NOT CRUSH OR CHEW 180 capsule 06/05/20 25 Active ibuprofen (ADVIL,MOTRIN ) 800 mg tablet TOME MIGUEL ANGEL TABLETA POR V A ORAL CADA OCHO HORAS CUANDO SEA NECESARIO PARA EL DOLOR 09/18/19 24 025 Discontinued(S top Taking at Discharge) OneTouch Ultra Test test strip USE TO TEST BLOOD SUGAR THREE TIMES DAILY 09/14/19 24 025 Discontinued atorvastatin (LIPITOR) 80 mg tablet Take 1 tablet (80 mg total) by mouth at bedtime. 90 each 01/05/20 25 025 Discontinued lancets (OneTouch Delica Plus Lancet) 33 gauge Use to check blood sugars three times daily 300 each 1 03/20/20 25 025 Discontinued omeprazole (PriLOSEC) [address] capsule Take 1 capsule (40 mg total) by mouth 2 (two) times a day before meals. Do not crush or chew. 60 each 05/10/20 25 025 Discontinued Active Problems Problem Noted Date Diagnosed Date Diabetes mellitus ([facility] V24, [facility] V28) Hyperlipidemia 07/31/2024 Overview (07/31/2024): Last Assessment [...] Cardiac event monitor; Future Proteinuria 07/31/2024 Stroke (CMS/HCC V24, CMS/HCC V28) 07/31/2024 Postural dizziness with presyncope 06/20/2024 [...] His MRI of the lumbar spine from [place] on 06/30/23 shows multilevel degenerative changes. At L5-S1 there is disc bulging, facet arthropathy and endplate spurring resulting in severe left foraminal stenosis. He is scheduled for an injection with [facility]. Physical therapy and accupuncture would be other reasonable modalities. Occlusion of femoropopliteal bypass graft ([facility]/H CC V24) 07/21/2023 Overview (07/31/2024): Occlusion of femoropopliteal bypass graft Left foot drop 08/20/2021 Overview (07/31/2024): Follows with [facility] on a 3-month basis. [...] Cardiac event monitor; Future Cerebral infarction, unspecified (CMS/[facility] V24, C [facility] V28) 12/18/2020 Chronic obstructive pulmonar y disease, unspecified (CMS/[facility] V24, CMS/HCC V28) 12/18/2020 Hypertension 12/18/2020 Overview [...] event monitor; Future Peripheral vascular disease, unspecified ([facility]/ C V24) 12/18/2020 Type 2 diabetes mellitus wit h other diabetic kidney complication (CMS/HCC V24, CMS/HCC V28) 12/18/2020 History of 2019 novel coronavirus disease (COVID -19) 07/31/2020 Overview (07/31/2024): Dx: 06/27/20. Asymptomatic Hemiplegia and hemiparesis f ollowing cerebral infarction affecting left non-dominant side (CMS/HCC V24, CMS/HCC V28) 05/10/2020 Centrilobular emphysema (CMS/HCC V24, CMS/[facility] V2 8) 03/20/2020 Obstructive sleep apnea 10/10/2019 Overview (07/31/2024): [facility] Home Sleep Apnea Test: Date 10/03/2019; [...] positional vertigo 08/25/2019 COPD suggested by initial evaluation 01/13/2019 Overview (07/31/2024): LDCT: 11/2021: No malignancy PND (paroxysmal nocturnal dyspnea) 01/13/2019 Positive QuantiFERON-TB Gold test 01/13/2019 Snoring 01/13/2019 TB lung, latent 01/13/2019 Malignant neoplasm of sigmoi d colon ([facility] V24, [facility] V28) 06/23/2018 Duodenal ulcer 04/14/2018 Colon cancer ([facility] V24, [facility] V28) 03/28/20 18 Overview (07/31/2024): Sigmoid colon cancer, biopsies obtained at colonoscopy 03/24/18. Gallstone 03/08/2018 Overview (07/31/2024): Seen on CT 2016. Positive PPD 03/31/2016 DM (diabetes mellitus), type 2 with peripheral vascular complications ([facility] V24, [facility] V28) 01/08/2016 Encounters Date Type Department Care Team Description 05/10/2025 9:38 AM EDT Anesthesia Event [facility] Endoscopy [address] [place] [phone] Chung Ambriz MD 05/10/2025 7:32 AM EDT - 05/10/2025 11:59 PM EDT Hospital Encounter [facility] Endoscopy [address] [place] [phone] Mirlande Us MD Steele, Matthew G, ELAN Esophageal dysphagia; History of colon cancer in adulthood; Chronic idiopathic constipation Discharge Disposition: Home or Self Care from Last 3 Months Immunizations Immunization Administration Dates Next Due [employer] SARS-CoV-2 [...] for obstruction UPPER GASTROINTESTINAL ENDOSCOPY 03/24/2018 PROCEDURE: TX UPPER GI ENDOSCOPY PERFORMED; COMMENT: Muslu; ulcer: [...] 2 diabetes mellitus wit h renal manifestations ([facility] V24, [facility] V28) DX:Type 2 diabetes mellitus with renal manifestations (HCC) PAD (peripheral artery disea se) ([facility] V24) 06/19/2016 DX:PAD (peripheral artery di sease) ([facility]); COMMENT: S/p left femoral to popliteal bypass; 06/2016 Positive PPD 03/31/2016 DX:Positive PPD DM (diabetes mellitus), type 2 with peripheral vascular complications ([facility] V24, [facility] V28) 01/08/2016 DX:DM (diabetes mellitus), 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) Gallstone 03/08/2018 DX:Gallstone; CO MMENT: Seen on CT 2015. Colon cancer ([facility] V24, C [facility] V28) 03/28/2018 DX:Colon cancer (HCC); COMME NT: Sigmoid colon cancer, biopsies obtained at colonoscopy 03/24/18. Loss of hearing DX:Loss of heari ng Sleep apnea Lung disease CVA (cerebral vascular accid ent) ([facility] V24, [facility] V28) Family History Medical History Relation Name [...] Description 07/09/2025 2:30 PM EST Office Visit Pulmonology - [place] [address] [phone] Dangelo Malin MD 175 [facility] [address] [place] [phone] 07/17/2025 1:15 PM EST Office Visit Adult Medicine [address] [phone] Adelfo Fletcher MD [address] [place] [address] Health Maintenance Due Date Last Done Comments Zoster Vaccines (1 of 2) 1969 Colorectal Cancer Screening: Stool Based Tests (FOBT/FIT) 08/13/2022 Social Influencers of Health Screening 08/13/2022 Diabetes: Annual Foot Exam 06/08/2023 06/08/2022 Medicare Annual Wellness Visit 02/17/2024 02/16/2023 Depression Screening 09/06/2024 02/16/2023 Influenza Vaccine (#1) 2025 , 07/03/2023, 07/23/2022, Additional history exists COVID-19 Vaccine (6 - Moderna risk ) 05/29/2025 11/26/2024, 07/03/2023, 07/23/2022, Additional history exists Diabetes: [...] BLOOD Routine 05/10/2025 9: 01 AM EDT COMPREHENSIVE METABOLIC PANEL Routine 01/04/2025 2:03 PM EDT Type 2 diabetes mellitus with other diabetic kidney complication ([facility] V24, [facility] V28) Primary hypertension Encounter for long-term (current) use of medications HEMOGLOBIN A1C Routine 01/04/2025 2:03 PM EDT Type 2 diabetes mellitus with other diabetic kidney complication (CMS/[facility] V24, CMS/[facility] V28) LIPID PANEL WITH REFLEX TO DIRECT LDL Routine 01/04/2025 2:03 PM EDT Pure hypercholesterolemia MICROALBUMIN CREATININE URINE RATIO Routine 07/14/2024 1:34 PM EST Hyperlipemia DIABETES EYE EXAM Routine 06/07/2024 DEPRESSION SCREENING [...] - 100 mg/dL 05/10/2025 10:31 AM EDT [facility] Blood Capillary blood specimen / Unknown 05/10/2025 10:21 AM EDT 05/10/2025 10:32 AM EDT Bartolo E[facility] [employer] [facility] POINT OF CARE TEST DOCKED DEVICE UNSOLICITED RESULTS Final Result [facility] [address] [place] [address], * COLONOSCOPY Anesthesia - MAC; [facility] ENDOSCOPY (05/10/2025 10:09 AM EDT) [...] or older). Narrative 05/10/2025 10:13 AM EDT [facility] GI Patient Name: Alissa Mishra Procedure Date: [...] verified by the physician, the nurse, the news internship and the geophysical data technician in the pre-procedure area in the [...] not prolapse). Procedure Code(s): --- Professional --- 73862, Colonoscopy, flexible; with removal of tumor(s), polyp(s), or other lesion(s) by snare technique Diagnosis Code(s): --- Professional --- D12.4, Benign neoplasm of descending colon CPT copyright 2020 [employer]. All rights reserved. The codes documented in this report are preliminary and upon certified family mediator review may be revised to meet current compliance requirements. Mirlande Us MD 05/10/2025 10:13:23 AM This report has been signed electronically.Mirlande Us MD Number of Addenda: 0 Note Initiated On: 05/10/2025 9:37 AM Scope Withdrawal Time: 0 hours 6 minutes 30 seconds Scope In: 9:43:08 AM Scope Out: 9:52:48 AM Endoscopy Department at [facility] - [address] [place] [phone] Procedure Note Mirlande Us MD - 05/10/2025 [facility] GI Patient Name: Alissa Mishra Procedure Date: [...] the physician, the nurse, theanesthetist and the geophysical data technician in the pre-procedure area in the [...] normal. There was evidence of a prior kex-zm-grijedu-colonic anastomosis in the sigmoid colon and in [...] not prolapse). Procedure Code(s): --- Professional --- 49442, Colonoscopy, flexible; with removal of tumor(s), polyp(s), or other lesion(s) by snare technique Diagnosis Code(s): --- Professional --- D12.4, Benign neoplasm of descending colon CPT copyright 2020 [employer]. All rights reserved. The codes documented in this report are preliminary and upon certified family mediator reviewmay be revised to meet current compliance requirements. Mirlande Us MD 05/10/2025 10:13:23 AM This report has been signed electronically.Mirlande Us MD Number of Addenda: 0 Note Initiated On: 05/10/2025 9:37 AM Scope Withdrawal Time: 0 hours 6 minutes 30 seconds Scope In: 9:43:08 AM Scope Out: 9:52:48 AM Endoscopy Department at [facility] - [address] [place] [phone] IMPRESSION: - Patent end-to-end colo-colonic anastomosis, characterized by healthy appearing mucosa. - One diminutive polyp in the descending colon, removed with a cold snare. Resected andretrieved. - Internal hemorrhoids. Recommendation: - Await pathology results. - No repeat colonoscopy due to current age (66years or older). us Mirlande Us MD GI~PROCEDURE ORDERABLES Fin al Result * EGD Anesthesia - MAC; [facility] ENDOSCOPY (05/10/2025 10:09 AM EDT) [...] PO daily. Narrative 05/10/2025 10:11 AM EDT [facility] GI Patient Name: Alissa Mishra Procedure Date: [...] verified by the physician, the nurse, the news internship and the geophysical data technician in the pre-procedure area in the [...] was minimal. Procedure Code(s): --- Professional --- 87631, Esophagogastroduodenoscopy, flexible, transoral; with insertion of guide wire followed by passage of dilator(s) through esophagus over guide wire 79986, 59, Esophagogastroduodenoscopy, flexible, transoral; with biopsy, single or multiple Diagnosis Code(s): --- Professional --- K29.80, Duodenitis without bleeding K25.9, Gastric ulcer, unspecified as acute or chronic, without hemorrhage or perforation K29.70, Gastritis, unspecified, without bleeding K22.2, Esophageal obstruction CPT copyright 2020 [employer]. All rights reserved. The codes documented in this report are preliminary and upon certified family mediator review may be revised to meet current compliance requirements. Mirlande Us MD 05/10/2025 10:11:43 AM This report has been signed electronically.Mirlande Us MD Number of Addenda: 0 Note Initiated On: 05/10/2025 9:37 AM Scope In: Scope Out: Endoscopy Department at [facility] - [address] [place] [phone] Procedure Note Mirlande Us MD - 05/10/2025 [facility] GI Patient Name: Alissa Mishra Procedure Date: [...] the physician, the nurse, theanesthetist and the geophysical data technician in the pre-procedure area in the [...] was minimal. Procedure Code(s): --- Professional --- 02908, Esophagogastroduodenoscopy, flexible, transoral; with insertion of guide wire followed by passage of dilator(s) through esophagus over guidewire 83752, 59, Esophagogastroduodenoscopy, flexible, transoral; with biopsy, single or multiple Diagnosis Code(s): --- Professional --- K29.80, Duodenitis without bleeding K25.9, Gastric ulcer, unspecified as acute orchronic, without hemorrhage or perforation K29.70, Gastritis, unspecified, without bleeding K22.2, Esophageal obstruction CPT copyright 2020 [employer]. All rights reserved. The codes documented in this report are preliminary and upon certified family mediator reviewmay be revised to meet current compliance requirements. Mirlande Us MD 05/10/2025 10:11:43 AM This report has been signed electronically.Mirlande Us MD Number of Addenda: 0 Note Initiated On: 05/10/2025 9:37 AM Scope In: Scope Out: Endoscopy Department at [facility] - [address] [place] [phone] IMPRESSION: - Normal second portion of the [...] Immunohistochemistry: Helicobacter pylori: negative. 12:45 PM EDT [facility] Addendum electronically signed by Brittny De [...] organisms are morphologically identified. 12:45 PM EDT [facility] Gross Description A. Large Intestine, Left/Descending [...] on one slide. MITESH 12:45 PM EDT [facility] Disclaimer NOTE: The immunohistochemical tests and in situ hybridization tests were developed and their performance characteristics were determined by [facility]. They have not been cleared [...] fixed and paraffin embedded. 12:45 PM EDT [facility] Tissue Descending colon structure / Unknown 05/10/2025 9:50 AM EDT 05/10/2025 10:24 AM EDT Tissue specimen (specimen) Stomach structure / Unknown 05/10/2025 9:58 AM EDT 05/10/2025 10:24 AM EDT Tissue specimen (specimen) Stomach structure / Unknown 05/10/2025 10:00 AM EDT 05/10/2025 10:24 AM EDT Mirlande Us MD LAB PATHOLOGY ORDERABLES Ed ited Result - Final [facility] [address] [place] [address], [place] [phone] * Lipid panel with reflex to direct LDL (01/04/2025 2:03 PM EDT) Cholesterol 95 0 - 200 mg/dL LAB CHEMISTRY METHOD 01/04/2025 5:50 PM [facility] Triglycerides 39 0 - 150 mg/dL LAB CHEMISTRY METHOD 01/04/2025 5:50 PM [facility] HDL 50 >=40 mg/dL LAB CHEMISTRY METHOD 01/04/2025 5:50 PM EDT [facility] LDL Calculated 37 0 - 100 mg/dL LAB CHEMISTRY METHOD 01/04/2025 5:50 PM EDT [facility] VLDL Cholesterol Mahesh 7.8 mg/dL LAB CHEMISTRY METHOD 01/04/2025 5:50 PM T [facility] Non HDL Chol. (LDL+VLDL) 45 <145 mg/dL LAB CHEMISTRY METHOD 01/04/2025 5:50 PM EDT [facility] Chol/HDL Ratio 1.9 0.0 - 4.4 LAB CHEMISTRY METHOD 01/04/2025 5:50 PM EDT [facility] Blood Venous blood specimen / Unknown Venipuncture / Unknown 01/04/2025 2:03 PM EDT 01/04/2025 2:03 PM EDT us Adelfo Fletcher MD LAB BLOOD ORDERABLES Final Resu lt Performing Organization Address [facility]/ZIP Co de Phone Number [facility] [address] [place] [address], [place] [phone] * Hemoglobin A1c (01/04/2025 2:03 PM EDT) Hemoglobin A1C 6.3 <6.5 % LAB CHEMISTRY METHOD 01/04/2025 10:17 PM EDT [facility] Mean Bld Glu Estim. 134 mg/dL LAB CHEMISTRY METHOD 01/04/2025 10:17 PM EDT [facility] Blood Venous blood specimen / Unknown Venipuncture / Unknown 01/04/2025 2:03 PM EDT 01/04/2025 2:03 PM EDT us Adelfo Fletcher MD LAB BLOOD ORDERABLES Final Resu lt Performing Organization Address [facility]/ZIP Co de Phone Number [facility] [address] [place] [address], [place] [phone] * (ABNORMAL) Comprehensive metabolic panel (01/04/2025 2:03 PM EDT) Sodium 138 133 - 145 mmol/L LAB CHEMISTRY METHOD 01/04/2025 5:50 PM EDT [facility] Potassium 4.7 3.5 - 5.5 mmol/L LAB CHEMISTRY METHOD 01/04/2025 5:50 PM EDT [facility] Chloride 104 96 - 110 mmol/L LAB CHEMISTRY METHOD 01/04/2025 5:50 PM EDT [facility] CO2 29 21 - 32 mmol/L LAB CHEMISTRY METHOD 01/04/2025 5:50 PM [facility] Anion Gap 5 3 - 11 LAB CHEMISTRY METHOD 01/04/2025 5:50 PM [facility] Glucose 122(H) 70 - 100 mg/dL LAB CHEMISTRY METHOD 01/04/2025 5:50 PM [facility] BUN 19 5 - 25 mg/dL LAB CHEMISTRY METHOD 01/04/2025 5:50 PM [facility] Creatinine 0.75 0.70 - 1.30 mg/dL LAB CHEMISTRY METHOD 01/04/2025 5:50 PM [facility] eGFR 95 >=60 mL/min/1. 73m2 LAB CHEMISTRY METHOD 01/04/2025 5:50 PM [facility] Comment:Calculation based on the Chronic Kidney Disease Epidemiology Collaboration (CKD-EPI) equation refit without adjustment for race. BUN/Creatinine Ratio 25.3 LAB CHEMISTRY METHOD 01/04/2025 5:50 PM [facility] Calcium 9.3 8.5 - 10.5 mg/dL LAB CHEMISTRY METHOD 01/04/2025 5:50 PM [facility] AST (SGOT) 23 10 - 42 unit/L LAB CHEMISTRY METHOD 01/04/2025 5:50 PM [facility] ALT (SGPT) 30 10 - 60 unit/L LAB CHEMISTRY METHOD 01/04/2025 5:50 PM [facility] Alkaline Phosphatase 83 42 - 121 unit/L LAB CHEMISTRY METHOD 01/04/2025 5:50 PM [facility] Total Protein 7.6 6.0 - 8.0 g/dL LAB CHEMISTRY METHOD 01/04/2025 5:50 PM [facility] Albumin 3.9 3.2 - 5.0 g/dL LAB CHEMISTRY METHOD 01/04/2025 5:50 PM EDT [facility] Total Bilirubin 0.5 0.0 - 1.4 mg/dL LAB CHEMISTRY METHOD 01/04/2025 5:50 PM EDT [facility] Blood Venous blood specimen / Unknown Venipuncture / Unknown 01/04/2025 2:03 PM EDT 01/04/2025 2:03 PM EDT us Adelfo Fletcher MD LAB BLOOD ORDERABLES Final Resu lt [facility] [address] [place] [address], [place] [phone] * Microalbumin creatinine urine ratio (07/14/2024 1:34 PM EST) [facility] Creatinine, Urine 63.0 mg/dL LAB CHEMISTRY METHOD 07/14/2024 5:49 PM EST [facility] Microalb, Ur 6.6 0.0 - 29.0 mg/L LAB CHEMISTRY METHOD 07/14/2024 5:49 PM EST [facility] Microalb/Creat Ratio 10 <30 mg/g creat LAB CHEMISTRY METHOD 07/14/2024 5:49 PM EST [facility] Urine Urine specimen obtained by clean catch procedure / Unknown Non-blood Collection / Unknown 07/14/2024 1:34 PM EST 07/14/2024 1:34 PM EST us Adelfo Fletcher MD LAB URINE ORDERABLES Final Resu lt [facility] [address] [place] [address], [place] [phone] * Diabetes Eye Exam (06/07/2024) [facility] Diabetes: Annual Retina Eye Exam abstracted us Jordan García MD HEALTH MAINTENANCE Final Result * Depression Screening (02/16/2023) Pathologist [facility] Depression Screening abstracted [facility] Provider HEALTH MAINTENANCE Final Result * Falls Risk Assessment (07/15/2022) [facility] Falls Risk Assessment abstracted Result [facility] Provider HEALTH MAINTENANCE Final Result * Diabetes Foot Exam (06/08/2022) [facility] Diabetes: Annual Foot Exam abstracted Result [facility]ALTH [facility] Final Result * US ABDOMINAL AORTA REAL [...] screening examination for abdominal aorticaneurysm. [place] RAJAN Regulo [place] PROCEDURES Final Resul t * Hepatitis C Screening (08/17/2017) [facility] Hepatitis C Screening abstracted Result [facility] Provider HEALTH MAINTENANCE Final Result from Last 3 Months or Most Recently Relevant to Health Maintenance Insurance MEDICAID - [place] [employer] MEDICARE Advance Directives Documents on File Type Date Recorded Patient Track Worker Expl anation Advance Directives and Living Will [...] (hx) 05/17/2018 AD GRULLON DIRECTIVE Care Teams Service Cleaner Relationship Specialty Start Date End Date Adelfo Fletcher MD [address] [place] [phone] PCP - General Internal Medicine 09/18/24
--- OUTSIDE RECORDS SUMMARY | 2025-06-07 15:25 | XMS_ITS | Encounter Summary ---
Author Organization [employer] Address [address] [place] [address] Care Team Providers Care Blacktop Spreader Name Role Phone Adelfo Fletcher MD Primary Care Provider [phone] Encounter Details Date Type Department Care Team (Late st Contact Info) Description 08/21/2024 Lab Requisition [facility] - Main Lab 299 [facility] [place] [address] Wilmer Duff MD 38 [facility] 204 [place], [address] Chronic obstructive pulmonary disease, unspecified (CMS/HCC [...] 2:30 PM EST Office Visit Pulmonology - [place] 175 [facility] [address] [place] [address] Dangelo Malin MD [address] [place] [address] 07/17/2025 1:15 PM EST Office Visit Adult [facility] [address] [place], [place] [phone] Adelfo Fletcher MD [address] [place] [address] documented as of this encounter Procedures Procedure [...] mmol/L LAB CHEMISTRY METHOD 08/21/2024 12:53 PM [facility] Potassium 5.1 3.5 - 5.5 mmol/L LAB CHEMISTRY METHOD 08/21/2024 12:53 PM [facility] Chloride 104 96 - 110 mmol/L LAB CHEMISTRY METHOD 08/21/2024 12:53 PM [facility] CO2 27 21 - 32 mmol/L LAB CHEMISTRY METHOD 08/21/2024 12:53 PM [facility] Anion Gap 6 3 - 11 LAB CHEMISTRY METHOD 08/21/2024 12:53 PM [facility] Glucose 116(H) 70 - 100 mg/dL LAB CHEMISTRY METHOD 08/21/2024 12:53 PM [facility] BUN 28(H) 5 - 25 mg/dL LAB CHEMISTRY METHOD 08/21/2024 12:53 PM [facility] Comment:Results verified by repeat testing Creatinine 0.75 0.70 - 1.30 mg/dL LAB CHEMISTRY METHOD 08/21/2024 12:53 PM [facility] eGFR 95 >=60 mL/min/1. 73m2 LAB CHEMISTRY METHOD 08/21/2024 12:53 PM [facility] Comment:Calculation based on the Chronic Kidney Disease Epidemiology Collaboration (CKD-EPI) equation refit without adjustment for race. BUN/Creatinine Ratio 37.3 LAB CHEMISTRY METHOD 08/21/2024 12:53 PM [facility] Calcium 9.0 8.5 - 10.5 mg/dL LAB CHEMISTRY METHOD 08/21/2024 12:53 PM [facility] AST (SGOT) 33 10 - 42 unit/L LAB CHEMISTRY METHOD 08/21/2024 12:53 PM [facility] ALT (SGPT) 78(H) 10 - 60 unit/L LAB CHEMISTRY METHOD 08/21/2024 12:53 PM [facility] Alkaline Phosphatase 126(H) 42 - 121 unit/L LAB CHEMISTRY METHOD 08/21/2024 12:53 PM [facility] Total Protein 7.1 6.0 - 8.0 g/dL LAB CHEMISTRY METHOD 08/21/2024 12:53 PM [facility] Albumin 3.0(L) 3.2 - 5.0 g/dL LAB CHEMISTRY METHOD 08/21/2024 12:53 PM [facility] Total Bilirubin 0.4 0.0 - 1.4 mg/dL LAB CHEMISTRY METHOD 08/21/2024 12:53 PM [facility] Blood Venous blood specimen / Unknown Venipuncture / Unknown 08/21/2024 6:10 AM EST 08/21/2024 10:12 AM EST us Wilmer Duff MD LAB BLOOD ORDERABLES Final Resul t [facility] [address] [place] [address], * (ABNORMAL) Complete blood count (08/21/2024 6:10 AM EST) [facility] WBC 9.9 4.8 - 10.8 K/mcL LAB HEMETOLOGY METHOD 08/21/2024 10:41 AM [facility] RBC 3.70(L) 4.50 - 5.50 M/mcL LAB HEMETOLOGY METHOD 08/21/2024 10:41 AM [facility] Hemoglobin 10.8(L) 13.5 - 17.5 g/dL LAB HEMETOLOGY METHOD 08/21/2024 10:41 AM [facility] Hematocrit 33.6(L) 42.0 - 54.0 % LAB HEMETOLOGY METHOD 08/21/2024 10:41 AM [facility] MCV 91.6 79.0 - 98.0 FL LAB HEMETOLOGY METHOD 08/21/2024 10:41 AM [facility] MCH 29.4 27.0 - 32.0 pcg LAB HEMETOLOGY METHOD 08/21/2024 10:41 AM [facility] MCHC 32.1 32.0 - 37.0 g/dL LAB HEMETOLOGY METHOD 08/21/2024 10:41 AM [facility] RDW 13.5 11.0 - 15.0 % LAB HEMETOLOGY METHOD 08/21/2024 10:41 AM [facility] Platelets 521(H) 130 - 400 K/mcL LAB HEMETOLOGY METHOD 08/21/2024 10:41 AM [facility] MPV 10.3 7.0 - 11.0 FL LAB HEMETOLOGY METHOD 08/21/2024 10:41 AM [facility] NRBC 0.0 <1.0 % LAB HEMETOLOGY METHOD 08/21/2024 10:41 AM EST [facility] NRBC Absolute 0.00 <0.10 K/[facility] LAB HEMETOLOGY METHOD 08/21/2024 10:41 AM EST [facility] Blood Venous blood specimen / Unknown Venipuncture / Unknown 08/21/2024 6:10 AM EST 08/21/2024 10:12 AM EST us Wilmer Duff MD LAB BLOOD ORDERABLES Final Resul t [facility] [address] [place] [address], documented in this encounter Visit Diagnoses Diagnosis Chronic obstructive pulmonary disease, unspecified (CMS/HCC V24, CMS/HCC V28) documented in this encounter Care Teams Blacktop Spreader Relationship Specialty Start Date End Date Adelfo Fletcher MD [address] [place] [id number] PCP - General Internal Medicine 09/18/24 documented as of this encounter
--- OUTSIDE RECORDS SUMMARY | 2025-06-07 15:25 | XMS_ITS ---
Author Organization [address] Address [address] [place], [place] [address], [place] [address] Phone Care Team Providers Care Front Desk Receptionist Name Role Phone Adelfo Fletcher MD Primary Care Provider Active Problems Problem Noted Date Diagnosed Date Diabetes mellitus ([facility] V24, [facility] V28) Hyperlipidemia [...] Cardiac event monitor; Future Proteinuria 07/31/2024 Stroke ([facility] V24, [facility] V28) 07/31/2024 [...] His MRI of the lumbar spine from [place] on 06/30/23 shows multilevel degenerative changes. At L5-S1 there is disc bulging, facet arthropathy and endplate spurring resulting in severe left foraminal stenosis. He is scheduled for an injection with [facility]. Physical therapy and accupuncture [...] Cardiac event monitor; Future Cerebral infarction, unspecified ([facility] V24, [facility] V28) 12/18/2020 Chronic obstructive pulmonar y disease, unspecified ([facility] V24, [facility] V28) 12/18/2020 Hypertension 12/18/2020 Overview (07/31/2024): Last [...] event monitor; Future Peripheral vascular disease, unspecified ([facility] V24) 12/18/2020 Type 2 diabetes mellitus wit h other diabetic kidney complication ([facility] V24, [facility] V28) 12/18/2020 History of 2019 novel coronavirus disease (COVID -19) 07/31/2020 Overview (07/31/2024): Dx: 06/27/20. Asymptomatic Hemiplegia and hemiparesis f ollowing cerebral infarction affecting left non-dominant side ([facility] V24, [facility] V28) 05/10/2020 Centrilobular emphysema ([facility] V24, [facility] V2 8) 03/20/2020 Obstructive sleep apnea 10/10/2019 Overview (07/31/2024): [facility] Home Sleep Apnea Test: Date [...] 01/13/2019 Malignant neoplasm of sigmoi d colon ([facility] V24, [facility] V28) 06/23/2018 Duodenal ulcer 04/14/2018 Colon cancer ([facility] V24, [facility]/HCC V28) 03/28/20 Overview (07/31/2024): Sigmoid colon cancer, biopsies obtained at colonoscopy 03/24/18. Gallstone 03/08/2018 Overview (07/31/2024): Seen on CT 2016. Positive PPD 03/31/2016 DM (diabetes mellitus), type 2 with peripheral vascular complications ([facility] V24, [facility] V28) 01/08/2016 Current Treatment and Therapy Plans No current plan information found. Past Treatment and Therapy Plans No past plan information found. Lifetime Dose Tracking * Chemical Lifetime Dose Automatic Entry Manual Entr y Radiation (DLP) 80.2 mGy-cm 80.2 mGy-cm 0 mGy-cm CTDIvol 2.85 mGy 2.85 mGy 0 mGy
--- OUTSIDE RECORDS SUMMARY | 2025-06-07 15:25 | XMS_ITS | Clinical Summary ---
Author Organization [facility] Address [address] [place] [address] Care Team Providers Care Anesthesiology Medical Doctor Name Role Phone Adelfo Fletcher MD Primary Care Provider [phone] Allergies No known active allergies Medications Medication [...] age to complete this topic Care Teams Anesthesiology Medical Doctor Relationship Specialty Start Date End Date Adelfo Fletcher MD PCP - General Internal Medicine 06/23/18
--- OUTSIDE RECORDS SUMMARY | 2025-06-07 15:25 | XMS_ITS | Encounter Summary ---
Author Organization [employer] Address [address] [place] [address] Care Team Providers Care Zigzag Machine Operator Name Role Phone Adelfo Fletcher MD Primary Care Provider [phone] Encounter Details Date Type Department Care Team (Late st Contact Info) Description 09/01/2024 Lab Requisition [facility] - Main Lab 299 [facility] [place] [address] Wilmer Duff MD 38 [facility] 204 [place], [address] Type 2 diabetes mellitus without complications [...] 2:30 PM EST Office Visit Pulmonology - [place] 175 [facility] [address] [place] [address] Dangelo Malin MD [address] [address] 07/17/2025 1:15 PM EST Office Visit [facility] [address] [place], [place] [phone] Adelfo Fletcher MD [address] [place] [address] documented as of this encounter Procedures Procedure Name Priority Date/Time Associated Diagnosis Comments COMPLETE BLOOD COUNT Routine 09/01/2024 7:25 AM EST Type 2 diabetes mellitus without complications (CMS/HCC) COMPREHENSIVE METABOLIC PANEL Routine 09/01/2024 7:25 AM EST Type 2 diabetes mellitus without complications ([facility]/HCC) documented in this encounter Results * (ABNORMAL) Comprehensive metabolic panel (09/01/2024 7:25 AM EST) Sodium 139 133 - 145 mmol/L LAB CHEMISTRY METHOD 09/01/2024 11:[address] [facility] Potassium 4.5 3.5 - 5.5 mmol/L LAB CHEMISTRY METHOD 09/01/2024 11:[address] [facility] Chloride 109 96 - 110 mmol/L LAB CHEMISTRY METHOD 09/01/2024 11:[address] [facility] CO2 27 21 - 32 mmol/L LAB CHEMISTRY METHOD 09/01/2024 11:[address] [facility] Anion Gap 3 3 - 11 LAB CHEMISTRY METHOD 09/01/2024 11:[address] [facility] Glucose 103(H) 70 - 100 mg/dL LAB CHEMISTRY METHOD 09/01/2024 11:[address] [facility] BUN 29(H) 5 - 25 mg/dL LAB CHEMISTRY METHOD 09/01/2024 11:[address] [facility] Creatinine 0.76 0.70 - 1.30 mg/dL LAB CHEMISTRY METHOD 09/01/2024 11:[address] [facility] eGFR 95 >=60 mL/min/1. 73m2 LAB CHEMISTRY METHOD 09/01/2024 11:[address] [facility] Comment:Calculation based on the Chronic Kidney Disease Epidemiology Collaboration (CKD-EPI) equation refit without adjustment for race. BUN/Creatinine Ratio 38.2 LAB CHEMISTRY METHOD 09/01/2024 11:[address] [facility] Calcium 9.3 8.5 - 10.5 mg/dL LAB CHEMISTRY METHOD 09/01/2024 11:[address] [facility] AST (SGOT) 20 10 - 42 unit/L LAB CHEMISTRY METHOD 09/01/2024 11:[address] [facility] ALT (SGPT) 26 10 - 60 unit/L LAB CHEMISTRY METHOD 09/01/2024 11:[address] [facility] Alkaline Phosphatase 118 42 - 121 unit/L LAB CHEMISTRY METHOD 09/01/2024 11:[address] [facility] Total Protein 7.1 6.0 - 8.0 g/dL LAB CHEMISTRY METHOD 09/01/2024 11:[address] [facility] Albumin 3.4 3.2 - 5.0 g/dL LAB CHEMISTRY METHOD 09/01/2024 11:[address] [facility] Total Bilirubin 0.5 0.0 - 1.4 mg/dL LAB CHEMISTRY METHOD 09/01/2024 11:[address] [facility] Blood Venous blood specimen / Unknown Venipuncture / Unknown 09/01/2024 7:25 AM EST 09/01/2024 10:03 AM EST us Wilmer Duff MD LAB BLOOD ORDERABLES Final Resul t [facility] [address] [place] [address], [place] [phone] * (ABNORMAL) Complete blood count (09/01/2024 7:25 AM EST) [facility] WBC 6.4 4.8 - 10.8 K/mcL LAB HEMETOLOGY METHOD 09/01/2024 10:[address] [facility] RBC 3.80(L) 4.50 - 5.50 M/mcL LAB HEMETOLOGY METHOD 09/01/2024 10:[address] [facility] Hemoglobin 11.0(L) 13.5 - 17.5 g/dL LAB HEMETOLOGY METHOD 09/01/2024 10:[address] [facility] Hematocrit 34.2(L) 42.0 - 54.0 % LAB HEMETOLOGY METHOD 09/01/2024 10:[address] [facility] MCV 90.0 79.0 - 98.0 FL LAB HEMETOLOGY METHOD 09/01/2024 10:[address] [facility] MCH 28.9 27.0 - 32.0 pcg LAB HEMETOLOGY METHOD 09/01/2024 10:[address] [facility] MCHC 32.2 32.0 - 37.0 g/dL LAB HEMETOLOGY METHOD 09/01/2024 10:[address] [facility] RDW 13.3 11.0 - 15.0 % LAB HEMETOLOGY METHOD 09/01/2024 10:[address] [facility] Platelets 246 130 - 400 K/mcL LAB HEMETOLOGY METHOD 09/01/2024 10:[address] [facility] MPV 11.8(H) 7.0 - 11.0 FL LAB HEMETOLOGY METHOD 09/01/2024 10:[address] [facility] NRBC 0.0 <1.0 % LAB HEMETOLOGY METHOD 09/01/2024 10:[address] [facility] NRBC Absolute 0.00 <0.10 K/mcL LAB HEMETOLOGY METHOD 09/01/2024 10:44 AM EST [facility] Blood Venous blood specimen / Unknown Venipuncture / Unknown 09/01/2024 7:25 AM EST 09/01/2024 10:03 AM EST us Wilmer Duff MD LAB BLOOD ORDERABLES Final Resul t [facility] [address] [place] [address], documented in this encounter Visit Diagnoses Diagnosis Type 2 diabetes mellitus without complications (CMS/HCC V24, CMS/HCC V28) documented in this encounter Care Teams Zigzag Machine Operator Relationship Specialty Start Date End Date Adelfo Fletcher MD [address] [place] [address] PCP - General Internal Medicine 09/18/24 documented as of this encounter
--- OUTSIDE RECORDS SUMMARY | 2025-06-07 15:25 | XMS_ITS | Clinical Summary ---
Author Organization [facility] Address [address] [place] [address] Care Team Providers Care Cut Off Man Name Role Phone Unavailable Primary Care Provider [...] Vaccine (1 of 2) 2001 COVID-19 Vaccine ( - 2024-2 6 season) 2025 07/03/2023, 07/23/2022 RSV Vaccine 60 years and older and Patients (1 - 1-dose 75+ series) 2026 Hepatitis B Vaccines Aged Out No long er eligible based on patient's age to complete this topic
--- OUTSIDE RECORDS SUMMARY | 2025-06-07 15:25 | XMS_ITS | Encounter Summary ---
Author Organization [employer] Address [address] [place] [address] Care Team Providers Care Quality Measurement Specialist Name Role Phone Adelfo Fletcher MD Primary Care Provider [phone] Encounter Details Date Type Department Care Team (Late st Contact Info) Description 08/16/2024 Lab Requisition [facility] - Main Lab 299 [facility] [place] [address] Wilmer Duff MD 38 [facility] 204 [place], [address] Essential (primary) hypertension Social History Tobacco [...] 2:30 PM EST Office Visit Pulmonology - [place] 175 [facility] 200 [place] [address] Dangelo Malin MD 175 [facility] 200 [place] [address] 07/17/2025 1:15 PM EST Office Visit Adult [facility] [address] [place] [address] Adelfo Fletcher MD [address] [place], [place] documented as of this encounter Procedures [...] K/mcL LAB HEMETOLOGY METHOD 08/16/2024 12:15 PM [facility] RBC 3.60(L) 4.50 - 5.50 M/mcL LAB HEMETOLOGY METHOD 08/16/2024 12:15 PM [facility] Hemoglobin 10.5(L) 13.5 - 17.5 g/dL LAB HEMETOLOGY METHOD 08/16/2024 12:15 PM [facility] Hematocrit 31.8(L) 42.0 - 54.0 % LAB HEMETOLOGY METHOD 08/16/2024 12:15 PM [facility] MCV 89.1 79.0 - 98.0 FL LAB HEMETOLOGY METHOD 08/16/2024 12:15 PM [facility] MCH 29.4 27.0 - 32.0 pcg LAB HEMETOLOGY METHOD 08/16/2024 12:15 PM [facility] MCHC 33.0 32.0 - 37.0 g/dL LAB HEMETOLOGY METHOD 08/16/2024 12:15 PM [facility] RDW 13.4 11.0 - 15.0 % LAB HEMETOLOGY METHOD 08/16/2024 12:15 PM [facility] Platelets 355 130 - 400 K/mcL LAB HEMETOLOGY METHOD 08/16/2024 12:15 PM [facility] MPV 10.9 7.0 - 11.0 FL LAB HEMETOLOGY METHOD 08/16/2024 12:15 PM [facility] NRBC 0.3 <1.0 % LAB HEMETOLOGY METHOD 08/16/2024 12:15 PM [facility] NRBC Absolute 0.03 <0.10 K/mcL LAB HEMETOLOGY METHOD 08/16/2024 12:15 PM [facility] Neutrophils Relative 65.8 % LAB HEMETOLOGY METHOD 08/16/2024 12:15 PM [facility] Lymphocytes Relative 18.6 % LAB HEMETOLOGY METHOD 08/16/2024 12:15 PM [facility] Monocytes Relative 11.1 % LAB HEMETOLOGY METHOD 08/16/2024 12:15 PM [facility] Eosinophils Relative 3.3 % LAB HEMETOLOGY METHOD 08/16/2024 12:15 PM [facility] Basophils Relative 0.6 % LAB HEMETOLOGY METHOD 08/16/2024 12:15 PM [facility] Immature Granulocytes Relative 0.6 % LAB HEMETOLOGY METHOD 08/16/2024 12:15 PM [facility] Neutrophils Absolute 6.54 1.50 - 7.00 K/mcL LAB HEMETOLOGY METHOD 08/16/2024 12:15 PM EST [facility] Lymphocytes Absolute 1.85 1.00 - 5.00 K/[facility] LAB HEMETOLOGY METHOD 08/16/2024 12:15 PM EST [facility] Monocytes Absolute 1.10(H) 0.20 - 1.00 K/[facility] LAB HEMETOLOGY METHOD 08/16/2024 12:15 PM EST [facility] Eosinophils Absolute 0.33 0.00 - 0.50 K/[facility] LAB HEMETOLOGY METHOD 08/16/2024 12:15 PM EST [facility] Basophils Absolute 0.06 0.00 - 0.20 K/[facility] LAB HEMETOLOGY METHOD 08/16/2024 12:15 PM [facility] Immature Granulocytes Absolute 0.06(H) 0.00 - 0.03 K/[facility] LAB HEMETOLOGY METHOD 08/16/2024 12:15 PM EST [facility] Blood Venous blood specimen / Unknown Venipuncture / Unknown 08/16/2024 6:30 AM EST 08/16/2024 10:33 AM EST us Wilmer Duff MD LAB BLOOD ORDERABLES Final Resul t [facility] [address] [place] [address], * (ABNORMAL) Hemoglobin A1c (08/16/2024 6:30 AM EST) Hemoglobin A1C 6.7(H) <6.5 % LAB CHEMISTRY METHOD 08/16/2024 2:13 PM EST [facility] Mean Bld Glu Estim. 146 mg/dL LAB CHEMISTRY METHOD 08/16/2024 2:13 PM EST [facility] Blood Venous blood specimen / Unknown Venipuncture / Unknown 08/16/2024 6:30 AM EST 08/16/2024 10:33 AM EST us Wilmer Duff MD LAB BLOOD ORDERABLES Final Resul t [facility] [address] [place] [address], [place] [phone] * (ABNORMAL) Comprehensive metabolic panel (08/16/2024 6:30 AM EST) Sodium 135 133 - 145 mmol/L LAB CHEMISTRY METHOD 08/16/2024 12:37 PM [facility] Potassium 5.4 3.5 - 5.5 mmol/L LAB CHEMISTRY METHOD 08/16/2024 12:37 PM [facility] Chloride 103 96 - 110 mmol/L LAB CHEMISTRY METHOD 08/16/2024 12:37 PM [facility] CO2 25 21 - 32 mmol/L LAB CHEMISTRY METHOD 08/16/2024 12:37 PM [facility] Anion Gap 7 3 - 11 LAB CHEMISTRY METHOD 08/16/2024 12:37 PM [facility] Glucose 155(H) 70 - 100 mg/dL LAB CHEMISTRY METHOD 08/16/2024 12:37 PM [facility] BUN 16 5 - 25 mg/dL LAB CHEMISTRY METHOD 08/16/2024 12:37 PM [facility] Creatinine 0.73 0.70 - 1.30 mg/dL LAB CHEMISTRY METHOD 08/16/2024 12:37 PM [facility] eGFR 96 >=60 mL/min/1. 73m2 LAB CHEMISTRY METHOD 08/16/2024 12:37 PM [facility] Comment:Calculation based on the Chronic Kidney Disease Epidemiology Collaboration (CKD-EPI) equation refit without adjustment for race. BUN/Creatinine Ratio 21.9 LAB CHEMISTRY METHOD 08/16/2024 12:37 PM [facility] Calcium 9.1 8.5 - 10.5 mg/dL LAB CHEMISTRY METHOD 08/16/2024 12:37 PM [facility] AST (SGOT) 82(H) 10 - 42 unit/L LAB CHEMISTRY METHOD 08/16/2024 12:37 PM [facility] ALT (SGPT) 163(H) 10 - 60 unit/L LAB CHEMISTRY METHOD 08/16/2024 12:37 PM [facility] Alkaline Phosphatase 132(H) 42 - 121 unit/L LAB CHEMISTRY METHOD 08/16/2024 12:37 PM [facility] Total Protein 6.9 6.0 - 8.0 g/dL LAB CHEMISTRY METHOD 08/16/2024 12:37 PM [facility] Albumin 2.8(L) 3.2 - 5.0 g/dL LAB CHEMISTRY METHOD 08/16/2024 12:37 PM [facility] Total Bilirubin 0.4 0.0 - 1.4 mg/dL LAB CHEMISTRY METHOD 08/16/2024 12:37 PM [facility] Blood Venous blood specimen / Unknown Venipuncture / Unknown 08/16/2024 6:30 AM EST 08/16/2024 10:33 AM EST us Wilmer Duff MD LAB BLOOD ORDERABLES Final Resul t [facility] [address] [place] [address], documented in this encounter Visit Diagnoses Diagnosis Essential (primary) hypertension Unspecified essential hypertension documented in this encounter Care Teams Quality Measurement Specialist Relationship Specialty Start Date End Date [place] [address] PCP - General Internal Medicine 09/18/24 documented as of this encounter
== END 2025-06-07 14:08 | disposition home or self-care (01) ==
LOC: HO.HVS 13:46
PROVIDERS: PCP Internal Medicine; Visit Provider Surgery Vascular Surgery
DX: I73.9 Peripheral vascular disease, unspecified (principal)
CPT/HCPCS: 99214

== ENCOUNTER → 2025-06-07 13:45 | Outpatient (BNVA) | payer OTHER, SELFPAY | PROVIDERS: PCP Internal Medicine; Visit Provider Surgery Vascular Surgery | DX: I73.9 Peripheral vascular disease, unspecified (principal) | CPT/HCPCS: 99212 ==